=== PATIENT | female | born 1940 | race Caucasian/White ===

== ENCOUNTER → 2017-08-25 08:06 | Outpatient (CLI) | payer OTHER, SELFPAY | PROVIDERS: PCP Internal Medicine; Visit Provider Internal Medicine | DX: E03.9 Hypothyroidism, unspecified (principal); E78.2 Mixed hyperlipidemia; I10 Essential (primary) hypertension | CPT/HCPCS: 36415; 80053; 80061; 84439; 84443 ==

== ENCOUNTER 2017-09-18 07:59 | Day surgery (SDC) | payer OTHER, SELFPAY ==
[2017-08-25 10:04] LABS: Alanine Aminotransferase 29 IU/L (9-52); Albumin Globulin Ratio 1.5 (1.0-2.8); Alkaline Phosphatase 101 U/L (38-126); Aspartate Aminotransferase 30 IU/L (14-36); BUN Creatinine Ratio 27.1 (6-22); Bilirubin Total 0.5 mg/dL (0.2-1.3); Blood Urea Nitrogen 19 mg/dL (7-17); Calcium 9.7 mg/dL (8.4-10.2); Carbon Dioxide 29 mmol/L (22-32); Chloride 98 mmol/L (98-107); Cholesterol 196 mg/dL (140-199); Estimated Glomerular Filt Rate > 60.0 mL/min (>60); Globulin 2.6 g/dL (1.7-4.1); Glucose 96 mg/dL (80-110); HDL Cholesterol 60 mg/dL (40-60); HEMOLYSIS < 15 (0-50); LDL Cholesterol Calculated 117 mg/dL (<100); Potassium 4.2 mmol/L (3.4-5.1); Sodium 137 mmol/L (137-145); Total Protein 6.6 g/dL (6.3-8.2); Triglycerides 97 mg/dL (35-150)
[2017-08-25 10:37] LABS: Thyroid Stimulating Hormone 0.53 uIU/mL (0.47-4.68)
--- NOTE | 2017-09-18 | PATH_ITS ---
[facility] Accession Number: [id number] . 01 Material submitted: . SIGMOID POLYP AT 20 . 02 Diagnosis: Sigmoid Colon Polyp At 20 CM: Hyperplastic polyp. I/09/19/2017 . 02 Electronically signed: . Mayank Portillo MD, PhD, Pathologist NPI- [id number] . 01 Gross description: . Received in one formalin-filled container, labeled with the patient's name, labeled sigmoid polyp at 20, are four 0.1-0.3 cm portions of tissue, entirely submitted in one cassette. ([id number]) /FRR . 02 Pathologist provided ICD-10: K63.5 . 02 CPT . 933262 Performed at: [address] [facility] [address] [place] [address], [place], [place] [id number] MD Jeffery Hernandes MD Phone: [phone] Performed at: 02 [facility] [address] [place], [place] [id number] MD Kike Wise MD Phone: [phone]
[2017-09-18 08:51] VITALS: BP 139/63; PULSE 67; RESP 15; TEMP 36.1; O2SAT 95
[2017-09-18] MEDS: SODIUM CHLORIDE 0.9% 1,000 ML 21 ML IV (08:53)
--- NOTE | 2017-09-18 09:08 | PM.HP.1 ---
History of Present Illness Date Patient Seen: 09/18/17 Time Patient Seen: 09:08 Chief complaint: colonoscopy 20118 Narrative: 77-year-old female who recently presented to her family physician for overall healthcare. She has never had any type of colorectal screening examination. She therefore completed a FIT test which returned positive. She denies any gastrointestinal symptoms. No nausea, vomiting, loss of appetite, unexplained weight loss, abdominal pain, change in bowel habits, diarrhea, constipation, melena, hematochezia, or bright red blood per rectum. Patient History Medical History Acquired hypothyroidism (Chronic) Mixed hyperlipidemia (Chronic) Essential hypertension (Chronic) Hyperlipidemia (Chronic) Hypertension (Chronic) Hypothyroidism (Chronic) Surgical History H/O ventral hernia repair (Acute) Family & Social History Family History: Reviewed 09/18/17 by Tariq Lynne MD Social History: household members spouse Tobacco & Substance use: Smoking Status Former smoker Med Home Medications Medication Instructions Recorded Confirmed Type ASPIRIN (#ASPIRIN) 325 mg PO Q DAY #0 01/27/11 09/18/17 History GLUCOSAMINE/CHONDROITIN SULF A 1 cap PO Q DAY #0 01/27/11 09/18/17 History (Glucosamine-Chondroitin Cap) multivitamin [Multiple Vitamins] 1 tab PO QDAY #0 01/27/11 09/18/17 History [RAJANI-C] 500 mg PO QDAY #0 03/17/17 09/18/17 History amlodipine 5 mg tablet 5 mg PO QDAY #90 tab 08/28/17 09/18/17 Rx hydrochlorothiazide 25 mg tablet 25 mg PO DAILY #90 tab 08/28/17 09/18/17 Rx levothyroxine 137 mcg tablet 137 mcg PO QDAY #90 tab 08/28/17 09/18/17 Rx lisinopril 40 mg tablet 40 mg PO Q DAY #90 tab 08/28/17 09/18/17 Rx omeprazole 20 mg capsule,delayed 20 mg PO DAILY 08/28/17 09/18/17 History release meclizine 25 mg PO DAILY PRN 09/18/17 09/18/17 History Allergies Allergy/AdvReac Type Severity Reaction Status Date / Time Penicillins Allergy Mild FACE Verified 08/28/17 09:53 SWELLING ranitidine [RANITIDINE] AdvReac Intermediate abd Verified 08/28/17 09:53 pain/anorexia Review of Systems Review of Systems Review of systems as documented on June 15, 2017 in her original history physical examination have not changed. All systems reviewed & are unremarkable except as noted in HPI and below Exam Vital Signs (past 8 hours): - 09/18/17 08:51 Temperature 96.9 F L Pulse Rate 67 Respiratory Rate 15 Blood Pressure 139/63 H Pulse Oximetry 95 Oxygen Delivery Method Room Air Narrative Exam Narrative: Well-nourished well-developed female in no acute distress lying comfortably in the gurney. Alert orient x3. Neck is supple Regular rate rhythm. Chest clear to auscultation. Abdomen soft, nondistended, nontender, no masses Extremities show no clubbing or cyanosis Objective Labs Result Diagrams: 08/25/17 09:02 Labs: No recent radiographic studies for review Assessment & Plan (1) Positive FIT (fecal immunochemical test): Current visit: Yes Status: Acute Plan: Assessment/Plan Narrative: 77-year-old female with recent positive stool Hemoccult test. She has never had any type of colorectal screening examination as well. Colonoscopy is again recommended. Technical details of the procedure were discussed. Risks, benefits, alternatives were explained. Risks including but not limited to sedation, aspiration, bleeding, pain, missed lesion, incomplete examination, need for further radiographic studies, colonic perforation, need for major abdominal surgery, and all attendant risks of major surgery were explained in detail. All questions were answered to her satisfaction, and she voiced understanding. Consent was placed on the chart. We will proceed with colonoscopy as above.
--- NOTE | 2017-09-18 09:12 | PM.PREOP ---
Pre-operative Note Interval Note Pre-op Check: History & Physical Reviewed by Physician, Exam Performed and History & Physical exam performed today H&P completed within 30 days and has changed as indicated here:: History physical examination performed again today. No changes since her initial exam of June 15, 2017. Updated H and P on chart today. Proceed with colonoscopy as planned. ASA Class (for procedural sedation): II
[2017-09-18] MEDS: fentaNYL 250 MCG/5 ML INJ IV (09:25)
[2017-09-18] MEDS: MIDAZOLAM 5 MG/5 ML VIAL IV (09:25)
--- NOTE | 2017-09-18 09:43 | PM.OP.ENDO ---
Operative Date/Time/Diagnoses - Date of procedure: 09/18/17 Time of procedure: 09:43 Pre-op diagnosis: Hemoccult-positive stool Post-op diagnosis: other (Diverticulosis and single sigmoid polyp) Procedure & Clinicians Study performed: 1. Sedation per surgeon 2. Colonoscopy with cold forceps polypectomy Same procedure as scheduled: Yes Indications: 77-year-old female who recently presented with Hemoccult-positive test. She has never had any type of colorectal examination including endoscopy. Therefore colonoscopy is currently recommended. Surgeon: Tariq Lynne Procedure Notes SCOAP/Timeout: Yes Procedure in detail: After obtaining informed consent, the patient was brought to the GI suite and placed in the left lateral decubitus position on the examination table. After placement of appropriate monitors, the patient was given incremental doses of Versed and Fentanyl until an appropriate level of sedation was achieved. A time out was held per SCOAP protocol. A digital rectal examination was performed and did not reveal any masses or obstructing lesions. The colonoscope was gently passed into the patient's anus and the entire colon navigated to the level of the cecum with minimal difficulty. Once in the cecum, the scope was withdrawn being sure to go before and beyond all mucosal folds and prominences and get an excellent examination. The findings are noted above. At the level of the rectal vault, the scope was retroflexed and the internal anal canal was examined. The scope was straightened and air aspirated from the colon. The instrument was removed from the patient's body and the procedure was concluded. The patient was allowed to awaken from sedation without difficulty and taken to the post-anesthesia care unit in good condition. Scope withdrawal time: 9:26 min Sedation minutes: 20 Findings: diverticulosis and polyp (Sigmoid colon at 20 cm) Specimen(s): other (Sigmoid colon polyp at 20 cm) Complications: none Recommendations: High fiber diet, Will call with biopsy results and Other recommendation (Follow-up endoscopy, if any, pending biopsy results) Plan for aftercare: 1. Discharge to home Follow up: as needed Disposition: PACU
[2017-09-18 09:52] VITALS: BP 95/59; PULSE 70; RESP 15; TEMP 36.2; O2SAT 96
[2017-09-18 10:16] VITALS: BP 137/73; PULSE 64; RESP 16; TEMP 36.2; O2SAT 96
== END 2017-09-18 10:15 | disposition home or self-care (01) ==
PROVIDERS: Family Provider Internal Medicine; PCP Internal Medicine; Visit Provider Surgery
PROC: 0DJD8ZZ Inspection of Lower Intestinal Tract, Via Natural or Artificial Opening Endoscopic (ICD-10-PCS; CPT 45378; principal; 2017-09-18 09:45)
DX: R19.5 Other fecal abnormalities (principal); K57.30 Diverticulosis of large intestine without perforation or abscess without bleeding; D12.5 Benign neoplasm of sigmoid colon; E03.9 Hypothyroidism, unspecified; E78.5 Hyperlipidemia, unspecified; I10 Essential (primary) hypertension; Z87.891 Personal history of nicotine dependence
CPT/HCPCS: 45380; 36415; 80053; 80061; 84439; 84443; 99152; J2250; J3010

== ENCOUNTER → 2017-12-29 07:50 | Outpatient (CLI) | payer OTHER, SELFPAY ==
[2017-12-29 08:29] LABS: Alanine Aminotransferase 31 IU/L (9-52); Albumin 4.3 g/dL (3.5-5.0); Albumin Globulin Ratio 1.8 (1.0-2.8); Alkaline Phosphatase 90 U/L (38-126); Aspartate Aminotransferase 31 IU/L (14-36); BUN Creatinine Ratio 28.8 (6-22); Bilirubin Total 0.6 mg/dL (0.2-1.3); Blood Urea Nitrogen 23 mg/dL (7-17); Calcium 9.7 mg/dL (8.4-10.2); Carbon Dioxide 28 mmol/L (22-32); Chloride 101 mmol/L (98-107); Cholesterol 210 mg/dL (140-199); Estimated Glomerular Filt Rate > 60.0 mL/min (>60); Globulin 2.4 g/dL (1.7-4.1); Glucose 100 mg/dL (80-110); HDL Cholesterol 72 mg/dL (40-60); HEMOLYSIS < 15 (0-50); LDL Cholesterol Calculated 122 mg/dL (<100); Sodium 138 mmol/L (137-145); Total Protein 6.7 g/dL (6.3-8.2); Triglycerides 80 mg/dL (35-150)
[2017-12-29 08:44] LABS: Free T4, Direct Thyroxine 1.31 ng/dL (0.78-2.19)
[2017-12-29 08:58] LABS: Thyroid Stimulating Hormone 1.92 uIU/mL (0.47-4.68)
== END ==
PROVIDERS: PCP Internal Medicine; Visit Provider Internal Medicine
DX: E03.9 Hypothyroidism, unspecified (principal); E78.2 Mixed hyperlipidemia; I10 Essential (primary) hypertension
CPT/HCPCS: 36415; 80053; 80061; 84439; 84443

== ENCOUNTER → 2018-03-11 09:58 | Outpatient (CLI) | payer OTHER, SELFPAY ==
--- NOTE | 2018-03-11 | DI.RAD.S_ITS ---
PROCEDURE: XR CERVICAL SPINE 2V OR 3V INDICATIONS: MILD NECK PAIN, PARATHESIA left arm TECHNIQUE: 3 view(s) of the cervical spine were acquired. COMPARISON: None. FINDINGS: Bones: There is straightening of normal cervical lordosis. No acute compression fracture or traumatic spondylolisthesis. Degenerative disc disease in bilateral uncinate hypertrophic changes wall lumbar spine is seen more prominent at C4-5 and C5-6 levels. The lateral masses of C1 appear intact on the odontoid view. No suspicious bony lesions. Soft tissues: No prevertebral soft tissue swelling. IMPRESSION: No acute compression fracture or traumatic spondylolisthesis. Degenerative disc disease throughout cervical spine more prominent at C4-5 and C5-6 levels. Dictated by: Samuel Cox M.D. on 03/11/2018 at 11:09 Approved by: Samuel Cox M.D. on 03/11/2018 at 11:10
== END ==
PROVIDERS: Family Provider Internal Medicine; PCP Internal Medicine; Visit Provider Chiropractor
DX: M50.321 Other cervical disc degeneration at C4-C5 level (principal); R20.2 Paresthesia of skin
CPT/HCPCS: 72040

== ENCOUNTER → 2018-08-06 07:39 | Outpatient (CLI) | payer OTHER, SELFPAY ==
[2018-08-06 10:04] LABS: Alanine Aminotransferase 17 IU/L (9-52); Albumin 3.8 g/dL (3.5-5.0); Albumin Globulin Ratio 1.5 (1.0-2.8); Alkaline Phosphatase 85 U/L (38-126); Aspartate Aminotransferase 28 IU/L (14-36); BUN Creatinine Ratio 38.9 (6-22); Bilirubin Total 0.4 mg/dL (0.2-1.3); Blood Urea Nitrogen 35 mg/dL (7-17); Calcium 9.2 mg/dL (8.4-10.2); Carbon Dioxide 26 mmol/L (22-32); Chloride 99 mmol/L (98-107); Cholesterol 216 mg/dL (140-199); Estimated Glomerular Filt Rate > 60.0 mL/min (>60); Globulin 2.6 g/dL (1.7-4.1); Glucose 86 mg/dL (80-110); HDL Cholesterol 63 mg/dL (40-60); HEMOLYSIS < 15 (0-50); LDL Cholesterol Calculated 136 mg/dL (<100); Potassium 4.3 mmol/L (3.4-5.1); Sodium 135 mmol/L (137-145); Total Protein 6.4 g/dL (6.3-8.2); Triglycerides 85 mg/dL (35-150)
[2018-08-06 10:17] LABS: Free T4, Direct Thyroxine 1.11 ng/dL (0.78-2.19)
[2018-08-06 10:31] LABS: Thyroid Stimulating Hormone 8.11 uIU/mL (0.47-4.68)
== END ==
PROVIDERS: PCP Internal Medicine; Visit Provider Internal Medicine
DX: E03.9 Hypothyroidism, unspecified (principal); E78.2 Mixed hyperlipidemia; I10 Essential (primary) hypertension
CPT/HCPCS: 36415; 80053; 80061; 84439; 84443

== ENCOUNTER → 2019-04-04 08:16 | Outpatient (CLI) | payer OTHER, SELFPAY ==
[2019-04-04 10:23] LABS: Alanine Aminotransferase 21 IU/L (<35); Albumin 4.2 g/dL (3.5-5.0); Albumin Globulin Ratio 1.9 (1.0-2.8); Alkaline Phosphatase 91 U/L (38-126); Aspartate Aminotransferase 34 IU/L (14-36); BUN Creatinine Ratio 36.3 (6-22); Bilirubin Total 0.5 mg/dL (0.2-1.3); Blood Urea Nitrogen 29 mg/dL (7-17); Calcium 10.1 mg/dL (8.4-10.2); Carbon Dioxide 27 mmol/L (22-32); Chloride 95 mmol/L (98-107); Cholesterol 219 mg/dL (140-199); Estimated Glomerular Filt Rate > 60.0 mL/min (>60); Globulin 2.2 g/dL (1.7-4.1); Glucose 98 mg/dL (80-110); HDL Cholesterol 57 mg/dL (40-60); HEMOLYSIS < 15 (0-50); LDL Cholesterol Calculated 140 mg/dL (<100); Potassium 4.6 mmol/L (3.4-5.1); Sodium 132 mmol/L (137-145); Total Protein 6.4 g/dL (6.3-8.2); Triglycerides 108 mg/dL (35-150)
[2019-04-04 10:36] LABS: Free T4, Direct Thyroxine 1.37 ng/dL (0.78-2.19)
[2019-04-04 10:49] LABS: Thyroid Stimulating Hormone 3.69 uIU/mL (0.47-4.68)
== END ==
PROVIDERS: PCP Internal Medicine; Visit Provider Internal Medicine
DX: E03.9 Hypothyroidism, unspecified (principal); E78.2 Mixed hyperlipidemia; I10 Essential (primary) hypertension
CPT/HCPCS: 36415; 80053; 80061; 84439; 84443

== ENCOUNTER → 2019-05-15 09:23 | Outpatient (CLI) | payer OTHER, SELFPAY ==
--- NOTE | 2019-05-15 09:24 | DI.RAD.S_ITS ---
PROCEDURE: XR WRIST RT MIN 3V INDICATIONS: right wrist pain and swelling TECHNIQUE: 4 views of the wrist were acquired. COMPARISON: None. FINDINGS: Bones: No fractures or dislocations. No suspicious bony lesions. Scaphoid view: No trauma to scaphoid is found but degenerative osteoarthritic change is relatively prominent as the scaphoid articulates against the base of the trapezium. Soft tissues: No suspicious soft tissue calcifications. IMPRESSION: No trauma found, mild osteoarthritic change but no acute disease. Dictated by: Toni An M.D. on 05/15/2019 at 10:39 Approved by: Toni An M.D. on 05/15/2019 at 10:40
== END ==
PROVIDERS: PCP Internal Medicine; Referring Provider Nurse Practitioner Family; Visit Provider Nurse Practitioner Family
DX: M25.531 Pain in right wrist (principal); M25.431 Effusion, right wrist
CPT/HCPCS: 73110

== ENCOUNTER → 2020-01-03 11:47 | Outpatient (CLI) | payer MEDICARE, SELFPAY ==
[2020-01-03 12:13] LABS: Add Manual Diff / Slide Review NO; Basophils Absolute Auto 100 /uL (0-100); Eosinophils Absolute Auto 600 /uL (0-450); Eosinophils Percent Auto 8.1 % (2-4); Hematocrit 40.3 % (36-46); Hemoglobin 13.5 g/dL (12.0-16.0); Lymphocytes Absolute Auto 1500 /uL (1100-4500); Lymphocytes Percent Auto 20.1 % (25-40); Mean Corpuscular HGB Conc 33.4 % (30-36); Mean Corpuscular Volume 92.7 fL (80-100); Monocytes Absolute Auto 700 /uL (0-900); Monocytes Percent Auto 9.4 % (3-14); Neutrophils Absolute Auto 4700 /uL (1500-7000); Neutrophils Percent Auto 61.4 % (50-75); Platelet Count 347 X10^3/uL (150-400); Red Blood Cell Count 4.35 X10^6/uL (4.0-5.2); Red Cell Distribution Width 13.8 % (11.6-14.8); White Blood Cell Count 7.6 X10^3/uL (4.5-11.0)
[2020-01-03 12:27] LABS: Erythrocyte Sedimentation Rate 11 MM/HR (0-20)
[2020-01-03 14:02] LABS: Alanine Aminotransferase 20 IU/L (<35); Albumin 4.4 g/dL (3.5-5.0); Albumin Globulin Ratio 1.8 (1.0-2.8); Alkaline Phosphatase 117 U/L (38-126); Aspartate Aminotransferase 34 IU/L (14-36); BUN Creatinine Ratio 23.7 (6-22); Bilirubin Total 0.5 mg/dL (0.2-1.3); Blood Urea Nitrogen 14 mg/dL (7-17); C-Reactive Protein Quant 1.4 mg/dL (<1.0); Calcium 9.9 mg/dL (8.4-10.2); Carbon Dioxide 25 mmol/L (22-32); Chloride 92 mmol/L (98-107); Estimated Glomerular Filt Rate > 60.0 mL/min (>60); Globulin 2.5 g/dL (1.7-4.1); Glucose 93 mg/dL (80-110); HEMOLYSIS < 15 (0-50); Potassium 4.5 mmol/L (3.4-5.1); Sodium 128 mmol/L (137-145); Total Protein 6.9 g/dL (6.3-8.2)
[2020-01-03 14:14] LABS: Free T4, Direct Thyroxine 1.25 ng/dL (0.78-2.19)
[2020-01-03 14:28] LABS: Thyroid Stimulating Hormone 6.71 uIU/mL (0.47-4.68)
== END ==
PROVIDERS: PCP Internal Medicine; Referring Provider Internal Medicine; Visit Provider Internal Medicine
DX: E03.9 Hypothyroidism, unspecified (principal); E78.2 Mixed hyperlipidemia; I10 Essential (primary) hypertension; R21 Rash and other nonspecific skin eruption
CPT/HCPCS: 36415; 80053; 84439; 84443; 85025; 85651; 86140

== ENCOUNTER → 2020-07-28 15:01 | Outpatient (CLI) | payer OTHER, SELFPAY ==
[2020-07-28 16:44] LABS: Add Manual Diff / Slide Review NO; Basophils Absolute Auto 100 /uL (0-100); Basophils Percent Auto 1.2 % (0-2); Eosinophils Absolute Auto 400 /uL (0-450); Eosinophils Percent Auto 6.9 % (2-4); Hematocrit 38.4 % (36-46); Hemoglobin 13.1 g/dL (12.0-16.0); Lymphocytes Absolute Auto 1000 /uL (1100-4500); Lymphocytes Percent Auto 18.6 % (25-40); Mean Corpuscular HGB Conc 34.2 % (30-36); Mean Corpuscular Hemoglobin 31.8 PG (26-34); Mean Corpuscular Volume 92.9 fL (80-100); Monocytes Absolute Auto 700 /uL (0-900); Monocytes Percent Auto 11.8 % (3-14); Neutrophils Absolute Auto 3400 /uL (1500-7000); Neutrophils Percent Auto 61.5 % (50-75); Platelet Count 341 X10^3/uL (150-400); Red Blood Cell Count 4.13 X10^6/uL (4.0-5.2); Red Cell Distribution Width 13.5 % (11.6-14.8); White Blood Cell Count 5.6 X10^3/uL (4.5-11.0)
[2020-07-28 17:18] LABS: Alanine Aminotransferase 16 IU/L (<35); Albumin Globulin Ratio 1.7 (1.0-2.8); Alkaline Phosphatase 110 U/L (38-126); Aspartate Aminotransferase 32 IU/L (14-36); Bilirubin Total 0.3 mg/dL (0.2-1.3); Blood Urea Nitrogen 22 mg/dL (7-17); Calcium 9.9 mg/dL (8.4-10.2); Carbon Dioxide 27 mmol/L (22-32); Chloride 95 mmol/L (98-107); Estimated Glomerular Filt Rate > 60.0 mL/min (>60); Globulin 2.4 g/dL (1.7-4.1); Glucose 109 mg/dL (80-110); HEMOLYSIS < 15 (0-50); Potassium 4.2 mmol/L (3.4-5.1); Sodium 131 mmol/L (137-145); Total Protein 6.4 g/dL (6.3-8.2)
[2020-07-29 16:36] LABS: ANA Screen, IFA Negative (.)
== END ==
PROVIDERS: PCP Internal Medicine; Referring Provider Physician Assistant; Visit Provider Physician Assistant
DX: L30.9 Dermatitis, unspecified (principal)
CPT/HCPCS: 36415; 80053; 85025; 86038

== ENCOUNTER 2020-09-30 19:49 | Emergency (ER) | payer OTHER, SELFPAY ==
[2020-09-30 19:57] VITALS: BP 148/102; PULSE 87; RESP 20; TEMP 36.7; O2SAT 96
--- NOTE | 2020-09-30 20:00 | DI.RAD.S_ITS ---
PROCEDURE: XR WRIST LT MIN 3V INDICATIONS: fall TECHNIQUE: 4 views of the wrist were acquired. COMPARISON: [facility], CR, XR WRIST RT MIN 3V, 05/15/2019, 9:21. FINDINGS: Bones: Distal radial metaphyseal fracture, with intra-articular extension. 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 Ulnar styloid fracture also noted. Soft tissues: Associated soft tissue swelling. IMPRESSION: Distal radial metaphyseal fracture, with intra-articular extension. Ulnar styloid fracture. Dictated by: Deacon Easley M.D. on 09/30/2020 at 21:11 Approved by: Deacon aEsley M.D. on 09/30/2020 at 21:13
--- NOTE | 2020-09-30 21:36 | ED_ITS ---
HPI - Fall General Chief Complaint: Fall Stated Complaint: fall, left sided injuries Time Seen by Provider: 09/30/20 20:39 Source: patient Mode of arrival: Ambulatory History of Present Illness HPI Narrative: Patient is a 80-year-old female here for evaluation of injuries that she sustained that she slipped off of her porch earlier today and landed in her garden. Since that time she has had pain in her left wrist. She has been icing her left wrist however she continues to have some bruising. She also has some left-sided flank discomfort. She also sustained a cut to her head. There was no loss of consciousness. She is not on anticoagulation. She denies any neck pain. Denies any lower extremity discomfort. Related Data Home Medications Medication Instructions Recorded Confirmed ASPIRIN (#ASPIRIN) 325 mg PO Q DAY #0 01/27/11 01/03/20 GLUCOSAMINE/CHONDROITIN SULF A 1 cap PO Q DAY #0 01/27/11 01/03/20 (Glucosamine-Chondroitin Cap) multivitamin (Multiple Vitamins) 1 tab PO QDAY #0 01/27/11 01/03/20 [RAJANI-C] 500 mg PO QDAY #0 03/17/17 01/03/20 omeprazole 20 mg capsule,delayed 20 mg PO DAILY 08/28/17 01/03/20 release Previous Rx's Medication Instructions Recorded naproxen 500 mg tablet 500 mg PO BID #30 tab 05/15/19 amlodipine 5 mg tablet (Norvasc) 5 mg PO DAILY #90 tab 05/01/20 hydrochlorothiazide 25 mg tablet 25 mg PO DAILY #90 tab 05/01/20 levothyroxine 137 mcg tablet 137 mcg PO DAILY #90 tab 05/01/20 lisinopril 40 mg tablet 40 mg PO Q DAY #90 tab 05/01/20 prednisone 20 mg tablet See Rx Instructions PO .COMPLEX #8 07/06/20 tab Allergies Allergy/AdvReac Type Severity Reaction Status Date / Time Penicillins Allergy Mild FACE Verified 01/03/20 11:31 SWELLING ranitidine [RANITIDINE] AdvReac Intermediate abd Verified 01/03/20 11:31 pain/anorexia Review of Systems Constitutional Constitutional: Denies headache(s) Eyes Eyes: Reports system reviewed and no additional complaints, except as documented ENT Ears, Nose, Mouth, and Throat: Denies headache(s) Cardiovascular Cardiovascular: Reports system reviewed and no additional complaints, except as documented Respiratory Respiratory: Reports system reviewed and no additional complaints, except as documented Gastrointestinal Gastrointestinal: Reports system reviewed and no additional complaints, except as documented Genitourinary Genitourinary: Reports system reviewed and no additional complaints, except as documented Musculoskeletal Musculoskeletal: Reports as per HPI Integumentary/Breasts Comments: Cut to head Neurologic Neurologic: Denies headache(s) Psychiatric Psychiatric: Reports system reviewed and no additional complaints, except as documented Hematologic/Lymphatic On Anticoagulants: No Allergic/Immunologic Allergic/Immunologic: Reports system reviewed and no additional complaints, except as documented Patient History Medical History Acquired hypothyroidism Essential hypertension GERD (gastroesophageal reflux disease) Hyperlipidemia Hypertension Hypothyroidism Mixed hyperlipidemia Surgical History H/O ventral hernia repair Social History marital status: number of children: 3 household members: spouse lives independently: Yes caregiver/support person: No housing: house pets and animals: No education level: high school occupational status: other (Retired) 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, [employer] jair/alevism: [employer] leisure activities: art (Theater) and other (Gardening, Beach) Smoking Status: Former smoker Tobacco: How many years used: 10 Smokeless tobacco user: other (Cigarettes) quit status: quit date established (~1969) second hand exposure: No alcohol intake: current (Very Seldom, glass of wine once in awhile.) substance use type: does not use Smoking Status: Former smoker Exam Initial Vital Signs Initial Vital Signs: Vital Signs Temperature 98.1 F 09/30/20 19:57 Pulse Rate 87 09/30/20 19:57 Respiratory Rate 20 09/30/20 19:57 Blood Pressure 148/102 H 09/30/20 19:57 Pulse Oximetry 96 09/30/20 19:57 Const General: cooperative, healthy appearing, comfortable, well developed and well groomed [facility] Head: laceration (3 cm laceration left parietal/occipital region) Eyes General: appearance normal, both eyes and all related structures Chest Chest: normal inspection of the chest and No tenderness Resp Auscultation: clear to auscultation bilaterally Cardio Rate: regular rate Rhythm: regular rhythm Pulses: radial pulses present on the left GI Palpation: soft, No firm and No tender Back/Spine/Pelvis Cervical Spine: No cervical spinal tenderness Skin Other: Contusion left flank Neuro General: patient alert, patient awake and patient oriented x3 Extrem General: capillary refill normal Other: Bilateral lower extremities unremarkable. Patient has tenderness throughout the left wrist. Left hand is unremarkable. Psych Appearance: grossly normal and well kempt Procedures FAST Exam FAST Exam 1: Fluid in Morison's pouch: No Fluid in Splenorenal Junction: No Fluid around bladder, Transverse view: No Fluid around bladder, Sagittal view: No Fluid in Pericardial Sac: No Gross Wall Motion Abnormality: No Study normal for this patient: Yes Images saved for further review: No Laceration Repair Laceration 1: Site: scalp Side (If applicable): left Size (cm): 3 Description: linear Depth: simple, single layer Local Anesthetic: lidocaine 1% and with bicarb Amount of anesthesia used (mL): 6 Pre-repair: wound explored, irrigated extensively and deep structures intact Skin layer closed with: leno Orthopedic Splinting/Casting Injury #1: Side: left Upper Extremity Injury Location: wrist Upper Extremity Immobilizer: sugar tong splint Other Orthopedic Equipment: other (Sling) Scores GCS [place] coma scale eye opening: Spontaneous [place] coma scale verbal response: Orientated [place] coma scale motor response: Obey commands [place] coma scale total score: 15 Nexus Score for C-Spine Focal Neurologic deficit present: No Midline spinal tenderness present: No Altered level of conciousness present: No Intoxication present: No Distracting Injury Present: No Nexus Criteria for C-spine: 0 Course Orders Ordered: ED Orders 09/30/20 20:00 XR wrist LT min 3V Stat Discontinued Medications Bacitracin (Bacitracin Oint 0.9 Gm Pckt) 1 applic TOP NOW ONE Stop: 09/30/20 21:39 Last Admin: 09/30/20 23:07 Dose: Not Given Documented by: [email or web address] Lidocaine/Sodium Bicarbonate (Lido 1%/Sod Bicarb 8.4% (10ml) 10 Ml Syringe) 10 ml INJ NOW ONE Stop: 09/30/20 21:39 Last Admin: 09/30/20 23:07 Dose: 10 ml Documented by: [email or web address] Vital Signs Vital signs: Vital Signs - 8 hr 09/30/20 22:41 Pulse Rate 74 Respiratory Rate 14 Blood Pressure 167/73 H Pulse Oximetry 95 MDM - Fall Imaging Data Extremity x-ray #1: Radiologist's Impression: [facility] [place] [id number] ReportSigned Patient: Zainab López LMR#: [id number]: 2Acct:[id number]/Sex: 80 / FDate of Service: 09/30/20Loc: EDAccession Number: [id number] Procedure: XR wrist LT min 3V Ordering Provider: Richard Herrera D.O. PROCEDURE: XR WRIST LT MIN 3V INDICATIONS: fall TECHNIQUE: 4 views of the wrist were acquired. COMPARISON: [facility], CR, XR WRIST RT MIN 3V, 05/15/2019, 9:21. FINDINGS: Bones: Distal radial metaphyseal fracture, with intra-articular extension. 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 Ulnar styloid fracture also noted. Soft tissues: Associated soft tissue swelling. IMPRESSION: Distal radial metaphyseal fracture, with intra-articular extension. Ulnar styloid fracture. Dictated by: Deacon Easley M.D. on 09/30/2020 at 21:11 Approved by: Deacon Easley M.D. on 09/30/2020 at 21:13 [facility] Narrative Medical decision making narrative: Cervical spine cleared by nexus criteria. Scalp laceration closed as described above. Patient does have a fracture to the left wrist. She was informed the x-ray findings and was placed in a splint. She was given care instructions return precautions and follow-up instructions with regard to this. She does have bruising to her left flank. Her fast exam was negative and she has no abdominal tenderness and no shortness of breath. I feel that we can hold on any chest x-ray abdominal CT scan for now. This does appear to be a mechanical fall. Not on anticoagulation. She was given return precautions follow-up instructions. She expressed understanding agreement. Discharge Plan Departure Patient Disposition: Home Clinical Impression: Laceration of scalp, Fracture of wrist, Contusion of flank Instructions: Wrist Fracture, DI for Laceration Repair of the Scalp, How to Take Care of Your Splint Activity Restrictions/Additional Instructions: Tomorrow please contact the [facility] a [phone]. You will need to make a follow-up appointment with them in the next week for your wrist fracture. Until then the splint needs to stay on and stay clean and stay dry. With regard to the leno you can shower like normal. They will need to be removed in the next 10 days. You can contact your primary doctor to have this done. Return to the emergency department for any new or worsening symptoms Prescriptions: No Action ASPIRIN (#ASPIRIN) 325 mg PO Q DAY Qty: 0 RF: 0 multivitamin [Multiple Vitamins] 1 EACH tablet 1 tab PO QDAY Qty: 0 RF: 0 GLUCOSAMINE/CHONDROITIN SULF A (Glucosamine-Chondroitin Cap) 1 cap PO Q DAY Qty: 0 RF: 0 [RAJANI-C] 500 mg PO QDAY Qty: 0 RF: 0 amlodipine [Norvasc] 5 mg tablet 5 mg PO DAILY Qty: 90 RF: 2 Hold Instructions: patient request hydrochlorothiazide 25 mg tablet 25 mg PO DAILY Qty: 90 RF: 2 levothyroxine 137 mcg tablet 137 mcg PO DAILY Qty: 90 RF: 2 lisinopril 40 mg tablet 40 mg PO Q DAY Qty: 90 RF: 2 prednisone 20 mg tablet See Rx Instructions PO .COMPLEX Qty: 8 RF: 0 omeprazole 20 mg capsule,delayed release(DR/EC) 20 mg PO DAILY RF: 0 naproxen 500 mg tablet 500 mg PO BID Qty: 30 RF: 0 Referrals: Vini Teresa MD [Primary Care Provider] - Lissette Curry MD [Physician] -
[2020-09-30 22:41] VITALS: BP 167/73; PULSE 74; RESP 14; O2SAT 95
[2020-09-30] MEDS: LIDO 1%/SOD BICARB 8.4% (10ML) 10 ML SYRINGE INJ (23:07)
== END 2020-09-30 23:09 | disposition home or self-care (01) ==
PROVIDERS: Emergency Provider Emergency Medicine; PCP Internal Medicine
DX: S59.202A Unspecified physeal fracture of lower end of radius, left arm, initial encounter for closed fracture (principal); S01.01XA Laceration without foreign body of scalp, initial encounter; S30.1XXA Contusion of abdominal wall, initial encounter; W17.89XA Other fall from one level to another, initial encounter
CPT/HCPCS: 12032; 73110; 99283

== ENCOUNTER → 2020-10-22 09:54 | Outpatient (CLI) | payer OTHER, SELFPAY ==
[2020-10-22 11:33] LABS: BUN Creatinine Ratio 26.8 (6-22); Blood Urea Nitrogen 22 mg/dL (7-17); Carbon Dioxide 27 mmol/L (22-32); Chloride 96 mmol/L (98-107); Estimated Glomerular Filt Rate > 60.0 mL/min (>60); Glucose 103 mg/dL (80-110); HEMOLYSIS < 15 (0-50); Potassium 4.1 mmol/L (3.4-5.1); Sodium 132 mmol/L (137-145)
== END ==
PROVIDERS: PCP Internal Medicine; Referring Provider Internal Medicine; Visit Provider Internal Medicine
DX: I10 Essential (primary) hypertension (principal); R60.9 Edema, unspecified
CPT/HCPCS: 36415; 80048; 83735

== ENCOUNTER → 2021-01-18 09:47 | Outpatient (CLI) | payer OTHER, SELFPAY ==
[2021-01-18 12:03] LABS: Alanine Aminotransferase 15 IU/L (<35); Albumin 4.1 g/dL (3.5-5.0); Albumin Globulin Ratio 1.6 (1.0-2.8); Alkaline Phosphatase 104 U/L (38-126); Aspartate Aminotransferase 28 IU/L (14-36); BUN Creatinine Ratio 21.7 (6-22); Bilirubin Total 0.2 mg/dL (0.2-1.3); Blood Urea Nitrogen 18 mg/dL (7-17); Carbon Dioxide 29 mmol/L (22-32); Chloride 99 mmol/L (98-107); Estimated Glomerular Filt Rate > 60.0 mL/min (>60); Globulin 2.5 g/dL (1.7-4.1); Glucose 105 mg/dL (80-110); HEMOLYSIS < 15 (0-50); Potassium 4.4 mmol/L (3.4-5.1); Sodium 136 mmol/L (137-145); Total Protein 6.6 g/dL (6.3-8.2)
[2021-01-18 12:17] LABS: Free T4, Direct Thyroxine 1.86 ng/dL (0.78-2.19)
[2021-01-18 12:31] LABS: Thyroid Stimulating Hormone 0.595 uIU/mL (0.47-4.68)
== END ==
PROVIDERS: PCP Internal Medicine; Referring Provider Internal Medicine; Visit Provider Internal Medicine
DX: E03.9 Hypothyroidism, unspecified (principal); E78.2 Mixed hyperlipidemia; I10 Essential (primary) hypertension
CPT/HCPCS: 36415; 80053; 84439; 84443

== ENCOUNTER → 2021-05-15 10:49 | Outpatient (CLI) | payer OTHER, SELFPAY ==
[2021-05-15 13:08] LABS: Alanine Aminotransferase 15 IU/L (<35); Albumin 4.1 g/dL (3.5-5.0); Albumin Globulin Ratio 1.7 (1.0-2.8); Alkaline Phosphatase 82 U/L (38-126); Aspartate Aminotransferase 28 IU/L (14-36); BUN Creatinine Ratio 24.7 (6-22); Bilirubin Total 0.5 mg/dL (0.2-1.3); Blood Urea Nitrogen 20 mg/dL (7-17); Calcium 9.8 mg/dL (8.4-10.2); Carbon Dioxide 30 mmol/L (22-32); Chloride 103 mmol/L (98-107); Estimated Glomerular Filt Rate > 60.0 mL/min (>60); Globulin 2.4 g/dL (1.7-4.1); Glucose 99 mg/dL (80-110); HEMOLYSIS < 15 (0-50); Potassium 4.6 mmol/L (3.4-5.1); Sodium 138 mmol/L (137-145); Total Protein 6.5 g/dL (6.3-8.2)
== END ==
PROVIDERS: PCP Internal Medicine; Referring Provider Internal Medicine; Visit Provider Internal Medicine
DX: I10 Essential (primary) hypertension (principal); E03.9 Hypothyroidism, unspecified; R60.9 Edema, unspecified
CPT/HCPCS: 36415; 80053

== ENCOUNTER → 2022-02-07 07:02 | Outpatient (CLI) | payer OTHER, SELFPAY ==
[2022-02-07 10:01] LABS: Alanine Aminotransferase 19 IU/L (<35); Albumin 3.8 g/dL (3.5-5.0); Albumin Globulin Ratio 1.6 (1.0-2.8); Alkaline Phosphatase 95 U/L (38-126); Aspartate Aminotransferase 26 IU/L (14-36); BUN Creatinine Ratio 22.8 (6-22); Bilirubin Total 0.4 mg/dL (0.2-1.3); Blood Urea Nitrogen 21 mg/dL (7-17); Calcium 9.5 mg/dL (8.4-10.2); Carbon Dioxide 27 mmol/L (22-32); Chloride 98 mmol/L (98-107); Estimated Glomerular Filt Rate > 60 mL/min (>60); Globulin 2.4 g/dL (1.7-4.1); Glucose 85 mg/dL (80-110); HEMOLYSIS < 15 (0-50); Potassium 4.3 mmol/L (3.4-5.1); Sodium 136 mmol/L (137-145); Total Protein 6.2 g/dL (6.3-8.2)
[2022-02-07 10:04] LABS: Free T4, Direct Thyroxine 1.58 ng/dL (0.78-2.19)
[2022-02-07 10:19] LABS: Thyroid Stimulating Hormone 0.236 uIU/mL (0.47-4.68)
== END ==
PROVIDERS: PCP Internal Medicine; Referring Provider Internal Medicine; Visit Provider Internal Medicine
DX: I10 Essential (primary) hypertension (principal); E03.9 Hypothyroidism, unspecified; E78.2 Mixed hyperlipidemia
CPT/HCPCS: 36415; 80053; 84439; 84443

== ENCOUNTER → 2023-02-06 07:03 | Outpatient (CLI) | payer OTHER, SELFPAY ==
[2023-02-06 08:20] LABS: Alanine Aminotransferase 15 IU/L (<35); Albumin 3.6 g/dL (3.5-5.0); Albumin Globulin Ratio 1.4 (1.0-2.8); Alkaline Phosphatase 89 U/L (38-126); Aspartate Aminotransferase 26 IU/L (14-36); BUN Creatinine Ratio 27.8 (6-22); Bilirubin Total 0.4 mg/dL (0.2-1.3); Blood Urea Nitrogen 27 mg/dL (7-17); Calcium 9.5 mg/dL (8.4-10.2); Carbon Dioxide 26 mmol/L (22-32); Chloride 101 mmol/L (98-107); Cholesterol 179 mg/dL (140-199); Estimated Glomerular Filt Rate 59 mL/min (>60); Globulin 2.5 g/dL (1.7-4.1); Glucose 103 mg/dL (80-110); HDL Cholesterol 61 mg/dL (40-60); HEMOLYSIS < 15 (0-50); LDL Cholesterol Calculated 96 mg/dL (<100); Sodium 136 mmol/L (137-145); Total Protein 6.1 g/dL (6.3-8.2); Triglycerides 112 mg/dL (35-150)
[2023-02-06 08:36] LABS: Free T4, Direct Thyroxine 1.33 ng/dL (0.78-2.19)
[2023-02-06 08:50] LABS: Thyroid Stimulating Hormone 0.459 uIU/mL (0.47-4.68)
== END ==
PROVIDERS: PCP Internal Medicine; Referring Provider Internal Medicine; Visit Provider Internal Medicine
DX: I10 Essential (primary) hypertension (principal); E78.2 Mixed hyperlipidemia; E03.9 Hypothyroidism, unspecified
CPT/HCPCS: 36415; 80053; 80061; 84439; 84443

== ENCOUNTER → 2023-04-26 16:26 | Outpatient (CLI) | payer OTHER, SELFPAY ==
[2023-04-26 17:53] LABS: Add Manual Diff / Slide Review NO; Basophils Absolute Auto 100 /uL (0-100); Basophils Percent Auto 0.9 % (0-2); Eosinophils Absolute Auto 500 /uL (0-450); Eosinophils Percent Auto 5.8 % (2-4); Hematocrit 29.5 % (36-46); Hemoglobin 10.1 g/dL (12.0-16.0); Lymphocytes Absolute Auto 1400 /uL (1100-4500); Lymphocytes Percent Auto 15.4 % (25-40); Mean Corpuscular HGB Conc 34.2 % (30-36); Mean Corpuscular Hemoglobin 31.2 PG (26-34); Mean Corpuscular Volume 91.1 fL (80-100); Monocytes Absolute Auto 800 /uL (0-900); Monocytes Percent Auto 8.4 % (3-14); Neutrophils Absolute Auto 6300 /uL (1500-7000); Neutrophils Percent Auto 69.5 % (50-75); Platelet Count 448 X10^3/uL (150-400); Red Blood Cell Count 3.24 X10^6/uL (4.0-5.2); Red Cell Distribution Width 13.5 % (11.6-14.8)
[2023-04-26 18:28] LABS: Alanine Aminotransferase 13 IU/L (<35); Albumin 3.8 g/dL (3.5-5.0); Albumin Globulin Ratio 1.4 (1.0-2.8); Alkaline Phosphatase 86 U/L (38-126); Aspartate Aminotransferase 31 IU/L (14-36); BUN Creatinine Ratio 17.7 (6-22); Bilirubin Total 0.4 mg/dL (0.2-1.3); Blood Urea Nitrogen 17 mg/dL (7-17); Calcium 10.1 mg/dL (8.4-10.2); Carbon Dioxide 30 mmol/L (22-32); Chloride 95 mmol/L (98-107); Estimated Glomerular Filt Rate 59 mL/min (>60); Globulin 2.7 g/dL (1.7-4.1); Glucose 113 mg/dL (80-110); HEMOLYSIS < 15 (0-50); Lipase 133 U/L (23-300); Sodium 132 mmol/L (137-145); Total Protein 6.5 g/dL (6.3-8.2)
[2023-04-26 18:36] LABS: Free T4, Direct Thyroxine 1.58 ng/dL (0.78-2.19)
[2023-04-26 18:50] LABS: Thyroid Stimulating Hormone 0.143 uIU/mL (0.47-4.68)
== END ==
PROVIDERS: PCP Internal Medicine; Referring Provider Physician Assistant; Visit Provider Physician Assistant
DX: R10.9 Unspecified abdominal pain (principal)
CPT/HCPCS: 36415; 80053; 83690; 84439; 84443; 85025

== ENCOUNTER 2023-04-28 12:30 | Inpatient (IN) | payer OTHER, SELFPAY ==
[2023-04-28] VITALS (56 sets, daily range): BP systolic 119–183; BP diastolic 65–82; PULSE 66–109; RESP 13–30; TEMP 35.9–36.7; O2SAT 82–99; BMI 26.6; BMI 27.2
--- NOTE | 2023-04-28 12:57 | ED_ITS ---
HPI - Abdominal Pain <Lenny Crouch PA-C - Last Filed: 04/28/23 19:40> General Chief Complaint: Abdominal Pain Stated Complaint: abdominal discomfort Time Seen by Provider: 04/28/23 12:46 Source: patient and family Mode of arrival: Ambulatory History of Present Illness HPI narrative: This is a 83-year-old female presents emergency department due to nausea for the last 2-3 weeks. She states that anything she was a attempts to eat or drink? just comes back up?. She denies any abdominal pain although she admits that she has a high pain tolerance. She also states that she was not had a bowel movement in 2 weeks although she was not feel the urge to have a bowel movement. Patient was seen at the [facility] ER yesterday and was told she had an ovarian cyst as well as gastritis and instructed to follow up with GI for endoscopy. She has a history of hypothyroidism and hypertension. She states that she was told by her primary care doctor that she was taking too much of her thyroid medication and told to stop. Reports increased fatigue with routine movements and ADLs. Patient does report some red/orange stools when she did have bowel movement about 2 weeks ago. Related Data Home Medications Medication Instructions Recorded Confirmed ASPIRIN (#ASPIRIN) 325 mg PO Q DAY ##0 01/27/11 04/26/23 GLUCOSAMINE/CHONDROITIN SULF A 1 cap PO Q DAY ##0 01/27/11 04/26/23 (Glucosamine-Chondroitin Cap) multivitamin (Multiple Vitamins 1 tab PO QDAY ##0 01/27/11 04/26/23 tablet) [RAJANI-C] 500 mg PO QDAY ##0 03/17/17 04/26/23 Previous Rx's Medication Instructions Recorded furosemide 20 mg tablet 60 mg (3 x 20 mg) PO DAILY #270 10/03/22 tabs amlodipine 5 mg tablet (Norvasc) 5 mg PO DAILY #90 tabs 02/27/23 levothyroxine 137 mcg tablet 137 mcg PO DAILY #90 tabs 02/27/23 lisinopril 40 mg tablet 40 mg PO DAILY #90 tabs 02/27/23 ferrous sulfate 325 mg (65 mg 325 mg PO DAILY #90 tabs 04/27/23 iron) tablet levothyroxine 125 mcg capsule 125 mcg PO DAILY #30 caps 04/27/23 Allergies Allergy/AdvReac Type Severity Reaction Status Date / Time Penicillins Allergy Mild FACE Verified 04/28/23 12:40 SWELLING ranitidine [RANITIDINE] AdvReac Intermediate abd Verified 04/28/23 12:40 pain/anorexia Review of Systems <Lenny Crouch PA-C - Last Filed: 04/28/23 19:40> Review of Systems Narrative: GENERAL: Reports fatigue, Denies chills, , malaise, fever, sweats. HEENT: Denies sinus pain, ear pain, sore throat, difficulty swallowing, dizziness. RESPIRATORY: Denies dyspnea, cough, wheezing, hemoptysis, sputum. CARDIOVASCULAR: Denies chest pain, palpitations, orthopnea, edema, GASTROINTESTINAL: Reports nausea, vomiting, and constipation denies abdominal pain, diarrhea, , melena. : Denies dysuria, frequency, incontinence, hematuria, urinary retention. MUSCULOSKELETAL: denies weakness, joint pain, or bony pain SKIN: Denies rash, skin lesions, or other NEUROLOGIC: Denies weakness, headache, numbness, change in speech, confusion, seizures, incoordination. PSYCHIATRIC: No concerning psychosocial issues. 12 point review of systems is negative except for those stated above Patient History <Lenny Crouch PA-C - Last Filed: 04/28/23 19:40> Medical History (Updated 04/28/23 @ 19:40 by Lenny Crouch PA-C) Peripheral edema GERD (gastroesophageal reflux disease) Hypothyroidism Hypertension Hyperlipidemia Essential hypertension Mixed hyperlipidemia Acquired hypothyroidism Surgical History H/O ventral hernia repair Social History marital status: number of children: 3 household members: spouse lives independently: Yes caregiver/support person: No housing: house pets and animals: No education level: high school occupational status: other Previous occupational history: [employer], [employer]: [employer] leisure activities: art and other Smoking Status: Former smoker Tobacco: How many years used: 10 Smokeless tobacco user: other quit status: quit date established second hand exposure: No alcohol intake: current substance use type: does not use Smoking Status: Former smoker Substance Use Type: does not use Exam <Lenny Crouch PA-C - Last Filed: 04/28/23 19:40> Narrative Exam Narrative: GENERAL: Well-developed patient, in mild distress. HEAD: Atraumatic. Normocephalic. EYES: Pupils equal round and reactive. Extraocular motions intact. No scleral icterus. No injection or drainage. ENT: Nose without bleeding, purulent drainage. Throat without erythema, tonsillar hypertrophy or exudate. Airway patent. NECK: Trachea midline. Non tender EXTREMITIES: No edema or joint tenderness. NEURO: AOx3. SKIN: No rash or erythema of visible areas CARDIOVASCULAR: Regular rate and rhythm without murmurs, gallops, or rubs. RESPIRATORY: Currently on 4 L via nasal cannula. Clear to auscultation. Breath sounds equal bilaterally. No wheezes, rales, or rhonchi. GASTROINTESTINAL: Abdomen soft, non-tender, nondistended. BACK: Nontender without deformity or crepitance. No flank tenderness. Initial Vital Signs Initial Vital Signs: Vital Signs Temperature 98.1 F 04/28/23 12:35 Pulse Rate 94 H 04/28/23 12:35 Respiratory Rate 16 04/28/23 12:35 Blood Pressure 119/78 04/28/23 12:35 Pulse Oximetry 98 04/28/23 12:35 Oxygen Delivery Method Room Air 04/28/23 12:35 <Richard Herrera DO - Last Filed: 04/29/23 07:04> Initial Vital Signs Initial Vital Signs: Vital Signs Temperature 98.1 F 04/28/23 12:35 Pulse Rate 94 H 04/28/23 12:35 Respiratory Rate 16 04/28/23 12:35 Blood Pressure 119/78 04/28/23 12:35 Pulse Oximetry 98 04/28/23 12:35 Oxygen Delivery Method Room Air 04/28/23 12:35 Course <Lenny Crouch PA-C - Last Filed: 04/28/23 19:40> Orders Ordered: Acetaminophen (Acetaminophen 325 Mg Tablet) 650 mg PO Q6H PRN PRN Reason: Fever/Mild Pain (1-3) Last Admin: 04/28/23 22:08 Dose: 650 mg Documented By: Amlodipine Besylate (Amlodipine 5 Mg Tablet) 5 mg PO DAILY JARRED Aspirin (Aspirin Ec 325 Mg Tablet) 325 mg PO DAILY JARRED Diphenhydramine HCl (Diphenhydramine 25 Mg Tablet) 50 mg PO BEDTIME PRN PRN Reason: Sleep Last Admin: 04/28/23 22:08 Dose: 50 mg Documented By: Enoxaparin Sodium (Enoxaparin 40 Mg/0.4 Ml Syringe) 40 mg SUBCUT DAILY [facility] Ferrous Sulfate (Ferrous Sulfate 325 Mg Tablet) 325 mg PO DAILY [facility] Furosemide (Furosemide 20 Mg Tablet) 60 mg PO DAILY [facility] Sodium Chloride (Normal Saline 0.9%) 1,000 mls @ 125 mls/hr IV CONT JARRED Last Admin: 04/29/23 06:10 Dose: 125 mls/hr Documented By: Infusion: 04/29/23 06:08 Dose: Infused Documented By: Admin: 04/28/23 22:08 Dose: 125 mls/hr Documented By: Lisinopril (Lisinopril 20 Mg Tablet) 40 mg PO DAILY [facility] Naloxone HCl (Naloxone 0.4 Mg/Ml Vial) 0.2 mg IV Q2MIN PRN PRN Reason: Opiate Reversal Ondansetron HCl (Ondansetron 4 Mg/2 Ml Inj) 4 mg IV Q4HR PRN PRN Reason: Nausea And Vomiting Promethazine HCl (Promethazine 25 Mg Tablet) 25 mg PO Q8HR PRN PRN Reason: Nausea Discontinued Medications Al Hydrox/Mg Hydrox/Simethicone 20 ml/ Lidocaine HCl 15 ml 0 ml PO NOW ONE Stop: 04/28/23 16:07 Last Admin: 04/28/23 16:40 Dose: 35 ml Documented By: SPF Levothyroxine Sodium (Levothyroxine 125 Mcg Tablet) 125 mcg PO 0600 [facility] Ondansetron HCl (Ondansetron 4 Mg/2 Ml Inj) 4 mg IV NOW ONE Stop: 04/28/23 12:48 Last Admin: 04/28/23 13:32 Dose: 4 mg Documented By: RB Ondansetron HCl (Ondansetron 4 Mg/2 Ml Inj) 4 mg IV NOW ONE Stop: 04/28/23 16:32 Last Admin: 04/28/23 16:39 Dose: 4 mg Documented By: SPF Ondansetron HCl (Ondansetron 4 Mg/2 Ml Inj) 4 mg IV Q8HR PRN PRN Reason: Nausea And Vomiting Consultations Consultation #1: Discussed case with Dr. New of Cardiology who recommended admission for echo in the morning as well as serial cardiac enzymes. Vital Signs Vital signs: Vital Signs - 8 hr 04/28/23 12:35 04/28/23 13:03 04/28/23 13:06 Temperature 98.1 F Pulse Rate 94 H 94 H 96 H Respiratory Rate 16 30 H Blood Pressure 119/78 182/78 H Pulse Oximetry 98 82 L 97 Oxygen Delivery Method Room Air Room Air Nasal Cannula Oxygen Flow Rate 4 04/28/23 13:06 04/28/23 13:15 04/28/23 13:30 Temperature Pulse Rate 91 H 94 H Respiratory Rate 17 19 Blood Pressure 167/69 H Pulse Oximetry 98 98 Oxygen Delivery Method Nasal Cannula Oxygen Flow Rate 4 04/28/23 13:45 04/28/23 14:00 04/28/23 14:15 Temperature Pulse Rate 90 98 H Respiratory Rate 24 Blood Pressure Pulse Oximetry 97 96 96 Oxygen Delivery Method Nasal Cannula Oxygen Flow Rate 2 04/28/23 14:25 04/28/23 14:25 04/28/23 14:30 Temperature Pulse Rate 94 H 76 Respiratory Rate 18 16 Blood Pressure 156/69 H Pulse Oximetry 99 99 Oxygen Delivery Method Nasal Cannula Nasal Cannula Oxygen Flow Rate 2 2 04/28/23 14:30 04/28/23 14:45 04/28/23 15:00 Temperature Pulse Rate 71 Respiratory Rate 13 Blood Pressure 143/65 H 173/72 H Pulse Oximetry 98 Oxygen Delivery Method Oxygen Flow Rate 04/28/23 15:00 04/28/23 15:15 04/28/23 15:30 Temperature Pulse Rate 82 70 73 Respiratory Rate 21 15 17 Blood Pressure Pulse Oximetry 99 98 98 Oxygen Delivery Method Nasal Cannula Room Air Oxygen Flow Rate 2 04/28/23 15:31 04/28/23 15:31 04/28/23 15:45 Temperature Pulse Rate 74 71 Respiratory Rate 17 14 Blood Pressure 183/73 H Pulse Oximetry 98 97 Oxygen Delivery Method Oxygen Flow Rate 04/28/23 16:00 04/28/23 16:01 04/28/23 16:01 Temperature Pulse Rate 90 89 Respiratory Rate 16 14 Blood Pressure 174/77 H Pulse Oximetry 99 97 Oxygen Delivery Method Oxygen Flow Rate 04/28/23 16:15 04/28/23 16:30 04/28/23 16:30 Temperature Pulse Rate 76 75 Respiratory Rate 16 18 Blood Pressure 160/70 H Pulse Oximetry 98 97 Oxygen Delivery Method Nasal Cannula Oxygen Flow Rate 2 02/02/24 16:45 04/28/23 16:53 04/28/23 17:00 Temperature Pulse Rate 81 Respiratory Rate 21 Blood Pressure 159/70 H Pulse Oximetry 96 94 Oxygen Delivery Method Nasal Cannula Oxygen Flow Rate 1 04/28/23 17:00 04/28/23 17:15 04/28/23 17:30 Temperature Pulse Rate 72 70 72 Respiratory Rate 18 17 19 Blood Pressure Pulse Oximetry 96 96 97 Oxygen Delivery Method Nasal Cannula Nasal Cannula Oxygen Flow Rate 1 1 04/28/23 17:30 04/28/23 17:45 04/28/23 18:00 Temperature Pulse Rate 66 76 Respiratory Rate 16 25 H Blood Pressure 150/68 H Pulse Oximetry 95 96 Oxygen Delivery Method Nasal Cannula Oxygen Flow Rate 1 04/28/23 18:01 04/28/23 18:01 04/28/23 18:05 Temperature Pulse Rate 87 68 Respiratory Rate 18 16 Blood Pressure 155/70 H Pulse Oximetry 96 92 Oxygen Delivery Method Room Air Room Air Oxygen Flow Rate 04/28/23 18:10 04/28/23 18:15 04/28/23 18:20 Temperature Pulse Rate 86 86 82 Respiratory Rate 28 H Blood Pressure Pulse Oximetry 94 93 92 Oxygen Delivery Method Room Air Room Air Room Air Oxygen Flow Rate 04/28/23 18:24 04/28/23 18:25 04/28/23 18:30 Temperature Pulse Rate 109 H 76 74 Respiratory Rate 22 Blood Pressure Pulse Oximetry 87 L 95 95 Oxygen Delivery Method Oxygen Flow Rate 04/28/23 18:35 04/28/23 18:40 04/28/23 18:45 Temperature Pulse Rate 74 74 75 Respiratory Rate Blood Pressure Pulse Oximetry 95 96 95 Oxygen Delivery Method Nasal Cannula Oxygen Flow Rate 2 04/28/23 18:50 04/28/23 18:55 04/28/23 19:00 Temperature Pulse Rate 75 72 74 Respiratory Rate Blood Pressure Pulse Oximetry 93 94 95 Oxygen Delivery Method Oxygen Flow Rate 04/28/23 19:05 Temperature Pulse Rate 73 Respiratory Rate Blood Pressure Pulse Oximetry 95 Oxygen Delivery Method Oxygen Flow Rate <Richard Herrera DO - Last Filed: 04/29/23 07:04> Orders Ordered: Acetaminophen (Acetaminophen 325 Mg Tablet) 650 mg PO Q6H PRN PRN Reason: Fever/Mild Pain (1-3) Last Admin: 04/28/23 22:08 Dose: 650 mg Documented By: Amlodipine Besylate (Amlodipine 5 Mg Tablet) 5 mg PO DAILY [facility] Aspirin (Aspirin Ec 325 Mg Tablet) 325 mg PO DAILY [facility] Diphenhydramine HCl (Diphenhydramine 25 Mg Tablet) 50 mg PO BEDTIME PRN PRN Reason: Sleep Last Admin: 04/28/23 22:08 Dose: 50 mg Documented By: Enoxaparin Sodium (Enoxaparin 40 Mg/0.4 Ml Syringe) 40 mg SUBCUT DAILY [facility] Ferrous Sulfate (Ferrous Sulfate 325 Mg Tablet) 325 mg PO DAILY [facility] Furosemide (Furosemide 20 Mg Tablet) 60 mg PO DAILY [facility] Sodium Chloride (Normal Saline 0.9%) 1,000 mls @ 125 mls/hr IV CONT JARRED Last Admin: 04/29/23 06:10 Dose: 125 mls/hr Documented By: Infusion: 04/29/23 06:08 Dose: Infused Documented By: Admin: 04/28/23 22:08 Dose: 125 mls/hr Documented By: Lisinopril (Lisinopril 20 Mg Tablet) 40 mg PO DAILY [facility] Naloxone HCl (Naloxone 0.4 Mg/Ml Vial) 0.2 mg IV Q2MIN PRN PRN Reason: Opiate Reversal Ondansetron HCl (Ondansetron 4 Mg/2 Ml Inj) 4 mg IV Q4HR PRN PRN Reason: Nausea And Vomiting Promethazine HCl (Promethazine 25 Mg Tablet) 25 mg PO Q8HR PRN PRN Reason: Nausea Discontinued Medications Al Hydrox/Mg Hydrox/Simethicone 20 ml/ Lidocaine HCl 15 ml 0 ml PO NOW ONE Stop: 04/28/23 16:07 Last Admin: 04/28/23 16:40 Dose: 35 ml Documented By: SPF Levothyroxine Sodium (Levothyroxine 125 Mcg Tablet) 125 mcg PO 0600 [facility] Ondansetron HCl (Ondansetron 4 Mg/2 Ml Inj) 4 mg IV NOW ONE Stop: 04/28/23 12:48 Last Admin: 04/28/23 13:32 Dose: 4 mg Documented By: RB Ondansetron HCl (Ondansetron 4 Mg/2 Ml Inj) 4 mg IV NOW ONE Stop: 04/28/23 16:32 Last Admin: 04/28/23 16:39 Dose: 4 mg Documented By: SPF Ondansetron HCl (Ondansetron 4 Mg/2 Ml Inj) 4 mg IV Q8HR PRN PRN Reason: Nausea And Vomiting Vital Signs Vital signs: Vital Signs - 8 hr 04/28/23 12:35 04/28/23 13:03 04/28/23 13:06 Temperature 98.1 F Pulse Rate 94 H 94 H 96 H Respiratory Rate 16 30 H Blood Pressure 119/78 182/78 H Pulse Oximetry 98 82 L 97 Oxygen Delivery Method Room Air Room Air Nasal Cannula Oxygen Flow Rate 4 04/28/23 13:06 04/28/23 13:15 04/28/23 13:30 Temperature Pulse Rate 91 H 94 H Respiratory Rate 17 19 Blood Pressure 167/69 H Pulse Oximetry 98 98 Oxygen Delivery Method Nasal Cannula Oxygen Flow Rate 4 04/28/23 13:45 04/28/23 14:00 04/28/23 14:15 Temperature Pulse Rate 90 98 H Respiratory Rate 24 Blood Pressure Pulse Oximetry 97 96 96 Oxygen Delivery Method Nasal Cannula Oxygen Flow Rate 2 04/28/23 14:25 04/28/23 14:25 04/28/23 14:30 Temperature Pulse Rate 94 H 76 Respiratory Rate 18 16 Blood Pressure 156/69 H Pulse Oximetry 99 99 Oxygen Delivery Method Nasal Cannula Nasal Cannula Oxygen Flow Rate 2 2 04/28/23 14:30 04/28/23 14:45 04/28/23 15:00 Temperature Pulse Rate 71 Respiratory Rate 13 Blood Pressure 143/65 H 173/72 H Pulse Oximetry 98 Oxygen Delivery Method Oxygen Flow Rate 04/28/23 15:00 04/28/23 15:15 04/28/23 15:30 Temperature Pulse Rate 82 70 73 Respiratory Rate 21 15 17 Blood Pressure Pulse Oximetry 99 98 98 Oxygen Delivery Method Nasal Cannula Room Air Oxygen Flow Rate 2 04/28/23 15:31 04/28/23 15:31 04/28/23 15:45 Temperature Pulse Rate 74 71 Respiratory Rate 17 14 Blood Pressure 183/73 H Pulse Oximetry 98 97 Oxygen Delivery Method Oxygen Flow Rate 04/28/23 16:00 04/28/23 16:01 04/28/23 16:01 Temperature Pulse Rate 90 89 Respiratory Rate 16 14 Blood Pressure 174/77 H Pulse Oximetry 99 97 Oxygen Delivery Method Oxygen Flow Rate 04/28/23 16:15 04/28/23 16:30 04/28/23 16:30 Temperature Pulse Rate 76 75 Respiratory Rate 16 18 Blood Pressure 160/70 H Pulse Oximetry 98 97 Oxygen Delivery Method Nasal Cannula Oxygen Flow Rate 2 04/28/23 16:45 04/28/23 16:53 04/28/23 17:00 Temperature Pulse Rate 81 Respiratory Rate 21 Blood Pressure 159/70 H Pulse Oximetry 96 94 Oxygen Delivery Method Nasal Cannula Oxygen Flow Rate 1 04/28/23 17:00 04/28/23 17:15 04/28/23 17:30 Temperature Pulse Rate 72 70 72 Respiratory Rate 18 17 19 Blood Pressure Pulse Oximetry 96 96 97 Oxygen Delivery Method Nasal Cannula Nasal Cannula Oxygen Flow Rate 1 1 04/28/23 17:30 04/28/23 17:45 04/28/23 18:00 Temperature Pulse Rate 66 76 Respiratory Rate 16 25 H Blood Pressure 150/68 H Pulse Oximetry 95 96 Oxygen Delivery Method Nasal Cannula Oxygen Flow Rate 1 04/28/23 18:01 04/28/23 18:01 04/28/23 18:05 Temperature Pulse Rate 87 68 Respiratory Rate 18 16 Blood Pressure 155/70 H Pulse Oximetry 96 92 Oxygen Delivery Method Room Air Room Air Oxygen Flow Rate 04/28/23 18:10 04/28/23 18:15 04/28/23 18:20 Temperature Pulse Rate 86 86 82 Respiratory Rate 28 H Blood Pressure Pulse Oximetry 94 93 92 Oxygen Delivery Method Room Air Room Air Room Air Oxygen Flow Rate 04/28/23 18:24 04/28/23 18:25 04/28/23 18:30 Temperature Pulse Rate 109 H 76 74 Respiratory Rate 22 Blood Pressure Pulse Oximetry 87 L 95 95 Oxygen Delivery Method Oxygen Flow Rate 04/28/23 18:35 04/28/23 18:40 04/28/23 18:45 Temperature Pulse Rate 74 74 75 Respiratory Rate Blood Pressure Pulse Oximetry 95 96 95 Oxygen Delivery Method Nasal Cannula Oxygen Flow Rate 2 04/28/23 18:50 04/28/23 18:55 04/28/23 19:00 Temperature Pulse Rate 75 72 74 Respiratory Rate Blood Pressure Pulse Oximetry 93 94 95 Oxygen Delivery Method Oxygen Flow Rate 04/28/23 19:05 Temperature Pulse Rate 73 Respiratory Rate Blood Pressure Pulse Oximetry 95 Oxygen Delivery Method Oxygen Flow Rate MDM - Abdominal Pain <Lenny Crouch PA-C - Last Filed: 04/28/23 19:40> Lab Data 04/29/23 03:10 04/29/23 03:10 Labs: Lab Results 04/28/23 04/28/23 Range/Units 13:10 15:29 WBC 12.8 H (4.5-11.0) X10^3/uL RBC 3.16 L (4.0-5.2) X10^6/uL Hgb 9.7 L (12.0-16.0) g/dL Hct 28.7 L (36-46) % MCV 90.6 (80-100) fL MCH 30.7 (26-34) PG MCHC 33.9 (30-36) % RDW 13.4 (11.6-14.8) % Plt Count 477 H (150-400) X10^3/uL Neut % (Auto) 85.5 H (50-75) % Lymph % (Auto) 7.9 L (25-40) % Sebastian % (Auto) 5.9 (3-14) % Eos % (Auto) 0.3 L (2-4) % Baso % (Auto) 0.4 (0-2) % Neut # (Auto) 13617 H (1239-5850) /uL Lymph # (Auto) 1000 L (6376-4948) /uL Sebastian # (Auto) 800 (0-900) /uL Eos # (Auto) 0 (0-450) /uL Baso # (Auto) 0 (0-100) /uL PT 12.5 (9.4-12.5) SECONDS INR 1.1 (0.9-1.3) APTT 35 (25.1-36.5) SECONDS Sodium 134 L (137-145) mmol/L Potassium 3.8 (3.4-5.1) mmol/L Chloride 100 (98-107) mmol/L Carbon Dioxide 27 (22-32) mmol/L BUN 17 (7-17) mg/dL Creatinine 0.79 (0.52-1.04) mg/dL Estimated GFR > 60 (>60) mL/min BUN/Creatinine Ratio 21.5 (6-22) Glucose 126 H (80-110) mg/dL Lactate 0.9 (0.7-2.1) mmol/L Calcium 9.1 (8.4-10.2) mg/dL Total Bilirubin 0.5 (0.2-1.3) mg/dL AST 28 (14-36) IU/L ALT 12 (<35) IU/L Alkaline Phosphatase 83 (38-126) U/L Total Creatine Kinase < 20 L (30-135) U/L Troponin I 0.044 H 0.043 H (0.01-0.034) ng/mL NT-Pro-B Natriuret Pep 1770 H (<450) pg/mL Total Protein 6.2 L (6.3-8.2) g/dL Albumin 3.6 (3.5-5.0) g/dL Globulin 2.6 (1.7-4.1) g/dL Albumin/Globulin Ratio 1.4 (1.0-2.8) Lipase 93 (23-300) U/L Procalcitonin 0.08 (<0.5) ng/mL TSH 0.29 L (0.47-4.68) uIU/mL Free T4 1.40 (0.78-2.19) ng/dL Chlamy pneumoniae PCR Not detected (Not Detect) Adenovirus (PCR) Not detected (Not Detect) B.parapertussis DNA PCR Not detected (Not Detecte) Coronavirus OC43 (PCR) Not detected (Not Detect) Coronavirus HKU1 (PCR) Not detected (Not Detect) Coronavirus 229E (PCR) Not detected (Not Detect) SARS-CoV-2 (PCR) Not detected (Not Detecte) Coronavirus NL63 (PCR) Not detected (Not Detect) Human Metapneumovir PCR Not detected (Not Detect) Influenza Type A (PCR) Not detected (Not Detect) Influenza Type B (PCR) Not detected (Not Detect) M. pneumoniae (PCR) Not detected (Not Detect) Parainfluenza 1 (PCR) Not detected (Not Detect) Parainfluenza 2 (PCR) Not detected (Not Detect) Parainfluenza 3 (PCR) Not detected (Not Detect) Parainfluenza 4 (PCR) Not detected (Not Detect) RSV (PCR) Not detected (Not Detect) Entero/Rhino (PCR) Not detected (Not Detect) Point of care testing: Point of Care Testing Stool Occult Blood Negative Imaging Data Chest x-ray: Radiologist's Impression: [address] [address] XRay Report Signed Patient: Zainab López MR#: [id number] : 1940 Acct:[id number] Age/Sex: 83 / F Date of Service: 04/28/23 Loc: ED Accession Number: [id number] Procedure: XR chest 1V Ordering Provider: Lenny Coruch P.A-C PROCEDURE: XR CHEST 1V INDICATIONS: suspected sepsis TECHNIQUE: One view of the chest was acquired. COMPARISON: [facility], , CHEST 2 VIEW, 03/17/2017, 17:02. [facility], , CHEST 1 VIEW, 08/12/2009, 15:46. FINDINGS: Surgical changes and devices: None. Lungs and pleura: Possible bibasilar opacities. No pleural effusions. Mediastinum: Aortic calcifications. Heart size is at the upper limit of normal. Bones and chest wall: Degenerative changes. IMPRESSION: Possible bibasilar opacities may represent atelectasis versus airspace disease. Consider future imaging surveillance to assess for resolution. Limited single-view chest radiograph Dictated by: Dago Cha M.D. on 04/28/2023 at 13:46 Approved by: Dago Cha M.D. on 04/28/2023 at 13:48 CT scan - abdomen/pelvis: Radiologist's Impression: CT abdomen and pelvis was obtained yesterday with conscious by [facility] emergency department. Impression is as follows Marked thickening of the gastric pylorus and antrum suggestive of gastritis. Consider outpatient GI referral to exclude malignancy. Circumferential thickening of the lower esophagus, likely mild esophagitis. Colonic interposition between the liver and hemidiaphragm which can be symptomatic. Right ovarian cystic lesion with thin internal septations measuring 4.3 x 3.2 cm. Recommend outpatient pelvic ultrasound for complete characterization. CT scan - chest: Radiologist's Impression: [place] [address] CT Scan Report Signed Patient: Zainab López MR#: [id number] : 1940 Acct:[id number] Age/Sex: 83 / F Date of Service: 04/28/23 Loc: ED Accession Number: [id number] Procedure: CT angio chest PE protocol Ordering Provider: Lenny Crouch P.A-C PROCEDURE: CT ANGIO CHEST PE PROTOCOL INDICATIONS: SOB and hypoxia TECHNIQUE: After the administration of intravenous contrast, 2 mm thick sections acquired from the pulmonary apices to the posterior costophrenic angles. 3-dimensional maximum intensity projection (MIP) coronal and sagittal reformats were then acquired through the thorax. For radiation dose reduction, the following was used: automated exposure control, adjustment of mA and/or kV according to patient size. COMPARISON: None. FINDINGS: Image quality: Diagnostic. Pulmonary arteries: Pulmonary arteries are normal in size, and demonstrate no intraluminal filling defects to suggest central pulmonary embolism. Lower Neck: No enlarged lymph nodes. Thyroid: No thyroid nodules which require sonographic follow up, per consensus guidelines. Axillae: 62 Chest Wall: Unremarkable. Bones: Unremarkable. Lungs and Pleura: Severe pulmonary emphysema present. Platelike atelectasis or consolidation noted in the left lung base. Remainder the lungs and both pleural spaces are clear Heart: Mild cardiomegaly. Dense coronary artery and aortic arch atherosclerotic vascular calcification. Thoracic Vessels: No aortic aneurysm. Mediastinum and Sana: No enlarged lymph nodes. Esophagus: No wall thickening. No hiatal hernia. Upper Abdomen: Visualized upper abdomen solid organs and bowel loops appear normal. IMPRESSION: No evidence of pulmonary embolism, aortic dissection or aneurysm Severe pulmonary emphysema. Platelike atelectasis or consolidation of the left lung base Approved by: Blayne Falcon M.D. on 04/28/2023 at 14:02 ECG Data Interpretation: 1324: EKG is normal sinus rhythm rate 82 and free of any signs of ischemia or ectopy. No ST segmental elevation or depression. 1536: EKG is normal sinus rhythm rate 75 and free of any signs of ischemia or ectopy. No ST segmental elevation or depression. No T wave inversions MDM Narrative Medical decision making narrative: ED course: This is a 83-year-old female presents emergency department due to 2 weeks nausea and vomiting with reports of decreased appetite and ?being unable to keep anything down?. She was also initially hypoxic on arrival requiring 4 L of nasal cannula. Cardiac workup ordered which initially showed an elevated troponin of 0.044, 2 hour repeat was 0.043. EKGs were unremarkable. These were discussed with Dr. Lu of Cardiology who recommended admission for echo as well as serial cardiac enzyme monitoring. Patient was noted to have an elevated BNP of [address] PE was ordered due to hypoxia which showed significant emphysema as well as plaque like atelectasis to the left lower lobe or possible consolidation. Patient had a very early mildly elevated white count possibly reactive. Pro count and lactate were within normal limits. Patient was attempted to be weaned off of oxygen throughout the course in the counter and then ambulated leading to repeat episodes of hypoxia. She was currently resting in bed comfortably. Patient was not report any chest pain throughout the course of the encounter. CT abdomen and pelvis were ordered by the [facility] yesterday which showed evidence of mild esophagitis as well as gastritis. No acute findings. Case was discussed with Dr. Forrester kindly accepted the patient for admission. CC: Nausea and vomiting Complicating co-morbidities: Hypertension hypothyroidism Data collected from: Previous notes Medical records reviewed: Patient was last seen here 3 years ago due to a fall and contusion. Stepped off a porch. Takes aspirin 325 daily. Allergic to penicillin. History of hypertension, hypothyroidism, GERD. History of ventral hernia repair. Also sustained a wrist fracture. Differential considered, but not limited to: PE, pneumonia, gastritis, STEMI, NSTEMI Exam documented above, pertinent findings include: No chest pain, hypoxia on ambulation Lab Test results independently reviewed as above. Pertinent findings: CBC showed mild anemia, does not have any active bleeding and negative school guaiac. Very mild leukocytosis of 12.8. Lipase within normal limits. CMP showed mild hyponatremia although do not believe that this is causing any patient's symptoms. Renal function unremarkable. Lactate within normal limits. Procalcitonin t within normal limits. Troponin elevated at 0.044 with a repeat elevated at 0.043. BNP elevated at 17 70. TSH slightly below normal although free T4 within normal limits. Imaging studies independently reviewed: As above Scores Used: None MIPS Elements: None Consultations: Dr. Lu of Cardiology Treatments: Oxygen via nasal cannula Re-evaluations: Re-evaluate patient who is resting comfortably in bed and informed her of plan Discussion: Discussed plan with the patient was comfortable with the plan Diagnosis: Lung emphysema, elevated troponin Disposition: see below, along with detailed discharge instructions that have been reviewed with patient as well as indications for ED re-evaluation and additional outpatient follow up <Richard Herrera DO - Last Filed: 04/29/23 07:04> Lab Data Labs: Lab Results 04/28/23 04/28/23 Range/Units 13:10 15:29 WBC 12.8 H (4.5-11.0) X10^3/uL RBC 3.16 L (4.0-5.2) X10^6/uL Hgb 9.7 L (12.0-16.0) g/dL Hct 28.7 L (36-46) % MCV 90.6 (80-100) fL MCH 30.7 (26-34) PG MCHC 33.9 (30-36) % RDW 13.4 (11.6-14.8) % Plt Count 477 H (150-400) X10^3/uL Neut % (Auto) 85.5 H (50-75) % Lymph % (Auto) 7.9 L (25-40) % Sebastian % (Auto) 5.9 (3-14) % Eos % (Auto) 0.3 L (2-4) % Baso % (Auto) 0.4 (0-2) % Neut # (Auto) 94795 H (7666-8394) /uL Lymph # (Auto) 1000 L (6954-8916) /uL Sebastian # (Auto) 800 (0-900) /uL Eos # (Auto) 0 (0-450) /uL Baso # (Auto) 0 (0-100) /uL PT 12.5 (9.4-12.5) SECONDS INR 1.1 (0.9-1.3) APTT 35 (25.1-36.5) SECONDS Sodium 134 L (137-145) mmol/L Potassium 3.8 (3.4-5.1) mmol/L Chloride 100 (98-107) mmol/L Carbon Dioxide 27 (22-32) mmol/L BUN 17 (7-17) mg/dL Creatinine 0.79 (0.52-1.04) mg/dL Estimated GFR > 60 (>60) mL/min BUN/Creatinine Ratio 21.5 (6-22) Glucose 126 H (80-110) mg/dL Lactate 0.9 (0.7-2.1) mmol/L Calcium 9.1 (8.4-10.2) mg/dL Total Bilirubin 0.5 (0.2-1.3) mg/dL AST 28 (14-36) IU/L ALT 12 (<35) IU/L Alkaline Phosphatase 83 (38-126) U/L Total Creatine Kinase < 20 L (30-135) U/L Troponin I 0.044 H 0.043 H (0.01-0.034) ng/mL NT-Pro-B Natriuret Pep 1770 H (<450) pg/mL Total Protein 6.2 L (6.3-8.2) g/dL Albumin 3.6 (3.5-5.0) g/dL Globulin 2.6 (1.7-4.1) g/dL Albumin/Globulin Ratio 1.4 (1.0-2.8) Lipase 93 (23-300) U/L Procalcitonin 0.08 (<0.5) ng/mL TSH 0.29 L (0.47-4.68) uIU/mL Free T4 1.40 (0.78-2.19) ng/dL Chlamy pneumoniae PCR Not detected (Not Detect) Adenovirus (PCR) Not detected (Not Detect) B.parapertussis DNA PCR Not detected (Not Detecte) Coronavirus OC43 (PCR) Not detected (Not Detect) Coronavirus HKU1 (PCR) Not detected (Not Detect) Coronavirus 229E (PCR) Not detected (Not Detect) SARS-CoV-2 (PCR) Not detected (Not Detecte) Coronavirus NL63 (PCR) Not detected (Not Detect) Human Metapneumovir PCR Not detected (Not Detect) Influenza Type A (PCR) Not detected (Not Detect) Influenza Type B (PCR) Not detected (Not Detect) M. pneumoniae (PCR) Not detected (Not Detect) Parainfluenza 1 (PCR) Not detected (Not Detect) Parainfluenza 2 (PCR) Not detected (Not Detect) Parainfluenza 3 (PCR) Not detected (Not Detect) Parainfluenza 4 (PCR) Not detected (Not Detect) RSV (PCR) Not detected (Not Detect) Entero/Rhino (PCR) Not detected (Not Detect) Point of care testing: Point of Care Testing Stool Occult Blood Negative Discharge Plan Departure Patient Disposition: Admitted As Inpatient Clinical Impression: Emphysema lung, Anemia, Elevated troponin Admit Date/Time: 04/28/23 19:07 Admit Provider: Jazmine Keane ED Sign-out <Richard Herrera, DO - Last Filed: 04/29/23 07:04> Cosign ED Attending Cosignature Attestation: Dr Lanker Co-Sign Statement: I was available for consultation during this patient's emergency department visit. This chart is signed by myself for administrative purposes only. I did not have direct contact with this patient during this visit. They were seen independently by the APC.
--- NOTE | 2023-04-28 13:02 | DI.RAD.S_ITS ---
PROCEDURE: XR CHEST 1V INDICATIONS: suspected sepsis TECHNIQUE: One view of the chest was acquired. COMPARISON: [facility], , CHEST 2 VIEW, 03/17/2017, 17:02. [facility], , CHEST 1 VIEW, 08/12/2009, 15:46. FINDINGS: Surgical changes and devices: None. Lungs and pleura: Possible bibasilar opacities. No pleural effusions. Mediastinum: Aortic calcifications. Heart size is at the upper limit of normal. Bones and chest wall: Degenerative changes. IMPRESSION: Possible bibasilar opacities may represent atelectasis versus airspace disease. Consider future imaging surveillance to assess for resolution. Limited single-view chest radiograph Dictated by: Dago Cha M.D. on 04/28/2023 at 13:46 Approved by: Dago Cha M.D. on 04/28/2023 at 13:48
--- NOTE | 2023-04-28 13:14 | DI.CT.S_ITS ---
PROCEDURE: CT ANGIO CHEST PE PROTOCOL INDICATIONS: SOB and hypoxia TECHNIQUE: After the administration of intravenous contrast, 2 mm thick sections acquired from the pulmonary apices to the posterior costophrenic angles. 3-dimensional maximum intensity projection (MIP) coronal and sagittal reformats were then acquired through the thorax. For radiation dose reduction, the following was used: automated exposure control, adjustment of mA and/or kV according to patient size. COMPARISON: None. FINDINGS: Image quality: Diagnostic. Pulmonary arteries: Pulmonary arteries are normal in size, and demonstrate no intraluminal filling defects to suggest central pulmonary embolism. Lower Neck: No enlarged lymph nodes. Thyroid: No thyroid nodules which require sonographic follow up, per consensus guidelines. Axillae: 62 Chest Wall: Unremarkable. Bones: Unremarkable. Lungs and Pleura: Severe pulmonary emphysema present. Platelike atelectasis or consolidation noted in the left lung base. Remainder the lungs and both pleural spaces are clear Heart: Mild cardiomegaly. Dense coronary artery and aortic arch atherosclerotic vascular calcification. Thoracic Vessels: No aortic aneurysm. Mediastinum and Sana: No enlarged lymph nodes. Esophagus: No wall thickening. No hiatal hernia. Upper Abdomen: Visualized upper abdomen solid organs and bowel loops appear normal. IMPRESSION: No evidence of pulmonary embolism, aortic dissection or aneurysm Severe pulmonary emphysema. Platelike atelectasis or consolidation of the left lung base Approved by: Blayne Falcon M.D. on 04/28/2023 at 14:02
[2023-04-28 13:32] LABS: Add Manual Diff / Slide Review NO; Basophils Absolute Auto 0 /uL (0-100); Basophils Percent Auto 0.4 % (0-2); Eosinophils Absolute Auto 0 /uL (0-450); Eosinophils Percent Auto 0.3 % (2-4); Hematocrit 28.7 % (36-46); Hemoglobin 9.7 g/dL (12.0-16.0); Lymphocytes Absolute Auto 1000 /uL (1100-4500); Lymphocytes Percent Auto 7.9 % (25-40); Mean Corpuscular HGB Conc 33.9 % (30-36); Mean Corpuscular Hemoglobin 30.7 PG (26-34); Mean Corpuscular Volume 90.6 fL (80-100); Monocytes Absolute Auto 800 /uL (0-900); Monocytes Percent Auto 5.9 % (3-14); Neutrophils Absolute Auto 10900 /uL (1500-7000); Neutrophils Percent Auto 85.5 % (50-75); Platelet Count 477 X10^3/uL (150-400); Red Blood Cell Count 3.16 X10^6/uL (4.0-5.2); Red Cell Distribution Width 13.4 % (11.6-14.8); White Blood Cell Count 12.8 X10^3/uL (4.5-11.0)
[2023-04-28] MEDS: ONDANSETRON 4 MG/2 ML INJ IV ×2 (13:32→16:39)
[2023-04-28 13:44] LABS: INR 1.1 (0.9-1.3); Prothrombin Time 12.5 SECONDS (9.4-12.5)
[2023-04-28 13:47] LABS: PTT Partial Thromboplastin Tim 35 SECONDS (25.1-36.5)
[2023-04-28 13:51] LABS: Alanine Aminotransferase 12 IU/L (<35); Albumin 3.6 g/dL (3.5-5.0); Albumin Globulin Ratio 1.4 (1.0-2.8); Alkaline Phosphatase 83 U/L (38-126); Aspartate Aminotransferase 28 IU/L (14-36); BUN Creatinine Ratio 21.5 (6-22); Bilirubin Total 0.5 mg/dL (0.2-1.3); Blood Urea Nitrogen 17 mg/dL (7-17); Calcium 9.1 mg/dL (8.4-10.2); Carbon Dioxide 27 mmol/L (22-32); Chloride 100 mmol/L (98-107); Estimated Glomerular Filt Rate > 60 mL/min (>60); Globulin 2.6 g/dL (1.7-4.1); Glucose 126 mg/dL (80-110); HEMOLYSIS < 15 (0-50); Lipase 93 U/L (23-300); Potassium 3.8 mmol/L (3.4-5.1); Sodium 134 mmol/L (137-145); Total Protein 6.2 g/dL (6.3-8.2)
[2023-04-28 13:52] LABS: Lactate (Lactic Acid) 0.9 mmol/L (0.7-2.1)
[2023-04-28 14:07] LABS: Procalcitonin 0.08 ng/mL (<0.5)
[2023-04-28 14:08] LABS: NT-proBNP (BNP-Adult 18+) 1770 pg/mL (<450); Troponin I 0.044 ng/mL (0.01-0.034)
--- NOTE | 2023-04-28 14:09 | PC.NURSE ---
Pt was seen at [facility] yesterday, discharged home, and had an episode of dark black emesis. She has had persistent nausea the past 3 days and has not been eating/drinking much at home. Pt's daughter at bedside and states she has had increased confusion and weakness the past few days. Pt denies having frequent emesis but has frequent dry heaving with minimal emesis.
[2023-04-28 14:17] LABS: Creatine Kinase < 20 U/L (30-135)
[2023-04-28 14:22] LABS: TSH w/ Reflex to FT4 0.29 uIU/mL (0.47-4.68)
[2023-04-28 14:29] LABS: Adenovirus Not Detected (Not Detect); B. parapertussis Not Detected (Not Detecte); Bordetella pertussis Not Detected (Not Detect); Chlamydophila pneumoniae Not Detected (Not Detect); Coronavirus 229E Not Detected (Not Detect); Coronavirus HKU1 Not Detected (Not Detect); Coronavirus NL 63 Not Detected (Not Detect); Coronavirus OC43 Not Detected (Not Detect); Human Metapneumovirus Not Detected (Not Detect); Human Rhinovirus/Enterovirus Not Detected (Not Detect); Influenza A Not Detected (Not Detect); Influenza B Not Detected (Not Detect); Mycoplasma pneumoniae Not Detected (Not Detect); Parainfluenza Virus 1 Not Detected (Not Detect); Parainfluenza Virus 2 Not Detected (Not Detect); Parainfluenza Virus 3 Not Detected (Not Detect); Parainfluenza Virus 4 Not Detected (Not Detect); Respiratory Syncytial Virus Not Detected (Not Detect); SARS- CoV-2 Not Detected (Not Detecte)
[2023-04-28 16:00] LABS: Troponin I 0.043 ng/mL (0.01-0.034)
[2023-04-28] MEDS: MAG HYDROX/ALUMINUM/SIMETH SUS 20 ML, LIDOCAINE VISCOUS 2% 15 ML PO (16:40)
--- NOTE | 2023-04-28 18:24 | PC.NURSE ---
Patient was sat up at bedside on room air. O2 maintained 93-94%. With ambulation on room air pt's o2 dropped to 87% after 10 steps. Pt taken back to bed and o2 sats climbed to 93% after 2 minutes rest. Pt denied SOB/dizziness while walking.
--- NOTE | 2023-04-28 20:19 | DI.ECHO.S_ITS ---
[facility]---------+ [facility] +---------+ : : [address] : [place] [address] : : : : [id number] : : : : Phone: [phone]+ Echocardiogram Report + + :Name: DAGO SPENCER Study Date: 04/29/2023 Height: 62 in : :[facility] ReadingLocation: Weight: 149 lb : : Gender: Female BSA: 1.7 m2 : :: 1940 Age: 83 yrs BP: 166/80 mmHg: :Reason For Study: ELEVATED TROPONIN : :Ordering Physician: MICHELLE, : :CARLTON Performed By: Huyen Floyd : :Referring: CARLTON MARTINEZ : + + Interpretation Summary The left ventricle is normal in size and wall thickness. The left ventricular ejection fraction is normal. The ejection fraction is estimated to be 60-65%. The right ventricle is borderline dilated. The right ventricular systolic function is normal. The left atrium is severely dilated. There is moderate mitral regurgitation. The mitral regurgitant jet is eccentrically directed. There is mild aortic stenosis. The peak aortic velocity is 2.8 m/sec. The aortic valve mean gradient is 15 mmHg. There is mild to moderate tricuspid regurgitation. The right ventricular systolic pressure is estimated to be at least 42 mmHg based on an estimated right atrial pressure of 3 mm Hg. Procedure: A two-dimensional transthoracic echocardiogram with color flow and Doppler was performed. The study quality was technically adequate. There is no prior echocardiogram noted for this patient. The patient was in sinus rhythm with heart rates between 62-85 bpm during the exam. Left Ventricle: The left ventricle is normal in size and wall thickness. There is no thrombus. The ejection fraction is estimated to be 60-65%. The left ventricular ejection fraction is normal. There are no focal wall motion abnormalities. MV E/A: 1.1 Med Peak E' Michael: 8.0 cm/sec E/E' med: 11.8. Right Ventricle: The right ventricle is borderline dilated. The right ventricular systolic function is normal. Atria: The left atrium is severely dilated. Right atrial size is normal. There is no Doppler evidence for an interatrial shunt. The interatrial septum bows toward right atrium consistent with elevated left atrial pressure. Mitral Valve: There is mild mitral annular calcification. The mitral valve leaflets are slightly calcified. There is moderate mitral regurgitation. The mitral regurgitant jet is eccentrically directed. Aortic Valve: The aortic valve is mildly calcified. The aortic valve is trileaflet. The peak aortic velocity is 2.8 m/sec. The aortic valve mean gradient is 15 mmHg. The calculated aortic valve area is 1.5 cm2. There is mild aortic stenosis. No aortic regurgitation is present. Tricuspid Valve: The tricuspid valve is normal. There is mild to moderate tricuspid regurgitation. The right ventricular systolic pressure is estimated to be at least 42 mmHg based on an estimated right atrial pressure of 3 mm Hg. Pulmonic Valve: The pulmonic valve is not well seen, but is grossly normal. There is no pulmonic valvular regurgitation. Great Vessels: The aortic root is normal size. The dimensions of the ascending aorta are normal. The IVC is of normal diameter and collapses greater than 50% with a sniff. This suggests a low right atrial pressure of 3 mm Hg. Pericardium/ Pleura There is no pericardial effusion. There is no pleural effusion. MMode/2D Measurements & Calculations LVIDd: 5.1 cm LVOT diam: 2.0 cm LVIDs: 3.5 cm Ao root diam: 2.5 cm FS: 31.7 % asc Aorta Diam: 2.9 cm EPSS: 0.69 cm IVSd: 0.86 cm LVPWd: 0.85 cm LV newsome. diameter/BSA (cm/m^2): 3.0 LV sys. diameter/BSA (cm/m^2): 2.1 LA A2 area: 18.6 cm2 RA long axis: 5.2 cm LA A4 area: 25.0 cm2 RA area: 16.8 cm2 LA length (vol): 5.6 cm RA vol: 46.4 ml LA vol: 70.6 ml RA : 27.5 ml/m2 LA vol index: 41.9 ml/m2 IVC diam: 1.3 cm RVD1 (basal): 4.1 cm TAPSE: 2.5 cm Doppler Measurements & Calculations Ao V2 max: 277.7 cm/sec LVOT Max Michael: 120.6 cm/sec Ao V2 mean: 179.5 cm/sec LV V1 max P.8 mmHg Ao max P.9 mmHg LV V1 VTI: 25.5 cm Ao mean P.5 mmHg NICKO(I,D): 1.5 cm2 Ao V2 VTI: 54.9 cm NICKO(V,D): 1.4 cm2 sev ratio: 0.47 NICKO indexed to BSA (cm^2/m^2): 0.87 MV E max michael: 94.1 cm/sec TR max michael: 311.3 cm/sec MV A max michael: 85.0 cm/sec TR max P.8 mmHg MV E/A: 1.1 PA V2 max: 122.3 cm/sec Med Peak E' Michael: 8.0 cm/sec PA V2 mean: 84.2 cm/sec E/E' med: 11.8 PA mean P.1 mmHg Lat Peak E' Michael: 10.6 cm/sec PA pr(Accel): 37.9 mmHg E/E' lat: 8.8 E/e' average: 10.3 MV dec time: 0.23 sec SV(LVOT): 80.6 ml Reading Physician:01:42 PM
[2023-04-28] MEDS: ACETAMINOPHEN 325 MG TABLET 650 MG PO (22:08)
[2023-04-28] MEDS: diphenhydrAMINE 25 MG TABLET 50 MG PO (22:08)
[2023-04-28] MEDS: SODIUM CHLORIDE 0.9% 1,000 ML 125 ML IV (22:08)
[2023-04-29 03:20] LABS: Add Manual Diff / Slide Review NO; Basophils Absolute Auto 100 /uL (0-100); Basophils Percent Auto 0.7 % (0-2); Eosinophils Absolute Auto 200 /uL (0-450); Hematocrit 25.6 % (36-46); Hemoglobin 8.6 g/dL (12.0-16.0); Lymphocytes Absolute Auto 1400 /uL (1100-4500); Lymphocytes Percent Auto 12.4 % (25-40); Mean Corpuscular HGB Conc 33.5 % (30-36); Mean Corpuscular Hemoglobin 30.2 PG (26-34); Mean Corpuscular Volume 90.3 fL (80-100); Monocytes Absolute Auto 900 /uL (0-900); Monocytes Percent Auto 8.2 % (3-14); Neutrophils Absolute Auto 8700 /uL (1500-7000); Neutrophils Percent Auto 76.7 % (50-75); Platelet Count 427 X10^3/uL (150-400); Red Blood Cell Count 2.84 X10^6/uL (4.0-5.2); Red Cell Distribution Width 13.7 % (11.6-14.8); White Blood Cell Count 11.3 X10^3/uL (4.5-11.0)
[2023-04-29 03:37] LABS: Alanine Aminotransferase 11 IU/L (<35); Albumin Globulin Ratio 1.3 (1.0-2.8); Alkaline Phosphatase 62 U/L (38-126); Aspartate Aminotransferase 24 IU/L (14-36); BUN Creatinine Ratio 19.4 (6-22); Bilirubin Total 0.4 mg/dL (0.2-1.3); Blood Urea Nitrogen 14 mg/dL (7-17); Calcium 8.4 mg/dL (8.4-10.2); Carbon Dioxide 29 mmol/L (22-32); Chloride 102 mmol/L (98-107); Estimated Glomerular Filt Rate > 60 mL/min (>60); Globulin 2.4 g/dL (1.7-4.1); Glucose 93 mg/dL (80-110); HEMOLYSIS < 15 (0-50); Potassium 3.9 mmol/L (3.4-5.1); Sodium 135 mmol/L (137-145); Total Protein 5.4 g/dL (6.3-8.2)
[2023-04-29 03:49] LABS: Troponin I 0.037 ng/mL (0.01-0.034)
[2023-04-29 04:19] VITALS: BP 166/80; PULSE 86; RESP 16; TEMP 36.7; O2SAT 96
[2023-04-29] MEDS: SODIUM CHLORIDE 0.9% 1,000 ML 125 ML IV ×2 (06:10→14:21)
--- NOTE | 2023-04-29 08:04 | DI.MRI.S_ITS ---
PROCEDURE: MR HEAD/BRAIN WO CON INDICATIONS: left facial droop TECHNIQUE: Non-contrast axial T1 spin echo, axial T2 fast spin echo, sagittal and axial FLAIR, coronal T2 fast spin echo, axial gradient echo, axial diffusion and ADC through the brain. COMPARISON: [facility], CT, CT ANGIO HEAD AND NECK, 04/29/2023, 20:15. [facility], CT, CT STROKE, 04/29/2023, 20:15. FINDINGS: Image quality: Excellent. CSF spaces: Ventricles appear symmetric in size and shape. Basal cisterns are patent. No extra-axial fluid collections. Brain: No intracranial bleeds or mass effects. There is cerebral volume loss for age. There are periventricular and deep white matter chronic small vessel ischemic changes. Brainstem appears normal. Diffusion-weighted images show no acute infarct. No chronic ischemic insults. Normal intravascular flow voids are present. Skull and face: Calvarial bone marrow is normal in signal. Orbits are normal. Sinuses: There is a small mucous retention cyst or polyp in the left maxillary sinus. The mastoids are clear. IMPRESSION: 1. No acute intracranial abnormalities. 2. Cerebral volume loss and chronic microvascular ischemic changes. 3. A small polyp or mucous retention cyst in the left maxillary sinus. Dictated by: Carol Taylor M.D. on 04/30/2023 at 8:19 Approved by: Carol Taylor M.D. on 04/30/2023 at 8:22
[2023-04-29] MEDS: AMLODIPINE 5 MG TABLET PO ×2 (09:11→12:42)
[2023-04-29] MEDS: lisinopriL 20 MG TABLET 40 MG PO (09:11)
[2023-04-29] MEDS: ASPIRIN EC 325 MG TABLET PO (09:11)
[2023-04-29] MEDS: ENOXAPARIN 40 MG/0.4 ML SYRINGE SUBCUT (09:12)
[2023-04-29] MEDS: FERROUS SULFATE 325 MG TABLET PO (09:12)
[2023-04-29] MEDS: FUROSEMIDE 20 MG TABLET 60 MG PO (09:12)
--- NOTE | 2023-04-29 10:29 | CM.DANOTE ---
DCP: Case received, EMR reviewed and met with patient. Daughter, Lakshmi, was at bedside. Introduced self and role. Was able to obtain information regarding patient's baseline activity status prior to hospitalization. DCP assessment completed with information currently available. Patient is an 83 year old female who admitted yesterday evening to the care of the hospitalist team. PCP: Dr. Teresa. Payer: confirmed: [employer]. Patient came to the hospital via private vehicle secondary to having nausea for the last couple weeks, difficulty keeping food down. Notes indicate that patient had gone to the [facility] ER yesterday, was informed that she had an ovarian cyst as well as gastritis and instructed to follow up with GI. Patient then went home, and returned to this ER secondary to nausea and vomiting, and was noted to be hypoxic, was placed on 4 liters of oxygen. Patient was admitted for hypoxia. Met with patient in her room, daughter was at bedside. Patient pleasant, alert and oriented, and independent at her baseline. Confirmed that she resides in [place] with her spouse. P: DCP to continue to follow, should be able to go home when deemed medically stable. Emmie Patrick RN/Cdl Bulk Driver Discharge Planning/Care Management Advanced directive, confirm from FAMILY Start: 04/28/23 21:14 Freq: Q24H Status: Active Protocol: Document 04/28/23 21:14 MS (Rec: 04/28/23 21:29 MS [id number]) Advance Directive, confirm on record Time 21:28 Person contacted daughter Lakshmi Copy received No CM Discharge Assessment Start: 04/29/23 10:24 Freq: Status: Active Protocol: Document 04/29/23 10:27 (Rec: 04/29/23 10:29 [id number]) Discharge Planning Assessment Assigned [employer] Emmie Patrick RN/Cdl Bulk Driver Advance Directives? Yes Advance Directives on File No History Provided By Patient,Family Member,Medical Record Prior Living Arrangements House Household Members spouse Type of transporation used prior to Drives own vehicle admit Independent with ADL's Yes Caregiver for Another No Barriers to Discharge No Discharge Plan Home Transportation Arrangement Daughter Referrals Initiated None needed Whiteboard Updated in Patient Room with Yes name and ext. # of [employer] Review Status In Process Next Review Type Continued Stay Review
--- NOTE | 2023-04-29 11:24 | DI.RAD.S_ITS ---
PROCEDURE: XR CHEST 1V INDICATIONS: hypoxia TECHNIQUE: One view of the chest was acquired. COMPARISON: [facility], , XR CHEST 1V, 04/28/2023, 13:24. [facility], , CHEST 2 VIEW, 03/17/2017, 17:02. FINDINGS: Surgical changes and devices: None. Lungs and pleura: Similar bibasilar opacities and possible trace effusions versus pleural thickening. Mediastinum: Unchanged cardiomediastinal contours. Aortic calcifications. Bones and chest wall: Degenerative changes. IMPRESSION: Again seen are mild bibasilar opacities, possibly airspace disease or atelectasis, and possible trace effusions versus thickening. Consider future imaging surveillance to assess for resolution. Lateral view could be helpful. Dictated by: Dago Cha M.D. on 04/29/2023 at 12:23 Approved by: Dago Cha M.D. on 04/29/2023 at 12:25
--- NOTE | 2023-04-29 11:25 | P.HP_ITS ---
History of Present Illness History of Present Illness Date Patient Seen: 04/29/23 Chief complaint: abdominal discomfort Narrative: The pt is a 83yo woman with hypothyroidism, GERD, hx of hiatal hernia repair, HTN, and LE edema who presented with abdominal pain and nausea. The pt reports that approximately 3 weeks ago she was sick with flu-like symptoms. She had body aches, and frequent diarrhea. She denies any fevers. These symptoms resolved, and then several days later she developed a periumbilical/epigastric pressure-like abdominal pain, and significant nausea. She completely lost her appetite, and didn't want to eat anything. She had a difficult time drinking fluids. This has persisted since then, for over 2 weeks. She denies any emesis, but states she basically never vomits. She has been spitting up mucus frequently, and had one episode where her spit-up appeared dark brown/black in color. She states that her last BM was 2 weeks ago, and it did appear slightly red but not black. There was a gush of liquid after the BM, but it was not bloody. She has no urge to defecate. She was evaluated in the [facility] ED on 04/[address] was completed that showed evidence of gastritis/esophagitis with thickening of her gastric pylorus and antrum, evidence of esophagitis and gastritis, as well as a right ovarian cyst. The pt has unintentionally lost over 20lbs since February. The pt denies any recent chest pain, palpitations. She has had some cold sweats at home when she tries to get up and be more active. She felt mild SOB prior to her presentation to the [facility] ED, however denies any SOB since then or prior to that time. She denies any hx of pulmonary disease. She did smoke for a brief period of time in her 20s. In the ED yesterday, the pt was noted to have mild hypoxia initially. She was placed on 2L NC with good improvement. Her troponin was elevated, and stable on repeat. Cardiology was consulted, who recommended trending and echocardiogram. Chest CXR and Chest CT PE showed possible consolidation vs atelectasis. She had a negative lactate and procalcitonin. [facility] Medical History (Updated 04/28/23 @ 19:40 by Lenny Crouch PA-C) Peripheral edema GERD (gastroesophageal reflux disease) Hypothyroidism Hypertension Hyperlipidemia Essential hypertension Mixed hyperlipidemia Acquired hypothyroidism Surgical History H/O ventral hernia repair Social History marital status: number of children: 3 household members: spouse lives independently: Yes caregiver/support person: No housing: house pets and animals: No education level: high school occupational status: other Previous occupational history: [place] at [employer], [employer] 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 leisure activities: art and other Smoking Status: Former smoker Tobacco: How many years used: 10 Smokeless tobacco user: other quit status: quit date established second hand exposure: No alcohol intake: current substance use type: does not use Meds Home Medications and Allergies Home Medications Medication Instructions Recorded Confirmed Type ASPIRIN (#ASPIRIN) 325 mg PO Q DAY ##0 01/27/11 04/26/23 History GLUCOSAMINE/CHONDROITIN SULF A 1 cap PO Q DAY ##0 01/27/11 04/26/23 History (Glucosamine-Chondroitin Cap) multivitamin (Multiple Vitamins 1 tab PO QDAY ##0 01/27/11 04/26/23 History tablet) [RAJANI-C] 500 mg PO QDAY ##0 03/17/17 04/26/23 History furosemide 20 mg tablet 60 mg (3 x 20 mg) PO DAILY #270 10/03/22 04/26/23 Rx tabs amlodipine 5 mg tablet (Norvasc) 5 mg PO DAILY #90 tabs 02/27/23 04/26/23 Rx levothyroxine 137 mcg tablet 137 mcg PO DAILY #90 tabs 02/27/23 04/26/23 Rx lisinopril 40 mg tablet 40 mg PO DAILY #90 tabs 02/27/23 04/26/23 Rx ferrous sulfate 325 mg (65 mg 325 mg PO DAILY #90 tabs 04/27/23 04/27/23 Rx iron) tablet levothyroxine 125 mcg capsule 125 mcg PO DAILY #30 caps 04/27/23 04/27/23 Rx Allergies Allergy/AdvReac Type Severity Reaction Status Date / Time Penicillins Allergy Mild FACE Verified 04/28/23 12:40 SWELLING ranitidine [RANITIDINE] AdvReac Intermediate abd Verified 04/28/23 12:40 pain/anorexia Exam Vital Signs (past 8 hours): - 04/29/23 04:19 Temperature 98.0 F Pulse Rate 86 Respiratory Rate 16 Blood Pressure 166/80 H Pulse Oximetry 96 Oxygen Flow Rate 0 Oxygen Delivery Method Nasal Cannula Oxygen Flow Rate 0 Narrative Exam Narrative: Gen: NAD, sitting comfortably in bed, appears fatigued, speaking easily in complete sentences HEENT: normocephalic, atraumatic, sclera clear Neck: no JVD, no LAD CV: RRR, grade 2/6 systolic murmur Resp: clear to auscultation bilaterally Abd: soft, nontender, nondistended, normoactive bowel sounds, epigastric area with more firm area Ext: no edema Neuro: no gross deficits Objective Labs 04/29/23 03:10 04/29/23 03:10 Labs: Laboratory Results - last 24 hr 04/28/23 04/28/23 04/29/23 13:10 15:29 03:10 WBC 12.8 H 11.3 H RBC 3.16 L 2.84 L Hgb 9.7 L 8.6 L Hct 28.7 L 25.6 L MCV 90.6 90.3 MCH 30.7 30.2 MCHC 33.9 33.5 RDW 13.4 13.7 Plt Count 477 H 427 H Neut % (Auto) 85.5 H 76.7 H Lymph % (Auto) 7.9 L 12.4 L [place] % (Auto) 5.9 8.2 Eos % (Auto) 0.3 L 2.0 Baso % (Auto) 0.4 0.7 Neut # (Auto) 12849 H 8700 H Lymph # (Auto) 1000 L 1400 [place] # (Auto) 800 900 Eos # (Auto) 0 200 Baso # (Auto) 0 100 PT 12.5 INR 1.1 APTT 35 Sodium 134 L 135 L Potassium 3.8 3.9 Chloride 100 102 Carbon Dioxide 27 29 BUN 17 14 Creatinine 0.79 0.72 Estimated GFR > 60 > 60 BUN/Creatinine Ratio 21.5 19.4 Glucose 126 H 93 Lactate 0.9 Calcium 9.1 8.4 Total Bilirubin 0.5 0.4 AST 28 24 ALT 12 11 Alkaline Phosphatase 83 62 Total Creatine Kinase < 20 L Troponin I 0.044 H 0.043 H 0.037 H NT-Pro-B Natriuret Pep 1770 H Total Protein 6.2 L 5.4 L Albumin 3.6 3.0 L Globulin 2.6 2.4 Albumin/Globulin Ratio 1.4 1.3 Lipase 93 Procalcitonin 0.08 TSH 0.29 L Free T4 1.40 Chlamy pneumoniae PCR Not detected Adenovirus (PCR) Not detected B.parapertussis DNA PCR Not detected Coronavirus OC43 (PCR) Not detected Coronavirus HKU1 (PCR) Not detected Coronavirus 229E (PCR) Not detected SARS-CoV-2 (PCR) Not detected Coronavirus NL63 (PCR) Not detected Human Metapneumovir PCR Not detected Influenza Type A (PCR) Not detected Influenza Type B (PCR) Not detected M. pneumoniae (PCR) Not detected Parainfluenza 1 (PCR) Not detected Parainfluenza 2 (PCR) Not detected Parainfluenza 3 (PCR) Not detected Parainfluenza 4 (PCR) Not detected RSV (PCR) Not detected Entero/Rhino (PCR) Not detected Assessment & Plan Assessment & Plan narrative: The pt is a 83yo woman with hypothyroidism, GERD, hx of hiatal hernia repair, HTN, and LE edema who presented with abdominal pain and nausea. 1) Abdominal pain/nausea: Etiology unknown. Potentially from gastritis seen on outside imaging. - IV Pantoprazole - Plan on scope tomorrow as below - Zofran PRN - Tylenol for pain control 2) Elevated troponin, Type II AL: Trending down appropriately now. Most consistent with demand ischemia. ED consulted Cardiology - recommended trending and Echocardiogram. Likely due to significant dehydration due to #1. Pt asymptomatic. - Echo completed today - Troponin trending down, no need to continue checking 3) Anemia: Acute. Concerning for GI bleed especially in light of findings of likely esophagitis/gastritis and thickening of antrum/pylorus on outside imaging, however negative stool guaiac in the ED. - Surgery consulted. Plan on scope tomorrow morning. - Continue to trend - Iron panel added on today - IV Pantoprazole 4) Acute respiratory failure: Pt with normal lung exam today. No wheezing to suggest severe emphysema seen on CT scan. Atelectasis vs pneumonia on CXR and CT. WBC count is very minimally elevated, negative procalcitonin. - Repeat CXR, if persistent consolidation and ongoing oxygen requirement, will start Ceftriaxone and Azithromycin for community-acquired pneumonia - Consider outpatient PFTs - Continue to encourage use of IS 5) Ovarian cyst: With septation. Seen on imaging at [facility] from 04/27. - Pelvic u/s to evaluate further 6) Weight loss: In part due to decreased appetite for the last 2 weeks, however also concerning for possible malignancy based on severity of loss in brief time frame. - Continue work-up as above - Pt declines dietary consult today as concerned about the cost 7) HTN: BP elevated above goal - Increase home Amlodipine to 10mg daily - Continue home Lisinopril 40mg daily 8) Hypothyroidism: Oversupplemented currently - Holding home Levothyroxine, which had been recommended prior to hospitalization FEN: General diet for now, NPO overnight Code: Full DVT ppx: SCDs only due to dropping H/H Dispo: Pending above evaluations. Anticipate at least 2 additional midnights.
[2023-04-29] MEDS: BISACODYL 5 MG TABLET PO (11:33)
[2023-04-29] MEDS: polyethylene glycoL 3350 17 GM POWD.PACK PO ×2 (11:33→21:16)
--- NOTE | 2023-04-29 11:56 | PM.CALLCOV.1 ---
Call Coverage Note Note Date of Patient Contact: 05/31/23 Time of Patient Contact: 11:56 Narrative of Care Provided: 83F PMH CAD, Emphysema admitted with abdominal pain and anemia. Mild demand ischemia trop down trending, Echo read pending, VSS. CT notable for significant pyloric outlet thickening. Plan Diagnostic EGD 2/4 rule out gastric carcinoma vs gastritis NPO 2/4
[2023-04-29 12:00] VITALS: BP 157/73; PULSE 77; RESP 16; TEMP 36.6; O2SAT 96
[2023-04-29 12:29] LABS: HEMOLYSIS < 15 (0-50); Iron 26 ug/dL (37-170)
[2023-04-29 12:39] LABS: Percent Iron Saturation 10 % (15-50); Total Iron Binding Capacity 249 ug/dL (265-497); Transferrin 203 mg/dL (206-381)
[2023-04-29] MEDS: PANTOPRAZOLE 40 MG VIAL 20 MG IV ×2 (12:42→21:16)
[2023-04-29] MEDS: cefTRIAXone 1,000 MG in SODIUM CHLORIDE 0.9% 100 ML 200 MG IV (13:32)
[2023-04-29] MEDS: AZITHROMYCIN 500 MG in DEXTROSE 5% IN WATER 250 ML 250 MG IV (14:14)
[2023-04-29 14:29] LABS: Appearance Urine UA SL CLOUDY; Bilirubin Urine UA NEGATIVE (NEGATIVE); Color Urine UA YELLOW; Glucose Urine UA NEGATIVE (Negative); Ketones Urine UA TRACE (NEGATIVE); Leukocyte Esterase Urine UA NEGATIVE (NEGATIVE); Nitrite Urine UA NEGATIVE (Negative); Occult Blood Urine UA NEGATIVE (Negative); Protein Urine UA NEGATIVE (Negative); Urobilinogen Urine UA 0.2 E.U./dL (0.2)
[2023-04-29 14:30] LABS: pH Urine UA 5.5 (4.5-8.0)
[2023-04-29 14:38] LABS: Bacteria Urine Many (>30); Culture Indicated Urine Specimen Cultured; RBC Urine None Seen (0-5/HPF); Squamous Epithelial Cell Urine 0-1 /HPF (0-5/HPF); Urine Volume 10mL (spun); WBC Urine 5-10/HPF (0-5/HPF)
--- NOTE | 2023-04-29 19:57 | PC.NURSE ---
Addendum entered by Joycelyn Johansen R.N. 04/30/23 00:15: HR converted back to sinus rhythm, HR in the 70's. Will continue to monitor. Addendum entered by Joycelyn Johansen R.N. 04/29/23 23:53: HR remaining in afib after x1 dose of 5mg IV Metoprolol. Notified MD Keane, new orders were to give another 5mg IV Metoprolol if HR sustains >110. 12-lead EKG ordered and completed, revealed junctional rhythm in 130's. Second dose of 5mg IV Metoprolol given since HR sustaining in 130's. Will continue to monitor. Addendum entered by Joycelyn Johansen R.N. 04/29/23 23:05: Patient's HR in afib 130's-140's bpm, sustaining. patient is at rest, denies chest pain, palpitations, pain, SOB. O2 saturation 89%, placed pt back on 1L NC, O2 saturation back up 94%. Otherwise VS WNL. Notified MD Keane, 5mg IV Metoprolol ordered & given. Will continue to monitor. Addendum entered by Joycelyn Johansen R.N. 04/29/23 21:57: Notified MD Keane of CT results. Patient is now alert & oriented to self, place, situation, month/year. Patient stated that sometimes when she is is a deep sleep, she will wake up disoriented. Left-sided facial droop still present, although patient states that it may be d/t her dentures. Will continue to monitor. 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 Daughter (Lakshmi) stated that the confusion started around 1800, patient is normally AxOx4. Noticed left-sided facial droop as well. Speech is clear, patient is able to follow commands. Denies chest pain, nausea, SOB. VS WNL. NIH score: 2 d/t confusion & left-sided facial droop. Notified MD Keane, new orders placed: Stat head CT, CTA of head/neck, CBC, lactate, & BMP. Took patient down to CT @ approximately 2014. Will continue to monitor.
[2023-04-29 20:00] VITALS: BP 149/70; PULSE 90; RESP 16; TEMP 36.1; O2SAT 96
--- NOTE | 2023-04-29 20:03 | DI.CT.S_ITS ---
PROCEDURE: CT ANGIO HEAD AND NECK INDICATIONS: confusion, facial droop TECHNIQUE: After the administration of intravenous contrast, 1 mm thick sections acquired from the aortic arch through the [place] of [place]. MIP reformats of the arterial vasculature were utilized. For radiation dose reduction, the following was used: automated exposure control, adjustment of mA and/or kV according to patient size. COMPARISON: None. FINDINGS: Cerebral CT Angiogram: Internal carotid arteries: No acute findings. Intracranial ICA are patent with no significant stenosis. No occlusion. No aneurysm. Anterior cerebral arteries: Unremarkable. No significant stenosis. No occlusion. No aneurysm. Middle cerebral arteries: Unremarkable. No significant stenosis. No occlusion. No aneurysm. Posterior cerebral arteries: Unremarkable. No significant stenosis. No occlusion. No aneurysm. Basilar artery: Unremarkable. No significant stenosis. No occlusion. No aneurysm. Vertebral arteries: Unremarkable as visualized. Dural venous sinuses: Unremarkable given phase of enhancement. Other: Arterial phase brain parenchyma is unremarkable. Neck CT Angiogram: Internal carotid arteries: Unremarkable. No significant stenosis. No dissection or occlusion. Common carotid arteries: Unremarkable. No significant stenosis. No dissection or occlusion. External carotid arteries: Unremarkable. No occlusion. Vertebral arteries: Unremarkable. No significant stenosis. No dissection or occlusion. Other: Severe biapical pulmonary emphysema Aortic Arch and Mediastinum: Partially visualized aortic arch unremarkable without evidence of aneurysm. Origins of the great vessels unremarkable. IMPRESSION: 1. Atherosclerotic calcification noted involving the proximal bilateral internal carotid arteries results in less than 50% stenosis bilaterally. Similar atherosclerotic calcification cavernous segments are also noted without hemodynamically significant stenosis. 2. No evidence of intracranial large vessel occlusion, aneurysm or vascular malformation Any quantitative measurements of stenosis were performed using NASCET criteria. Approved by: Blayne Falcon M.D. on 04/29/2023 at 20:05
--- NOTE | 2023-04-29 20:17 | DI.CT.S_ITS ---
PROCEDURE: CT STROKE INDICATIONS: confusion, L facial droop TECHNIQUE: Noncontrast 4.5 mm thick angled axial sections acquired from the foramen magnum to the vertex, with coronal reformats. For radiation dose reduction, the following was used: automated exposure control, adjustment of mA and/or kV according to patient size. COMPARISON: None. FINDINGS: Image quality: Diagnostic. CSF spaces: Basal cisterns are patent. No extra-axial fluid collections. Ventricles are normal in size and shape. Brain: No midline shift. No intracranial masses or hemorrhage. Sharpe-white matter interface is normal. Moderate calcified atherosclerotic plaque noted involving the cavernous portions of both internal carotid arteries. Skull and face: Calvarium and visualized facial bones are intact, without suspicious lesions. Sinuses: Visualized sinuses and mastoids are clear. IMPRESSION: Atrophy and chronic ischemic change without intracranial hemorrhage or mass effect. This study fulfills neurological imaging criteria for inclusion or exclusion of acute stroke therapies based on available published neurological imaging guidelines. Note: Critical results were discussed with the patient's nurse on the floor, Joycelyn at 07:31 PM [place] time on 04/29/23 Approved by: Blayne Falcon M.D. on 04/29/2023 at 19:32
[2023-04-29 21:28] LABS: Add Manual Diff / Slide Review NO; Basophils Absolute Auto 100 /uL (0-100); Basophils Percent Auto 1.1 % (0-2); Eosinophils Absolute Auto 400 /uL (0-450); Eosinophils Percent Auto 5.3 % (2-4); Hematocrit 24.8 % (36-46); Hemoglobin 8.4 g/dL (12.0-16.0); Lymphocytes Absolute Auto 1400 /uL (1100-4500); Lymphocytes Percent Auto 17.2 % (25-40); Mean Corpuscular HGB Conc 33.8 % (30-36); Mean Corpuscular Hemoglobin 30.5 PG (26-34); Mean Corpuscular Volume 90.3 fL (80-100); Monocytes Absolute Auto 600 /uL (0-900); Monocytes Percent Auto 7.7 % (3-14); Neutrophils Absolute Auto 5600 /uL (1500-7000); Neutrophils Percent Auto 68.7 % (50-75); Platelet Count 424 X10^3/uL (150-400); Red Blood Cell Count 2.75 X10^6/uL (4.0-5.2); Red Cell Distribution Width 13.7 % (11.6-14.8); White Blood Cell Count 8.2 X10^3/uL (4.5-11.0)
[2023-04-29 21:37] LABS: BUN Creatinine Ratio 14.5 (6-22); Blood Urea Nitrogen 10 mg/dL (7-17); Calcium 8.1 mg/dL (8.4-10.2); Carbon Dioxide 27 mmol/L (22-32); Chloride 102 mmol/L (98-107); Estimated Glomerular Filt Rate > 60 mL/min (>60); Glucose 99 mg/dL (80-110); HEMOLYSIS < 15 (0-50); Lactate (Lactic Acid) 0.7 mmol/L (0.7-2.1); Potassium 3.4 mmol/L (3.4-5.1); Sodium 132 mmol/L (137-145)
[2023-04-29] MEDS: METOPROLOL TARTRATE 5 MG/5 ML INJ IV ×2 (22:57→23:43)
[2023-04-29 23:51] VITALS: BP 119/65; PULSE 120; RESP 16; TEMP 36; O2SAT 98
[2023-04-30] VITALS (8 sets, daily range): BP systolic 130–160; BP diastolic 53–74; PULSE 60–90; RESP 14–19; TEMP 36.1–37.1; O2SAT 92–99
--- NOTE | 2023-04-30 | PATH_ITS ---
[facility] Accession Number: [id number] No. of containers..01 Tissue . 01 Material submitted: . pyloric antrum - PYLORIC MASS . 01 Diagnosis: Pyloric Mass, Biopsy: Deep ulcer with reactive endothelial changes. No neoplasm or malignancy identified in the sampled material; please see comment. MRV 05/05/2023 1517 Local . 01 Comment: No neoplasm is seen in the sampled material. A mural or extrinsic lesion cannot be entirely excluded, and correlation with clinical and imaging findings to evaluate for this possibility is recommended. . As part of routine quality control clerk, Dr. Hernandes has reviewed this case and agrees with the diagnosis of ulcer with reactive changes. The findings in this case were discussed between Dr. Portillo and Dr. Miramontes on 05/04/2023 at 10:45 a.m. and 1:15 p.m. . 01 Electronically signed: . Mayank Portillo MD, PhD, Pathologist NPI- [id number] . 01 Gross description: . PYLORIC MASS: Received in formalin is multiple fragment(s) of stokes, soft tissue measuring 0.7 x 0.3 x 0.1 cm in aggregate submitted entirely in 1 cassette(s) /AAY 05/02/2023 0341 Local . 01 Microscopic: . Sections are predominantly of ulcer bed and necroinflammatory debris. A couple fragments of muscularis propria are present with interspersed epithelioid cells. Numerous neutrophils and eosinophils are also present. To further categorize the process, a panel of immunohistochemical stains is performed (each with an appropriately positive control). Smooth muscle actin and desmin immunohistochemical stains highlight the smooth muscle of the muscularis propria, but are negative in the epithelioid cells. The epithelioid cells are negative for LYNNE immunoreactivity, excluding carcinoma. DOG1 and CD117 immunohistochemical stains are negative in the region of interest, excluding a gastrointestinal stromal tumor. An ALK1 immunohistochemical stain is negative for immunoreactivity, strongly arguing against an inflammatory myofibroblastic tumor. An S100 immunohistochemical stain is negative for immunoreactivity, excluding a neural lesion. The epithelioid cells are positive for ERG and CD34 immunoreactivity, consistent with reactive endothelial cells; the stromal component is negative for CD34, excluding an inflammatory fibroid polyp. The overall features are consistent with a deep ulcer and reactive endothelial changes with no evidence of neoplasm. . * This test was developed and its performance characteristics determined by [facility]. It has not been cleared or approved by the U.S. Food and Drug Administration. The FDA has determined that such clearance or approval is not necessary. This test is used for clinical purposes. It should not be regarded as investigational or for research. . 01 Pathologist provided ICD-10: K25.9 . 01 CPT . 761580, T30059, S66433 Specimen Comment: A courtesy copy of this report has been sent to [phone] Performed at: 01 [facility] [address] [place] [address] [address] [facility], [place], [place] [id number] MD Jeffery Hernandes MD Phone: [phone]
[2023-04-30] MEDS: SODIUM CHLORIDE 0.9% 1,000 ML 60 ML IV (05:36)
[2023-04-30 06:38] LABS: Add Manual Diff / Slide Review NO; Basophils Absolute Auto 100 /uL (0-100); Basophils Percent Auto 1.2 % (0-2); Eosinophils Absolute Auto 600 /uL (0-450); Eosinophils Percent Auto 7.6 % (2-4); Hematocrit 24.4 % (36-46); Hemoglobin 8.3 g/dL (12.0-16.0); Lymphocytes Absolute Auto 1800 /uL (1100-4500); Lymphocytes Percent Auto 24.1 % (25-40); Mean Corpuscular HGB Conc 33.9 % (30-36); Mean Corpuscular Hemoglobin 30.7 PG (26-34); Mean Corpuscular Volume 90.4 fL (80-100); Monocytes Absolute Auto 700 /uL (0-900); Monocytes Percent Auto 8.6 % (3-14); Neutrophils Absolute Auto 4400 /uL (1500-7000); Neutrophils Percent Auto 58.5 % (50-75); Platelet Count 427 X10^3/uL (150-400); Red Cell Distribution Width 13.4 % (11.6-14.8); White Blood Cell Count 7.6 X10^3/uL (4.5-11.0)
[2023-04-30 06:45] LABS: Magnesium 2.1 mg/dL (1.6-2.3)
[2023-04-30 06:48] LABS: BUN Creatinine Ratio 11.4 (6-22); Blood Urea Nitrogen 8 mg/dL (7-17); Calcium 8.2 mg/dL (8.4-10.2); Carbon Dioxide 26 mmol/L (22-32); Chloride 103 mmol/L (98-107); Estimated Glomerular Filt Rate > 60 mL/min (>60); Glucose 76 mg/dL (80-110); HEMOLYSIS < 15 (0-50); Potassium 3.4 mmol/L (3.4-5.1); Sodium 134 mmol/L (137-145)
--- NOTE | 2023-04-30 08:59 | PM.CN ---
History of Present Illness Consult details Date Patient Seen: 04/30/23 Time Patient Seen: 08:59 Chief complaint: abdominal discomfort Narrative: 83-year-old woman PMH hypertension with a generalized decline over the past several months admitted to the hospital pain for abdominal pain. She describes several months of progressive gastric partial obstruction feelings of fullness bloating frequent spitting up. CT abdomen pelvis demonstrates significant thickening of the pyloric channel. She has had an unintentional weight loss of proximally 24 lb over the past 2 months. Current hematocrit 24 baseline 40. Consulted for diagnostic esophagogastric duodenoscopy Meds Home Medications and Allergies Home Medications Medication Instructions Recorded Confirmed Type ASPIRIN (#ASPIRIN) 325 mg PO Q DAY ##0 01/27/11 04/26/23 History GLUCOSAMINE/CHONDROITIN SULF A 1 cap PO Q DAY ##0 01/27/11 04/26/23 History (Glucosamine-Chondroitin Cap) multivitamin (Multiple Vitamins 1 tab PO QDAY ##0 01/27/11 04/26/23 History tablet) [RAJANI-C] 500 mg PO QDAY ##0 03/17/17 04/26/23 History furosemide 20 mg tablet 60 mg (3 x 20 mg) PO DAILY #270 10/03/22 04/26/23 Rx tabs amlodipine 5 mg tablet (Norvasc) 5 mg PO DAILY #90 tabs 02/27/23 04/26/23 Rx levothyroxine 137 mcg tablet 137 mcg PO DAILY #90 tabs 02/27/23 04/26/23 Rx lisinopril 40 mg tablet 40 mg PO DAILY #90 tabs 02/27/23 04/26/23 Rx ferrous sulfate 325 mg (65 mg 325 mg PO DAILY #90 tabs 04/27/23 04/27/23 Rx iron) tablet levothyroxine 125 mcg capsule 125 mcg PO DAILY #30 caps 04/27/23 04/27/23 Rx Allergies Allergy/AdvReac Type Severity Reaction Status Date / Time Penicillins Allergy Mild FACE Verified 04/28/23 12:40 SWELLING ranitidine [RANITIDINE] AdvReac Intermediate abd Verified 04/28/23 12:40 pain/anorexia Exam Vital Signs (past 8 hours): - 04/30/23 03:00 04/30/23 08:00 Temperature 98.8 F 97.0 F L Pulse Rate 74 74 Respiratory Rate 16 16 Blood Pressure 130/68 130/67 Pulse Oximetry 96 93 Oxygen Flow Rate 1 Oxygen Delivery Method Nasal Cannula Oxygen Flow Rate 1 Narrative Exam Narrative: General elderly woman alert oriented no acute distress Chest nonlabored respiration Abdomen moderate distention Extremities warm well perfused Objective Labs 04/30/23 05:40 04/30/23 05:40 Labs: Laboratory Results - last 24 hr 04/29/23 04/29/23 04/29/23 03:10 14:22 21:15 WBC 8.2 RBC 2.75 L Hgb 8.4 L Hct 24.8 L MCV 90.3 MCH 30.5 MCHC 33.8 RDW 13.7 Plt Count 424 H Neut % (Auto) 68.7 Lymph % (Auto) 17.2 L [place] % (Auto) 7.7 Eos % (Auto) 5.3 H Baso % (Auto) 1.1 Neut # (Auto) 5600 Lymph # (Auto) 1400 [place] # (Auto) 600 Eos # (Auto) 400 Baso # (Auto) 100 Sodium 132 L Potassium 3.4 Chloride 102 Carbon Dioxide 27 BUN 10 Creatinine 0.69 Estimated GFR > 60 BUN/Creatinine Ratio 14.5 Glucose 99 Lactate 0.7 Calcium 8.1 L Magnesium Iron 26 L TIBC 249 L % Saturation 10 L Transferrin 203 L Urine Color Yellow Urine Appearance Sl cloudy Urine pH 5.5 Ur Specific [place] 1.020 Urine Protein Negative Urine Glucose (UA) Negative Urine Ketones Trace H Urine Occult Blood Negative Urine Nitrate Negative Urine Bilirubin Negative Urine Urobilinogen 0.2 Ur Leukocyte Esterase Negative Urine RBC None seen Urine WBC 5-10/hpf H Ur Squamous Epith Cells 0-1 /hpf Urine Bacteria Many (>30) H Ur Culture Indicated? Specimen cultured Vol Urine Centrifuged 10ml (spun) 04/30/23 05:40 WBC 7.6 RBC 2.70 L Hgb 8.3 L Hct 24.4 L MCV 90.4 MCH 30.7 MCHC 33.9 RDW 13.4 Plt Count 427 H Neut % (Auto) 58.5 Lymph % (Auto) 24.1 L [place] % (Auto) 8.6 Eos % (Auto) 7.6 H Baso % (Auto) 1.2 Neut # (Auto) 4400 Lymph # (Auto) 1800 [place] # (Auto) 700 Eos # (Auto) 600 H Baso # (Auto) 100 Sodium 134 L Potassium 3.4 Chloride 103 Carbon Dioxide 26 BUN 8 Creatinine 0.70 Estimated GFR > 60 BUN/Creatinine Ratio 11.4 Glucose 76 L Lactate Calcium 8.2 L Magnesium 2.1 Iron TIBC % Saturation Transferrin Urine Color Urine Appearance Urine pH Ur Specific [place] Urine Protein Urine Glucose (UA) Urine Ketones Urine Occult Blood Urine Nitrate Urine Bilirubin Urine Urobilinogen Ur Leukocyte Esterase Urine RBC Urine WBC Ur Squamous Epith Cells Urine Bacteria Ur Culture Indicated? 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, [employer]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 Recommend we proceed with a diagnostic esophagogastric duodenoscopy for further evaluation. Overview of the procedure was discussed. Procedural risks including hemorrhage, intestinal injury were discussed. Questions have been answered she is in agreement with this plan she provides her written and verbal consent to proceed.
--- NOTE | 2023-04-30 09:23 | PM.OP.EGD ---
Operative Date/Time/Diagnoses Date of procedure: 04/30/23 Time of procedure: 09:23 Pre-op diagnosis: gastric outlet obstruction Post-op diagnosis: other (pyloric mass) Procedure & Clinicians Study performed: EGD Same procedure as scheduled: Yes Indications: 82 F with generalized decline over the past several months with imaging demonstrating pyloric thickening Surgeon: Geoff Miramontes Procedure Notes Procedure in detail: Patient was brought to procedure room placed supine on the table. General anesthesia was induced he was intubated with an endotracheal tube. Time-out was performed. The endoscope was inserted into the mouth and passed easily down the esophagus. The stomach was notable for flecks of clot. Within the pyloric channel there has a ulcerated obstructing mass. We are unable to passed the EGD scope into the duodenum secondary to the degree of obstruction. Numerous biopsies of the pyloric mass were taken. Its appearance is consistent with malignancy. Specimen(s): other (Pyloric mass) Complications: none Impression: Pyloric mass Post-procedure Plan for aftercare: Discussion with family regarding goals of care Disposition: Acute Care
[2023-04-30] MEDS: PANTOPRAZOLE 40 MG VIAL 20 MG IV ×2 (10:17→21:10)
--- NOTE | 2023-04-30 11:09 | PM.PN.1 ---
Subjective Subjective Date Patient Seen: 04/30/23 Interval history: The pt reports that she is actually feeling improved this morning. She was able to eat small quantities of food yesterday without significant nausea. She denies any further abdominal pain. She denies any SOB. She continues to deny any chest pain. Yesterday evening she was alert but oriented only to person for several hours. Nursing also noted a left sided facial droop. STAT CT head was completed that showed no CVA. The pts symptoms then resolved. The pt then went into atrial fibrillation with RVR. She spontaneously transitioned to atrial fibrillation with normal rate. The pt was asymptomatic with normal additional vitals throughout. Exam Vital Signs (past 8 hours): - 04/30/23 08:00 04/30/23 09:02 04/30/23 09:25 Temperature 97.0 F L 97.6 F 97.6 F Pulse Rate 74 75 72 Respiratory Rate 16 14 19 Blood Pressure 130/67 154/58 H 139/74 Pulse Oximetry 93 97 99 Oxygen Delivery Method Room Air Room Air 04/30/23 09:30 Temperature Pulse Rate 69 Respiratory Rate 18 Blood Pressure 139/64 Pulse Oximetry 97 Oxygen Delivery Method Room Air Oxygen Delivery Method Room Air Oxygen Flow Rate 1 Narrative Exam Narrative: Gen: NAD, sitting comfortably in bed, calm CV: irregularly irregular rhythm, normal rate Resp: clear to auscultation bilaterally, no wheezes or crackles Abd: soft, nontender, nondistended, normoactive bowel sounds Objective Labs 04/30/23 05:40 04/30/23 05:40 Labs: Laboratory Results - last 24 hr 04/29/23 04/29/23 04/29/23 03:10 14:22 21:15 WBC 8.2 RBC 2.75 L Hgb 8.4 L Hct 24.8 L MCV 90.3 MCH 30.5 MCHC 33.8 RDW 13.7 Plt Count 424 H Neut % (Auto) 68.7 Lymph % (Auto) 17.2 L [place] % (Auto) 7.7 Eos % (Auto) 5.3 H Baso % (Auto) 1.1 Neut # (Auto) 5600 Lymph # (Auto) 1400 [place] # (Auto) 600 Eos # (Auto) 400 Baso # (Auto) 100 Sodium 132 L Potassium 3.4 Chloride 102 Carbon Dioxide 27 BUN 10 Creatinine 0.69 Estimated GFR > 60 BUN/Creatinine Ratio 14.5 Glucose 99 Lactate 0.7 Calcium 8.1 L Magnesium Iron 26 L TIBC 249 L % Saturation 10 L Transferrin 203 L Urine Color Yellow Urine Appearance Sl cloudy Urine pH 5.5 Ur Specific [place] 1.020 Urine Protein Negative Urine Glucose (UA) Negative Urine Ketones Trace H Urine Occult Blood Negative Urine Nitrate Negative Urine Bilirubin Negative Urine Urobilinogen 0.2 Ur Leukocyte Esterase Negative Urine RBC None seen Urine WBC 5-10/hpf H Ur Squamous Epith Cells 0-1 /hpf Urine Bacteria Many (>30) H Ur Culture Indicated? Specimen cultured Vol Urine Centrifuged 10ml (spun) 04/30/23 05:40 WBC 7.6 RBC 2.70 L Hgb 8.3 L Hct 24.4 L MCV 90.4 MCH 30.7 MCHC 33.9 RDW 13.4 Plt Count 427 H Neut % (Auto) 58.5 Lymph % (Auto) 24.1 L [place] % (Auto) 8.6 Eos % (Auto) 7.6 H Baso % (Auto) 1.2 Neut # (Auto) 4400 Lymph # (Auto) 1800 [place] # (Auto) 700 Eos # (Auto) 600 H Baso # (Auto) 100 Sodium 134 L Potassium 3.4 Chloride 103 Carbon Dioxide 26 BUN 8 Creatinine 0.70 Estimated GFR > 60 BUN/Creatinine Ratio 11.4 Glucose 76 L Lactate Calcium 8.2 L Magnesium 2.1 Iron TIBC % Saturation Transferrin Urine Color Urine Appearance Urine pH Ur Specific [place] Urine Protein Urine Glucose (UA) Urine Ketones Urine Occult Blood Urine Nitrate Urine Bilirubin Urine Urobilinogen Ur Leukocyte Esterase Urine RBC Urine WBC Ur Squamous Epith Cells Urine Bacteria Ur Culture Indicated? Vol Urine Centrifuged [facility] Medical History (Updated 04/28/23 @ 19:40 by Lenny Crouch PA-C) Peripheral edema GERD (gastroesophageal reflux disease) Hypothyroidism Hypertension Hyperlipidemia Essential hypertension Mixed hyperlipidemia Acquired hypothyroidism Surgical History H/O ventral hernia repair Social History marital status: number of children: 3 household members: spouse lives independently: Yes caregiver/support person: No housing: house pets and animals: No education level: high school occupational status: other Previous occupational history: [employer] at [employer], [employer]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 1) Gastric cancer: Found on endoscopy today. Cause of abdominal pain/nausea. Nearly completely obstructing pylorus - Continue IV Pantoprazole - Zofran PRN - Tylenol for pain control - Surgery consulted, appreciate ongoing recommendations and care. Presented pt with options moving forward including placement of PEG to allow for palliative draining of gastric contents, bypass-type surgery with small intestine to allow for more nutritive feeds, or referral to [facility] for consideration of more aggressive treatment options. Pt is not interested in more aggressive options, and is currently considering PEG vs bypass-type surgery. - Will transition PO medications as possible to IV form 2) Elevated troponin, Type II MS: Trending down appropriately now. Most consistent with demand ischemia. ED consulted Cardiology - recommended trending and Echocardiogram. Likely due to significant dehydration due to #1. Pt asymptomatic. Echo overall reassuring. 3) Anemia: Acute, iron deficiency. Overall stable. - Continue to trend - Could consider iron transfusion. Pt will be unable to digest oral iron supplementation. 4) Acute respiratory failure with community-acquired pneumonia vs aspiration: Respiratory status improving with no oxygen requirement recently. - Continue Ceftriaxone, Azithromycin - Continue to encourage use of IS 5) Paroxysmal atrial fibrillation: New onset, currently rate controlled - Hold anticoagulation due to bleeding risk - IV Metoprolol PRN for HR > 100 6) Possible TIA: Symptoms completely resolved. Reassuring head CT/CTA, and MRI. - Monitor for recurrent symptoms. 7) Ovarian cyst: With septation. Seen on imaging at [facility] from 04/27. - Will hold on additional imaging based on gastric cancer 8) Acute malnutrition: Due to cancer and decreased PO intake - PICC line placement - Will initiate TPN as per surgery in preparation for potential future surgery 9) HTN: - Transition to IV Enalapril - Continue to monitor 10) Hypothyroidism: Oversupplemented currently - Holding home Levothyroxine, which had been recommended prior to hospitalization FEN: NPO due to high risk aspiration with few sips for comfort, initiating TPN Code: After discussion today, pt desires transition to DNR status. Updated chart accordingly. DVT ppx: SCDs only due to bleeding risk Dispo: Pt will consider treatment options presented by surgery. Length of stay dependent on decision.
[2023-04-30] MEDS: cefTRIAXone 1,000 MG in SODIUM CHLORIDE 0.9% 100 ML 200 MG IV (12:33)
[2023-04-30] MEDS: ENALAPRILAT 2.5 MG/ 2 ML VIAL 1.25 MG IV ×2 (12:33→17:05)
[2023-04-30] MEDS: AZITHROMYCIN 500 MG in DEXTROSE 5% IN WATER 250 ML 250 MG IV (13:28)
--- NOTE | 2023-04-30 13:41 | PM.CALLCOV.1 ---
Call Coverage Note Note Date of Patient Contact: 04/30/23 Time of Patient Contact: 13:41 Narrative of Care Provided: 83-year-old woman admitted with abdominal pain EGD demonstrates a malignant gastric outlet obstruction. Extensive discussion with patient's family today presented them with the following 3 options. 1. Palliative PEG home with hospice 2. Discussion with tertiary [facility] in regards to salvage therapy/chemo 3. Palliative intestinal bypass They will take some time to consider their options and inform us of her decision. She has been nutritionally deplete for the past 2 months secondary to the partial outlet obstruction and I recommended that we start her on TPN. Her oral medications were observed within the stomach and I do not think they are able to passed secondary to the degree of obstruction we will convert her remaining meds to IV or liquid. She is at considerable aspiration risk. NPO okay a few ice chips/sips nothing further.
--- NOTE | 2023-04-30 15:50 | CM.DPNOTE ---
DCP Note CLINICAL RESEARCH COORDINATOR reviewed EMR. Per Fe/Diya, EGD today found pt has malignant tumor obstruction in stomach. Per providers, pt considering Hospice vs continuing treatment options. Providers concerned about pt's spouse with dementia and the plan to care for him. Per surgeon request, CLINICAL RESEARCH COORDINATOR placed dietary order for TPN consult. CLINICAL RESEARCH COORDINATOR met with pt in room. Pt A/Ox4, but reported being overwhelmed and still processing/confused with the information she learned today. CLINICAL RESEARCH COORDINATOR and pt had lengthy conversation about her different dc options. Pt reported her family was very emotional earlier in room. Pt reports her family/dtr/PIA is coordinating care for spouse with mild dementia. CLINICAL RESEARCH COORDINATOR provided [facility] booklet with different options of Respite Memory Care/PP in home caregivers. Pt appreciative, but reports that her family seems to be arranging care for spouse. CLINICAL RESEARCH COORDINATOR overviewed what Hospice services entail/that she would be completely stopping treatment and working on keeping her comfortable. Pt reports still deciding what she wants to do. Pt agreeable to this author sending referral to [facility] for review in case she decides to pursue that route. Pt confirmed POA is dtr Lakshmi (p [phone]). CLINICAL RESEARCH COORDINATOR spoke with Judy at [facility]. Reported pt still deciding. Judy agreed to review/hold onto referral. Judy agreed to coordinating informational visit in the hospital. CLINICAL RESEARCH COORDINATOR faxed facesheet, H&P, labs, PNs, consult notes, EGD note, CT, and med list to [facility]. Judy reports they likely do not have any openings until midweek. Per RN, PICC consult ordered for pt to get PICC like for TPN. Plan: pending medical POC. TPN with home infusion vs Hospice vs surgical intervention? CM team will continue to follow closely. MADI Martinez
--- NOTE | 2023-04-30 16:17 | DI.RAD.S_ITS ---
PROCEDURE: XR CHEST FOR PICC 1V INDICATIONS: PICC placement TECHNIQUE: One view of the chest was acquired. COMPARISON: [facility], CR, XR CHEST 1V, 04/29/2023, 11:25. FINDINGS: Surgical changes and devices: A right-sided PICC line is seen, with the tip overlying the superior aspect of the superior vena cava, 6-7 cm above the cavoatrial junction. Lungs and pleura: On this semiupright portable chest examination, no large pneumothorax is seen. There is blunting of the costophrenic angles. Mild generalized interstitial prominence can be seen. Mediastinum: Mediastinal contours appear normal. Heart size is at the upper limits of normal. Atherosclerotic calcification of the aortic arch is noted. Bones and chest wall: No suspicious bony lesions. Age-appropriate bony degenerative changes are seen. Mild dextroconvex scoliotic curvature is seen. Overlying soft tissues appear unremarkable. IMPRESSION: The tip of the right-sided PICC line can be seen overlying the superior aspect of the superior vena cava. Mild generalized interstitial prominence can be seen, with likely small bilateral pleural effusions. Dictated by: Laz Kincaid M.D. on 04/30/2023 at 16:15 Approved by: Laz Kincaid M.D. on 04/30/2023 at 16:16
[2023-04-30] MEDS: AA 5 %/CALCIUM/LYTES/DEXT 20 % 1,000 ML with POTASSIUM CHLORIDE 20 MEQ, MULTIVITAMIN 10... 21 ML IV (18:05)
[2023-04-30] MEDS: diphenhydrAMINE 50 MG/ML VIAL 25 MG IV (21:10)
[2023-05-01] VITALS: BP 131/83; PULSE 68; RESP 16; TEMP 36.4; O2SAT 93
[2023-05-01] MEDS: ENALAPRILAT 2.5 MG/ 2 ML VIAL 1.25 MG IV ×5 (00:18→23:36)
[2023-05-01 04:00] VITALS: BP 136/80; PULSE 66; RESP 17; TEMP 37; O2SAT 93
[2023-05-01 06:26] LABS: Add Manual Diff / Slide Review NO; Basophils Absolute Auto 100 /uL (0-100); Basophils Percent Auto 1.3 % (0-2); Eosinophils Absolute Auto 500 /uL (0-450); Eosinophils Percent Auto 8.9 % (2-4); Hemoglobin 7.8 g/dL (12.0-16.0); Lymphocytes Absolute Auto 1700 /uL (1100-4500); Lymphocytes Percent Auto 28.7 % (25-40); Mean Corpuscular HGB Conc 33.8 % (30-36); Mean Corpuscular Hemoglobin 30.9 PG (26-34); Mean Corpuscular Volume 91.5 fL (80-100); Monocytes Absolute Auto 600 /uL (0-900); Monocytes Percent Auto 10.2 % (3-14); Neutrophils Absolute Auto 3000 /uL (1500-7000); Neutrophils Percent Auto 50.9 % (50-75); Platelet Count 383 X10^3/uL (150-400); Red Blood Cell Count 2.51 X10^6/uL (4.0-5.2); Red Cell Distribution Width 13.5 % (11.6-14.8); White Blood Cell Count 5.8 X10^3/uL (4.5-11.0)
[2023-05-01 06:50] LABS: BUN Creatinine Ratio 13.4 (6-22); Blood Urea Nitrogen 9 mg/dL (7-17); Calcium 8.5 mg/dL (8.4-10.2); Carbon Dioxide 26 mmol/L (22-32); Chloride 106 mmol/L (98-107); Estimated Glomerular Filt Rate > 60 mL/min (>60); Glucose 90 mg/dL (80-110); HEMOLYSIS < 15 (0-50); Potassium 3.7 mmol/L (3.4-5.1); Sodium 134 mmol/L (137-145)
[2023-05-01 06:55] LABS: Magnesium 2.2 mg/dL (1.6-2.3); Phosphorous 2.8 mg/dL (2.8-4.1); Triglycerides 94 mg/dL (35-150)
--- NOTE | 2023-05-01 07:42 | PM.PN.1 ---
Subjective Subjective Date Patient Seen: 05/01/23 Time Patient Seen: 07:42 Interval history: Discussed patient's care with Dr. Keane in this morning. Presented with significant nausea and upon evaluation found to have significant large gastric mass obstructing her pylorus consistent with an obvious gastric cancer. Dr. Miramontes discussed options with patient including transfer to outside hospital for radical surgical intervention to resect tumor and continued aggressive treatment of cancer with chemo etcetera, palliative/hospice care with likely placement of PEG tube for decompression of stomach to relieve symptoms, and in other alternative again mostly palliative to do an intestinal bypass of sorts to again decompress the stomach but also to allow patient to eat more normally. Patient was pretty clear she did not want aggressive treatment of this presumed cancer but would be open to other options and is considering these other options TPN was started last evening by Dr. Miramontes as well in preparation for potential surgical intervention. Patient's obstruction is complete enough that her meds have not really being absorbed and or passed into the small intestine. Therefore oral medications have been converted Patient also with episodic atrial fibrillation including episodic rapid ventricular response. Patient also bit anemic although stable during her hospitalization here thus far. In addition she had a mild hypoxia thought potentially to have aspirated with possible pneumonia. She is continues on IV antibiotics for this as well. Her most recent oxygen saturation was 93% on room air Exam Vital Signs (past 8 hours): - 05/01/23 00:00 05/01/23 04:00 Temperature 97.6 F 98.6 F Pulse Rate 68 66 Respiratory Rate 16 17 Blood Pressure 131/83 136/80 Pulse Oximetry 93 93 Oxygen Flow Rate 0 0 Oxygen Delivery Method Room Air Oxygen Flow Rate 0 Objective Labs 05/01/23 05:20 05/01/23 05:20 Labs: Laboratory Results - last 24 hr 05/01/23 05:20 WBC 5.8 RBC 2.51 L Hgb 7.8 L Hct 23.0 L MCV 91.5 MCH 30.9 MCHC 33.8 RDW 13.5 Plt Count 383 Neut % (Auto) 50.9 Lymph % (Auto) 28.7 [place] % (Auto) 10.2 Eos % (Auto) 8.9 H Baso % (Auto) 1.3 Neut # (Auto) 3000 Lymph # (Auto) 1700 [place] # (Auto) 600 Eos # (Auto) 500 H Baso # (Auto) 100 Sodium 134 L Potassium 3.7 Chloride 106 Carbon Dioxide 26 BUN 9 Creatinine 0.67 Estimated GFR > 60 BUN/Creatinine Ratio 13.4 Glucose 90 Calcium 8.5 Phosphorus 2.8 Magnesium 2.2 Triglycerides 94 PFSH Medical History Peripheral edema GERD (gastroesophageal reflux disease) Hypothyroidism Hypertension Hyperlipidemia Essential hypertension Mixed hyperlipidemia Acquired hypothyroidism Surgical History H/O ventral hernia repair Social History marital status: number of children: 3 household members: spouse lives independently: Yes caregiver/support person: No housing: house pets and animals: No education level: high school occupational status: other Previous occupational history: [employer] at [employer], [employer] 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 Gastric mass-next steps will be as per patient and General surgery. I agree patient does not seem like she would want aggressive treatment based on my history with her but something to help with palliation of symptoms, some sort of gastric decompression and or potentially depending on complexity of surgery to bypass the pyloric mass to allow her to eat might be an appropriate option. After discussion with the patient and her daughter this morning seems like they are leaning toward some sort of bypass procedure to allow her to eat more normally. They have several appropriate questions for surgery regarding this that I can not really answer for them including whether or not the stomach cancer could be resected least in part at that time, what would she be able to eat, what would be her recovery time and how invasive with the procedure itself be. Would they anticipate her going home on TPN for week or 2 prior to coming back for this surgery or just going ahead and doing it at this time. 2. Anemia with spyv-ywuqynmorm-pdvonmo would likely benefit from some parental iron. Will go ahead and give her that today. 3. Nutrition-continue TPN as per surgery 4. Hypothyroidism-difficult to replace parenterally. Will continue to give her oral levothyroxine. There should be no harm in that by itself, and we can monitor her T4 and TSH longer-term to determine whether she is really absorbing it or not. Recent labs done had a suppressed TSH but normal T4 and so 1 of the nurse practitioners in my office recently reduced her dose (in my absence). I think she should be back on her usual dose of 137 mcg daily. I would not have changed her dose based on those labs which are consistent with all of her prior numbers as well. 5. Hypertension-thus far patient's blood pressures been adequately controlled. No changes. Continue with current medications. She might benefit from a switch to an IV beta-selina given the atrial fibrillation that she is experienced, but for now will not make any changes 6. Question pneumonia-continue with current antibiotic therapy. Continue to monitor oxygen requirements and clinical status in this regard. 7. Atrial fibrillation-no evidence of recurrence at this time. As above may benefit from switch to a beta selina. However I think if we can begin to metabolically improve her this is less likely to happen 8. Question TIA-patient with an episode on the third difficult to know whether that was a vascular neurologic event or what. She has not a candidate for anticoagulation of any sort as above given the gastric cancer with its I think likely bleeding causing the iron-deficiency anemia etcetera. She has had no recurrence. She was at risk given her atrial fibrillation but risk of anticoagulation far outweighs benefit in this situation. Continue to monitor for now.
[2023-05-01 08:00] VITALS: BP 139/75; PULSE 75; RESP 16; TEMP 36.6; O2SAT 95
[2023-05-01] MEDS: LEVOTHYROXINE 137 MCG TABLET PO (08:24)
[2023-05-01] MEDS: FUROSEMIDE 20 MG/2 ML VIAL IV (08:26)
[2023-05-01] MEDS: PANTOPRAZOLE 40 MG VIAL 20 MG IV ×2 (08:27→20:45)
[2023-05-01] MEDS: SODIUM CHLORIDE 0.9% 1,000 ML 84 ML IV ×2 (09:03→23:43)
[2023-05-01] MEDS: IRON SUCROSE 200 MG in SODIUM CHLORIDE 0.9% 100 ML 220 MG IV (09:59)
--- NOTE | 2023-05-01 11:39 | DIET.CONS ---
Addendum entered by Oxana Daniel 05/01/23 14:06: correction: Recc increasing TPN by 10-20mL/h q24h as tolerated. Original Note: Dietary Consultation Note Admission Date: 04/29/2023 15:04 Assessment: 83y F (DNR) admitted for abd discomfort found to have gastric outlet obstruction referred to nutrition for TPN reccs. Pt has not successfully eaten in 2w with anything consumed coming back up. Pt found to have gastric outlet obstruction, malignancy, working with surgery regarding management options. Pt leaning towards placement of PEG for gastric decompression as well as TPN for nourishment until definitive tx path decided. Pt started on 500mL Clinimix E last evening per collaborative protocol with pharmacy. Pt high risk for refeeding syndrome, recc slow advancement to goal. Pharmacy monitoring refeeding labs per protocol. Recc increasing TPN by 10-20mL q24h as tolerated. Ht: 157.48 cm Wt: 67.631 kg (-8% in 2w, severe) BMI: 27.2 UBW: 80-90kg Last BM: 04/14/23 (04/28/23 20:40) MNA: 9 Bruce Score: 20 Diet: 04/30/23 00:01 NPO Diet Diet Modifications: NPO Type: NPO except for Ice Chips Nutrition Percent Meal Consumed 25% 04/29/23 13:27 Labs: RBC 2.51 X10^6/uL (4.0-5.2) L 05/01/23 05:20 Hgb 7.8 g/dL (12.0-16.0) L 05/01/23 05:20 Hct 23.0 % (36-46) L 05/01/23 05:20 Creatinine 0.67 mg/dL (0.52-1.04) 05/01/23 05:20 Lactate 0.7 mmol/L (0.7-2.1) 04/29/23 21:15 Iron 26 ug/dL (37-170) L 04/29/23 03:10 % Saturation 10 % (15-50) L 04/29/23 03:10 NT-Pro-B Natriuret Pep 1770 pg/mL (<450) H 04/28/23 13:10 Nutrition Diagnosis: Severe Acute Protein Calorie Malnutrition r/t altered GI tract aeb near total gastric outlet obstruction due to malignant mass, 8% unintentional weight loss in 2w (severe), MNA 9 (malnourished). Interventions: 1. Recc continuation TPN with slow advancement to goal rate of 72mL/h which is 1750mL Clinimix E plus 250mL IVFE three times per week (M, W, F) providing 87g PRO (108%) and 1,754kcals (88%) and 1,725mL fluids (88%). 2. Monitor closely for refeeding syndrome, replete as needed. 3. Recc 100mg Thiamine daily x5d to reduce risk refeeding syndrome. EER: 81g PRO (1.2g/kg per GI malignancy), 2,000kcals (30kcal/kg), 2L fluids (30mL/kg) Monitoring/Evaluations: following daily for refeeding, feed tolerance. Electronically Signed by: Oxana Daniel 05/01/23 11:39 Clinical Dietitian [address] [address]
[2023-05-01 12:00] VITALS: BP 148/60; PULSE 71; RESP 16; TEMP 36.4; O2SAT 95
[2023-05-01] MEDS: cefTRIAXone 1,000 MG in SODIUM CHLORIDE 0.9% 100 ML 200 MG IV (12:50)
--- NOTE | 2023-05-01 13:25 | CM.DPNOTE ---
DCP Note COUPON CLERK reviewed EMR. Per [facility] note, pt preference at this time is to dc home on TPN for a few weeks until she's a bit stronger from increased nutrition and then do bypass surgery here in 1-2 weeks. TPN was started yesterday. Pt was given iron today for anemia. From note, unclear dc timeline at this time. COUPON CLERK met with pt in room. Pt reports in agreement with TPN at home. COUPON CLERK answered questions to best of ability what to expect with [facility]. Pt reports better to contact dtr, Lakshmi (p [phone]), for scheduling. Pt confirms family is taking care of spouse with mild dementia. Pt reports no preference for HH, reports no need for PT/OT, just nursing. COUPON CLERK spoke with Matilde at [facility]. Agreed to review. Matilde asked which doc is following TPN at [facility]- this COUPON CLERK reported likely PCP/[facility] but will confirm with him. COUPON CLERK faxed face sheet, H&P, dietary note, PN, PICC report, and surg consult note to [facility] (f [phone]). COUPON CLERK left message with [facility] nursing staff re: dc timeline, which doc is following TPN, and wanted to pass along specific language [facility] needs from provider in documentation. COUPON CLERK spoke with Dtr Lakshmi to review dcp. Lakshmi reports family will be with pt/spouse 17/10 at [facility]. COUPON CLERK gave dtr information on caregivers/memory care for pt's spouse if they need it in the future. COUPON CLERK answered questions to best of ability. Dtr confirms no preference for HH agency. Dtr agreeable to be POC for scheduling [facility]/HH. COUPON CLERK spoke with Joanna at [facility]- canceled referral. COUPON CLERK spoke with Charo at [facility], she agreed to review. COUPON CLERK placed HH order/completed face to face and placed in scanning folder. Plan: home with [facility] , pending acceptance, and family support. Dtr Lakshmi likely to transport home in POV. CM team will continue to follow closely. MADI Martinez
[2023-05-01] MEDS: AZITHROMYCIN 500 MG in DEXTROSE 5% IN WATER 250 ML 250 MG IV (14:24)
[2023-05-01 16:00] VITALS: BP 160/77; PULSE 80; RESP 16; TEMP 36.3; O2SAT 94
[2023-05-01] MEDS: [UNRECOGNIZED DRUG - OTHER] IV (17:55)
[2023-05-01] MEDS: CALCIUM IV (17:55)
[2023-05-01] MEDS: LYTES IV (17:55)
[2023-05-01] MEDS: THIAMINE IV (17:55)
[2023-05-01] MEDS: FAT EMULSIONS 50 GM/250 ML EMULSION IV (17:55)
[2023-05-01] MEDS: DEXT IV (17:55)
[2023-05-01 20:45] VITALS: BP 160/81; PULSE 83; RESP 18; TEMP 36.9; O2SAT 93
[2023-05-01] MEDS: diphenhydrAMINE 50 MG/ML VIAL 25 MG IV (23:50)
--- NOTE | 2023-05-02 | DI.MRI.S_ITS ---
PROCEDURE: MR AB PANCREATIC/MRCP PROTOCOL INDICATIONS: staging pyloric mass TECHNIQUE: Coronal HASTE through the abdomen, axial 2-D FLASH in- and [id number], and breath-hold T2 FSE with fat saturation through the biliary system and pancreas. Oblique coronal and axial thin-slice HASTE, radial thick-slab HASTE centered on the extrahepatic bile ducts. Intravenous secretin: Not requested. COMPARISON: [facility], CT, CT ABDOMEN PELVIS WITH CONTRAST, 04/27/2023, 23:05. [facility], CT, CT ANGIO CHEST PE PROTOCOL, 04/28/2023, 14:24. FINDINGS: Image quality: Severely suboptimal evaluation due to motion artifact. Gallbladder: Cholelithiasis without wall thickening or adjacent fat stranding to suggest acute cholecystitis. Biliary ducts: No biliary dilation. Pancreas: No ductal dilation. OTHER: Lung bases: Small pleural effusions. Liver: No solid mass. Spleen: Size is within normal limits. Adrenal Glands: No adrenal nodules. Kidneys and Ureters: No hydronephrosis. No solid mass. No complex renal cystic lesion which requires follow up. Stomach and Bowel: Persistent gastric antrum wall thickening. Mild edema surrounding this region. Peritoneum: No abnormal intraperitoneal fluid. No free air. Ventral Wall: No hernia. Abdominal Nodes: Prominent mesenteric lymph nodes inferior to the gastric antrum Vessels: Aorta and inferior vena cava are normal in size. Bones: No aggressive osseous abnormality. IMPRESSION: Severely suboptimal evaluation due to motion artifact. Persistent gastric antrum thickening, with mild edema surrounding this area. Prominent mesenteric lymph nodes inferior to the gastric antrum. Findings suggest inflammatory process, although malignancy is not entirely excluded. Recommend GI referral, if not already obtained, for direct visualization. Dictated by: Kostas Larios M.D. on 05/03/2023 at 8:53 Approved by: Kostas Larios M.D. on 05/03/2023 at 9:04
[2023-05-02 00:20] VITALS: BP 104/75; PULSE 84; RESP 18; TEMP 36.5; O2SAT 93
[2023-05-02 04:25] VITALS: BP 142/70; PULSE 73; RESP 18; TEMP 36.7; O2SAT 95
[2023-05-02] MEDS: ENALAPRILAT 2.5 MG/ 2 ML VIAL 1.25 MG IV ×4 (05:16→23:11)
[2023-05-02] MEDS: LEVOTHYROXINE 137 MCG TABLET PO (05:16)
[2023-05-02 08:00] VITALS: BP 142/68; PULSE 68; RESP 16; TEMP 36; O2SAT 94
--- NOTE | 2023-05-02 08:15 | P.PN_ITS ---
Subjective Subjective Date Patient Seen: 05/02/23 Time Patient Seen: 08:15 Interval history: Patient without any real complaints. Sleeping okay through the night. Still pondering next steps needs to discuss options and has some questions to be answered from General Surgery Exam Vital Signs (past 8 hours): - 05/02/23 00:20 05/02/23 04:25 Temperature 97.7 F 98.0 F Pulse Rate 84 73 Respiratory Rate 18 18 Blood Pressure 104/75 142/70 H Pulse Oximetry 93 95 Oxygen Flow Rate 0 0 Oxygen Delivery Method Room Air Oxygen Flow Rate 0 Objective Labs 05/01/23 05:20 05/01/23 05:20 [facility] Medical History Peripheral edema GERD (gastroesophageal reflux disease) Hypothyroidism Hypertension Hyperlipidemia Essential hypertension Mixed hyperlipidemia Acquired hypothyroidism Surgical History H/O ventral hernia repair Social History marital status: number of children: 3 household members: spouse lives independently: Yes caregiver/support person: No housing: house pets and animals: No education level: high school occupational status: other Previous occupational history: [employer] at [employer], [employer] jair/advent: [employer] leisure activities: art and other Smoking Status: Former smoker Tobacco: How many years used: 10 Smokeless tobacco user: other quit status: quit date established second hand exposure: No alcohol intake: current substance use type: does not use Assessment & Plan Assessment & Plan narrative: 1. Gastric mass-next steps as per patient after discussion with Dr. Miramontes. Patient clearly leaning towards having bypass sort of surgery to allow her to eat and potentially resect whatever portion of the mass/tumor can be resected. Not thinking aggressive treatment of her cancer in any way shape or form. Biggest question is whether or not she would benefit from a couple of weeks on home TPN before surgery. Personally, I do not think that would be of great benefit but will defer to Dr. Miramontes and patient's wishes. She was a bit nutritionally challenge with her BMI down from 29 (her baseline) to 26 at admission. Albumin was technically normal upon admission drifted down once she was hydrated a bit. 2. Hypertension-adequate control for now no changes 3. Question AFib-reviewing EKG from over the weekend look like more of an SVT than a true atrial fibrillation to me. She has had no recurrence that patient or staff are aware of. 4. Anemia-received iron yesterday. Will likely take several weeks for that to really kick in. Probably should have some repeat labs if she is going to have surgery prior to discharge to follow-up on her blood counts as well as chemistries 5. Hypothyroidism-continue with the oral levothyroxine for now at 137 mcg daily which should be her consistent dose
[2023-05-02] MEDS: PANTOPRAZOLE 40 MG VIAL 20 MG IV ×2 (09:06→20:51)
[2023-05-02] MEDS: FUROSEMIDE 20 MG/2 ML VIAL IV (09:06)
[2023-05-02] MEDS: SODIUM CHLORIDE 0.9% 1,000 ML 84 ML IV (11:17)
[2023-05-02 11:23] VITALS: BP 148/54; PULSE 71; RESP 16; TEMP 37; O2SAT 96
[2023-05-02] MEDS: cefTRIAXone 1,000 MG in SODIUM CHLORIDE 0.9% 100 ML 200 MG IV (13:45)
--- NOTE | 2023-05-02 13:48 | CM.DPNOTE ---
DCP Note SERVICE AGENT reviewed EMR. SERVICE AGENT entered room, pt resting in bed with surgeon and dtr Lakshmi at bedside. Surgeon reports new plan is to do surg Monday, stay for a few days after that, and dc home with tube feeds likely. No TPN needed. Dtr and pt agreeable to let [facility] hold on to the referrals for her potential post op needs. SERVICE AGENT updated Matilde at [facility] of plan for no more TPN need but potential for needs for tube feeds. Matilde agreed to hold onto referral and will wait for further updates. SERVICE AGENT spoke with Charo at [facility]. Can accept pt and agree to hold onto referral pending dc needs. F2F already in chart- likely will need to do new F2F pending new HH needs. Plan: surg Monday, likely will need tube feeds after. Home with family support. [facility] waiting on updates. CM team will continue to follow closely. MADI Martinez
[2023-05-02 15:03] LABS: Phosphorous 2.4 mg/dL (2.8-4.1)
[2023-05-02 15:04] LABS: BUN Creatinine Ratio 14.3 (6-22); Blood Urea Nitrogen 7 mg/dL (7-17); Calcium 7.9 mg/dL (8.4-10.2); Carbon Dioxide 25 mmol/L (22-32); Chloride 109 mmol/L (98-107); Estimated Glomerular Filt Rate > 60 mL/min (>60); Glucose 108 mg/dL (80-110); HEMOLYSIS < 15 (0-50); Magnesium 1.8 mg/dL (1.6-2.3); Potassium 3.2 mmol/L (3.4-5.1); Sodium 138 mmol/L (137-145)
[2023-05-02] MEDS: AZITHROMYCIN 500 MG in DEXTROSE 5% IN WATER 250 ML 250 MG IV (15:04)
[2023-05-02 16:00] VITALS: BP 140/62; PULSE 71; RESP 16; TEMP 35.8; O2SAT 95
[2023-05-02] MEDS: POTASSIUM CHLORIDE IN WATER 10 MEQ/100 ML PIGGYBACK 100 MEQ IV ×4 (16:08→20:47)
[2023-05-02] MEDS: LORazepam 2 MG/ML INJ IV (16:50)
--- NOTE | 2023-05-02 17:15 | DIET.PN1 ---
Dietary Progress Note 83y malnourished F received 1L Clinimix E TPN over the past 24h. Recc no advancement in TPN rate as pt appears to have sx refeeding syndrome. Potassium dropped from 3.7 to 3.1 L, phos 2.8 to 2.4 L, mg 2.2 to 1.8 WNL, BG 108 WNL Electrolytes repleting per protocol, thiamine 100mg daily Day 1: 0.5L Clinimix E Day 2: 1L Clinimix E Day 3: 1L Clinimix E (05/03/23) Ht: 157.48 cm Wt: 67.631 kg BMI: 27.2 Last BM: 05/01/23 (05/01/23 22:56) MNA: 9 Bruce Score: 20 Diet: 04/30/23 00:01 NPO Diet Diet Modifications: NPO Type: NPO except for Ice Chips Labs: RBC 2.51 X10^6/uL (4.0-5.2) L 05/01/23 05:20 Hgb 7.8 g/dL (12.0-16.0) L 05/01/23 05:20 Hct 23.0 % (36-46) L 05/01/23 05:20 Creatinine 0.49 mg/dL (0.52-1.04) L 05/02/23 14:35 Lactate 0.7 mmol/L (0.7-2.1) 04/29/23 21:15 Iron 26 ug/dL (37-170) L 04/29/23 03:10 % Saturation 10 % (15-50) L 04/29/23 03:10 NT-Pro-B Natriuret Pep 1770 pg/mL (<450) H 04/28/23 13:10 Nutrition Diagnosis: Severe Acute Protein Calorie Malnutrition r/t altered GI tract aeb near total gastric outlet obstruction due to malignant mass, 8% unintentional weight loss in 2w (severe), MNA 9 (malnourished). Interventions: 1. Recc continuation TPN with slow advancement to goal rate of 72mL/h which is 1750mL Clinimix E plus 250mL IVFE three times per week (M, W, F) providing 87g PRO (108%) and 1,754kcals (88%) and 1,725mL fluids (88%). 2. Monitor closely for refeeding syndrome, replete as needed. 3. Recc 100mg Thiamine daily x5d to reduce risk refeeding syndrome. EER: 81g PRO (1.2g/kg per GI malignancy), 2,000kcals (30kcal/kg), 2L fluids (30mL/kg) Monitoring/Evaluations: Recc no advancement of TPN for Day 3, continue 1L Clinimix E running at 42mL/h. Electronically Signed by: Oxana Daniel 05/02/23 17:15 Clinical Dietitian [address] [address]
[2023-05-02] MEDS: LYTES IV (17:59)
[2023-05-02] MEDS: CALCIUM IV (17:59)
[2023-05-02] MEDS: DEXT IV (17:59)
[2023-05-02] MEDS: [UNRECOGNIZED DRUG - OTHER] IV (17:59)
[2023-05-02] MEDS: MULTIVITAMIN IV (17:59)
[2023-05-02] MEDS: THIAMINE IV (17:59)
[2023-05-02 20:00] VITALS: BP 154/70; PULSE 83; RESP 17; TEMP 36.2; O2SAT 96
[2023-05-02] MEDS: diphenhydrAMINE 50 MG/ML VIAL 25 MG IV (23:11)
[2023-05-03] VITALS (7 sets, daily range): BP systolic 130–184; BP diastolic 60–97; PULSE 65–91; RESP 16–20; TEMP 36.3–37; O2SAT 94–98
--- NOTE | 2023-05-03 00:48 | PC.NURSE ---
Patient is alert and oriented. Breath sounds CTA with RA sat of 96%. HRR w/BP of 154/70. Denied nausea. Has TPN infusing currently (is NPO) w/blood glucose of 111. BT present and reports having had BM earlier today (05/02) abdomen appears mildly distended in upper portion and firm area appreciated in upper mid abdomen. Is voiding without difficulty and denied dysuria. Is moving independently in bed and gets up to bathroom with SBA. Denied pain. Has order for bilateral calf SCD's but declines to wear them at night reporting they exacerbate her restless legs. Fall risk score is high and bed alarm in use when family not in room. Daughter, Lakshmi, rooming in.
[2023-05-03] MEDS: SODIUM CHLORIDE 0.9% 1,000 ML 84 ML IV ×2 (05:06→18:49)
[2023-05-03] MEDS: ENALAPRILAT 2.5 MG/ 2 ML VIAL 1.25 MG IV ×4 (05:06→23:15)
[2023-05-03] MEDS: LEVOTHYROXINE 137 MCG TABLET PO (05:11)
--- NOTE | 2023-05-03 08:20 | P.PN_ITS ---
Subjective Subjective Date Patient Seen: 05/03/23 Time Patient Seen: 08:20 Interval history: Patient has decided to move forward with surgery, which is currently planned for Monday Dr. Miramontes ordered an MRI yesterday I think for planning purposes for surgery more than anything else No complaints from patient. She would like to be up out of bed more knows that is certainly is possible, even walking would be possible although she will need assistance with the IV pole etcetera Exam Vital Signs (past 8 hours): - 05/03/23 04:00 Temperature 97.6 F Pulse Rate 78 Respiratory Rate 16 Blood Pressure 130/68 Pulse Oximetry 97 Oxygen Flow Rate 0 Oxygen Delivery Method Room Air Oxygen Flow Rate 0 Objective Labs 05/01/23 05:20 05/02/23 14:35 Labs: Laboratory Results - last 24 hr 05/02/23 14:35 Sodium 138 Potassium 3.2 L Chloride 109 H Carbon Dioxide 25 BUN 7 Creatinine 0.49 L Estimated GFR > 60 BUN/Creatinine Ratio 14.3 Glucose 108 Calcium 7.9 L Phosphorus 2.4 L Magnesium 1.8 PFSH Medical History Peripheral edema GERD (gastroesophageal reflux disease) Hypothyroidism Hypertension Hyperlipidemia Essential hypertension Mixed hyperlipidemia Acquired hypothyroidism Surgical History H/O ventral hernia repair Social History marital status: number of children: 3 household members: spouse lives independently: Yes caregiver/support person: No housing: house pets and animals: No education level: high school occupational status: other 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 I am going to go ahead and order CMP, protime, and CBC for morning kind of as a preoperative evaluation Continue TPN etcetera
[2023-05-03 08:39] LABS: Add Manual Diff / Slide Review NO; Basophils Absolute Auto 100 /uL (0-100); Eosinophils Absolute Auto 600 /uL (0-450); Eosinophils Percent Auto 11.2 % (2-4); Hematocrit 25.9 % (36-46); Hemoglobin 8.7 g/dL (12.0-16.0); Lymphocytes Absolute Auto 1400 /uL (1100-4500); Lymphocytes Percent Auto 28.6 % (25-40); Mean Corpuscular HGB Conc 33.8 % (30-36); Mean Corpuscular Hemoglobin 30.9 PG (26-34); Mean Corpuscular Volume 91.4 fL (80-100); Monocytes Absolute Auto 500 /uL (0-900); Monocytes Percent Auto 10.7 % (3-14); Neutrophils Absolute Auto 2400 /uL (1500-7000); Neutrophils Percent Auto 47.5 % (50-75); Platelet Count 420 X10^3/uL (150-400); Red Blood Cell Count 2.83 X10^6/uL (4.0-5.2); Red Cell Distribution Width 13.6 % (11.6-14.8)
[2023-05-03 08:57] LABS: Blood Urea Nitrogen 8 mg/dL (7-17); Calcium 8.7 mg/dL (8.4-10.2); Carbon Dioxide 28 mmol/L (22-32); Chloride 106 mmol/L (98-107); Estimated Glomerular Filt Rate > 60 mL/min (>60); Glucose 103 mg/dL (80-110); HEMOLYSIS < 15 (0-50); Potassium 4.3 mmol/L (3.4-5.1); Sodium 135 mmol/L (137-145)
[2023-05-03] MEDS: PANTOPRAZOLE 40 MG VIAL 20 MG IV ×2 (09:37→21:07)
[2023-05-03] MEDS: FUROSEMIDE 20 MG/2 ML VIAL IV (09:38)
--- NOTE | 2023-05-03 12:28 | DIET.PN1 ---
Dietary Progress Note Pt tolerating TPN overnight. Pharmacy checking refeeding labs, however BG and K+ WNL. Plan to increase to 1.5L Clinimix E this evening running at 62mL/h. Ht: 157.48 cm Wt: 67.631 kg BMI: 27.2 Last BM: 05/03/23 (05/03/23 07:00) MNA: 9 Bruce Score: 22 Diet: 04/30/23 00:01 NPO Diet Diet Modifications: NPO Type: NPO except for Ice Chips Labs: RBC 2.83 X10^6/uL (4.0-5.2) L 05/03/23 08:23 Hgb 8.7 g/dL (12.0-16.0) L 05/03/23 08:23 Hct 25.9 % (36-46) L 05/03/23 08:23 Creatinine 0.57 mg/dL (0.52-1.04) 05/03/23 08:23 Lactate 0.7 mmol/L (0.7-2.1) 04/29/23 21:15 Iron 26 ug/dL (37-170) L 04/29/23 03:10 % Saturation 10 % (15-50) L 04/29/23 03:10 NT-Pro-B Natriuret Pep 1770 pg/mL (<450) H 04/28/23 13:10 Monitoring/Evaluations: TPN tolerance. Pt may reach goal TPN rate by or Monday. Electronically Signed by: Oxana Daniel 05/03/23 12:28 Clinical Dietitian [address] [address]
[2023-05-03] MEDS: cefTRIAXone 1,000 MG in SODIUM CHLORIDE 0.9% 100 ML 200 MG IV (12:43)
[2023-05-03 12:56] LABS: Magnesium 2.1 mg/dL (1.6-2.3); Phosphorous 3.3 mg/dL (2.8-4.1)
--- NOTE | 2023-05-03 14:06 | PM.PN.1 ---
Subjective Subjective Date Patient Seen: 05/03/23 Time Patient Seen: 14:06 Interval history: no major 24 hr events MRI-possible mesenteric adenopathy bile duct normal Exam Vital Signs (past 8 hours): - 05/03/23 08:00 05/03/23 12:53 Temperature 97.9 F 97.3 F L Pulse Rate 78 77 Respiratory Rate 18 20 Blood Pressure 169/75 H 151/69 H Pulse Oximetry 97 94 Oxygen Delivery Method Room Air Oxygen Flow Rate 0 Narrative Exam Narrative: Gen-Adult woman alert and oriented Abdomen-Mild distention Objective Labs 05/03/23 08:23 05/03/23 08:23 Labs: Laboratory Results - last 24 hr 05/02/23 05/03/23 14:35 08:23 WBC 5.0 RBC 2.83 L Hgb 8.7 L Hct 25.9 L MCV 91.4 MCH 30.9 MCHC 33.8 RDW 13.6 Plt Count 420 H Neut % (Auto) 47.5 L Lymph % (Auto) 28.6 [place] % (Auto) 10.7 Eos % (Auto) 11.2 H Baso % (Auto) 2.0 Neut # (Auto) 2400 Lymph # (Auto) 1400 [place] # (Auto) 500 Eos # (Auto) 600 H Baso # (Auto) 100 Sodium 138 135 L Potassium 3.2 L 4.3 Chloride 109 H 106 Carbon Dioxide 25 28 BUN 7 8 Creatinine 0.49 L 0.57 Estimated GFR > 60 > 60 BUN/Creatinine Ratio 14.3 14.0 Glucose 108 103 Calcium 7.9 L 8.7 Phosphorus 2.4 L 3.3 Magnesium 1.8 2.1 PFSH Medical History Peripheral edema GERD (gastroesophageal reflux disease) Hypothyroidism Hypertension Hyperlipidemia Essential hypertension Mixed hyperlipidemia Acquired hypothyroidism Surgical History H/O ventral hernia repair Social History marital status: number of children: 3 household members: spouse lives independently: Yes caregiver/support person: No housing: house pets and animals: No education level: high school occupational status: other 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
[2023-05-03] MEDS: AZITHROMYCIN 500 MG in DEXTROSE 5% IN WATER 250 ML 250 MG IV (14:55)
--- NOTE | 2023-05-03 15:39 | CM.DPC ---
DCP Cont. Reviewed EMR and team rounds for pt's status updates. Pt was scheduled for a gastric bypass surgery on Friday 05/05, however the OR is closed for the rest of this week due to a water leak. Will plan to keep her inpt for a potential reschedule for Monday, 05/08. Will follow closely for updates.
[2023-05-03] MEDS: [UNRECOGNIZED DRUG - OTHER] IV (18:48)
[2023-05-03] MEDS: THIAMINE IV (18:48)
[2023-05-03] MEDS: DEXT IV (18:48)
[2023-05-03] MEDS: CALCIUM IV (18:48)
[2023-05-03] MEDS: MULTIVITAMIN IV (18:48)
[2023-05-03] MEDS: LYTES IV (18:48)
[2023-05-03] MEDS: FAT EMULSIONS 50 GM/250 ML EMULSION IV (18:49)
[2023-05-03] MEDS: diphenhydrAMINE 50 MG/ML VIAL 25 MG IV (22:00)
--- NOTE | 2023-05-03 22:57 | PC.NURSE ---
Patient is alert and oriented. Breath sounds CTA with RA sat of 97%. HR irregular and BP elevated at 167/97; receiving IV Enalapril q6h. Denies nausea. Remains NPO related to gastric mass and is receiving TPN + lipids; anticipate surgery on Monday. Does have BT present in RUQ of abdomen and states she is passing flatus. Firm mass remains palpable on upper/mid abdomen but denies any pain. Is voiding on toilet and denies any dysuria. Is able to move herself in bed. Is provided SBA when up to bathroom related to weakness and history of falling. Refusing SCD's as they reportedly increase exacerbation of RLS. Do note 1+ bilateral LE edema tonight and she states likely related to not wearing SCD's today; agreeable to putting them on in the morning. Fall risk score is high and bed alarm is activated when family not in room. Daughter, Lakshmi, rooming in again tonight.
[2023-05-04] MEDS: ENALAPRILAT 2.5 MG/ 2 ML VIAL 1.25 MG IV ×4 (04:55→23:05)
[2023-05-04 05:03] VITALS: BP 154/70; PULSE 81; RESP 18; TEMP 36.6; O2SAT 96
[2023-05-04] MEDS: LEVOTHYROXINE 137 MCG TABLET PO (05:03)
[2023-05-04 05:37] LABS: INR 1.1 (0.9-1.3); Prothrombin Time 12.2 SECONDS (9.4-12.5)
[2023-05-04 05:39] LABS: Add Manual Diff / Slide Review NO; Basophils Absolute Auto 0 /uL (0-100); Basophils Percent Auto 0.5 % (0-2); Eosinophils Absolute Auto 800 /uL (0-450); Eosinophils Percent Auto 11.7 % (2-4); Hematocrit 27.3 % (36-46); Hemoglobin 9.3 g/dL (12.0-16.0); Lymphocytes Absolute Auto 1900 /uL (1100-4500); Lymphocytes Percent Auto 27.6 % (25-40); Mean Corpuscular Hemoglobin 31.1 PG (26-34); Mean Corpuscular Volume 91.3 fL (80-100); Monocytes Absolute Auto 700 /uL (0-900); Monocytes Percent Auto 9.9 % (3-14); Neutrophils Absolute Auto 3400 /uL (1500-7000); Neutrophils Percent Auto 50.3 % (50-75); Platelet Count 493 X10^3/uL (150-400); Red Blood Cell Count 2.99 X10^6/uL (4.0-5.2); Red Cell Distribution Width 13.6 % (11.6-14.8); White Blood Cell Count 6.8 X10^3/uL (4.5-11.0)
[2023-05-04 05:50] LABS: Alanine Aminotransferase 21 IU/L (<35); Albumin 3.2 g/dL (3.5-5.0); Albumin Globulin Ratio 1.3 (1.0-2.8); Alkaline Phosphatase 54 U/L (38-126); Aspartate Aminotransferase 33 IU/L (14-36); BUN Creatinine Ratio 20.8 (6-22); Bilirubin Total 0.3 mg/dL (0.2-1.3); Blood Urea Nitrogen 11 mg/dL (7-17); Calcium 8.6 mg/dL (8.4-10.2); Carbon Dioxide 25 mmol/L (22-32); Chloride 107 mmol/L (98-107); Estimated Glomerular Filt Rate > 60 mL/min (>60); Globulin 2.5 g/dL (1.7-4.1); Glucose 101 mg/dL (80-110); HEMOLYSIS < 15 (0-50); Potassium 4.1 mmol/L (3.4-5.1); Sodium 138 mmol/L (137-145); Total Protein 5.7 g/dL (6.3-8.2)
[2023-05-04] MEDS: SODIUM CHLORIDE 0.9% 1,000 ML 84 ML IV ×2 (06:24→18:43)
[2023-05-04 08:00] VITALS: BP 142/66; PULSE 82; RESP 18; TEMP 36.4; O2SAT 96
--- NOTE | 2023-05-04 08:24 | P.PN_ITS ---
Subjective Subjective Date Patient Seen: 05/04/23 Time Patient Seen: 08:24 Interval history: No clinical change Exam Vital Signs (past 8 hours): - 05/04/23 05:03 05/04/23 08:00 Temperature 97.8 F 97.6 F Pulse Rate 81 82 Respiratory Rate 18 18 Blood Pressure 154/70 H 142/66 H Pulse Oximetry 96 96 Oxygen Flow Rate 0 0 Oxygen Delivery Method Room Air Oxygen Flow Rate 0 Objective Labs 05/04/23 05:03 05/04/23 05:03 Labs: Laboratory Results - last 24 hr 05/03/23 05/04/23 08:23 05:03 WBC 5.0 6.8 RBC 2.83 L 2.99 L Hgb 8.7 L 9.3 L Hct 25.9 L 27.3 L MCV 91.4 91.3 MCH 30.9 31.1 MCHC 33.8 34.0 RDW 13.6 13.6 Plt Count 420 H 493 H Neut % (Auto) 47.5 L 50.3 Lymph % (Auto) 28.6 27.6 [place] % (Auto) 10.7 9.9 Eos % (Auto) 11.2 H 11.7 H Baso % (Auto) 2.0 0.5 Neut # (Auto) 2400 3400 Lymph # (Auto) 1400 1900 Clarke # (Auto) 500 700 Eos # (Auto) 600 H 800 H Baso # (Auto) 100 0 PT 12.2 INR 1.1 Sodium 135 L 138 Potassium 4.3 4.1 Chloride 106 107 Carbon Dioxide 28 25 BUN 8 11 Creatinine 0.57 0.53 Estimated GFR > 60 > 60 BUN/Creatinine Ratio 14.0 20.8 Glucose 103 101 Calcium 8.7 8.6 Phosphorus 3.3 Magnesium 2.1 Total Bilirubin 0.3 AST 33 ALT 21 Alkaline Phosphatase 54 Total Protein 5.7 L Albumin 3.2 L Globulin 2.5 Albumin/Globulin Ratio 1.3 PFSH Medical History Peripheral edema GERD (gastroesophageal reflux disease) Hypothyroidism Hypertension Hyperlipidemia Essential hypertension Mixed hyperlipidemia Acquired hypothyroidism Surgical History H/O ventral hernia repair Social History marital status: number of children: 3 household members: spouse lives independently: Yes caregiver/support person: No housing: house pets and animals: No education level: high school occupational status: other 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 Continues on TPN MRI demonstrated some lymphadenopathy but biliary tract seem to be uninvolved. Per Dr. Miramontes plan is still is to go to surgery for an element of gastric bypass to relieve the pyloric obstruction, depending on availability OR time, since this is not an emergent situation with the IV fluids and TPN ongoing.
[2023-05-04] MEDS: FUROSEMIDE 20 MG/2 ML VIAL IV (09:55)
[2023-05-04] MEDS: ENOXAPARIN 40 MG/0.4 ML SYRINGE SUBCUT (09:55)
[2023-05-04] MEDS: PANTOPRAZOLE 40 MG VIAL 20 MG IV ×2 (09:56→20:32)
--- NOTE | 2023-05-04 11:43 | CM.DPC ---
DCP Cont. Reviewed EMR and team rounds for status updates. Plan continues to be for pt to have her surgery with Dr. Miramontes on Monday, 05/08. Will continue to monitor for further d/c needs.
[2023-05-04] MEDS: METOPROLOL TARTRATE 5 MG/5 ML INJ IV ×2 (13:11→18:43)
[2023-05-04 16:00] VITALS: BP 156/83; PULSE 66; RESP 16; TEMP 36.1; O2SAT 96
--- NOTE | 2023-05-04 17:44 | P.PN_ITS ---
Subjective Subjective Date Patient Seen: 05/04/23 Time Patient Seen: 17:44 Interval history: No major events over the past 24 hours. Minimal abdominal discomfort. Improving strength since starting TPN Exam Vital Signs (past 8 hours): Oxygen Delivery Method Room Air Oxygen Flow Rate 0 Narrative Exam Narrative: General adult woman alert oriented no acute distress Abdomen mild distention nontender Objective Labs 05/04/23 05:03 05/04/23 05:03 Labs: Laboratory Results - last 24 hr 05/04/23 05:03 WBC 6.8 RBC 2.99 L Hgb 9.3 L Hct 27.3 L MCV 91.3 MCH 31.1 MCHC 34.0 RDW 13.6 Plt Count 493 H Neut % (Auto) 50.3 Lymph % (Auto) 27.6 [place] % (Auto) 9.9 Eos % (Auto) 11.7 H Baso % (Auto) 0.5 Neut # (Auto) 3400 Lymph # (Auto) 1900 [place] # (Auto) 700 Eos # (Auto) 800 H Baso # (Auto) 0 PT 12.2 INR 1.1 Sodium 138 Potassium 4.1 Chloride 107 Carbon Dioxide 25 BUN 11 Creatinine 0.53 Estimated GFR > 60 BUN/Creatinine Ratio 20.8 Glucose 101 Calcium 8.6 Total Bilirubin 0.3 AST 33 ALT 21 Alkaline Phosphatase 54 Total Protein 5.7 L Albumin 3.2 L Globulin 2.5 Albumin/Globulin Ratio 1.3 [facility] Medical History (Updated 05/04/23 @ 17:45 by Geoff Miramontes MD) Peripheral edema GERD (gastroesophageal reflux disease) Hypothyroidism Hypertension Hyperlipidemia Essential hypertension Mixed hyperlipidemia Acquired hypothyroidism Surgical History H/O ventral hernia repair Social History marital status: number of children: 3 household members: spouse lives independently: Yes caregiver/support person: No housing: house pets and animals: No education level: high school occupational status: other 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 Spoke with pathologist today the preliminary review of endoscopic biopsy demonstrates benign cellular features however a minimal amount of tissue was received and findings may represent a sampling air. The MRI and CT were personally reviewed with the radiologist today notable for gastric outlet obstruction no evidence of biliary obstruction mesenteric adenopathy identified no evidence of distal disease. Discussed these findings with the patient and her family today I explained that she may have a malignancy within the pyloric channel or this may be a severe peptic ulcer. Regardless given her near complete obstruction and inability to take any significant oral intake over the past 2 months recommending we proceed with gastrojejunostomy for bypass. Overview of the operation was again discussed. Her questions have been answered and she is been scheduled for Friday 05/05
[2023-05-04] MEDS: DEXT IV (18:36)
[2023-05-04] MEDS: THIAMINE IV (18:36)
[2023-05-04] MEDS: CALCIUM IV (18:36)
[2023-05-04] MEDS: LYTES IV (18:36)
[2023-05-04] MEDS: MULTIVITAMIN IV (18:36)
[2023-05-04] MEDS: [UNRECOGNIZED DRUG - OTHER] IV (18:36)
[2023-05-04 20:00] VITALS: BP 161/64; PULSE 75; RESP 18; TEMP 36.6; O2SAT 97
[2023-05-04] MEDS: diphenhydrAMINE 50 MG/ML VIAL 25 MG IV (23:05)
[2023-05-05] VITALS (12 sets, daily range): BP systolic 106–167; BP diastolic 50–93; PULSE 64–86; RESP 12–18; TEMP 36.3–37.2; O2SAT 91–97; BMI 27.2
--- NOTE | 2023-05-05 | PATH_ITS ---
[facility] Accession Number: [id number] No. of containers..01 Tissue . 01 Material submitted: . pyloric antrum - PYLORIC BIOPSY . 01 Diagnosis: Gastric Pylorus, Biopsy: Gastric antral mucosa with chronic active inflammation and reactive foveolar hyperplasia. Negative for Helicobacter organisms by immunohistochemistry. Negative for intestinal metaplasia. Negative for dysplasia or malignancy. MRV 05/09/2023 1406 Local . 01 Electronically signed: . Mayank Portillo MD, PhD, Pathologist NPI- [id number] . 01 Gross description: . The specimen is received in formalin labeled with the patient's name, , and pyloric biopsy, and consists of multiple stokes soft tissue fragments ranging from 0.3 x 0.2 x 0.1 cm to 0.7 x 0.5 x 0.4 cm. The largest fragment is inked and bisected. The specimen is submitted entirely in cassette A1. ([id number]) /[id number] 05/06/2023 2203 Local . 01 Microscopic: . A. An immunohistochemical stain was performed to evaluate for Helicobacter organisms and is negative. The control stain showed appropriate reactivity. . * This test was developed and its performance characteristics determined by [facility]. It has not been cleared or approved by the U.S. Food and Drug Administration. The FDA has determined that such clearance or approval is not necessary. This test is used for clinical purposes. It should not be regarded as investigational or for research. . 01 Pathologist provided ICD-10: K29.70, K31.1 . 01 CPT . 770961, V80664 Specimen Comment: A courtesy copy of this report has been sent to [phone] Performed at: 01 [facility] [address] [facility] [place] [facility] [place], [place], [place] [id number] MD Jeffery Hernandes MD Phone: [phone]
[2023-05-05] MEDS: METOPROLOL TARTRATE 5 MG/5 ML INJ IV ×4 (00:22→18:46)
[2023-05-05] MEDS: ENALAPRILAT 2.5 MG/ 2 ML VIAL 1.25 MG IV ×4 (05:45→23:37)
[2023-05-05] MEDS: SODIUM CHLORIDE 0.9% 1,000 ML 84 ML IV (06:07)
[2023-05-05] MEDS: FUROSEMIDE 20 MG/2 ML VIAL IV (08:31)
[2023-05-05] MEDS: PANTOPRAZOLE 40 MG VIAL 20 MG IV ×2 (08:31→20:34)
--- NOTE | 2023-05-05 08:33 | P.PN_ITS ---
Subjective Subjective Date Patient Seen: 05/05/23 Time Patient Seen: 08:33 Interval history: Patient in excellent spirits this morning. Planning to go to surgery this morning Apparently pathology has returned from her biopsies done at time of EGD that fails to demonstrate evidence of a neoplastic process. Dr. Miramontes is not convinced that is accurate maybe more of a sampling error but certainly open the door to possibility this is more of a reactive process perhaps related to peptic ulcer disease than anything else. Treatment of course would still be to bypass to allow gastric emptying, which is the plan for today Exam Vital Signs (past 8 hours): - 05/05/23 04:00 05/05/23 08:23 Temperature 97.4 F L 98.3 F Pulse Rate 80 66 Respiratory Rate 18 16 Blood Pressure 167/63 H 154/76 H Pulse Oximetry 97 97 Oxygen Flow Rate 0 0 Oxygen Delivery Method Room Air Oxygen Flow Rate 0 Objective Labs 05/04/23 05:03 05/04/23 05:03 [facility] Medical History (Updated 05/04/23 @ 17:45 by Geoff Miramontes MD) Peripheral edema GERD (gastroesophageal reflux disease) Hypothyroidism Hypertension Hyperlipidemia Essential hypertension Mixed hyperlipidemia Acquired hypothyroidism Surgical History H/O ventral hernia repair Social History marital status: number of children: 3 household members: spouse lives independently: Yes caregiver/support person: No housing: house pets and animals: No education level: high school occupational status: other 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 Plan for patient to go to the OR for some version of an intestinal/gastric bypass to bypass the pyloric channel obstruction. Other that area will be resected or more vigorous biopsies would be performed to help determine whether not this is a neoplastic process 2. Hypertension-patient's numbers creeping up slowly. May need something like some IV metoprolol to help control blood pressure until she is able to take orals again after her surgery. For the moment however I do not believe that is necessary 3. Nutrition-continues on TPN with some limited IV fluids. Appears to be doing well. Labs done yesterday unremarkable and show improvement as expected.
--- NOTE | 2023-05-05 08:53 | CM.DPC ---
DCP Cont. Reviewed EMR and spoke with Dr. Miramontes re: updated plan. Pt will be brought to surgery today for J-tube placement, she will likely need 1-2 days inpt in order to adjust feeds and confirm the rate/calories needed for home feedings. Updated [facility] of plan. BASIC COMBATANT SWIMMER will assist with coordination once the Exterior Work Helper has confirmed the OP plan.
[2023-05-05 13:27] LABS: BUN Creatinine Ratio 27.8 (6-22); Blood Urea Nitrogen 15 mg/dL (7-17); Calcium 8.5 mg/dL (8.4-10.2); Carbon Dioxide 27 mmol/L (22-32); Chloride 105 mmol/L (98-107); Estimated Glomerular Filt Rate > 60 mL/min (>60); Glucose 121 mg/dL (80-110); HEMOLYSIS < 15 (0-50); Potassium 3.8 mmol/L (3.4-5.1); Sodium 136 mmol/L (137-145)
--- NOTE | 2023-05-05 13:52 | PM.PREOP ---
Pre-operative Note Interval Note History & Physical reviewed/Exam performed by Physician: Yes Changes to H&P: No H&P completed within 30 days and has changed as indicated here:: 83-year-old woman with a gastric outlet obstruction benign versus malignant. Proceeding with exploratory laparotomy, intestinal bypass, gastrostomy tube and feeding jejunostomy tube. Operation extensively discussed with the patient and her family members. We have reviewed operative risks including hemorrhage, infection, anastomotic leak, damage to surrounding structures. Their questions have been answered and she is in agreement with this plan. She provides her written and verbal consent to proceed.
[2023-05-05] MEDS: ACETAMINOPHEN IV 1,000 MG/100 ML VIAL 400 MG IV (14:10)
[2023-05-05] MEDS: LACTATED RINGERS 1,000 ML 42 ML IV (14:10)
[2023-05-05] MEDS: levoFLOXacin 500 MG/100 ML PIGGYBACK 100 MG IV (14:32)
[2023-05-05] MEDS: BUPIVACAINE 0.25% (PF) VIAL 30 ML INJ (14:38)
--- NOTE | 2023-05-05 14:42 | SUR.OPER ---
Supine on padded OR bed, head on pillow, arms secured on padded arm boards at <90 degrees abduction, legs uncrossed, safety belt at thigh, tape over blanket over lower legs.
--- NOTE | 2023-05-05 16:48 | PM.OP.1 ---
Operative Date/Time/Diagnoses Date of procedure: 05/05/23 Time of procedure: 19:15 Pre-op diagnosis: Gastric outlet obstruction Post-op diagnosis: same Procedure & Clinicians Procedure: Exploratory laparotomy Gastrojejunostomy Gastrostomy placement Jejunostomy placement Same procedure as scheduled: Yes Indications: 83-year-old woman who is admitted to the hospital with a gastric outlet obstruction. She become progressively obstructed over the course of 2 months at this point minimal liquid content drains from the stomach. Endoscopy was performed which demonstrated a pyloric mass versus ulcer. Biopsy demonstrates benign cellular features however malignancy can not be excluded. She is here today for a intestinal bypass with placement of feeding J-tube and decompressive gastrostomy. 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 Specimen(s): other (Pyloric biopsy) Estimated Blood Loss (mL): 50 Procedure in detail: Patient was brought to the operating room placed supine on the table. Bilateral lower extremity compression devices were applied. General anesthesia was induced and she was intubated with an endotracheal tube. She received levofloxacin prior to skin incision. Miranda catheter was sterilely placed. She was then prepped and draped in sterile fashion and a time-out was performed. An upper midline incision was made. The previous [place]-Mikael mesh was divided and the abdomen was entered. There were adhesions between the small bowel and the anterior abdominal wall as well as the mesh. The small bowel was mobilized and a 1 cm serosal tear was identified in the distal small bowel which occurred in the course of dissecting it from the mesh. The serosal tear was oversewn with imbricating interrupted silk suture. The stomach was examined there was firm pylorus no evidence of metastatic disease or hepatic metastasis. The stomach was opened with electrocautery and the pylorus was examined. On close inspection and with gentle dilation the disease is is most likely a chronic ulcer resulting in stricture and less likely malignancy. Biopsy of the pylorus was performed. We then fashioned a intestinal bypass/gastro jejunostomy. The small bowel was run from the ligament of Treitz to the terminal ileum. We selected a location approximally 50 cm from the ligament of Treitz and a enterotomy was made. A two-layer hand-sewn anastomosis between the stomach and the small bowel was performed. The back layer was created with interrupted silk suture then a Vicryl was run and for the inner layer. Then the outer layer of the front was imbricated with silk suture. The anastomosis was well perfused without evidence of leak and without tension. Next a gastrostomy tube incision was made in the left upper quadrant and then a pursestring was fashioned on the proximal stomach. A gastrotomy was made and then the tube was placed into the stomach balloon inflated.. The stomach was then secured to the anterior abdominal wall using interrupted silk suture. A enterotomy in the mid small bowel distal to the anastomosis was made. A 16 Hungarian red rubber catheter was fed into the small bowel pursestring was formed at its entry point and closed around the tube. A Witzel tunnel was then fashioned using interrupted silk suture. The small bowel was then pexy to the anterior abdominal wall using interrupted silk suture. At this point the abdomen was copiously lavaged and this returned clear. The abdominal fascia with the attached cortex mesh from prior was closed using a running 1. PDS suture. The subcutaneous tissue was reapproximated using Vicryl suture and skin closed with Monocryl. She tolerated the operation well was extubated and transferred to recovery in stable condition. Complications: none Post-operative Condition: stable Disposition: Acute Care
--- NOTE | 2023-05-05 18:33 | DIET.PN1 ---
Dietary Progress Note Pt LOS day 6 on TPN, RD reconsulted for enteral nutrition recommendations. Pt to OR this afternoon for exploratory laparotomy, intestinal bypass, gastrostomy tube and feeding jejunostomy tube. Ht: 157.48 cm Wt: 67.631 kg BMI: 27.2 Last BM: 05/03/23 (05/05/23 13:56) MNA: 9 Bruce Score: 20 Diet: 05/05/23 Dinner Clear Liquid Diet Diet Modifications: Labs: RBC 2.99 X10^6/uL (4.0-5.2) L 05/04/23 05:03 Hgb 9.3 g/dL (12.0-16.0) L 05/04/23 05:03 Hct 27.3 % (36-46) L 05/04/23 05:03 Creatinine 0.54 mg/dL (0.52-1.04) 05/05/23 13:11 Lactate 0.7 mmol/L (0.7-2.1) 04/29/23 21:15 Iron 26 ug/dL (37-170) L 04/29/23 03:10 % Saturation 10 % (15-50) L 04/29/23 03:10 NT-Pro-B Natriuret Pep 1770 pg/mL (<450) H 04/28/23 13:10 Nutrition Diagnosis: Severe Acute Protein Calorie Malnutrition r/t altered GI tract aeb near total gastric outlet obstruction due to mass, 8% unintentional weight loss in 2w (severe), MNA 9 (malnourished). Interventions: 1. Recc running current TPN bag to completion. Tomorrow (05/06/23) recc initiating continuous, pump-assisted enteral feeding via J-tube at 0800. Formula: Jevity 1.2 Starting Rate: 20mL/h Rate Advancement: 10mL q8h as tolerated Goal Rate: 50mL/h Free Water Flushes: 80mL q2h 2. Pt has j-tube, please do not check for residuals or bolus feed. Pt may experience cramping and liquid stool as feeding is titrated to goal. EER: 81g PRO (1.2g/kg per GI malignancy), 2,000kcals (30kcal/kg), 2L fluids (30mL/kg) Monitoring/Evaluations: RD to follow to d/c Electronically Signed by: Oxana Daniel 05/05/23 18:33 Clinical Dietitian [address] [address]
[2023-05-05] MEDS: FAT EMULSIONS 50 GM/250 ML EMULSION IV (18:44)
[2023-05-05] MEDS: CALCIUM IV (18:44)
[2023-05-05] MEDS: [UNRECOGNIZED DRUG - OTHER] IV (18:44)
[2023-05-05] MEDS: LYTES IV (18:44)
[2023-05-05] MEDS: THIAMINE IV (18:44)
[2023-05-05] MEDS: DEXT IV (18:44)
[2023-05-05] MEDS: MULTIVITAMIN IV (18:44)
[2023-05-05] MEDS: diphenhydrAMINE 50 MG/ML VIAL 25 MG IV (23:37)
[2023-05-06] VITALS (16 sets, daily range): BP systolic 89–135; BP diastolic 38–80; PULSE 63–140; RESP 15–18; TEMP 36.2–37.1; O2SAT 92–95
[2023-05-06] MEDS: METOPROLOL TARTRATE 5 MG/5 ML INJ IV ×3 (00:54→20:00)
[2023-05-06] MEDS: LEVOTHYROXINE 137 MCG TABLET PO (05:44)
[2023-05-06] MEDS: ENALAPRILAT 2.5 MG/ 2 ML VIAL 1.25 MG IV ×2 (05:45→11:20)
[2023-05-06] MEDS: INSULIN REGULAR 100 UNIT/ML 3 ML VIAL SUBCUT ×3 (05:49→13:58)
--- NOTE | 2023-05-06 07:12 | PC.NURSE ---
Patient came up from surgery with Dr. Fe ron aware. Received order to remove catheter today. He also requested that we get her up and walk her. Will pass on to AM RN.
[2023-05-06] MEDS: HYDROMORPHONE 0.5 MG INJ 0.25 MG IV ×3 (08:42→10:47)
[2023-05-06] MEDS: PANTOPRAZOLE 40 MG VIAL 20 MG IV ×2 (08:42→22:08)
[2023-05-06] MEDS: SODIUM CHLORIDE 0.9% FLUSH 10 ML IV (08:44)
[2023-05-06] MEDS: FUROSEMIDE 20 MG/2 ML VIAL IV (08:45)
[2023-05-06] MEDS: diphenhydrAMINE 50 MG/ML VIAL 25 MG IV ×2 (09:31→22:08)
[2023-05-06 10:36] LABS: BUN Creatinine Ratio 32.8 (6-22); Blood Urea Nitrogen 22 mg/dL (7-17); Calcium 8.6 mg/dL (8.4-10.2); Carbon Dioxide 25 mmol/L (22-32); Chloride 101 mmol/L (98-107); Estimated Glomerular Filt Rate > 60 mL/min (>60); Glucose 166 mg/dL (80-110); HEMOLYSIS < 15 (0-50); Potassium 3.8 mmol/L (3.4-5.1); Sodium 132 mmol/L (137-145)
--- NOTE | 2023-05-06 11:04 | P.PN_ITS ---
Subjective Subjective Date Patient Seen: 05/06/23 Time Patient Seen: 11:04 Interval history: Patient complaining of some pain around the incision. She did not ask for any pain medications yesterday or last night. TPN is infusing Exam Vital Signs (past 8 hours): - 05/06/23 05:30 05/06/23 08:00 Temperature 97.8 F 97.2 F L Pulse Rate 70 63 Respiratory Rate 18 16 Blood Pressure 128/54 L 129/53 L Pulse Oximetry 93 95 Oxygen Flow Rate 0 Oxygen Delivery Method Room Air Oxygen Flow Rate 0 Narrative Exam Narrative: HELEN drain output serosanguineous Midline incision is clean dry and intact Appropriately tender around the surgical incision Objective Labs 05/04/23 05:03 05/06/23 10:07 Labs: Laboratory Results - last 24 hr 05/05/23 05/06/23 13:11 10:07 Sodium 136 L 132 L Potassium 3.8 3.8 Chloride 105 101 Carbon Dioxide 27 25 BUN 15 22 H Creatinine 0.54 0.67 Estimated GFR > 60 > 60 BUN/Creatinine Ratio 27.8 H 32.8 H Glucose 121 H 166 H Calcium 8.5 8.6 PFSH Medical History (Updated 05/04/23 @ 17:45 by Geoff Miramontes MD) Peripheral edema GERD (gastroesophageal reflux disease) Hypothyroidism Hypertension Hyperlipidemia Essential hypertension Mixed hyperlipidemia Acquired hypothyroidism Surgical History H/O ventral hernia repair Social History marital status: number of children: 3 household members: spouse lives independently: Yes caregiver/support person: No housing: house pets and animals: No education level: high school occupational status: other 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 Given her advanced age we will start with small frequent doses until her pain is under control. Continue IV nutrition for now until we can gradually transition to enteral nutrition enteral pain control
[2023-05-06] MEDS: HYDROMORPHONE 0.5 MG INJ IV ×2 (11:21→13:59)
--- NOTE | 2023-05-06 11:25 | PM.PN.1 ---
Subjective Subjective Date Patient Seen: 05/06/23 Time Patient Seen: 11:00 Interval history: chief complaint: abdominal pain doing ok after PEG procedure pain is significant but manageable following along with surgery Exam Vital Signs (past 8 hours): - 05/06/23 05:30 05/06/23 08:00 Temperature 97.8 F 97.2 F L Pulse Rate 70 63 Respiratory Rate 18 16 Blood Pressure 128/54 L 129/53 L Pulse Oximetry 93 95 Oxygen Flow Rate 0 Oxygen Delivery Method Room Air Oxygen Flow Rate 0 Narrative Exam Narrative: resting comfortably in bed Resp Other: clear to auscultation bilaterally Cardio Other: regular rate, S1/S2, no pedal edema GI Other: PEG tube in place under dressing, nontender Neuro Other: alert oriented and talkative Objective Labs 05/06/23 10:07 05/06/23 10:07 Labs: Laboratory Results - last 24 hr 05/05/23 05/06/23 13:11 10:07 Sodium 136 L 132 L Potassium 3.8 3.8 Chloride 105 101 Carbon Dioxide 27 25 BUN 15 22 H Creatinine 0.54 0.67 Estimated GFR > 60 > 60 BUN/Creatinine Ratio 27.8 H 32.8 H Glucose 121 H 166 H Calcium 8.5 8.6 PFSH Medical History (Updated 05/04/23 @ 17:45 by Geoff Miramontes MD) Peripheral edema GERD (gastroesophageal reflux disease) Hypothyroidism Hypertension Hyperlipidemia Essential hypertension Mixed hyperlipidemia Acquired hypothyroidism Surgical History H/O ventral hernia repair Social History marital status: number of children: 3 household members: spouse lives independently: Yes caregiver/support person: No housing: house pets and animals: No education level: high school occupational status: other 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 initial biopsies do not indicate neoplastic process. Holding initiation of PEG feeds, continue TPN and IVF for now Pain control with prn dilaudid she is needing it regularly #Hypertension doing ok today, monitor #hypotension New issue today alert with MAP flirting low 60s. Dr. Miramontes aware - giving 1L bolus with patient in trendelenburg she is alert feeling ok dispo: pending resumption of feeds PCP: Malick code: DNR diet: TPN, NPO
[2023-05-06] MEDS: SODIUM CHLORIDE 0.9% 1,000 ML 250 ML IV (14:45)
--- NOTE | 2023-05-06 14:57 | PC.NURSE ---
Addendum entered by Amira Subramanian R.N. 05/06/23 19:33: Attempted to call Dr. Engle at 1855 to inform his that the pt's BP had improved after getting the full liter of NS. Attempted again to call Dr. Engle again at 1910 and 1930 but busy tone continues on the phone number. Pt's BP is normotensive at 135/57 MAP of 88 and HR 77, RR 18, SpO2 95% on RA with pt in the supine position. Unable to leave message for Dr. Engle due to continued busy tone on cell phone. This RN contacted Dr. Underwood after 1700 after getting off the phone with Dr. Engle. Addendum entered by Amira Subramanian R.N. 05/06/23 16:15: Dr. Miramontes returned phone call back to this RN at 1613. Per Dr. Miramontes continue with TPN all weekend. Dr. Miramontes recommends holding off on CT scan scan at this time and to have Dr. Underwood call Dr. Miramontes directly. Original Note: Pt is post op day one. Pt had no pain medication orders over night. Pt was reporting significant pain this morning. This RN contacted general surgeon telephone sales representative to request pain medication. Spoke to telephone sales representative surgeon, got order for 0.25 mg of IVP Dilaudid q2h for pain, provider concerned about the pt's age and pt having a negative reaction to too much Dilaudid at once. This RN gave pt 0.25 mg 0842 with no relief, pt reported pain 8/10 prior to medication and pain remained the same after first administration. This RN informed surgeon that the pt had no relief and this RN requested 0.5 mg IVP Dilaudid q2h which was denied, provider gave order for an additional one time dose of 0.25 IVP dilaudid. This RN gave the second one time dose of 0.25 mg Dilaudid at 0930 with 25 mg IV push of Benadryl due to the pt c/o itching. Pt's itching resolved but pt still reporting significant pain. This RN spoke to Dr. Engle again and no new orders were received at that time. Third dose of 0.25 mg IVP Dilaudid at 1040. This RN spoke to second shift supervisor, SVETLANA Barber about lack of pain control concerns for this pt at 10:45. Coordinator spoke to Dr. Engle who then increased IV Dilaudid to 0.5 mg q2h prn pain. The pt BP dropped 1409 to 89/38 at which point this RN called Dr. Engle to make him awake of this RN's concerned 14:12. This RN requested an IV bolus and to get clarification if the pt was going to remain on TPN or if tube feedings via PEG were going to be initiated today. No new orders were recieved from Dr. Engle at 1412. This RN placed the pt into trendelenburg and then this RN notified the SVETLANA Barber coordinator. At [address] Underwood and explained the situation how the pt had lack of pain control this morning and was normotensive, then went hypotensive at approx. 1409 and requested that the pt get a bolus and for a phyisican to physically see the pt. Dr. Underwood gave the following order of 1L of NS bolus at 250 ml/hr and continue to monitor the pt and to keep the pt in trendelenburg. Pt still had a low BP so this RN took a manual BP at 1515 which was 98/42 with a MAP of 61. This RN then spoke face to with Dr. Underwood who requested that this RN update Dr. Miramontes, get clarification on when the pt is suppose to start on tube feedings through the PEG tube, CBC, and type and screen labs and if the pt remains hypotensive at [address] Underwood so an CT abd can be ordered. Called and left a message for Dr. Miramontes about the pt at 1602 and requested a call back.
[2023-05-06 15:38] LABS: Add Manual Diff / Slide Review NO; Basophils Absolute Auto 100 /uL (0-100); Basophils Percent Auto 0.6 % (0-2); Eosinophils Absolute Auto 0 /uL (0-450); Hematocrit 24.1 % (36-46); Hemoglobin 8.1 g/dL (12.0-16.0); Lymphocytes Absolute Auto 1000 /uL (1100-4500); Lymphocytes Percent Auto 8.1 % (25-40); Mean Corpuscular HGB Conc 33.4 % (30-36); Mean Corpuscular Hemoglobin 30.9 PG (26-34); Mean Corpuscular Volume 92.3 fL (80-100); Monocytes Absolute Auto 1200 /uL (0-900); Monocytes Percent Auto 10.3 % (3-14); Neutrophils Absolute Auto 9600 /uL (1500-7000); Platelet Count 408 X10^3/uL (150-400); Red Blood Cell Count 2.61 X10^6/uL (4.0-5.2); White Blood Cell Count 11.8 X10^3/uL (4.5-11.0)
--- NOTE | 2023-05-06 15:50 | CM.DPC ---
DCP Cont. Reviewed EMR and team rounds for status updates. Pt is post-op day 1 from a lap colectomy. She was supposed to start tube feeds today but as of this afternoon has not yet. Plan is to start tube feeds for 24-hours, followed by advancing her diet. Keep [facility] updated once feeds are confirmed for rate/calories for home infusions. Update [facility] closer to time of d/c.
[2023-05-06] MEDS: DEXT IV (17:50)
[2023-05-06] MEDS: [UNRECOGNIZED DRUG - OTHER] IV (17:50)
[2023-05-06] MEDS: TRACE ELEMENTS IV (17:50)
[2023-05-06] MEDS: CALCIUM IV (17:50)
[2023-05-06] MEDS: MULTIVITAMIN IV (17:50)
[2023-05-06] MEDS: LYTES IV (17:50)
[2023-05-06 17:59] LABS: Add Manual Diff / Slide Review NO; Basophils Absolute Auto 0 /uL (0-100); Basophils Percent Auto 0.3 % (0-2); Eosinophils Absolute Auto 100 /uL (0-450); Eosinophils Percent Auto 0.7 % (2-4); Hematocrit 22.7 % (36-46); Hemoglobin 7.5 g/dL (12.0-16.0); Lymphocytes Absolute Auto 1500 /uL (1100-4500); Mean Corpuscular HGB Conc 33.1 % (30-36); Mean Corpuscular Volume 90.7 fL (80-100); Monocytes Absolute Auto 1300 /uL (0-900); Monocytes Percent Auto 11.8 % (3-14); Neutrophils Absolute Auto 7900 /uL (1500-7000); Neutrophils Percent Auto 73.2 % (50-75); Platelet Count 362 X10^3/uL (150-400); Red Cell Distribution Width 14.1 % (11.6-14.8); White Blood Cell Count 10.7 X10^3/uL (4.5-11.0)
--- NOTE | 2023-05-06 19:30 | PC.NURSE ---
HR in 130-140s. Pt is asymptomatic, tele placed and reading Afib RVR. Notified Dr Underwood, EKG ordered and to give the metoprolol IV that is scheduled. BP stable at the time at 127/72. EKG showed AFIB RVR in 140s. Monitored on tele and Pt heart rate went down to low 100-110, Afib. Updated Dr Underwood, no new orders. Pt converted to NSR at 2155.
[2023-05-07] VITALS (7 sets, daily range): BP systolic 116–127; BP diastolic 49–62; PULSE 76–96; RESP 16–22; TEMP 36–37.4; O2SAT 94–96
[2023-05-07] MEDS: METOPROLOL TARTRATE 5 MG/5 ML INJ IV ×4 (01:02→20:05)
[2023-05-07] MEDS: HYDROMORPHONE 0.5 MG INJ IV ×2 (01:11→08:32)
[2023-05-07 05:29] LABS: Add Manual Diff / Slide Review NO; Basophils Absolute Auto 0 /uL (0-100); Basophils Percent Auto 0.5 % (0-2); Eosinophils Absolute Auto 500 /uL (0-450); Eosinophils Percent Auto 4.9 % (2-4); Hemoglobin 7.4 g/dL (12.0-16.0); Lymphocytes Absolute Auto 1700 /uL (1100-4500); Lymphocytes Percent Auto 17.7 % (25-40); Mean Corpuscular HGB Conc 33.5 % (30-36); Mean Corpuscular Volume 92.4 fL (80-100); Monocytes Absolute Auto 1100 /uL (0-900); Monocytes Percent Auto 11.1 % (3-14); Neutrophils Absolute Auto 6400 /uL (1500-7000); Neutrophils Percent Auto 65.8 % (50-75); Platelet Count 343 X10^3/uL (150-400); Red Blood Cell Count 2.38 X10^6/uL (4.0-5.2); Red Cell Distribution Width 14.2 % (11.6-14.8); White Blood Cell Count 9.7 X10^3/uL (4.5-11.0)
[2023-05-07 05:31] LABS: Phosphorous 3.2 mg/dL (2.8-4.1)
[2023-05-07 05:32] LABS: Alanine Aminotransferase 22 IU/L (<35); Albumin 2.4 g/dL (3.5-5.0); Alkaline Phosphatase 56 U/L (38-126); Aspartate Aminotransferase 39 IU/L (14-36); BUN Creatinine Ratio 31.9 (6-22); Bilirubin Total 0.3 mg/dL (0.2-1.3); Blood Urea Nitrogen 22 mg/dL (7-17); Calcium 8.1 mg/dL (8.4-10.2); Carbon Dioxide 25 mmol/L (22-32); Chloride 102 mmol/L (98-107); Estimated Glomerular Filt Rate > 60 mL/min (>60); Globulin 2.3 g/dL (1.7-4.1); Glucose 121 mg/dL (80-110); HEMOLYSIS < 15 (0-50); Potassium 3.9 mmol/L (3.4-5.1); Sodium 134 mmol/L (137-145); Total Protein 4.7 g/dL (6.3-8.2)
[2023-05-07] MEDS: LEVOTHYROXINE 137 MCG TABLET PO (06:38)
[2023-05-07] MEDS: PANTOPRAZOLE 40 MG VIAL 20 MG IV ×2 (09:23→20:05)
[2023-05-07] MEDS: FUROSEMIDE 20 MG/2 ML VIAL IV (09:23)
--- NOTE | 2023-05-07 10:06 | P.PN_ITS ---
Subjective Subjective Interval history: CC: intestinal blockage POD #2 s/p complex abdominal surgery. After excitement yesterday, BP has come up and HR has come down today she is feeling generally ok this morning. Had some hypotension and afib with RVR yesterday but those have resolved. Plan to intiate trickle tube feeds via jejunostomy today. Exam Vital Signs (past 8 hours): - 05/07/23 05:01 05/07/23 08:40 Temperature 98.1 F 97.4 F L Pulse Rate 78 76 Respiratory Rate 16 19 Blood Pressure 123/49 L 116/49 L Pulse Oximetry 94 96 Oxygen Flow Rate 0 0 Oxygen Delivery Method Room Air Oxygen Flow Rate 0 Narrative Exam Narrative: alert sitting up in bed with well wisher at bedside Const Other: well developed well nourished HENMT Other: normocephalic atraumatic Resp Other: Clear to auscultation bilaterally Cardio Other: Regular rate and rhythm S1-S2 GI Other: Midline incision minimal drainage with gastrostomy jejunostomy and HELEN drain Neuro Other: Alert awake and oriented Extrem Other: No pedal edema moving all extremities Objective Labs 05/07/23 04:56 05/07/23 04:56 Labs: Laboratory Results - last 24 hr 05/06/23 05/06/23 05/06/23 10:07 15:40 17:50 WBC 11.8 H 10.7 RBC 2.61 L 2.50 L Hgb 8.1 L 7.5 L Hct 24.1 L 22.7 L MCV 92.3 90.7 MCH 30.9 30.0 MCHC 33.4 33.1 RDW 14.0 14.1 Plt Count 408 H 362 Neut % (Auto) 81.0 H 73.2 Lymph % (Auto) 8.1 L 14.0 L [place] % (Auto) 10.3 11.8 Eos % (Auto) 0.0 L 0.7 L Baso % (Auto) 0.6 0.3 Neut # (Auto) 9600 H 7900 H Lymph # (Auto) 1000 L 1500 [place] # (Auto) 1200 H 1300 H Eos # (Auto) 0 100 Baso # (Auto) 100 0 Sodium 132 L Potassium 3.8 Chloride 101 Carbon Dioxide 25 BUN 22 H Creatinine 0.67 Estimated GFR > 60 BUN/Creatinine Ratio 32.8 H Glucose 166 H Calcium 8.6 Phosphorus Magnesium Total Bilirubin AST ALT Alkaline Phosphatase Total Protein Albumin Globulin Albumin/Globulin Ratio Blood Type O Positive Antibody Screen Negative 05/07/23 04:56 WBC 9.7 RBC 2.38 L Hgb 7.4 L Hct 22.0 L MCV 92.4 MCH 31.0 MCHC 33.5 RDW 14.2 Plt Count 343 Neut % (Auto) 65.8 Lymph % (Auto) 17.7 L [place] % (Auto) 11.1 Eos % (Auto) 4.9 H Baso % (Auto) 0.5 Neut # (Auto) 6400 Lymph # (Auto) 1700 [place] # (Auto) 1100 H Eos # (Auto) 500 H Baso # (Auto) 0 Sodium 134 L Potassium 3.9 Chloride 102 Carbon Dioxide 25 BUN 22 H Creatinine 0.69 Estimated GFR > 60 BUN/Creatinine Ratio 31.9 H Glucose 121 H Calcium 8.1 L Phosphorus 3.2 Magnesium 2.0 Total Bilirubin 0.3 AST 39 H ALT 22 Alkaline Phosphatase 56 Total Protein 4.7 L Albumin 2.4 L Globulin 2.3 Albumin/Globulin Ratio 1.0 Blood Type Antibody Screen [facility] Medical History (Updated 05/04/23 @ 17:45 by Geoff Miramontes MD) Peripheral edema GERD (gastroesophageal reflux disease) Hypothyroidism Hypertension Hyperlipidemia Essential hypertension Mixed hyperlipidemia Acquired hypothyroidism Surgical History H/O ventral hernia repair Social History marital status: number of children: 3 household members: spouse lives independently: Yes caregiver/support person: No housing: house pets and animals: No education level: high school occupational status: other 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 Engle plans to initiate trickle tube feeds today we are following along. Pain control with low dose 0.2 dilaudid max - agree this was contributory to: #hypotension #afib w/RVR issues that occurred last night but which resolved with conservative management, continue equipment monitor phototypesetting #Hypertension continue regular meds dispo: up to surgery, starting enteral feeding today. PCP: Malick code: DNR diet: TPN, NPO, trickle jejunostomy tube feeds
--- NOTE | 2023-05-07 10:25 | P.PN_ITS ---
Subjective Subjective Date Patient Seen: 05/07/23 Time Patient Seen: 10:25 Interval history: Feeling better today. Pain is tolerable. Urine output has been adequate. Exam Vital Signs (past 8 hours): - 05/07/23 05:01 05/07/23 08:40 Temperature 98.1 F 97.4 F L Pulse Rate 78 76 Respiratory Rate 16 19 Blood Pressure 123/49 L 116/49 L Pulse Oximetry 94 96 Oxygen Flow Rate 0 0 Oxygen Delivery Method Room Air Oxygen Flow Rate 0 Narrative Exam Narrative: In good spirits Abdomen soft, appropriately tender HELEN drain with scant bloody output Incision is clean dry and intact Objective Labs 05/07/23 04:56 05/07/23 04:56 Labs: Laboratory Results - last 24 hr 05/06/23 05/06/23 05/06/23 10:07 15:40 17:50 WBC 11.8 H 10.7 RBC 2.61 L 2.50 L Hgb 8.1 L 7.5 L Hct 24.1 L 22.7 L MCV 92.3 90.7 MCH 30.9 30.0 MCHC 33.4 33.1 RDW 14.0 14.1 Plt Count 408 H 362 Neut % (Auto) 81.0 H 73.2 Lymph % (Auto) 8.1 L 14.0 L [place] % (Auto) 10.3 11.8 Eos % (Auto) 0.0 L 0.7 L Baso % (Auto) 0.6 0.3 Neut # (Auto) 9600 H 7900 H Lymph # (Auto) 1000 L 1500 [place] # (Auto) 1200 H 1300 H Eos # (Auto) 0 100 Baso # (Auto) 100 0 Sodium 132 L Potassium 3.8 Chloride 101 Carbon Dioxide 25 BUN 22 H Creatinine 0.67 Estimated GFR > 60 BUN/Creatinine Ratio 32.8 H Glucose 166 H Calcium 8.6 Phosphorus Magnesium Total Bilirubin AST ALT Alkaline Phosphatase Total Protein Albumin Globulin Albumin/Globulin Ratio Blood Type O Positive Antibody Screen Negative 05/07/23 04:56 WBC 9.7 RBC 2.38 L Hgb 7.4 L Hct 22.0 L MCV 92.4 MCH 31.0 MCHC 33.5 RDW 14.2 Plt Count 343 Neut % (Auto) 65.8 Lymph % (Auto) 17.7 L [place] % (Auto) 11.1 Eos % (Auto) 4.9 H Baso % (Auto) 0.5 Neut # (Auto) 6400 Lymph # (Auto) 1700 [place] # (Auto) 1100 H Eos # (Auto) 500 H Baso # (Auto) 0 Sodium 134 L Potassium 3.9 Chloride 102 Carbon Dioxide 25 BUN 22 H Creatinine 0.69 Estimated GFR > 60 BUN/Creatinine Ratio 31.9 H Glucose 121 H Calcium 8.1 L Phosphorus 3.2 Magnesium 2.0 Total Bilirubin 0.3 AST 39 H ALT 22 Alkaline Phosphatase 56 Total Protein 4.7 L Albumin 2.4 L Globulin 2.3 Albumin/Globulin Ratio 1.0 Blood Type Antibody Screen [facility] Medical History (Updated 05/04/23 @ 17:45 by Geoff Miramontes MD) Peripheral edema GERD (gastroesophageal reflux disease) Hypothyroidism Hypertension Hyperlipidemia Essential hypertension Mixed hyperlipidemia Acquired hypothyroidism Surgical History H/O ventral hernia repair Social History marital status: number of children: 3 household members: spouse lives independently: Yes caregiver/support person: No housing: house pets and animals: No education level: high school occupational status: other 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
[2023-05-07] MEDS: ENALAPRILAT 2.5 MG/ 2 ML VIAL 1.25 MG IV ×2 (11:26→17:58)
[2023-05-07] MEDS: INSULIN REGULAR 100 UNIT/ML 3 ML VIAL SUBCUT (13:42)
--- NOTE | 2023-05-07 14:42 | CM.DPC ---
DCP Cont: Discussed patient with Dr. Underwood today. Stated, she is not medically stable as of yet, has two HELEN drains, and a jejunostomy, started trickle tube feedings today, still has TPN via PICC line. Also, did have a run of a-fib with RVR. Had a message from Matilde, from [facility] on the [place] personal financial planner phone, attempted to call her back with update, but her cell phone did not ring. P: DCP to continue to follow closely. Once patient is more medically stable and can tolerate feeds through her jejunostomy, can discharge with [facility]. Patient will also continue to work with inventory clerk. Emmie Patrick RN/Packaging Machine Supplies Distributor
--- NOTE | 2023-05-07 14:46 | PC.NURSE ---
Addendum entered by Debbi Nava R.N. 05/07/23 16:53: Patient has not been out of bed much today, she has a ron in place for urinary retention. Will follow up with tomorrow about possible PT/OT and see about taking catheter out. Her ML incision is wnl and open to air. Putting out minimal bloody drainage in drain. Addendum entered by Debbi Nava R.N. 05/07/23 16:47: Patient is tolerating her Jevity 1.2 at 20cc/hr with water flushes. TPN is finishing up and will not be restarted. Patients blood sugar in the 140s and 1u given earlier to her. She is resting comfortably. Original Note: Patients tpn is going to finish and then she will be done with this. J-tube and G-tube present. wrote orders for Jevity 1.2 to run at 20cc/hr today and then we will increase as order sais starting tomorrow. She is also on 80ml of free water every 2 hours. Patient is tolerating her tube feeds well. Resting comfortably.
[2023-05-07] MEDS: HYDROMORPHONE 0.5 MG INJ 0.25 MG IV ×2 (17:17→20:57)
[2023-05-07] MEDS: diphenhydrAMINE 50 MG/ML VIAL 25 MG IV (22:30)
[2023-05-08] MEDS: METOPROLOL TARTRATE 5 MG/5 ML INJ IV ×4 (01:20→20:27)
[2023-05-08 03:00] VITALS: BP 153/53; PULSE 80; RESP 18; TEMP 35.7; O2SAT 93
[2023-05-08 05:07] LABS: Add Manual Diff / Slide Review NO; Basophils Absolute Auto 100 /uL (0-100); Basophils Percent Auto 0.8 % (0-2); Eosinophils Absolute Auto 600 /uL (0-450); Eosinophils Percent Auto 7.4 % (2-4); Hemoglobin 7.4 g/dL (12.0-16.0); Lymphocytes Absolute Auto 1500 /uL (1100-4500); Lymphocytes Percent Auto 18.2 % (25-40); Mean Corpuscular HGB Conc 33.6 % (30-36); Mean Corpuscular Hemoglobin 30.7 PG (26-34); Mean Corpuscular Volume 91.4 fL (80-100); Monocytes Absolute Auto 1100 /uL (0-900); Monocytes Percent Auto 12.9 % (3-14); Neutrophils Absolute Auto 5000 /uL (1500-7000); Neutrophils Percent Auto 60.7 % (50-75); Platelet Count 344 X10^3/uL (150-400); Red Blood Cell Count 2.41 X10^6/uL (4.0-5.2); Red Cell Distribution Width 14.2 % (11.6-14.8); White Blood Cell Count 8.2 X10^3/uL (4.5-11.0)
[2023-05-08 05:19] LABS: Alanine Aminotransferase 33 IU/L (<35); Albumin 2.5 g/dL (3.5-5.0); Albumin Globulin Ratio 1.1 (1.0-2.8); Alkaline Phosphatase 73 U/L (38-126); Aspartate Aminotransferase 57 IU/L (14-36); BUN Creatinine Ratio 23.4 (6-22); Bilirubin Total 0.3 mg/dL (0.2-1.3); Blood Urea Nitrogen 15 mg/dL (7-17); Calcium 8.3 mg/dL (8.4-10.2); Carbon Dioxide 25 mmol/L (22-32); Chloride 102 mmol/L (98-107); Estimated Glomerular Filt Rate > 60 mL/min (>60); Globulin 2.3 g/dL (1.7-4.1); Glucose 92 mg/dL (80-110); HEMOLYSIS < 15 (0-50); Potassium 4.1 mmol/L (3.4-5.1); Sodium 133 mmol/L (137-145); Total Protein 4.8 g/dL (6.3-8.2)
[2023-05-08] MEDS: LEVOTHYROXINE 137 MCG TABLET PO (06:22)
--- NOTE | 2023-05-08 07:40 | P.PN_ITS ---
Subjective Subjective Date Patient Seen: 05/08/23 Time Patient Seen: 07:40 Interval history: Patient had had an active weekend. 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 Went into atrial fibrillation was hypotensive postoperatively. Has been improved since she returned to sinus rhythm (which happened rather quickly). Off of TPN, currently receiving very gentle feedings through new jejunostomy feeding tube, as well as some IV fluids. Continues on IV metoprolol, as well as some IV enalapril. Lab work this morning shows normal white count but persistent anemia although unchanged from yesterday. 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 Her electrolytes and other chemistries are essentially unremarkable. No recurrent atrial fibrillation since her issues on Monday the april Exam Vital Signs (past 8 hours): - 05/08/23 03:00 Temperature 96.3 F L Pulse Rate 80 Respiratory Rate 18 Blood Pressure 153/53 H Pulse Oximetry 93 Oxygen Flow Rate 0 Oxygen Delivery Method Room Air Oxygen Flow Rate 0 Objective Labs 05/08/23 04:34 05/08/23 04:34 Labs: Laboratory Results - last 24 hr 05/08/23 04:34 WBC 8.2 RBC 2.41 L Hgb 7.4 L Hct 22.0 L MCV 91.4 MCH 30.7 MCHC 33.6 RDW 14.2 Plt Count 344 Neut % (Auto) 60.7 Lymph % (Auto) 18.2 L [place] % (Auto) 12.9 Eos % (Auto) 7.4 H Baso % (Auto) 0.8 Neut # (Auto) 5000 Lymph # (Auto) 1500 [place] # (Auto) 1100 H Eos # (Auto) 600 H Baso # (Auto) 100 Sodium 133 L Potassium 4.1 Chloride 102 Carbon Dioxide 25 BUN 15 Creatinine 0.64 Estimated GFR > 60 BUN/Creatinine Ratio 23.4 H Glucose 92 Calcium 8.3 L Total Bilirubin 0.3 AST 57 H ALT 33 Alkaline Phosphatase 73 Total Protein 4.8 L Albumin 2.5 L Globulin 2.3 Albumin/Globulin Ratio 1.1 [facility] Medical History (Updated 05/04/23 @ 17:45 by Geoff Miramontes MD) Peripheral edema GERD (gastroesophageal reflux disease) Hypothyroidism Hypertension Hyperlipidemia Essential hypertension Mixed hyperlipidemia Acquired hypothyroidism Surgical History H/O ventral hernia repair Social History marital status: number of children: 3 household members: spouse lives independently: Yes caregiver/support person: No housing: house pets and animals: No education level: high school occupational status: other 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 Postop day 3. Status post complicated intra-abdominal surgery-continue management of feedings drains TPN etcetera as per General surgery 2. Atrial fibrillation, paroxysmal-patient likely went into atrial fibrillation because of fluid shifts and or electrolyte issues related to her postoperative state. However when she has in a more stable state as an outpatient I think she will need some cardiac testing including probably playground monitor for least 14 days as well as an evaluation for possible coronary artery disease. Echo was fortunately unremarkable. Continue with beta-selina therapy as tolerated by patient which seems to have been helpful in keeping her in a normal controlled rhythm. 3. Hypertension-continue patient's current medications with switch back to oral meds when able as per surgery 4. Hypothyroidism-continue to give patient her oral med. Since it appears she will be able to take enteral nutrition of some sort this is not critical, as she clearly will be more normal related to her enteral absorption in the near term future even if that has not currently the case. 5. Disposition-patient would probably benefit from some physical therapy and careful evaluation prior to assuming she can return home, which is the most likely discharge destination, depending on her clinical course through the remainder of her hospitalization.
[2023-05-08 08:00] VITALS: BP 156/71; PULSE 67; RESP 16; TEMP 36.1; O2SAT 94
[2023-05-08] MEDS: HYDROMORPHONE 0.5 MG INJ 0.25 MG IV ×3 (10:15→22:07)
[2023-05-08] MEDS: PANTOPRAZOLE 40 MG VIAL 20 MG IV ×2 (10:16→20:27)
[2023-05-08] MEDS: FUROSEMIDE 20 MG/2 ML VIAL IV (10:19)
[2023-05-08] MEDS: ENALAPRILAT 2.5 MG/ 2 ML VIAL 1.25 MG IV ×2 (11:53→17:08)
[2023-05-08 11:54] VITALS: BP 130/67
--- NOTE | 2023-05-08 12:47 | P.PN_ITS ---
Subjective Subjective Date Patient Seen: 05/08/23 Time Patient Seen: 12:47 Interval history: Zainab had some reflux and heartburn overnight and this morning No significant flatus yet Tube feeds are now at 40 Exam Vital Signs (past 8 hours): - 05/08/23 08:00 05/08/23 11:54 Temperature 97 F L Pulse Rate 67 Respiratory Rate 16 Blood Pressure 156/71 H 130/67 Pulse Oximetry 94 Oxygen Flow Rate 0 Oxygen Delivery Method Room Air Oxygen Flow Rate 0 Const General: No acute distress Other: Drain with scant serosanguineous output Resp Effort & Inspection: normal respiratory effort Objective Labs 05/08/23 04:34 05/08/23 04:34 Labs: Laboratory Results - last 24 hr 05/08/23 04:34 WBC 8.2 RBC 2.41 L Hgb 7.4 L Hct 22.0 L MCV 91.4 MCH 30.7 MCHC 33.6 RDW 14.2 Plt Count 344 Neut % (Auto) 60.7 Lymph % (Auto) 18.2 L [place] % (Auto) 12.9 Eos % (Auto) 7.4 H Baso % (Auto) 0.8 Neut # (Auto) 5000 Lymph # (Auto) 1500 [place] # (Auto) 1100 H Eos # (Auto) 600 H Baso # (Auto) 100 Sodium 133 L Potassium 4.1 Chloride 102 Carbon Dioxide 25 BUN 15 Creatinine 0.64 Estimated GFR > 60 BUN/Creatinine Ratio 23.4 H Glucose 92 Calcium 8.3 L Total Bilirubin 0.3 AST 57 H ALT 33 Alkaline Phosphatase 73 Total Protein 4.8 L Albumin 2.5 L Globulin 2.3 Albumin/Globulin Ratio 1.1 [facility] Medical History (Updated 05/04/23 @ 17:45 by Geoff Miramontes MD) Peripheral edema GERD (gastroesophageal reflux disease) Hypothyroidism Hypertension Hyperlipidemia Essential hypertension Mixed hyperlipidemia Acquired hypothyroidism Surgical History H/O ventral hernia repair Social History marital status: number of children: 3 household members: spouse lives independently: Yes caregiver/support person: No housing: house pets and animals: No education level: high school occupational status: other 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
--- NOTE | 2023-05-08 15:12 | PC.NURSE ---
increased her tube feeding rate to 40mls/hr. later on pt did c/o acid reflux but she said she has been having acid reflux for days. notified Dr. Teresa and I asked for tums. Dr. Engle came to check on her and he advised for me to open the G-tube to help relieve acid reflux. I decreased her tube feed to 35mls/hr and open her G-tube and hooked to a tube and canister via gravity; however, pt reports no relief from acid reflux. I will be giving her tums to see if this helps.
--- NOTE | 2023-05-08 15:18 | CM.DPNOTE ---
DCP note DRUM DRIER reviewed EMR. No PT/OT orders yet, but consider it closer to dc? Per Malick note, starting gentle feeds through jejunostomy tube today. No officially tube feed orders for home infusion. Per Oniel note, tube feeds are at 40. Waiting more consistent flatus. P: DCP to continue to follow closely. Once patient is more medically stable and can tolerate feeds through her jejunostomy, can discharge with [facility]. Patient will also continue to work with golf professional. CM team will follow closely to see if Inf Cathi needed. Pending to see if PT/OT need. Cm team will continue to follow closely. MADI Martinez
[2023-05-08] MEDS: CALCIUM CARBONATE 500 MG TAB PO ×2 (15:28→22:07)
--- NOTE | 2023-05-08 15:47 | DIET.PN1 ---
Dietary Progress Note Pt tolerating continuous enteral feed via jejunostomy at 40mL/h. Pts goal rate is 50mL/h. Pt to d/c on continuous, pump-assisted j-tube feeding which will be managed and likely transitioned to intermittent feeding plan by [facility] RD as outpatient. Pt outside refeeding syndrome window and stable nutritionally once has flatus, BM and at goal rate. Ht: 157.48 cm Wt: 67.631 kg BMI: 27.2 Last BM: 05/03/23 (05/05/23 13:56) MNA: 9 Bruce Score: 19 Diet: 05/05/23 Dinner Clear Liquid Diet Diet Modifications: 05/06/23 Breakfast Tube Feeding Diet Diet Modifications: TF Supplement type: Jevity 1.2 mary TF mode of delivery: Continuous Starting flow rate mL/hr: 20 Flow rate goal mL/hr: 50 Titration Schedule to reach Goal Rate: 10 ml/Q8 hr PRN Max total daily volume in mL: 1,200 Free fluid: 80 Free Water Frequency: Q2H Nutrition Percent Meal Consumed 25% 05/07/23 18:00 Percent Meal Consumed 100% 05/07/23 10:04 Labs: RBC 2.41 X10^6/uL (4.0-5.2) L 05/08/23 04:34 Hgb 7.4 g/dL (12.0-16.0) L 05/08/23 04:34 Hct 22.0 % (36-46) L 05/08/23 04:34 Creatinine 0.64 mg/dL (0.52-1.04) 05/08/23 04:34 Lactate 0.7 mmol/L (0.7-2.1) 04/29/23 21:15 Iron 26 ug/dL (37-170) L 04/29/23 03:10 % Saturation 10 % (15-50) L 04/29/23 03:10 NT-Pro-B Natriuret Pep 1770 pg/mL (<450) H 04/28/23 13:10 Formula: Jevity 1.2 Starting Rate: 20mL/h Rate Advancement: 10mL q8h as tolerated Goal Rate: 50mL/h Free Water Flushes: 80mL q2h 2. Pt has j-tube, please do not check for residuals or bolus feed. Pt may experience cramping and liquid stool as feeding is titrated to goal. EER: 81g PRO (1.2g/kg per malnutrition), 2,000kcals (30kcal/kg), 2L fluids (30mL/kg) Monitoring/Evaluations: following until pt d/c. Electronically Signed by: Oxana Daniel 05/08/23 15:47 Clinical Dietitian [address] [id number]
[2023-05-08 16:00] VITALS: BP 145/63; PULSE 79; RESP 18; TEMP 36.7; O2SAT 93
[2023-05-08 20:00] VITALS: BP 155/70; PULSE 94; RESP 16; TEMP 36.5; O2SAT 96
[2023-05-08] MEDS: diphenhydrAMINE 50 MG/ML VIAL 25 MG IV (22:07)
[2023-05-09] VITALS (10 sets, daily range): BP systolic 107–136; BP diastolic 52–89; PULSE 77–95; RESP 16–18; TEMP 36.1–36.7; O2SAT 92–95
[2023-05-09] MEDS: ENALAPRILAT 2.5 MG/ 2 ML VIAL 1.25 MG IV (00:42)
[2023-05-09] MEDS: METOPROLOL TARTRATE 5 MG/5 ML INJ IV (06:10)
[2023-05-09] MEDS: LEVOTHYROXINE 137 MCG TABLET PO (06:10)
--- NOTE | 2023-05-09 07:46 | PM.PN.1 ---
Subjective Subjective Date Patient Seen: 05/09/23 Time Patient Seen: 07:46 Interval history: Essentially unremarkable day yesterday. Making good urine. Slow tube feeding. No recurrent atrial fibrillation etcetera Blood pressure creeping up Exam Vital Signs (past 8 hours): - 05/09/23 00:00 05/09/23 02:12 05/09/23 06:00 Temperature 97.3 F L 97 F L Pulse Rate 77 95 H Respiratory Rate 18 16 Blood Pressure 132/53 L 107/56 L 134/52 L Pulse Oximetry 92 92 Oxygen Flow Rate 0 0 Oxygen Delivery Method Room Air Oxygen Flow Rate 0 Objective Labs 05/08/23 04:34 05/08/23 04:34 [facility] Medical History (Updated 05/04/23 @ 17:45 by Geoff Miramontes MD) Peripheral edema GERD (gastroesophageal reflux disease) Hypothyroidism Hypertension Hyperlipidemia Essential hypertension Mixed hyperlipidemia Acquired hypothyroidism Surgical History H/O ventral hernia repair Social History marital status: number of children: 3 household members: spouse lives independently: Yes caregiver/support person: No housing: house pets and animals: No education level: high school occupational status: other 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 Postop day 4. Status post complicated intra-abdominal surgery-continue management of feedings drains TPN etcetera as per General surgery 2. Atrial fibrillation, paroxysmal-continue to monitor for now. Continue on beta-selina therapy. Plan for outpatient evaluation as noted previously 3. Hypertension-continue patient's current parental medications. Suggest switch back to oral medications when okayed by surgery. She was on a clear liquid diet but unsure as to whether or not it makes sense to initiate additional meds at this time 4. Hypothyroidism-continue to give patient her oral med. Since it appears she will be able to take enteral nutrition of some sort this is not critical, as she clearly will be more normal related to her enteral absorption in the near term future even if that has not currently the case. 5. Disposition-patient would probably benefit from some physical therapy and careful evaluation prior to assuming she can return home, which is the most likely discharge destination, depending on her clinical course through the remainder of her hospitalization. Patient reports being up and around in the room. Probably does not need skilled physical therapy but that would be another option.
[2023-05-09] MEDS: FUROSEMIDE 20 MG TABLET PO (09:58)
[2023-05-09] MEDS: lisinopriL 20 MG TABLET 40 MG PO (09:58)
[2023-05-09] MEDS: OXYCODONE IR 5 MG TABLET PO (09:59)
[2023-05-09] MEDS: PANTOPRAZOLE DR 20 MG TABLET PO ×2 (09:59→21:59)
--- NOTE | 2023-05-09 10:28 | P.PN_ITS ---
Subjective Subjective Date Patient Seen: 05/09/23 Time Patient Seen: 10:28 Interval history: Reflux Tolerant of tube feeds at 40 ml/hr Exam Vital Signs (past 8 hours): - 05/09/23 06:00 05/09/23 08:00 05/09/23 09:58 Temperature 97 F L 98.1 F Pulse Rate 95 H 93 H 88 Respiratory Rate 16 18 Blood Pressure 134/52 L 122/80 120/65 Pulse Oximetry 92 93 Oxygen Flow Rate 0 0 05/09/23 10:13 Temperature Pulse Rate 88 Respiratory Rate Blood Pressure 120/65 Pulse Oximetry 94 Oxygen Flow Rate Oxygen Delivery Method Room Air Oxygen Flow Rate 0 Narrative Exam Narrative: Gen-Adult woman alert and oriented Abdomen-Soft, HELEN SS Objective Labs 05/08/23 04:34 05/08/23 04:34 [facility] Medical History (Updated 05/04/23 @ 17:45 by Geoff Miramontes MD) Peripheral edema GERD (gastroesophageal reflux disease) Hypothyroidism Hypertension Hyperlipidemia Essential hypertension Mixed hyperlipidemia Acquired hypothyroidism Surgical History H/O ventral hernia repair Social History marital status: number of children: 3 household members: spouse lives independently: Yes caregiver/support person: No housing: house pets and animals: No education level: high school occupational status: other Previous occupational history: [employer] [employer], [employer] jair/druze: [employer] leisure activities: art and other Smoking Status: Former smoker Tobacco: How many years used: 10 Smokeless tobacco user: other quit status: quit date established second hand exposure: No alcohol intake: current substance use type: does not use Assessment & Plan Post-op Postoperative Procedures: Procedures Operation Date: 04/30/23 09:00 Actual Procedure Side Surgeon p Esophagogastroduodenoscopy with Biopsy Not Applicable Geoff Miramontes MD Operation Date: 05/05/23 14:15 Actual Procedure Side Surgeon p Exploratory Laparotomy GEN with placement of Gastrostomy Tube Not Applicable Geoff Miramontes MD Postoperative status narrative: Anticipate dc home in the next 1-2 days IV -->PO meds Increase Tube feeds to goal 50 ml/hr Remove HELEN drain SCDs and Lovenox
[2023-05-09] MEDS: METOPROLOL IR 25 MG TABLET PO ×2 (11:34→21:59)
--- NOTE | 2023-05-09 14:26 | CM.DPNOTE ---
DCP Note CORRECTIONAL MAINTENANCE TECHNICIAN reviewed EMR. Per surgeon note, anticipate dc within the next day or two. CORRECTIONAL MAINTENANCE TECHNICIAN faxed dietary note to [facility]. Per Bean at [facility], able to open either tomorrow or next day pending dc. Quoted pt cost to be $72/month and will coordinate with CHANDU Martins. CORRECTIONAL MAINTENANCE TECHNICIAN told Bean it would be pt's PCP Malick managing feeds, but will confirm that with surgeon/Malick. CORRECTIONAL MAINTENANCE TECHNICIAN met with pt in room various times throughout the day. Dtr/PIA/spouse in room at bedside throughout day. Pt agreeable to [facility] [place] hospital plan at [place]. Dtr Lakshmi will stay with pt in short term to manage needs. CORRECTIONAL MAINTENANCE TECHNICIAN coordinated with Charo at Critical access hospital. Agree to accept for RN to manage j tube site, need new F2F due to old F2F stating TPN management. CORRECTIONAL MAINTENANCE TECHNICIAN completed F2F and placed in scanning folder. CORRECTIONAL MAINTENANCE TECHNICIAN updated RN. Plan: anticipate home within next day or two with family support. [facility] to follow for j tube feeds and Critical access hospital to follow to manage site. CM team will continue to follow closely. MADI Martinez
--- NOTE | 2023-05-09 14:45 | PT.IIE ---
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) Generalized abdominal pain (04/29/23) Surgery Performed Operation Date: 04/30/23 09:00 Actual Procedures p Esophagogastroduodenoscopy with Biopsy(Not Applicable) - Geoff Miramontes MD Operation Date: 05/05/23 14:15 Actual Procedures p Exploratory Laparotomy GEN with placement of Gastrostomy Tube(Not Applicable) - Geoff Miramontes MD Surgical History (Last Reviewed 05/01/23 @ 08:23 by Vini Teresa MD) H/O ventral hernia repair Medical History (Last Updated 05/04/23 @ 17:45 by Geoff Miramontes MD) Acquired hypothyroidism Essential hypertension GERD (gastroesophageal reflux disease) Hyperlipidemia Hypertension Hypothyroidism Mixed hyperlipidemia Peripheral edema Physical Therapy Inpatient Evaluation/Re-Eval M1 PT/OT-IP Prior Functional Status Start: 05/09/23 14:07 Freq: NEEDED Status: Active Protocol: Document 05/09/23 15:57 [facility] (Rec: 05/09/23 17:06 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 3 VIRI w/rail Home Environment Standard Height Toilet,Walk in Shower Home Equipment Front Wheel Walker,Straight Cane,Long Handled Shoe Horn, Rapid Transit Operator,Grab Bars In Shower Additional Social History Comment has family close that can help w/ and chores until pt fully recovers M2 PT-IP Current Condition Start: 05/09/23 14:07 Freq: NEEDED Status: Active Protocol: Document 05/09/23 15:57 [facility] (Rec: 05/09/23 17:06 [facility] [id number]) Physical Therapy Current Condition Current Condition Evaluation Date 05/09/23 Treatment Diagnosis s/p gastrostomy,jejunostomy, jejunostomy, duodenogastric bypass M3 PT-IP Subjective Start: 05/09/23 14:07 Freq: NEEDED Status: Active Protocol: Document 05/09/23 15:57 [facility] (Rec: 05/09/23 17:06 [facility] [id number]) Subjective Physical Therapy Visit Type Type Initial Evaluation Visit Start Time 14:03 Visit Stop Time 14:35 Number of CIGAR HEAD PEGGER Visits 0 M4 PT-IP Mobility and Gait Start: 05/09/23 14:07 Freq: NEEDED Status: Active Protocol: Document 05/09/23 15:57 [facility] (Rec: 05/09/23 17:06 [facility] [id number]) PT-Bed Mobility Assessment Rolling Type of Rolling Log Rolling Level of Assist Standby Assistance Supine to Sit Supine to Sit Standby Assistance Sit to Supine Sit to Supine Standby Assistance Scooting Scooting to Edge of Bed Independent Scooting Up and Down in Bed Independent PT-Transfer Assessment Sit to and From Stand Sit to and from Stand Standby Assistance,Use of Upper Extremities Equipment Transfer Assistive Device Gait Belt Comments Mobility Comments cues needed for log roll in/ out of bed and pt notes dec pain w/this way. pt left w/ call light in reach after session Gait Assessment Gait Gait Assistance Required: Contact Guard Assist Distance (Feet) 220 Assistive Devices Assistive Device Gait Belt Factors Limiting Gait Function Factors Limiting Gait Function Decreased Activity Tolerance, Decreased Strength,Pain,Poor Balance Comments Gait Comments Dec knee flex w/ inc lat leaning w/start but improved after about 50% of walk and improved steadienss Stair Climbing Assessment Evaluation Level of Assist On Stairs Contact Guard Assistance Devices Stair Climbing Assistive Devices Left Railing,Right Railing Technique/Endurance Stair Climbing Direction Ascend and Descend Number of Steps Climbed 3 Query Text: PT-Balance Assessment Sitting Balance and Reactions Static Sitting Balance Ability Normal Dynamic Sitting Balance Ability Normal Standing Balance and Reactions Static Standing Balance Ability Normal Dynamic Standing Balance Ability Good M5 PT-IP Objective Assessments Start: 05/09/23 14:07 Freq: NEEDED Status: Active Protocol: Document 05/09/23 15:57 [facility] (Rec: 05/09/23 17:06 [facility] [id number]) Orientation Orientation/Cognition Level of Alertness Alert Language Function Ability No Deficits Noted Safety Awareness Understands Safety Issues Memory Description No Deficits Noted Gross Range of Motion Lower Extremity ROM Assessment Within Functional Limits Strength Lower Extremity Strength Hip flex 3+, abd/add 4/5 Knee 4+/5 B Ankle 4+/5 B M7 PT-IP Assessment and Plan Start: 05/09/23 14:07 Freq: NEEDED Status: Active Protocol: Document 05/09/23 15:57 [facility] (Rec: 05/09/23 17:06 [facility] [id number]) PT Summary Assessment and Plan Potential Rehabilitation Potential Good Status of Condition at Evaluation Evolving Summary Impairments Pain,Strength,Balance,Bed Mobility,Transfers,Gait, Activity Tolerance Assessment Summary Pt presents s/p gastrostomy, jejunostomy, and duodenogastric bypass on 05/05 with overall good pain control and is motivated to return home. She is typically indep and does help her by cueing, but does have help from local family. She did well with mobility and improved steadiness w/inc ambulation time. She did show some difficulty w/stairs and used B rails and only has 1 rail for home. Pt would benefit from skilled PT to improve her mobility to make her safe to return home and would benefit from PT. Goals Bed Mobility Goal Independent Transfer Goal Independent Gait Goal Independent Gait Distance 300ft no AD Other Goals up/down 3 stairs w/rail SBA Days to Meet Goals 6 Frequency of Treatment Frequency Of Treatment Once a Day Treatment Plan Physical Therapy Treatment Plan Bed Mobility Training,Transfer Training,Gait Training, Therapeutic Exercise,Balance Retraining,Neuromuscular Re-ed Recommendations To Nursing Amount of Assist Needed Standby Assistance Discharge Recommendations PT Discharge Recommendations Home with Assistance,Home Health Transportation Needs at Discharge Private Vehicle
[2023-05-09] MEDS: diphenhydrAMINE 50 MG/ML VIAL 25 MG IV (23:07)
[2023-05-10] VITALS: BP 130/53; PULSE 81; RESP 18; TEMP 36.1; O2SAT 95
[2023-05-10] MEDS: OXYCODONE IR 5 MG TABLET PO (00:59)
[2023-05-10 04:00] VITALS: BP 119/50; PULSE 88; RESP 17; TEMP 36.2; O2SAT 92
[2023-05-10] MEDS: LEVOTHYROXINE 137 MCG TABLET PO (05:18)
--- NOTE | 2023-05-10 07:55 | PM.PN.1 ---
Subjective Subjective Date Patient Seen: 05/10/23 Time Patient Seen: 07:55 Interval history: Patient's blood pressure improved. Had oral meds restarted yesterday. I put her on metoprolol instead of her outpatient lisinopril in effort to help with her cardiac dysrhythmia. If anything blood pressure is on the lowish side over the last 12-24 hours No other complaints or issues Tolerating tube feeds without difficulty. As per General surgery likely to be ready for discharge in the next 24-48 hours Exam Vital Signs (past 8 hours): - 05/10/23 00:00 05/10/23 04:00 Temperature 97 F L 97.1 F L Pulse Rate 81 88 Respiratory Rate 18 17 Blood Pressure 130/53 L 119/50 L Pulse Oximetry 95 92 Oxygen Flow Rate 0 Oxygen Delivery Method Room Air Oxygen Flow Rate 0 Objective Labs 05/08/23 04:34 05/08/23 04:34 [facility] Medical History (Updated 05/04/23 @ 17:45 by Geoff Miramontes MD) Peripheral edema GERD (gastroesophageal reflux disease) Hypothyroidism Hypertension Hyperlipidemia Essential hypertension Mixed hyperlipidemia Acquired hypothyroidism Surgical History H/O ventral hernia repair Social History marital status: number of children: 3 household members: spouse lives independently: Yes caregiver/support person: No housing: house pets and animals: No education level: high school occupational status: other Previous occupational history: [employer], [email or web address]: [employer] leisure activities: art and other Smoking Status: Former smoker Tobacco: How many years used: 10 Smokeless tobacco user: other quit status: quit date established second hand exposure: No alcohol intake: current substance use type: does not use Assessment & Plan Assessment & Plan narrative: 1. Hypertension-blood pressure seems much better. Will continue with the metoprolol for now and I will switch it to the succinate (extended Release) version. She should go home with this as well. She should remain off of her amlodipine and off of her lisinopril for now upon discharge although, more likely than not she will end up back on most of her prehospitalization medications. I have also would keep her off of her furosemide, although I suspect she will have recurrent edema and need to be on some level of diuretic in the future 2. Nutrition/electrolytes-continue on tube feeds as per surgery. Hopefully she gets farther away from her surgery she can liberalize her diet and go back to that as a primary source of nutrition 3. Hypothyroidism-continue patient on her levothyroxine at 137 mcg daily 4. GERD-certainly would continue her on a proton pump inhibitor especially given the finding at time of surgery. Would recommend probably at least the 40 mg a day pantoprazole with consideration for b.i.d. dosing. Patient should have an outpatient appointment set up to see me within about 2 weeks of discharge to ensure stability etcetera
[2023-05-10 08:12] VITALS: BP 130/72; PULSE 85; RESP 20; TEMP 36.2; O2SAT 93
--- NOTE | 2023-05-10 09:35 | PT.IPTN ---
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) Generalized abdominal pain (04/29/23) Surgery Performed Operation Date: 04/30/23 09:00 Actual Procedures p Esophagogastroduodenoscopy with Biopsy(Not Applicable) - Geoff Miramontes MD Operation Date: 05/05/23 14:15 Actual Procedures p Exploratory Laparotomy GEN with placement of Gastrostomy Tube(Not Applicable) - Geoff Miramontes MD Physical Therapy Treatment Note M2 PT-IP Current Condition Start: 05/09/23 14:07 Freq: NEEDED Status: Active Protocol: Document 05/10/23 09:35 [facility] (Rec: 05/10/23 10:34 [facility] [id number]) Physical Therapy Current Condition Current Condition Evaluation Date 05/09/23 Treatment Diagnosis s/p gastrostomy,jejunostomy, jejunostomy, duodenogastric bypass M3 PT-IP Subjective Start: 05/09/23 14:07 Freq: NEEDED Status: Active Protocol: Document 05/10/23 09:35 [facility] (Rec: 05/10/23 10:34 [facility] [id number]) Subjective Physical Therapy Visit Type Type Treatment Note Visit Start Time 09:35 Visit Stop Time 10:03 Notes BP 128/57 HR 92 left UE supine head of bed elevated Number of THREAD REELER Visits 1 Physical Therapy Visit Comments Patient Comments Patient reports having no pain start of session, denies dizziness when questioned. Patient verbalizes agreement to work with PT. Therapy Pain Assessment Pain When Pain Assessed After Treatment Pain Present Pain Present Denied Pain M4 PT-IP Mobility and Gait Start: 05/09/23 14:07 Freq: NEEDED Status: Active Protocol: Document 05/10/23 09:35 [facility] (Rec: 05/10/23 10:34 AB [id number]) PT-Bed Mobility Assessment Rolling Type of Rolling Log Rolling Level of Assist Standby Assistance Supine to Sit Supine to Sit Standby Assistance Sit to Supine Sit to Supine Standby Assistance Scooting Scooting to Edge of Bed Independent Scooting Up and Down in Bed Independent PT-Transfer Assessment Sit to and From Stand Sit to and from Stand Independent,Use of Upper Extremities Equipment Transfer Assistive Device Gait Belt Transfers Transfer Destination Bed,Chair Transfer Technique Stand Step Pivot Transfer Ability Level of Assist Independent Comments Mobility Comments requires verbal cues for log roll and scooting in seated position prior to sit to supine. Call light in reach post session. Nurse made aware of patient status. Gait Assessment Gait Gait Assistance Required: Independent Distance (Feet) 300 Assistive Devices Assistive Device Gait Belt Comments Gait Comments THREAD REELER provided assist with IV pole while assessing gait. Gait pattern WNL Stair Climbing Assessment Evaluation Level of Assist On Stairs Standby Assistance Devices Stair Climbing Assistive Devices Left Railing Technique/Endurance Stair Climbing Direction Ascend and Descend Stair Climbing Technique Step to Step Number of Steps Climbed 3 Stair Climbing Set # Repetitions (reps) 2 Comments Stair Climbing Comments Close supervision on first set of 3 ascending with patient attempting reciprocal pattern/ unsteady right LE stance phase . Rail on left ascending right descending PT-Balance Assessment Sitting Balance and Reactions Static Sitting Balance Ability Normal Dynamic Sitting Balance Ability Normal Standing Balance and Reactions Static Standing Balance Ability Normal Dynamic Standing Balance Ability Good M5 PT-IP Objective Assessments Start: 05/09/23 14:07 Freq: NEEDED Status: Active Protocol: Document 05/09/23 15:57 [facility] (Rec: 05/09/23 17:06 [facility] [id number]) Orientation Orientation/Cognition Level of Alertness Alert Language Function Ability No Deficits Noted Safety Awareness Understands Safety Issues Memory Description No Deficits Noted Gross Range of Motion Lower Extremity ROM Assessment Within Functional Limits Strength Lower Extremity Strength Hip flex 3+, abd/add 4/5 Knee 4+/5 B Ankle 4+/5 B M7 PT-IP Assessment and Plan Start: 05/09/23 14:07 Freq: NEEDED Status: Active Protocol: Document 05/10/23 09:35 [facility] (Rec: 05/10/23 10:34 AB [id number]) PT Summary Assessment and Plan Potential Rehabilitation Potential Good Summary Impairments Balance,Bed Mobility,Gait Progress Towards Goals Progressing Toward Goals Assessment Summary Patient presents with reports of no pain, continues to require verbal cues for log roll, able to ascend and descend stairs with one rail SBA on second trial of 3 steps , slightly unsteady on first attempt with patient performing a reciprocal pattern ascending, Steady with step to pattern on second trial. Pt would benefit from skilled PT to improve her mobility to make her safe to return home and would benefit from PT. Goals Bed Mobility Goal Independent Transfer Goal Independent Gait Goal Independent Gait Distance 300ft no AD Other Goals up/down 3 stairs w/rail SBA Days to Meet Goals 6 Frequency of Treatment Frequency Of Treatment Once a Day Treatment Plan Physical Therapy Treatment Plan Bed Mobility Training,Transfer Training,Gait Training, Therapeutic Exercise,Balance Retraining,Neuromuscular Re-ed Other Recommendations and Next Treatment Bed mobility/log roll Focus Recommendations To Nursing Amount of Assist Needed Standby Assistance Discharge Recommendations PT Discharge Recommendations Home with Assistance,Home Health Transportation Needs at Discharge Private Vehicle
[2023-05-10 10:22] VITALS: BP 130/72
[2023-05-10] MEDS: FUROSEMIDE 20 MG TABLET PO (10:22)
[2023-05-10] MEDS: METOPROLOL ER 50 MG TABLET PO (10:22)
[2023-05-10] MEDS: PANTOPRAZOLE DR 20 MG TABLET PO (10:23)
--- NOTE | 2023-05-10 12:25 | PC.NURSE ---
Pt is ready to be discharged home with daughter Lakshmi. Picc line and HELEN drain have been removed. Pt is dressed. Went over d/c instructions with Pt - discussed d/c meds, time of last dose, reviewed stroke education, s/s of infection, tube care, showering, nutritional plan and follow up. Pt will have home health RN and [facility] to manage her tubes and nutrition. Pt denies further questions and was taken out via w/c by MANAGER [employer] to POV with Daughter and all belongings.
--- NOTE | 2023-05-10 13:57 | P.DS_ITS ---
History of Present Illness History of Present Illness Date Patient Seen: 05/10/23 Time Patient Seen: 13:57 Chief complaint: abdominal discomfort Narrative: 83-year-old woman PMH hypertension with a generalized decline over the past several months admitted to the hospital pain for abdominal pain. She describes several months of progressive gastric partial obstruction feelings of fullness bloating frequent spitting up. CT abdomen pelvis demonstrates significant thickening of the pyloric channel. She has had an unintentional weight loss of proximally 24 lb over the past 2 months. Discharge Providers Provider Date of admission: 04/29/23 15:04 Discharge Date: 05/10/23 Primary care physician: Vini Teresa MD Consults: 04/30/23 14:25 Consult to Dietitian, Adult Routine Comment: Reason For Exam: TPN/tube feeds/pallative nutrition consult 05/01/23 13:13 Consult to Home Health Routine Comment: Reason For Exam: RN to monitor TPN at home 05/09/23 11:40 Consult to Physical Therapy Evaluate & Treat Comment: Physician Instructions: Evaluate and Treat 05/10/23 09:39 Consult to Home Health Routine Comment: [facility] to manage tube feed at home Reason For Exam: [facility] to manage tube feed at home Discharge provider: Geoff Miramontes MD Summary Hospital Course Discharge Diagnosis: gastric outlet obstruction severe protein malnutrition Hospital Course: April 30 the patient underwent esophagogastroduodenoscopy which demonstrated near complete obstruction of the pylorus. Pylorus was friable, ulcerated unclear whether this represented malignancy or severe peptic ulcer. Given her inability to tolerate oral nutrition she elected to proceed with an intestinal bypass. May 05 she was taken to the operating room underwent an exploratory laparotomy, gastro jejunostomy, gastrostomy placement and feeding jejunostomy. She tolerated the operation well and gradually began to recover. At the time of discharge she is ambulatory, tolerating liquid diet, tube feeds are at goal through J-tube, a gastrotomy tube is clamped. Pain is well controlled with oral medication, she is afebrile vital signs are within normal limits, and appropriate for discharge home at this time. Once at home, [facility] will manage the tube feeds. At this time her final pathology is still pending. Exam Vital Signs (past 8 hours): - 05/10/23 08:12 05/10/23 10:22 Temperature 97.2 F L Pulse Rate 85 Respiratory Rate 20 Blood Pressure 130/72 130/72 Pulse Oximetry 93 Oxygen Delivery Method Room Air Oxygen Flow Rate 0 Narrative Exam Narrative: GENERAL: Adult woman alert oriented no acute distress, resting comfortably, in no acute distress. HEENT: Normocephalic, atraumatic. No scleral icterus CHEST: Rising symmetrically. No audible wheezes CARDIOVASCULAR: Warm and well perfused. Regular rate ABDOMEN: Midline incision clean dry intact. Feeding J-tube and gastrostomy tube in place EXTREMITIES: Normal tone and without edema. NEUROLOGIC: Moving all extremities spontaneously. No gross motor deficits. 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 Gastrostomy tube to remain closed. Contact surgical clinic if worsening abdominal distention nausea. Okay to shower Will notify with pathology No driving while taking narcotic Follow up with General surgery in 1-2 weeks Tube feeds to continue at 50 mL/hr Discharge orders & Medications Prescriptions: New metoprolol succinate 50 mg Tablet Extended Release 24 Hr 50 mg PO DAILY Qty: 90 0RF acetaminophen [Tylenol] 325 mg capsule 650 mg PO QID PRN (Reason: pain) Qty: 60 0RF oxycodone 5 mg tablet 5 mg PO BID Qty: 20 0RF Continued multivitamin [Multiple Vitamins] 1 EACH tablet 1 tab PO QDAY Qty: 0 GLUCOSAMINE/CHONDROITIN SULF A (Glucosamine-Chondroitin Cap) 1 cap PO Q DAY Qty: 0 [RAJANI-C] 500 mg PO QDAY Qty: 0 levothyroxine 137 mcg tablet 137 mcg PO DAILY Qty: 90 1RF ferrous sulfate 325 mg (65 mg iron) tablet 325 mg PO DAILY Qty: 90 0RF Rx Instructions: Take with vitamin C pantoprazole 20 mg tablet,delayed release (DR/EC) 40 mg PO DAILY tacrolimus 0.1 % ointment 1 applic topical DAILY ondansetron 4 mg tablet,disintegrating 4 mg PO Q6H PRN (Reason: nausea/vomiting) Discontinued ASPIRIN (#ASPIRIN) 325 mg PO Q DAY Qty: 0 furosemide 20 mg tablet 60 mg PO DAILY Qty: 270 1RF lisinopril 40 mg tablet 40 mg PO DAILY Qty: 90 1RF amlodipine [Norvasc] 5 mg tablet 5 mg PO DAILY Qty: 90 1RF Hold Instructions: patient request Follow up/Referrals: Vini Teresa MD [Primary Care Provider] - Geoff Miramontes MD [Physician] - 1 Week Diet/Activity/Treatments Diet: Full Liquid Skin/Wound/Dressing Care Report to your healthcare provider any signs of infection, such as:: chills, fever, increased pain, unusual drainage and unusual redness Visit Report/Discharge Packet Instructions: How to Care for Your PEG Tube, Enteral Feeding, Upper GI Endoscopy, DI for Gastroesophageal Reflux Disease (GERD), DI for Gastric Ulcer, DI for Hiatal Hernia, DI for Prescription Opioid Use, Oxycodone, DI for Gastric Outlet Obstruction, [facility]: Wound Care, EGD Discharge Instructions Stand Alone Forms: Patient Portal/API, Stroke Signs & Symptoms, EGD Result: Isld Surg Discharge Data Primary Care Provider: Vini Teresa
--- NOTE | 2023-05-10 16:00 | CM.DPNOTE ---
DCP Note COTTON DISPATCHER reviewed EMR. Per surgeon, cleared to dc today. Fe will be following home tube feeds with [facility]. COTTON DISPATCHER coordinated with Bean at [facility]. Faxed necessary orders, no dc summary yet. [facility] to open at 245pm today in the home for tube feeds. CC Al[facility] kindly agreed to notify [facility] of pt's dc. F2F scanned into chart. Orders completed. COTTON DISPATCHER coordinated with dtr Lakshmi. Agreeable to plan to dc today to support mom/with [facility] to follow. COTTON DISPATCHER met with pt in room. Eager and excited to dc home today. No additional questions. COTTON DISPATCHER updated RN. Plan: home today with family/dtr/[facility] RN to follow. CM team will continue to follow as needed. MADI Martinez
== END 2023-05-10 12:52 | disposition home or self-care (01) | DRG 326 ==
LOC: ED 12:57 → AC 19:33
PROVIDERS: Emergency Medicine; Family Medicine; Surgery; Admitting Provider Family Medicine; Emergency Provider Physician Assistant Medical; PCP Internal Medicine; Referring Provider Physician Assistant Medical; Visit Provider Surgery
PROC: 0DJ08ZZ Inspection of Upper Intestinal Tract, Via Natural or Artificial Opening Endoscopic (ICD-10-PCS; CPT 43235; principal; 2023-04-30 09:00)
PROC: 0D160ZA Bypass Stomach to Jejunum, Open Approach (ICD-10-PCS; CPT 49000; principal; 2023-05-05 14:15)
DX: K31.1 Adult hypertrophic pyloric stenosis (principal); E43 Unspecified severe protein-calorie malnutrition; J96.01 Acute respiratory failure with hypoxia; D84.821 Immunodeficiency due to drugs; I24.89 Other forms of acute ischemic heart disease; E86.0 Dehydration; I10 Essential (primary) hypertension; E03.9 Hypothyroidism, unspecified; I25.10 Atherosclerotic heart disease of native coronary artery without angina pectoris; D50.9 Iron deficiency anemia, unspecified; I48.0 Paroxysmal atrial fibrillation; I95.81 Postprocedural hypotension; J43.0 Unilateral pulmonary emphysema [MacLeod's syndrome]; K21.9 Gastro-esophageal reflux disease without esophagitis; R41.0 Disorientation, unspecified; R29.810 Facial weakness; Z87.891 Personal history of nicotine dependence; Z68.27 Body mass index [BMI] 27.0-27.9, adult; Z79.621 Long term (current) use of calcineurin inhibitor
CPT/HCPCS: 36415; 36569; 36592; 43239; 49440; 70450; 70496; 70498; 70551; 71045; 71275; 74183; 80048; 80053; 81001; 82272; 82550; 82962; 83540; 83550; 83605; 83690; 83735; 83880; 84100; 84145; 84439; 84443; 84478; 84484; 85025; 85610; 85730; 86850; 86900; 86901; 87040; 87077; 87086; 87186; 87633; 93005; 93010; 93306; 96374; 96376; 97116; 97162; 97530; 99223; 99231; 99232; 99233; 99285; C1776; G0378; A9579; B4185; B4189; C9113; J0136; J0330; J0696; J1100; J1170; J1200; J1650; J1756; J1940; J1956; J2060; J2405; J2704; J3010; J3480; Q9967

== ENCOUNTER 2023-05-12 15:37 | Observation (INO) | payer OTHER, SELFPAY ==
[2023-04-28 20:40] VITALS: BMI 27.2
[2023-05-12] VITALS (9 sets, daily range): BP systolic 130–166; BP diastolic 51–73; PULSE 76–90; RESP 16–20; TEMP 36.3–36.5; O2SAT 92–96; BMI 26.6; BMI 27.6
--- NOTE | 2023-05-12 16:30 | DI.CT.S_ITS ---
PROCEDURE: CT ABDOMEN PELVIS W CON INDICATIONS: Blocked feeding tube TECHNIQUE: After the administration of intravenous contrast, axial sections acquired from the lung bases to the pubic symphysis. Coronal and sagittal reformats were performed. For radiation dose reduction, the following was used: automated exposure control, adjustment of mA and/or kV according to patient size. COMPARISON: [facility], CT, CT ABDOMEN PELVIS WITH CONTRAST, 04/27/2023, 23:05. FINDINGS: Image quality: Diagnostic. Lower Chest: Development of small left pleural effusion and left base atelectasis. Mild cardiomegaly. ABDOMEN: Liver: No solid mass. Gallbladder: Normal gallbladder. Biliary ducts: Nondilated. Pancreas: Normal. Spleen: Normal. Adrenal Glands: No adrenal nodules. Kidneys and Ureters: Symmetric enhancement. No nephrolithiasis or hydronephrosis. No hydroureter. Stomach and Bowel: There is fluid in the stomach. There is a short PEG tube to the left of midline in the subcutaneous tissues with the tip residing at the anterior abdominal wall and not traversing into the peritoneal cavity. Slightly more distal, there is a narrow lumen tube in the anterior abdominal wall to the left of midline which appears to traverse the rectus. The tip is surrounded by fluid. The tip is not in small bowel lumen. There is circumferential wall thickening of the distal gastric antrum and pylorus. There are several dilated small bowel loops. There is a transition point in the central anterior abdomen along the anterior abdominal wall. Solid stool in the colon. Normal appendix. Peritoneum: There is a small amount of free fluid in the pelvis. Generalized mild inflammatory changes in the central abdomen surrounding the bowel. No free air. Ventral Wall: No significant ventral hernia. Abdominal Nodes: No retroperitoneal or mesenteric adenopathy by size criteria. Vessels: Aorta and inferior vena cava are normal in size. Heavy abdominal aortic atherosclerotic calcification. PELVIS: Pelvic Organs: Unremarkable. Bladder: No bladder wall thickening, accounting for underdistention. Pelvic Nodes: No enlarged lymph nodes. Miscellaneous: No inguinal hernias are seen. Bones: Lumbar disc degeneration and bilateral mild sacroiliitis. IMPRESSION: Peg tube tip in the subcutaneous tissue. Feeding tube tip likely within the peritoneal cavity without in the small bowel lumen. Small-bowel obstruction with a transition point in the anterior mid abdomen near the area of recent surgical intervention. Findings called to the emergency room at 17:50 hours. Dictated by: Bebe Haile M.D. on 05/12/2023 at 17:39 Approved by: Bebe Haile M.D. on 05/12/2023 at 17:54
--- NOTE | 2023-05-12 16:33 | ED_ITS ---
HPI - Recheck/Abnormal Lab/Rx <BISI Nolasco - Last Filed: 05/12/23 18:04> General Chief Complaint: Recheck/Abnormal Lab/Rx Stated Complaint: post surgical feeding tube leaking Time Seen by Provider: 05/12/23 16:10 Source: patient Mode of arrival: Wheelchair History of Present Illness HPI narrative: 83-year-old female, former smoker, presents to the emergency department with suspected feeding tube blockage. Gastric outlet obstruction repaired with feeding J-tube and decompressive gastrostomy on May 05. Patient has been home for 2 days and receiving tube feeds (no oral food intake). Patient's family noticed that the tube feeds were not infusing properly and therefore contacted the home health staff. Family was instructed to flush the feeding tube with 20 mL of water, which slowly backed up the tube and surrounding the wound, with increased abdominal pain. Instructed to come to the emergency department for evaluation. Related Data Home Medications Medication Instructions Recorded Confirmed GLUCOSAMINE/CHONDROITIN SULF A 1 cap PO Q DAY ##0 01/27/11 05/18/23 (Glucosamine-Chondroitin Cap) multivitamin (Multiple Vitamins 1 tab PO QDAY ##0 01/27/11 05/18/23 tablet) [RAJANI-C] 500 mg PO QDAY ##0 03/17/17 05/18/23 ondansetron 4 mg disintegrating 4 mg PO Q6H PRN nausea/vomiting 05/01/23 05/18/23 tablet pantoprazole 20 mg tablet,delayed 40 mg PO DAILY 05/01/23 05/18/23 release tacrolimus 0.1 % topical ointment 1 applic topical DAILY 05/01/23 05/18/23 Previous Rx's Medication Instructions Recorded levothyroxine 137 mcg tablet 137 mcg PO DAILY #90 tabs 02/27/23 ferrous sulfate 325 mg (65 mg 325 mg PO DAILY #90 tabs 04/27/23 iron) tablet acetaminophen 325 mg capsule 650 mg (2 x 325 mg) PO QID PRN 05/10/23 (Tylenol) pain #60 caps metoprolol succinate 50 mg 50 mg PO DAILY #90 tabs 05/10/23 tablet,extended release 24 hr oxycodone 5 mg tablet 5 mg PO BID #20 tabs 05/10/23 Allergies Allergy/AdvReac Type Severity Reaction Status Date / Time Penicillins Allergy Mild FACE Verified 05/18/23 14:08 SWELLING ranitidine [RANITIDINE] AdvReac Intermediate abd Verified 05/18/23 14:08 pain/anorexia Review of Systems <BISI Nolasco - Last Filed: 05/12/23 18:04> Review of Systems Narrative: Narrative: See HPI. GENERAL: Denies chills, fatigue, fever, sweats. HEENT: Denies sinus pain, ear pain, sore throat, difficulty swallowing, dizziness. RESPIRATORY: Denies dyspnea, cough, wheezing, sputum. CARDIOVASCULAR: Denies chest pain, palpitations, edema. GASTROINTESTINAL: Denies nausea, vomiting, abdominal pain, diarrhea, constipation. Last bowel movement was 2 days ago. Last urination within the hour. : Denies dysuria, frequency, incontinence, hematuria, urinary retention, flank pain. MSK: Denies weakness, joint pain, or bony pain. SKIN: Denies rash, skin lesions, or pruritis. NEUROLOGIC: Denies weakness, dizziness, headache, numbness, confusion. PSYCHIATRIC: No concerning psychosocial issues. Patient History <BISI Nolasco - Last Filed: 05/12/23 18:04> Medical History Peripheral edema GERD (gastroesophageal reflux disease) Hypothyroidism Hypertension Hyperlipidemia Essential hypertension Mixed hyperlipidemia Acquired hypothyroidism Surgical History S/P gastrostomy Status post jejunostomy H/O ventral hernia repair Social History marital status: number of children: 3 household members: spouse lives independently: Yes caregiver/support person: No housing: house pets and animals: No education level: high school occupational status: other Previous occupational history: [employer], [employer] leisure activities: art and other Smoking Status: Former smoker Tobacco: How many years used: 10 Smokeless tobacco user: other quit status: quit date established second hand exposure: No alcohol intake: current substance use type: does not use Smoking Status: Former smoker alcohol intake frequency: holidays/special occasions only Substance Use Type: does not use Exam <BISI Nolasco Last Filed: 05/12/23 18:04> Narrative Exam Narrative: Exam Narrative: GENERAL: This is a well-nourished, well-developed patient, in no acute distress. HEAD: Atraumatic. Normocephalic. EYES: Pupils equal round and reactive. No scleral icterus, injection or drainage. ENT: Nose without bleeding, purulent drainage. Airway patent. NECK: Trachea midline. No JVD. CARDIOVASCULAR: Regular rate and rhythm without murmurs, peripheral pulses intact, cap refill <2 sec. RESPIRATORY: Breath sounds equal and clear bilaterally. No wheezes, rales, or rhonchi. No cough. No increased respiratory effort. No accessory muscle use. GASTROINTESTINAL: Abdomen soft, non-tender, nondistended without guarding or rebound. No suprapubic pain. Feeding J-tube and G-tube in place. MSK: Moves all extremities. Normal range of motion, no clubbing or edema. Neurovascularly intact. NEURO: A&O x 3. SKIN: Warm, dry, no rashes or lesions noted. Initial Vital Signs Initial Vital Signs: Vital Signs Temperature 97.7 F 05/12/23 15:43 Pulse Rate 79 05/12/23 15:43 Respiratory Rate 20 05/12/23 15:43 Blood Pressure 130/58 L 05/12/23 15:43 Pulse Oximetry 95 05/12/23 15:43 Oxygen Delivery Method Room Air 05/12/23 15:43 Reviewed <Su Jones MD - Last Filed: 05/13/23 04:13> Initial Vital Signs Initial Vital Signs: Vital Signs Temperature 97.7 F 05/12/23 15:43 Pulse Rate 79 05/12/23 15:43 Respiratory Rate 20 05/12/23 15:43 Blood Pressure 130/58 L 05/12/23 15:43 Pulse Oximetry 95 05/12/23 15:43 Oxygen Delivery Method Room Air 05/12/23 15:43 <Vince Sanders MD - Last Filed: 05/31/23 07:12> Initial Vital Signs Initial Vital Signs: Vital Signs Temperature 97.7 F 05/12/23 15:43 Pulse Rate 79 05/12/23 15:43 Respiratory Rate 20 05/12/23 15:43 Blood Pressure 130/58 L 05/12/23 15:43 Pulse Oximetry 95 05/12/23 15:43 Oxygen Delivery Method Room Air 05/12/23 15:43 Course <BISI Nolasco - Last Filed: 05/12/23 18:04> Orders Ordered: Discontinued Medications Diphenhydramine HCl (Diphenhydramine 25 Mg Tablet) 50 mg PO BEDTIME [facility] Last Admin: 05/13/23 23:45 Dose: 50 mg Documented By: SR Heparin Sodium (Porcine) (Heparin 5,000 Unit/Ml Vial) 5,000 unit SUBCUT BID [facility] Last Admin: 05/14/23 10:41 Dose: 5,000 unit Documented By: Admin: 05/13/23 21:34 Dose: 5,000 unit Documented By: Admin: 05/13/23 08:22 Dose: 5,000 unit Documented By: Admin: 05/12/23 22:18 Dose: 5,000 unit Documented By: Hydralazine HCl (Hydralazine 20 Mg/Ml Vial) 10 mg IV Q6HR PRN PRN Reason: SBP>160 or DBP>100 Dextrose/Sodium Chloride (Dextrose 5%-0.45% Ns) 1,000 mls @ 50 mls/hr IV CONT [facility] Last Admin: 05/13/23 08:22 Dose: 100 mls/hr Documented By: Infusion: 05/13/23 06:05 Dose: Infused Documented By: Infusion: 05/12/23 21:09 Dose: 100 mls/hr Documented By: Admin: 05/12/23 20:05 Dose: 100 mls/hr Documented By: CASS Ceftriaxone Sodium 2,000 mg/ (Sodium Chloride) 100 mls @ 200 mls/hr IV Q24H [facility] Last Admin: 05/13/23 20:39 Dose: 200 mls/hr Documented By: Infusion: 05/12/23 21:05 Dose: Infused Documented By: Admin: 05/12/23 20:05 Dose: 200 mls/hr Documented By: CASS Metronidazole (Flagyl) 500 mg in 100 mls @ 100 mls/hr IV Q8H [facility] Last Admin: 05/14/23 03:20 Dose: 100 mls/hr Documented By: Infusion: 05/13/23 21:39 Dose: Infused Documented By: Admin: 05/13/23 20:39 Dose: 100 mls/hr Documented By: Infusion: 05/13/23 13:11 Dose: Infused Documented By: Admin: 05/13/23 12:11 Dose: 100 mls/hr Documented By: Infusion: 05/13/23 05:00 Dose: Infused Documented By: Admin: 05/13/23 04:00 Dose: 100 mls/hr Documented By: Infusion: 05/12/23 22:19 Dose: Infused Documented By: Admin: 05/12/23 21:19 Dose: 100 mls/hr Documented By: SR Morphine Sulfate (Morphine 4 Mg/Ml Inj) 3 mg IV Q2HR [facility] Last Admin: 05/12/23 20:09 Dose: 3 mg Documented By: Morphine Sulfate (Morphine 4 Mg/Ml Inj) 3 mg IV Q2HR PRN PRN Reason: pain Last Admin: 05/13/23 15:21 Dose: 3 mg Documented By: JONG Naloxone HCl (Naloxone 0.4 Mg/Ml Vial) 0.2 mg IV Q2MIN PRN PRN Reason: Opiate Reversal Ondansetron HCl (Ondansetron 4 Mg/2 Ml Inj) 4 mg IV Q8HR PRN PRN Reason: Nausea And Vomiting Last Admin: 05/13/23 13:16 Dose: 4 mg Documented By: JONG Pantoprazole Sodium (Pantoprazole 40 Mg Vial) 40 mg IV DAILY [facility] Last Admin: 05/13/23 04:57 Dose: 40 mg Documented By: Pantoprazole Sodium (Pantoprazole 40 Mg Vial) 40 mg IV DAILY [facility] Pantoprazole Sodium (Pantoprazole Dr 20 Mg Tablet) 20 mg PO 0700,2100 [facility] Last Admin: 05/14/23 06:48 Dose: 20 mg Documented By: Admin: 05/13/23 21:35 Dose: 20 mg Documented By: SR Vit/Calcium/Iron/Folic Ac ( Vit,Calc/Iron/Folic 1 Tablet) 1 tab PO DAILY [facility] Last Admin: 05/14/23 10:41 Dose: 1 tab Documented By: EV Consultations Consultation #1: Dr. Morin, general surgery at 4:[address] of abdomen and pelvis with contrast and contact her with the results. CT results show small-bowel obstruction and misalignment G and J tube. Requested the hospitalist to admit overnight and she would present in the morning for evaluation. Consultation #2: Dr. Munoz, hospitalist at 1755. Agreed to admit patient and referral for Dr. Morin to present in the morning to see patient. Vital Signs Vital signs: Vital Signs - 8 hr 05/12/23 15:43 Temperature 97.7 F Pulse Rate 79 Respiratory Rate 20 Blood Pressure 130/58 L Pulse Oximetry 95 Oxygen Delivery Method Room Air <Su Jones MD - Last Filed: 05/13/23 04:13> Orders Ordered: Discontinued Medications Diphenhydramine HCl (Diphenhydramine 25 Mg Tablet) 50 mg PO BEDTIME [facility] Last Admin: 05/13/23 23:45 Dose: 50 mg Documented By: Heparin Sodium (Porcine) (Heparin 5,000 Unit/Ml Vial) 5,000 unit SUBCUT BID [facility] Last Admin: 05/14/23 10:41 Dose: 5,000 unit Documented By: Admin: 05/13/23 21:34 Dose: 5,000 unit Documented By: Admin: 05/13/23 08:22 Dose: 5,000 unit Documented By: Admin: 05/12/23 22:18 Dose: 5,000 unit Documented By: Hydralazine HCl (Hydralazine 20 Mg/Ml Vial) 10 mg IV Q6HR PRN PRN Reason: SBP>160 or DBP>100 Dextrose/Sodium Chloride (Dextrose 5%-0.45% Ns) 1,000 mls @ 50 mls/hr IV CONT [facility] Last Admin: 05/13/23 08:22 Dose: 100 mls/hr Documented By: Infusion: 05/13/23 06:05 Dose: Infused Documented By: Infusion: 05/12/23 21:09 Dose: 100 mls/hr Documented By: Admin: 05/12/23 20:05 Dose: 100 mls/hr Documented By: CASS Ceftriaxone Sodium 2,000 mg/ (Sodium Chloride) 100 mls @ 200 mls/hr IV Q24H [facility] Last Admin: 05/13/23 20:39 Dose: 200 mls/hr Documented By: Infusion: 05/12/23 21:05 Dose: Infused Documented By: Admin: 05/12/23 20:05 Dose: 200 mls/hr Documented By: CASS Metronidazole (Flagyl) 500 mg in 100 mls @ 100 mls/hr IV Q8H [facility] Last Admin: 05/14/23 03:20 Dose: 100 mls/hr Documented By: Infusion: 05/13/23 21:39 Dose: Infused Documented By: Admin: 05/13/23 20:39 Dose: 100 mls/hr Documented By: Infusion: 05/13/23 13:11 Dose: Infused Documented By: Admin: 05/13/23 12:11 Dose: 100 mls/hr Documented By: Infusion: 05/13/23 05:00 Dose: Infused Documented By: Admin: 05/13/23 04:00 Dose: 100 mls/hr Documented By: Infusion: 05/12/23 22:19 Dose: Infused Documented By: Admin: 05/12/23 21:19 Dose: 100 mls/hr Documented By: Morphine Sulfate (Morphine 4 Mg/Ml Inj) 3 mg IV Q2HR [facility] Last Admin: 05/12/23 20:09 Dose: 3 mg Documented By: CASS Morphine Sulfate (Morphine 4 Mg/Ml Inj) 3 mg IV Q2HR PRN PRN Reason: pain Last Admin: 05/13/23 15:21 Dose: 3 mg Documented By: JONG Naloxone HCl (Naloxone 0.4 Mg/Ml Vial) 0.2 mg IV Q2MIN PRN PRN Reason: Opiate Reversal Ondansetron HCl (Ondansetron 4 Mg/2 Ml Inj) 4 mg IV Q8HR PRN PRN Reason: Nausea And Vomiting Last Admin: 05/13/23 13:16 Dose: 4 mg Documented By: JONG Pantoprazole Sodium (Pantoprazole 40 Mg Vial) 40 mg IV DAILY [facility] Last Admin: 05/13/23 04:57 Dose: 40 mg Documented By: Pantoprazole Sodium (Pantoprazole 40 Mg Vial) 40 mg IV DAILY [facility] Pantoprazole Sodium (Pantoprazole Dr 20 Mg Tablet) 20 mg PO 0700,2100 [facility] Last Admin: 05/14/23 06:48 Dose: 20 mg Documented By: Admin: 05/13/23 21:35 Dose: 20 mg Documented By: Vit/Calcium/Iron/Folic Ac ( Vit,Calc/Iron/Folic 1 Tablet) 1 tab PO DAILY [facility] Last Admin: 05/14/23 10:41 Dose: 1 tab Documented By: EV Vital Signs Vital signs: Vital Signs - 8 hr 05/12/23 15:43 Temperature 97.7 F Pulse Rate 79 Respiratory Rate 20 Blood Pressure 130/58 L Pulse Oximetry 95 Oxygen Delivery Method Room Air <Vince Sanders MD - Last Filed: 05/31/23 07:12> Orders Ordered: Discontinued Medications Diphenhydramine HCl (Diphenhydramine 25 Mg Tablet) 50 mg PO BEDTIME [facility] Last Admin: 05/13/23 23:45 Dose: 50 mg Documented By: SR Heparin Sodium (Porcine) (Heparin 5,000 Unit/Ml Vial) 5,000 unit SUBCUT BID [facility] Last Admin: 05/14/23 10:41 Dose: 5,000 unit Documented By: Admin: 05/13/23 21:34 Dose: 5,000 unit Documented By: Admin: 05/13/23 08:22 Dose: 5,000 unit Documented By: Admin: 05/12/23 22:18 Dose: 5,000 unit Documented By: Hydralazine HCl (Hydralazine 20 Mg/Ml Vial) 10 mg IV Q6HR PRN PRN Reason: SBP>160 or DBP>100 Dextrose/Sodium Chloride (Dextrose 5%-0.45% Ns) 1,000 mls @ 50 mls/hr IV CONT [facility] Last Admin: 05/13/23 08:22 Dose: 100 mls/hr Documented By: Infusion: 05/13/23 06:05 Dose: Infused Documented By: Infusion: 05/12/23 21:09 Dose: 100 mls/hr Documented By: Admin: 05/12/23 20:05 Dose: 100 mls/hr Documented By: CASS Ceftriaxone Sodium 2,000 mg/ (Sodium Chloride) 100 mls @ 200 mls/hr IV Q24H [facility] Last Admin: 05/13/23 20:39 Dose: 200 mls/hr Documented By: Infusion: 05/12/23 21:05 Dose: Infused Documented By: Admin: 05/12/23 20:05 Dose: 200 mls/hr Documented By: CASS Metronidazole (Flagyl) 500 mg in 100 mls @ 100 mls/hr IV Q8H [facility] Last Admin: 05/14/23 03:20 Dose: 100 mls/hr Documented By: Infusion: 05/13/23 21:39 Dose: Infused Documented By: Admin: 05/13/23 20:39 Dose: 100 mls/hr Documented By: Infusion: 05/13/23 13:11 Dose: Infused Documented By: Admin: 05/13/23 12:11 Dose: 100 mls/hr Documented By: Infusion: 05/13/23 05:00 Dose: Infused Documented By: Admin: 05/13/23 04:00 Dose: 100 mls/hr Documented By: Infusion: 05/12/23 22:19 Dose: Infused Documented By: Admin: 05/12/23 21:19 Dose: 100 mls/hr Documented By: Morphine Sulfate (Morphine 4 Mg/Ml Inj) 3 mg IV Q2HR [facility] Last Admin: 05/12/23 20:09 Dose: 3 mg Documented By: CASS Morphine Sulfate (Morphine 4 Mg/Ml Inj) 3 mg IV Q2HR PRN PRN Reason: pain Last Admin: 05/13/23 15:21 Dose: 3 mg Documented By: JONG Naloxone HCl (Naloxone 0.4 Mg/Ml Vial) 0.2 mg IV Q2MIN PRN PRN Reason: Opiate Reversal Ondansetron HCl (Ondansetron 4 Mg/2 Ml Inj) 4 mg IV Q8HR PRN PRN Reason: Nausea And Vomiting Last Admin: 05/13/23 13:16 Dose: 4 mg Documented By: JONG Pantoprazole Sodium (Pantoprazole 40 Mg Vial) 40 mg IV DAILY [facility] Last Admin: 05/13/23 04:57 Dose: 40 mg Documented By: Pantoprazole Sodium (Pantoprazole 40 Mg Vial) 40 mg IV DAILY [facility] Pantoprazole Sodium (Pantoprazole Dr 20 Mg Tablet) 20 mg PO 0700,2100 [facility] Last Admin: 05/14/23 06:48 Dose: 20 mg Documented By: Admin: 05/13/23 21:35 Dose: 20 mg Documented By: Vit/Calcium/Iron/Folic Ac ( Vit,Calc/Iron/Folic 1 Tablet) 1 tab PO DAILY [facility] Last Admin: 05/14/23 10:41 Dose: 1 tab Documented By: LEE Vital Signs Vital signs: Vital Signs - 8 hr 05/12/23 15:43 Temperature 97.7 F Pulse Rate 79 Respiratory Rate 20 Blood Pressure 130/58 L Pulse Oximetry 95 Oxygen Delivery Method Room Air MDM - Recheck/Abnormal Lab/Rx <BISI Nolasco - Last Filed: 05/12/23 18:04> Differential Diagnosis Differential diagnosis: Likely other (Feeding tube occlusion, small-bowel obstruction) Lab Data 05/14/23 09:36 05/14/23 09:[address] scan - abdomen/pelvis: Radiologist's Impression: [address] [address] [address] Scan Report Signed Patient: Zainab López MR#: [id number] : 1940 Acct:[id number] Age/Sex: 83 / F Date of Service: 05/12/23 Loc: ED Accession Number: [id number] Procedure: CT abdomen pelvis w con Ordering Provider: Richard Fry PROCEDURE: CT ABDOMEN PELVIS W CON INDICATIONS: Blocked feeding tube TECHNIQUE: After the administration of intravenous contrast, axial sections acquired from the lung bases to the pubic symphysis. Coronal and sagittal reformats were performed. For radiation dose reduction, the following was used: automated exposure control, adjustment of mA and/or kV according to patient size. COMPARISON: [facility], CT, CT ABDOMEN PELVIS WITH CONTRAST, 04/27/2023, 23:05. FINDINGS: Image quality: Diagnostic. Lower Chest: Development of small left pleural effusion and left base atelectasis. Mild cardiomegaly. ABDOMEN: Liver: No solid mass. Gallbladder: Normal gallbladder. Biliary ducts: Nondilated. Pancreas: Normal. Spleen: Normal. Adrenal Glands: No adrenal nodules. Kidneys and Ureters: Symmetric enhancement. No nephrolithiasis or hydronephrosis. No hydroureter. Stomach and Bowel: There is fluid in the stomach. There is a short PEG tube to the left of midline in the subcutaneous tissues with the tip residing at the anterior abdominal wall and not traversing into the peritoneal cavity. Slightly more distal, there is a narrow lumen tube in the anterior abdominal wall to the left of midline which appears to traverse the rectus. The tip is surrounded by fluid. The tip is not in small bowel lumen. There is circumferential wall thickening of the distal gastric antrum and pylorus. There are several dilated small bowel loops. There is a transition point in the central anterior abdomen along the anterior abdominal wall. Solid stool in the colon. Normal appendix. Peritoneum: There is a small amount of free fluid in the pelvis. Generalized mild inflammatory changes in the central abdomen surrounding the bowel. No free air. Ventral Wall: No significant ventral hernia. Abdominal Nodes: No retroperitoneal or mesenteric adenopathy by size criteria. Vessels: Aorta and inferior vena cava are normal in size. Heavy abdominal aortic atherosclerotic calcification. PELVIS: Pelvic Organs: Unremarkable. Bladder: No bladder wall thickening, accounting for underdistention. Pelvic Nodes: No enlarged lymph nodes. Miscellaneous: No inguinal hernias are seen. Bones: Lumbar disc degeneration and bilateral mild sacroiliitis. IMPRESSION: Peg tube tip in the subcutaneous tissue. Feeding tube tip likely within the peritoneal cavity without in the small bowel lumen. Small-bowel obstruction with a transition point in the anterior mid abdomen near the area of recent surgical intervention. Findings called to the emergency room at 17:50 hours. Dictated by: Bebe Haile M.D. on 05/12/2023 at 17:39 Approved by: Bebe Haile M.D. on 05/12/2023 at 17:54 MDM Narrative Medical decision making narrative: 83-year-old female with suspected feeding tube occlusion. Assessment was inconclusive and due to previously reported pain, attempts to flush feeding tube were not attempted. Contacted on-call general surgeon, Dr. Morin, who recommended CT scan. CT scan revealed small bowel obstruction and dislocation of feeding tube and G tube. Dr. Munoz, hospitalist, agreed to admit tonight and for Dr. Morin to present in the morning for evaluation of patient. Discussed plan of care with patient and family members, who verbalized understanding and were agreeable with course of action. Discharge Plan Departure Patient Disposition: Admitted As Inpatient Clinical Impression: Complete small bowel obstruction, Complication of feeding tube Admit Date/Time: 05/12/23 17:58 Admit Provider: Gaston Munoz ED Sign-out <Su Jones MD - Last Filed: 05/13/23 04:13> [facility] ED Attending [place] Attestation: I was immediately available in the department for consultation throughout this patient's visit. Su Jones MD <Vince Sanders MD - Last Filed: 05/31/23 07:12> [facility] ED Attending [place] Attestation: I was immediately available in the department for consultation throughout this patient's visit. Su Jones MD I was immediately available in the department for consultation. ?This documentation has been reviewed and I agree with assessment and plan. Supervised by Vince Sanders MD
--- NOTE | 2023-05-12 19:14 | PM.HP.1 ---
History of Present Illness History of Present Illness Date Patient Seen: 05/12/23 Time Patient Seen: 19:14 Chief complaint: post surgical feeding tube leaking Narrative: This is a pleasant patient with a past history of hypertension who had been losing weight and had anorexia for several months. She then developed abdominal pain which led to the discovery of a gastric mass with partial obstruction. The patient underwent EGD which demonstrated obstruction of the pylorus. Ultimately she was taken to the OR for an exploratory laparotomy, gastrojejunostomy, gastrostomy placement for decompression and a feeding jejunostomy. The patient developed difficulties over the last 2 days with function of her J-tube. Apparently initially feeds through her G-tube by possibly home health agency although this unconfirmed. She then developed regurgitation of tube feed around her J-tube consistent with reflux. She has had minimal Flatus recently more gastric distention. Biopsies of her mass are pending. CT tonight revealed tube and subcutaneous tissue and feeding tube tip possibly in the peritoneal cavity. Case was discussed with surgery on-call, Dr. Morin. The patient will be NPO and evaluated by Dr. Morin tomorrow. There is also evidence of a possible bowel obstruction with transition point in the mid abdomen. [facility] Medical History Peripheral edema GERD (gastroesophageal reflux disease) Hypothyroidism Hypertension Hyperlipidemia Essential hypertension Mixed hyperlipidemia Acquired hypothyroidism Surgical History H/O ventral hernia repair Social History marital status: number of children: 3 household members: spouse lives independently: Yes caregiver/support person: No housing: house pets and animals: No education level: high school occupational status: other Previous occupational history: [employer] at School, [employer] jair/orthodoxy: Yarsanism leisure activities: art and other Smoking Status: Former smoker Tobacco: How many years used: 10 Smokeless tobacco user: other quit status: quit date established second hand exposure: No alcohol intake: current substance use type: does not use Meds Home Medications and Allergies Home Medications Medication Instructions Recorded Confirmed Type GLUCOSAMINE/CHONDROITIN SULF A 1 cap PO Q DAY ##0 01/27/11 05/05/23 History (Glucosamine-Chondroitin Cap) multivitamin (Multiple Vitamins 1 tab PO QDAY ##0 01/27/11 05/05/23 History tablet) [RAJANI-C] 500 mg PO QDAY ##0 03/17/17 05/05/23 History levothyroxine 137 mcg tablet 137 mcg PO DAILY #90 tabs 02/27/23 05/01/23 Rx ferrous sulfate 325 mg (65 mg 325 mg PO DAILY #90 tabs 04/27/23 05/05/23 Rx iron) tablet ondansetron 4 mg disintegrating 4 mg PO Q6H PRN nausea/vomiting 05/01/23 05/01/23 History tablet pantoprazole 20 mg tablet,delayed 40 mg PO DAILY 05/01/23 05/01/23 History release tacrolimus 0.1 % topical ointment 1 applic topical DAILY 05/01/23 05/05/23 History acetaminophen 325 mg capsule 650 mg (2 x 325 mg) PO QID PRN 05/10/23 Rx (Tylenol) pain #60 caps metoprolol succinate 50 mg 50 mg PO DAILY #90 tabs 05/10/23 Rx tablet,extended release 24 hr oxycodone 5 mg tablet 5 mg PO BID #20 tabs 05/10/23 Rx Allergies Allergy/AdvReac Type Severity Reaction Status Date / Time Penicillins Allergy Mild FACE Verified 04/28/23 12:40 SWELLING ranitidine [RANITIDINE] AdvReac Intermediate abd Verified 04/28/23 12:40 pain/anorexia Review of Systems Review of Systems Narrative: All else reviewed and otherwise unremarkable except as noted in the history and physical. Exam Vital Signs (past 8 hours): - 05/12/23 15:43 05/12/23 18:59 Temperature 97.7 F Pulse Rate 79 90 Respiratory Rate 20 Blood Pressure 130/58 L Pulse Oximetry 95 96 Oxygen Delivery Method Room Air Oxygen Delivery Method Room Air Narrative Exam Narrative: She is pleasant but somewhat lethargic. No acute distress. Fluent speech. Normocephalic skull, EOMI, anicteric sclera, symmetric pupils. Neck is supple, midline trachea no adenopathy. Lungs are clear with normal effort and rate. Heart is regular without murmur, gallop or rub. Abdomen is distended but nontender. Hypoactive bowel tones. A G-tube is in place, and a J-tube is in place. There is incisional midline wound which appears to be free of redness or discharge. Extremities are free of edema, skin is free of rash or lesions. Good pedal and radial pulses. She moves arms and legs without difficulty, normal speech. Normal judgment. Objective Imaging CT scan - abdomen: Radiologist's impression: IMPRESSION: Peg tube tip in the subcutaneous tissue. Feeding tube tip likely within the peritoneal cavity without in the small bowel lumen. Small-bowel obstruction with a transition point in the anterior mid abdomen near the area of recent surgical intervention. Assessment & Plan Assessment & Plan narrative: 1. Dislodged J-tube and G-tube, present on admission and active. 2. Possible bowel obstruction with transition point near recent surgical site. 3. Gastric mass with biopsy pending, present on admission and active. 4. Hypertension, present on admission and stable. 5. Hyperlipidemia, present on admission and stable. Plan: NPO, IV fluids tonight. Dr. Morin, General surgery, we will see tomorrow. Anticipate intervention for J-tube and G-tube dislodgement as well as possible bowel obstruction. Analgesia as needed. We will add empiric Zosyn as well given possible peroneal intrusion. Patient is do not resuscitate, confirmed tonight with patient and her family. Proxy decision maker is her . She lives in [place]. Time Spent With Patient Time with patient: 30 to 49 minutes with 50% spent counseling/coordinating care Quality MIPS - Admit I confirm the patient?s Advance Care Plan is present, Code status is documented, Surrogate decision maker is in patient?s record [If Yes, STOP here]: Yes MIPS - Meds 'Current medications' to include all prescriptions, [id number] products, herbals, cannabis/cannabidiol products, and vitamin/mineral/dietary (nutritional) supplements. I have utilized all available resources to obtain, update, or review the patient?s current medications. [If Yes, STOP here]: Yes
[2023-05-12] MEDS: cefTRIAXone 2,000 MG in SODIUM CHLORIDE 0.9% 100 ML 200 MG IV (20:05)
[2023-05-12] MEDS: DEXTROSE 5%-0.45% NS 1,000 ML 100 ML IV (20:05)
[2023-05-12] MEDS: MORPHINE 4 MG/ML INJ 3 MG IV (20:09)
[2023-05-12] MEDS: metroNIDAZOLE 500 MG/100 ML PIGGYBACK 100 MG IV (21:19)
[2023-05-12] MEDS: HEPARIN 5,000 UNIT/ML VIAL 5000 UNIT SUBCUT (22:18)
--- NOTE | 2023-05-13 | DI.RAD.S_ITS ---
PROCEDURE: XR GASTROGRAFIN CHALLENGE COMPARISON: [facility], CT, CT ABDOMEN PELVIS W CON, 05/12/2023, 17:03. INDICATIONS: dislodged J tube, SBO FINDINGS: Dilated loops of small bowel are seen, measuring up to 4 cm. There is also contrast seen within the cecum and the ascending colon. Degenerative changes are seen. There is [id number] levoconvex lumbar scoliosis. IMPRESSION: Contrast can be seen within the colon, confirming no complete small bowel obstruction. Dilated loops of small bowel are seen, which may be related to ileus or partial small-bowel obstruction. Dictated by: Laz Kincaid M.D. on 05/13/2023 at 13:33 Approved by: Laz Kincaid M.D. on 05/13/2023 at 13:34
[2023-05-13] MEDS: metroNIDAZOLE 500 MG/100 ML PIGGYBACK 100 MG IV ×3 (04:00→20:39)
[2023-05-13 04:47] VITALS: BP 158/66; PULSE 72; RESP 16; TEMP 36.1; O2SAT 96
[2023-05-13] MEDS: PANTOPRAZOLE 40 MG VIAL IV (04:57)
[2023-05-13 06:37] LABS: Add Manual Diff / Slide Review NO; Basophils Absolute Auto 100 /uL (0-100); Basophils Percent Auto 0.5 % (0-2); Eosinophils Absolute Auto 200 /uL (0-450); Eosinophils Percent Auto 1.8 % (2-4); Hematocrit 27.5 % (36-46); Hemoglobin 9.1 g/dL (12.0-16.0); Lymphocytes Absolute Auto 1000 /uL (1100-4500); Lymphocytes Percent Auto 8.3 % (25-40); Mean Corpuscular HGB Conc 33.1 % (30-36); Mean Corpuscular Hemoglobin 29.3 PG (26-34); Mean Corpuscular Volume 88.7 fL (80-100); Monocytes Absolute Auto 900 /uL (0-900); Monocytes Percent Auto 7.4 % (3-14); Neutrophils Absolute Auto 9600 /uL (1500-7000); Platelet Count 427 X10^3/uL (150-400); Red Cell Distribution Width 14.4 % (11.6-14.8); White Blood Cell Count 11.8 X10^3/uL (4.5-11.0)
[2023-05-13 06:41] LABS: BUN Creatinine Ratio 14.1 (6-22); Blood Urea Nitrogen 10 mg/dL (7-17); Calcium 8.6 mg/dL (8.4-10.2); Carbon Dioxide 26 mmol/L (22-32); Chloride 99 mmol/L (98-107); Estimated Glomerular Filt Rate > 60 mL/min (>60); Glucose 125 mg/dL (80-110); HEMOLYSIS < 15 (0-50); Potassium 4.4 mmol/L (3.4-5.1); Sodium 131 mmol/L (137-145)
[2023-05-13] MEDS: DEXTROSE 5%-0.45% NS 1,000 ML 100 ML IV (08:22)
[2023-05-13] MEDS: HEPARIN 5,000 UNIT/ML VIAL 5000 UNIT SUBCUT ×2 (08:22→21:34)
--- NOTE | 2023-05-13 09:10 | PM.CN ---
History of Present Illness Consult details Date Patient Seen: 05/13/23 Time Patient Seen: 09:11 Chief complaint: post surgical feeding tube leaking Reason for consult: abd pain, malfunction of feeding tube Requesting provider: Jay Jay Kaur Narrative: S/p gastrojejunostomy for GOO, Jejunal feeding tube and gastrostomy tube. Had severe pain with tube feeding yesterday, plus tube feeding coming out around the skin. Denies nausea, vomiting or diarrhea. No fever. Has not been taking oral foods yet. Meds Home Medications and Allergies Home Medications Medication Instructions Recorded Confirmed Type GLUCOSAMINE/CHONDROITIN SULF A 1 cap PO Q DAY ##0 01/27/11 05/12/23 History (Glucosamine-Chondroitin Cap) multivitamin (Multiple Vitamins 1 tab PO QDAY ##0 01/27/11 05/12/23 History tablet) [RAJANI-C] 500 mg PO QDAY ##0 03/17/17 05/12/23 History levothyroxine 137 mcg tablet 137 mcg PO DAILY #90 tabs 02/27/23 05/12/23 Rx ferrous sulfate 325 mg (65 mg 325 mg PO DAILY #90 tabs 04/27/23 05/12/23 Rx iron) tablet ondansetron 4 mg disintegrating 4 mg PO Q6H PRN nausea/vomiting 05/01/23 05/12/23 History tablet pantoprazole 20 mg tablet,delayed 40 mg PO DAILY 05/01/23 05/12/23 History release tacrolimus 0.1 % topical ointment 1 applic topical DAILY 05/01/23 05/12/23 History acetaminophen 325 mg capsule 650 mg (2 x 325 mg) PO QID PRN 05/10/23 05/12/23 Rx (Tylenol) pain #60 caps metoprolol succinate 50 mg 50 mg PO DAILY #90 tabs 05/10/23 05/12/23 Rx tablet,extended release 24 hr oxycodone 5 mg tablet 5 mg PO BID #20 tabs 05/10/23 05/12/23 Rx Allergies Allergy/AdvReac Type Severity Reaction Status Date / Time Penicillins Allergy Mild FACE Verified 04/28/23 12:40 SWELLING ranitidine [RANITIDINE] AdvReac Intermediate abd Verified 04/28/23 12:40 pain/anorexia Review of Systems Review of Systems Narrative: fatigue improved ROS: Yes All systems reviewed with the patient and are negative except as otherwise documented Exam Vital Signs (past 8 hours): - 05/13/23 04:47 Temperature 96.9 F L Pulse Rate 72 Respiratory Rate 16 Blood Pressure 158/66 H Pulse Oximetry 96 Oxygen Flow Rate 0 Oxygen Delivery Method Room Air Oxygen Flow Rate 0 Const General: cooperative, healthy appearing and comfortable Nutritional Appearance: average body habitus [facility] Head: normocephalic and atraumatic Ears: hearing grossly normal bilaterally Eyes Sclera: sclerae normal Neck Neck: trachea midline Resp Effort & Inspection: normal respiratory effort and able to speak in complete sentences Cardio Rate: regular rate Rhythm: regular rhythm GI Palpation: soft and No tender Other: jejunal tube and gastrostomy tubes both removed upon exam, no drainage. Skin General: atrophy and crusts Neuro General: patient alert, patient awake and patient oriented x3 Cognition: normal cognition Speech: speech normal Psych Mental Status: mental status grossly normal Judgment: judgment good Objective Labs 05/13/23 05:50 05/13/23 05:50 Labs: Laboratory Results - last 24 hr 05/13/23 05:50 WBC 11.8 H RBC 3.10 L Hgb 9.1 L Hct 27.5 L MCV 88.7 MCH 29.3 MCHC 33.1 RDW 14.4 Plt Count 427 H Neut % (Auto) 82.0 H Lymph % (Auto) 8.3 L Cecil % (Auto) 7.4 Eos % (Auto) 1.8 L Baso % (Auto) 0.5 Neut # (Auto) 9600 H Lymph # (Auto) 1000 L Cecil # (Auto) 900 Eos # (Auto) 200 Baso # (Auto) 100 Sodium 131 L Potassium 4.4 Chloride 99 Carbon Dioxide 26 BUN 10 Creatinine 0.71 Estimated GFR > 60 BUN/Creatinine Ratio 14.1 Glucose 125 H Calcium 8.6 PFSH Medical History Peripheral edema GERD (gastroesophageal reflux disease) Hypothyroidism Hypertension Hyperlipidemia Essential hypertension Mixed hyperlipidemia Acquired hypothyroidism Surgical History S/P gastrostomy Status post jejunostomy H/O ventral hernia repair Social History marital status: number of children: 3 household members: spouse lives independently: Yes caregiver/support person: No housing: house pets and animals: No education level: high school occupational status: other Previous occupational history: [employer] at School, [employer] jair/rastafarian: Congregational leisure activities: art and other Tobacco & Substance Use Smoking Status: Former smoker Tobacco: How many years used: 10 Smokeless tobacco user: other quit status: quit date established second hand exposure: No alcohol intake: current substance use type: does not use Assessment & Plan Assessment & Plan narrative: S/p gastrojejunostomy (G-J)for GOO likely from benign disease. Had G and J tubes placed at that time for decompression and feeding while we await function of G-J Admitted for abdominal pain and CT scan findings of dislodgment of both G and J tube. And SBO Anemia in a hemoconcentrated state that may benefit from transfusion Plan: IV antibiotics NPO UGI/ gastrografin challenge. IF no extravasation or SBO seen, start PO. IF +extravasation from the tube sites and or confirmed SBO then TPN +/- surgery Time Spent With Patient Time with patient: 30 to 49 minutes with 50% spent counseling/coordinating care
--- NOTE | 2023-05-13 10:27 | P.PN_ITS ---
Subjective Subjective Date Patient Seen: 05/13/23 Time Patient Seen: 11:10 Interval history: Ms. López is resting comfortably in bed accompanied by her daughter. Reports feeling better this morning compared to when she was admitted last night. Seen by Dr. Morin earlier this morning, G-tube and J-tube both pulled and planning for Gastrografin small bowel follow-through study today. Minimal flatus. Denies abdominal pain, nausea/vomiting, bloating. Exam Vital Signs (past 8 hours): - 05/13/23 04:47 Temperature 96.9 F L Pulse Rate 72 Respiratory Rate 16 Blood Pressure 158/66 H Pulse Oximetry 96 Oxygen Flow Rate 0 Oxygen Delivery Method Room Air Oxygen Flow Rate 0 Narrative Exam Narrative: General: Pleasant, NAD HEENT: NC/AT, EOMI, moist mucous membranes CV: RRR, normal S1-S2, no murmur auscultated Resp: CTAB, comfortable work of breathing Abdomen: Soft, NTND, gastrostomy and J-tube incision sites covered with bandages, no active bleeding or drainage Neuro: A&O x3, moves all extremities Objective Labs 05/13/23 05:50 05/13/23 05:50 Labs: Laboratory Results - last 24 hr 05/13/23 05:50 WBC 11.8 H RBC 3.10 L Hgb 9.1 L Hct 27.5 L MCV 88.7 MCH 29.3 MCHC 33.1 RDW 14.4 Plt Count 427 H Neut % (Auto) 82.0 H Lymph % (Auto) 8.3 L White % (Auto) 7.4 Eos % (Auto) 1.8 L Baso % (Auto) 0.5 Neut # (Auto) 9600 H Lymph # (Auto) 1000 L White # (Auto) 900 Eos # (Auto) 200 Baso # (Auto) 100 Sodium 131 L Potassium 4.4 Chloride 99 Carbon Dioxide 26 BUN 10 Creatinine 0.71 Estimated GFR > 60 BUN/Creatinine Ratio 14.1 Glucose 125 H Calcium 8.6 PFSH Medical History Peripheral edema GERD (gastroesophageal reflux disease) Hypothyroidism Hypertension Hyperlipidemia Essential hypertension Mixed hyperlipidemia Acquired hypothyroidism Surgical History S/P gastrostomy Status post jejunostomy H/O ventral hernia repair Social History marital status: number of children: 3 household members: spouse lives independently: Yes caregiver/support person: No housing: house pets and animals: No education level: high school occupational status: other Previous occupational history: [employer] at [employer], [employer]/restoration: Buddhism leisure activities: art and other Smoking Status: Former smoker Tobacco: How many years used: 10 Smokeless tobacco user: other quit status: quit date established second hand exposure: No alcohol intake: current substance use type: does not use Assessment & Plan Assessment and plan (1) Abdominal pain: Qualifiers: Abdominal location: generalized Qualified Code(s): R10.84 - Generalized abdominal pain Status: Acute (2) S/P bypass gastrojejunostomy: Status: Acute (3) Complication of feeding tube: Status: Acute (4) Complete small bowel obstruction: Status: Acute (5) Gastric outlet obstruction: Status: Acute (6) Anemia: Qualifiers: Anemia type: unspecified type Qualified Code(s): D64.9 - Anemia, unspecified Status: Acute (7) Essential hypertension: Status: Chronic (8) Acquired hypothyroidism: Status: Chronic (9) GERD (gastroesophageal reflux disease): Qualifiers: Esophagitis presence: without esophagitis Qualified Code(s): K21.9 - Gastro-esophageal reflux disease without esophagitis Status: Chronic Assessment & Plan narrative: # abdominal pain # s/p gastrojejunostomy # dislodged J-tube and G-tube # possible bowel obstruction # gastric mass/outlet obstruction Admitted for abdominal pain, CT on admission notable for dislodged G-tube and J- tube as well as SBO. General surgery consulting with Gastrografin challenge and SBFT plan today. If normal we will plan advance to p.o. feeds. If extravasation from tube sites and/or confirmed SBO then TPN +/- surgery. -NPO until Gastrografin/SBFT results available -empiric ceftriaxone + PETERSON given possible peritoneal intrusion of tubes -morphine, zofran as needed # anemia Chronic, takes oral iron supplement daily. Sudden increase of HGB 7.4 > 9.1 likely due to hemoconcentration. Will consider blood vs iron transfusion pending decision on surgical intervention. -hold home iron -trend CBC # hypertension -hold home metoprolol -hydralazine as needed while NPO # hypothyroidism -hold home levothyroxine # GERD -pantoprazole daily Diet: NPO Code status: DNAR Dispo: Pending outcome of SBFT, surgery recs Time Spent With Patient Time with patient: 30 to 49 minutes with 50% spent counseling/coordinating care Quality VTE Deep Vein Thrombosis/Pulmonary Embolism Present on Admission: No
[2023-05-13 11:57] VITALS: BP 168/66; PULSE 67; RESP 19; TEMP 36.3; O2SAT 97
[2023-05-13] MEDS: ONDANSETRON 4 MG/2 ML INJ IV (13:16)
[2023-05-13] MEDS: MORPHINE 4 MG/ML INJ 3 MG IV (15:21)
--- NOTE | 2023-05-13 15:36 | CM.DANOTE ---
Initial DCP Assessment Note Pt is an 83 yo female, resident of [place], was admitted from 04/29-05/10 for unintentional weight loss and abd pain ended up getting: intestinal bypass.exploratory laparotomy, gastro jejunostomy, gastrostomy placement and feeding jejunostomy. Patient had discharged home 05/10 w/assist from her daughter Lakshmi, [facility] for tube feeds and [facility] nursing services. Patient returns from home w/abd pain and imaging showing dislodgment of both G and J tube, SBO. Patient has not been taking oral food yet. Dr Morin's note indicates gastrografin challenge ordered, patient NPO. PCP: Vini Teresa Payer: Clay RIVEAR Met w/patient and her daughter Lakshmi, introduced self and role. Patient lives w/spouse who has mild dementia, daughter Lakshmi lives next door and available to assist patient and spouse. Patient hopeful she will not discharge with any tubes, will consider resumption of [facility] if recommended. Patient is indp in all aspects at baseline, plans on returning home w/family upon discharge. Patient and daughter appreciative for the visit. Contact information left for future communication re DCP CM team following clinical course closely. MADI Flanagan Discharge Planning/Care Management CM Discharge Assessment Start: 05/13/23 15:22 Freq: Status: Active Protocol: Document 05/13/23 15:28 YEHUDA (Rec: 05/13/23 15:35 [email or web address] [id number]) Discharge Planning Assessment Assigned Home Health Care Coordinator MADI Riley DPOA/Assigned Designee Name saskia Rajput Contact Information [phone] Advance Directives? Yes Advance Directives on File No History Provided By Patient,Family Member,Medical Record Has Patient been admitted in last 30 Yes days? Comment Here 04/29-05/10 Prior Living Arrangements House Household Members spouse Type of transporation used prior to Drives own vehicle admit Independent with ADL's Yes Is patient alert and oriented? Yes Patient/Family Preference Home with Home Health Barriers to Discharge No Comment None identified at this time Discharge Plan Home Transportation Arrangement Daughter Referrals Initiated None needed Whiteboard Updated in Patient Room with Yes name and ext. # of Home Health Care Coordinator
[2023-05-13 19:00] VITALS: BP 126/78; PULSE 68; RESP 18; TEMP 36; O2SAT 94
[2023-05-13] MEDS: cefTRIAXone 2,000 MG in SODIUM CHLORIDE 0.9% 100 ML 200 MG IV (20:39)
[2023-05-13] MEDS: PANTOPRAZOLE DR 20 MG TABLET PO (21:35)
[2023-05-13] MEDS: diphenhydrAMINE 25 MG TABLET 50 MG PO (23:45)
[2023-05-14 03:00] VITALS: BP 127/54; PULSE 66; RESP 17; TEMP 36.1; O2SAT 93
[2023-05-14] MEDS: metroNIDAZOLE 500 MG/100 ML PIGGYBACK 100 MG IV (03:20)
[2023-05-14] MEDS: PANTOPRAZOLE DR 20 MG TABLET PO (06:48)
[2023-05-14 10:06] VITALS: BP 146/56; PULSE 74; RESP 16; TEMP 36.1; O2SAT 97
[2023-05-14 10:06] LABS: Add Manual Diff / Slide Review NO; Basophils Absolute Auto 100 /uL (0-100); Basophils Percent Auto 1.2 % (0-2); Eosinophils Absolute Auto 900 /uL (0-450); Eosinophils Percent Auto 13.4 % (2-4); Hematocrit 24.3 % (36-46); Lymphocytes Absolute Auto 800 /uL (1100-4500); Lymphocytes Percent Auto 11.8 % (25-40); Mean Corpuscular Hemoglobin 29.4 PG (26-34); Mean Corpuscular Volume 89.1 fL (80-100); Monocytes Absolute Auto 800 /uL (0-900); Monocytes Percent Auto 10.9 % (3-14); Neutrophils Absolute Auto 4300 /uL (1500-7000); Neutrophils Percent Auto 62.7 % (50-75); Platelet Count 374 X10^3/uL (150-400); Red Blood Cell Count 2.73 X10^6/uL (4.0-5.2); Red Cell Distribution Width 14.2 % (11.6-14.8); White Blood Cell Count 6.9 X10^3/uL (4.5-11.0)
--- NOTE | 2023-05-14 10:10 | PM.PN.1 ---
Subjective Subjective Date Patient Seen: 05/14/23 Exam Vital Signs (past 8 hours): - 05/14/23 03:00 05/14/23 10:06 Temperature 96.9 F L 97.0 F L Pulse Rate 66 74 Respiratory Rate 17 16 Blood Pressure 127/54 L 146/56 H Pulse Oximetry 93 97 Oxygen Flow Rate 0 Oxygen Delivery Method Room Air Oxygen Flow Rate 0 Narrative Exam Narrative: General: Pleasant, NAD HEENT: NC/AT, EOMI, moist mucous membranes CV: RRR, normal S1-S2, no murmur auscultated Resp: CTAB, comfortable work of breathing Abdomen: Soft, NTND, gastrostomy and J-tube incision sites covered with bandages, no active bleeding or drainage Neuro: A&O x3, moves all extremities Objective Imaging Gastrograffin study: Radiologist's impression: PROCEDURE: XR GASTROGRAFIN CHALLENGE COMPARISON: [facility], CT, CT ABDOMEN PELVIS W CON, 05/12/2023, 17:03. INDICATIONS: dislodged J tube, SBO FINDINGS: Dilated loops of small bowel are seen, measuring up to 4 cm. There is also contrast seen within the cecum and the ascending colon. Degenerative changes are seen. There is [id number] levoconvex lumbar scoliosis. IMPRESSION: Contrast can be seen within the colon, confirming no complete small bowel obstruction. Dilated loops of small bowel are seen, which may be related to ileus or partial small-bowel obstruction. Dictated by: Laz Kincaid M.D. on 05/13/2023 at 13:33 Approved by: Laz Kincaid M.D. on 05/13/2023 at 13:34 Labs 05/14/23 09:36 05/13/23 05:50 Labs: Laboratory Results - last 24 hr 05/14/23 09:36 WBC 6.9 RBC 2.73 L Hgb 8.0 L Hct 24.3 L MCV 89.1 MCH 29.4 MCHC 33.0 RDW 14.2 Plt Count 374 Neut % (Auto) 62.7 Lymph % (Auto) 11.8 L Harper % (Auto) 10.9 Eos % (Auto) 13.4 H Baso % (Auto) 1.2 Neut # (Auto) 4300 Lymph # (Auto) 800 L Harper # (Auto) 800 Eos # (Auto) 900 H Baso # (Auto) 100 PFSH Medical History Peripheral edema GERD (gastroesophageal reflux disease) Hypothyroidism Hypertension Hyperlipidemia Essential hypertension Mixed hyperlipidemia Acquired hypothyroidism Surgical History S/P gastrostomy Status post jejunostomy H/O ventral hernia repair Social History marital status: number of children: 3 household members: spouse lives independently: Yes caregiver/support person: No housing: house pets and animals: No education level: high school occupational status: other Previous occupational history: [employer] Se[employer] at School, [employer]/muslim: Mormonism leisure activities: art and other Smoking Status: Former smoker Tobacco: How many years used: 10 Smokeless tobacco user: other quit status: quit date established second hand exposure: No alcohol intake: current substance use type: does not use Assessment & Plan Assessment and plan (1) Abdominal pain: Qualifiers: Abdominal location: generalized Qualified Code(s): R10.84 - Generalized abdominal pain Status: Acute (2) S/P bypass gastrojejunostomy: Status: Acute (3) Complication of feeding tube: Status: Acute (4) Complete small bowel obstruction: Status: Acute (5) Gastric outlet obstruction: Status: Acute (6) Anemia: Qualifiers: Anemia type: unspecified type Qualified Code(s): D64.9 - Anemia, unspecified Status: Acute (7) Essential hypertension: Status: Chronic (8) Acquired hypothyroidism: Status: Chronic (9) GERD (gastroesophageal reflux disease): Qualifiers: Esophagitis presence: without esophagitis Qualified Code(s): K21.9 - Gastro-esophageal reflux disease without esophagitis Status: Chronic Assessment & Plan narrative: # abdominal pain # s/p gastrojejunostomy # dislodged J-tube and G-tube # possible bowel obstruction # gastric mass/outlet obstruction Admitted for abdominal pain, CT on admission notable for dislodged G-tube and J-tube as well as SBO. Gastrograffin study demonstrates contrast in ascending colon confirming now complete bowel obstruction. There are dilated loops of small bowel indicating possible ileus vs partial SBO. General surgery consulting with management per Dr. Morin's recommendations. -empiric ceftriaxone + PETERSON given possible peritoneal intrusion of tubes -morphine, zofran as needed # anemia Chronic, takes oral iron supplement daily. Sudden increase of HGB 7.4 > 9.1 likely due to hemoconcentration. Will consider blood vs iron transfusion pending decision on surgical intervention. -hold home iron -trend CBC # hypertension -hold home metoprolol -hydralazine as needed while NPO # hypothyroidism -hold home levothyroxine # GERD -pantoprazole daily Diet: NPO Code status: DNAR Dispo: Pending surgery recs Time Spent With Patient Time with patient: 30 to 49 minutes with 50% spent counseling/coordinating care Quality VTE Deep Vein Thrombosis/Pulmonary Embolism Present on Admission: No
[2023-05-14 10:32] LABS: BUN Creatinine Ratio 14.9 (6-22); Blood Urea Nitrogen 10 mg/dL (7-17); Calcium 8.2 mg/dL (8.4-10.2); Carbon Dioxide 22 mmol/L (22-32); Chloride 105 mmol/L (98-107); Estimated Glomerular Filt Rate > 60 mL/min (>60); Glucose 104 mg/dL (80-110); HEMOLYSIS < 15 (0-50); Potassium 3.7 mmol/L (3.4-5.1); Sodium 136 mmol/L (137-145)
[2023-05-14] MEDS: PRENATAL VIT,CALC/IRON/FOLIC 1 TABLET 1 TAB PO (10:41)
[2023-05-14] MEDS: HEPARIN 5,000 UNIT/ML VIAL 5000 UNIT SUBCUT (10:41)
--- NOTE | 2023-05-14 10:44 | P.DS_ITS ---
History of Present Illness History of Present Illness Date Patient Seen: 05/14/23 Time Patient Seen: 10:55 Date of Onset of Symptoms: 05/12/23 Chief complaint: post surgical feeding tube leaking Narrative: Ms. López is an 83-year-old female with a history of hypertension who had been losing weight and had anorexia for several months. She then developed abdominal pain which led to the discovery of a gastric mass with partial obstruction. The patient underwent EGD 04/29/2023 which demonstrated obstruction of the pylorus. Ultimately she was taken to the OR on 05/05/2023 for an exploratory laparotomy, gastrojejunostomy, gastrostomy placement for decompression and a feeding jejunostomy. The patient developed difficulties over the 2 days prior to admission with function of her J-tube. Apparently initially feeds through her G-tube by possibly home health agency although this unconfirmed. She then developed regurgitation of tube feed around her J-tube consistent with reflux. She has had minimal Flatus recently more gastric distention. Biopsies of her mass are pending. CT on admission revealed PEG tube in the subcutaneous tissue and feeding tube tip possibly in the peritoneal cavity, along with possible SBO with transition point in the mid abdomen near the area of recent surgery. Patient was admitted for observation and evaluation of need for surgical possible intervention. Discharge Providers Provider Date of admission: 05/12/23 17:58 Discharge Date: 05/14/23 Primary care physician: Vini Teresa MD Discharge provider: Jay Jay Kaur MD Summary Hospital Course Discharge Diagnosis: #Abdominal pain #S/p gastrojejunostomy #Dislodged J-tube and G-tube #Ileus #Gastric mass/outlet obstruction #Anemia #Hypertension #Hypothyroidism #GERD Hospital Course: Patient was admitted for observation and made NPO. Evaluated by Dr. Morin 05/13/2023, G-tube and J-tube removed without complication. Gastrografin study with small bowel follow-through demonstrated contrast in the cecum and ascending colon indicating no complete bowel obstruction. There was no extravasation of dye into the peritoneum, indicating consistent integrity of recent internal bypass surgery site. There were dilated loops of small bowel measuring up to 4 cm indicating ileus vs possible partial small-bowel obstruction. Advanced to clear liquid and then soft diet over the following 24 hours without any complications. At time of discharge patient passing flatus and small bowel movements without difficulty, no abdominal pain or distention on exam. She has follow-up with Dr. Miramontes, who performed her bypass surgery, in 2 days. Status at Discharge Cognitive/behavioral status at discharge: at baseline, oriented Functional status at discharge: independent ambulation Overall status at discharge: patient is back to baseline Time Spent with Patient Time spent: Greater than 30 minutes Exam Vital Signs (past 8 hours): - 05/14/23 03:00 05/14/23 10:06 Temperature 96.9 F L 97.0 F L Pulse Rate 66 74 Respiratory Rate 17 16 Blood Pressure 127/54 L 146/56 H Pulse Oximetry 93 97 Oxygen Flow Rate 0 Oxygen Delivery Method Room Air Oxygen Flow Rate 0 Narrative Exam Narrative: General: Pleasant, NAD HEENT: NC/AT, EOMI, moist mucous membranes CV: RRR, normal S1-S2, no murmur auscultated Resp: CTAB, comfortable work of breathing Abdomen: Soft, NTND, gastrostomy and J-tube incision sites covered with bandages, no active bleeding or drainage Neuro: A&O x3, moves all extremities Objective Imaging Gastrografin study: Radiologist's impression: PROCEDURE: XR GASTROGRAFIN CHALLENGE COMPARISON: [facility], CT, CT ABDOMEN PELVIS W CON, 05/12/2023, 17:03. INDICATIONS: dislodged J tube, SBO FINDINGS: Dilated loops of small bowel are seen, measuring up to 4 cm. There is also contrast seen within the cecum and the ascending colon. Degenerative changes are seen. There is [id number] levoconvex lumbar scoliosis. IMPRESSION: Contrast can be seen within the colon, confirming no complete small bowel obstruction. Dilated loops of small bowel are seen, which may be related to ileus or partial small-bowel obstruction. Dictated by: Laz Kincaid M.D. on 05/13/2023 at 13:33 Approved by: Laz Kincaid M.D. on 05/13/2023 at 13:34 Labs 05/14/23 09:36 05/14/23 09:36 Labs: Laboratory Results - last 24 hr 05/14/23 09:36 WBC 6.9 RBC 2.73 L Hgb 8.0 L Hct 24.3 L MCV 89.1 MCH 29.4 MCHC 33.0 RDW 14.2 Plt Count 374 Neut % (Auto) 62.7 Lymph % (Auto) 11.8 L [place] % (Auto) 10.9 Eos % (Auto) 13.4 H Baso % (Auto) 1.2 Neut # (Auto) 4300 Lymph # (Auto) 800 L [place] # (Auto) 800 Eos # (Auto) 900 H Baso # (Auto) 100 Sodium 136 L Potassium 3.7 Chloride 105 Carbon Dioxide 22 BUN 10 Creatinine 0.67 Estimated GFR > 60 BUN/Creatinine Ratio 14.9 Glucose 104 Calcium 8.2 L PFSH Medical History Peripheral edema GERD (gastroesophageal reflux disease) Hypothyroidism Hypertension Hyperlipidemia Essential hypertension Mixed hyperlipidemia Acquired hypothyroidism Surgical History S/P gastrostomy Status post jejunostomy H/O ventral hernia repair Social History marital status: number of children: 3 household members: spouse lives independently: Yes caregiver/support person: No housing: house pets and animals: No education level: high school occupational status: other Previous occupational history: [place] at School, [employer] jair/moravian: Yazidi leisure activities: art and other Smoking Status: Former smoker Tobacco: How many years used: 10 Smokeless tobacco user: other quit status: quit date established second hand exposure: No alcohol intake: current substance use type: does not use Discharge Assessment & Plan Assessment and Plan Assessment: 83-year-old female admitted for abdominal pain and leaking feed tube after recent ex lap with gastrojejunostomy, G-tube, and J-tube placement. Plan of Treatment: #Abdominal pain #S/p gastrojejunostomy #Dislodged J-tube and G-tube #Possible bowel obstruction #Gastric mass/outlet obstruction Admitted for abdominal pain, CT on admission notable for dislodged G-tube and J- tube as well as SBO. Both tubes removed by surgery without complication, Gastrografin study negative for complete bowel obstruction. Tolerating soft diet, passing flatus and stool at discharge. -S/p empiric ceftriaxone + PETERSON given possible peritoneal intrusion of tubes -soft diet, advance per surgery recs -pyloric mass biopsies pending # anemia Chronic, takes oral iron supplement daily. Sudden increase of HGB 7.4 > 9.1 likely due to hemoconcentration. -continue home iron # hypertension -home metoprolol # hypothyroidism -home levothyroxine # GERD -home pantoprazole Discharge Plan Discharge Plan Patient Disposition: Home Discharge orders & Medications Prescriptions: Continued multivitamin [Multiple Vitamins] 1 EACH tablet 1 tab PO QDAY Qty: 0 GLUCOSAMINE/CHONDROITIN SULF A (Glucosamine-Chondroitin Cap) 1 cap PO Q DAY Qty: 0 [RAJANI-C] 500 mg PO QDAY Qty: 0 levothyroxine 137 mcg tablet 137 mcg PO DAILY Qty: 90 1RF ferrous sulfate 325 mg (65 mg iron) tablet 325 mg PO DAILY Qty: 90 0RF Rx Instructions: Take with vitamin C pantoprazole 20 mg tablet,delayed release (DR/EC) 40 mg PO DAILY tacrolimus 0.1 % ointment 1 applic topical DAILY ondansetron 4 mg tablet,disintegrating 4 mg PO Q6H PRN (Reason: nausea/vomiting) metoprolol succinate 50 mg Tablet Extended Release 24 Hr 50 mg PO DAILY Qty: 90 0RF acetaminophen [Tylenol] 325 mg capsule 650 mg PO QID PRN (Reason: pain) Qty: 60 0RF oxycodone 5 mg tablet 5 mg PO BID Qty: 20 0RF Follow up/Referrals: Vini Teresa MD [Primary Care Provider] - Diet/Activity/Treatments Diet comment: Soft diet, low fiber per surgery recommendations Skin/Wound/Dressing Care Report to your healthcare provider any signs of infection, such as:: chills, fever, increased pain, unusual drainage and unusual redness Visit Report/Discharge Packet Instructions: Soft Diet Stand Alone Forms: Patient Portal/API, Stroke Signs & Symptoms Discharge Data Primary Care Provider: Vini Teresa Quality VTE Deep Vein Thrombosis/Pulmonary Embolism Present on Admission: No
--- NOTE | 2023-05-14 11:10 | P.PN_ITS ---
Subjective Subjective Date Patient Seen: 05/14/23 Time Patient Seen: 11:10 Interval history: Doing well, early satiety. Exam Vital Signs (past 8 hours): - 05/14/23 10:06 Temperature 97.0 F L Pulse Rate 74 Respiratory Rate 16 Blood Pressure 146/56 H Pulse Oximetry 97 Oxygen Delivery Method Room Air Oxygen Flow Rate 0 Const General: cooperative and comfortable HENMT Head: normocephalic and atraumatic Neck Neck: trachea midline and No JVD Resp Effort & Inspection: normal respiratory effort and able to speak in complete sentences Cardio Rate: regular rate Rhythm: regular rhythm GI Palpation: soft, No firm, No guarding and No tender Skin General: atrophy Neuro General: patient alert, patient awake and patient oriented x3 Psych Appearance: grossly normal Mental Status: mental status grossly normal Judgment: judgment good Objective Labs 05/14/23 09:36 05/14/23 09:36 Labs: Laboratory Results - last 24 hr 05/14/23 09:36 WBC 6.9 RBC 2.73 L Hgb 8.0 L Hct 24.3 L MCV 89.1 MCH 29.4 MCHC 33.0 RDW 14.2 Plt Count 374 Neut % (Auto) 62.7 Lymph % (Auto) 11.8 L [place] % (Auto) 10.9 Eos % (Auto) 13.4 H Baso % (Auto) 1.2 Neut # (Auto) 4300 Lymph # (Auto) 800 L [place] # (Auto) 800 Eos # (Auto) 900 H Baso # (Auto) 100 Sodium 136 L Potassium 3.7 Chloride 105 Carbon Dioxide 22 BUN 10 Creatinine 0.67 Estimated GFR > 60 BUN/Creatinine Ratio 14.9 Glucose 104 Calcium 8.2 L PFSH Medical History Peripheral edema GERD (gastroesophageal reflux disease) Hypothyroidism Hypertension Hyperlipidemia Essential hypertension Mixed hyperlipidemia Acquired hypothyroidism Surgical History S/P gastrostomy Status post jejunostomy H/O ventral hernia repair Social History marital status: number of children: 3 household members: spouse lives independently: Yes caregiver/support person: No housing: house pets and animals: No education level: high school occupational status: other 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 with post op complication of dislodgement of both G tube and J Tube. Both are now removed. No evidence of intra abdominal spillage. Appears to have G-J anastomosis open. Plan: Ok to discharge on soft diet, avoid uncooked fruits or veggies, continue Ensure supplements at home F/u with Dr Miramontes as sceduled. Time Spent With Patient Time with patient: 30 to 49 minutes with 50% spent counseling/coordinating care Quality VTE Deep Vein Thrombosis/Pulmonary Embolism Present on Admission: No
--- NOTE | 2023-05-14 12:27 | CM.DPC ---
DCP Cont. Reviewed EMR and team rounds for status updates. Pt has advanced in her diet from clears to soft foods, Dr. Kaur wrote a d/c summary thinking she was ready to d/c today, however, Dr. Morin had written in her note that the d/c will be tomorrow. No further needs, [facility] will continue to follow at d/c. If pt does d/c today, it will likely be late afternoon. Cont. to monitor. Pt's dtr will transport her home once she's confirmed for d/c and time.
--- NOTE | 2023-05-14 17:36 | PC.NURSE ---
Discharge note: Patient discharge home with daughter per MD order. Discussed important of dietary recommendations, importance of F/U with Dr. Miramontes on 02/14 and dressing care/home safety. Daughter and patient verbalized understanding of discharge instructions. Patient independently ambulatory, dressed self with minimal assistance. Home via private vehicle accompanied by daughter.
== END 2023-05-14 16:00 | disposition home or self-care (01) | DRG 920 ==
LOC: ED 16:10 → AC 18:04
PROVIDERS: Admitting Provider Hospitalist; Emergency Provider Registered Nurse; PCP Internal Medicine; Referring Provider Emergency Medicine; Visit Provider Hospitalist
DX: T85.528A Displacement of other gastrointestinal prosthetic devices, implants and grafts, initial encounter (principal); K31.1 Adult hypertrophic pyloric stenosis; K56.609 Unspecified intestinal obstruction, unspecified as to partial versus complete obstruction; K56.7 Ileus, unspecified; I10 Essential (primary) hypertension; E78.5 Hyperlipidemia, unspecified; Z98.0 Intestinal bypass and anastomosis status; D64.9 Anemia, unspecified; E03.9 Hypothyroidism, unspecified; K21.9 Gastro-esophageal reflux disease without esophagitis; Z87.891 Personal history of nicotine dependence
CPT/HCPCS: 36415; 74018; 74177; 80048; 85025; 96365; 96375; 99233; 99238; 99284; G0378; C9113; J0696; J1644; J2270; J2405; Q9967

== ENCOUNTER → 2023-06-05 14:37 | Outpatient (CLI) | payer OTHER, SELFPAY ==
[2023-05-12 21:15] VITALS: BMI 27.6
[2023-06-05 15:12] LABS: Add Manual Diff / Slide Review NO; Basophils Absolute Auto 100 /uL (0-100); Basophils Percent Auto 0.9 % (0-2); Eosinophils Absolute Auto 800 /uL (0-450); Eosinophils Percent Auto 13.7 % (2-4); Hematocrit 31.8 % (36-46); Hemoglobin 10.6 g/dL (12.0-16.0); Lymphocytes Absolute Auto 1400 /uL (1100-4500); Lymphocytes Percent Auto 22.3 % (25-40); Mean Corpuscular HGB Conc 33.2 % (30-36); Mean Corpuscular Hemoglobin 29.6 PG (26-34); Mean Corpuscular Volume 88.9 fL (80-100); Monocytes Absolute Auto 700 /uL (0-900); Neutrophils Absolute Auto 3200 /uL (1500-7000); Neutrophils Percent Auto 51.1 % (50-75); Platelet Count 324 X10^3/uL (150-400); Red Blood Cell Count 3.57 X10^6/uL (4.0-5.2); White Blood Cell Count 6.2 X10^3/uL (4.5-11.0)
[2023-06-05 15:23] LABS: HEMOLYSIS < 15 (0-50); Iron 163 ug/dL (37-170)
[2023-06-05 15:26] LABS: Alanine Aminotransferase 21 IU/L (<35); Albumin 3.8 g/dL (3.5-5.0); Albumin Globulin Ratio 1.5 (1.0-2.8); Alkaline Phosphatase 74 U/L (38-126); Aspartate Aminotransferase 28 IU/L (14-36); BUN Creatinine Ratio 29.5 (6-22); Bilirubin Total 0.3 mg/dL (0.2-1.3); Blood Urea Nitrogen 28 mg/dL (7-17); Calcium 8.9 mg/dL (8.4-10.2); Carbon Dioxide 30 mmol/L (22-32); Chloride 100 mmol/L (98-107); Estimated Glomerular Filt Rate > 60 mL/min (>60); Globulin 2.6 g/dL (1.7-4.1); Glucose 102 mg/dL (80-110); HEMOLYSIS < 15 (0-50); Potassium 4.3 mmol/L (3.4-5.1); Sodium 134 mmol/L (137-145); Total Protein 6.4 g/dL (6.3-8.2)
[2023-06-05 15:35] LABS: Percent Iron Saturation 51 % (15-50); Total Iron Binding Capacity 321 ug/dL (265-497); Transferrin 245 mg/dL (206-381)
[2023-06-05 15:55] LABS: Thyroid Stimulating Hormone 0.064 uIU/mL (0.47-4.68)
== END ==
PROVIDERS: PCP Internal Medicine; Referring Provider Internal Medicine; Visit Provider Internal Medicine
DX: E03.9 Hypothyroidism, unspecified (principal); D64.9 Anemia, unspecified; I10 Essential (primary) hypertension; K21.9 Gastro-esophageal reflux disease without esophagitis
CPT/HCPCS: 36415; 80053; 83540; 83550; 84439; 84443; 85025

== ENCOUNTER → 2023-08-10 16:25 | Outpatient (CLI) | payer OTHER, SELFPAY ==
[2023-05-12 21:15] VITALS: BMI 27.6
[2023-08-10 17:44] LABS: Add Manual Diff / Slide Review NO; Basophils Absolute Auto 100 /uL (0-100); Basophils Percent Auto 0.9 % (0-2); Eosinophils Absolute Auto 300 /uL (0-450); Eosinophils Percent Auto 4.4 % (2-4); Hematocrit 38.2 % (36-46); Hemoglobin 12.9 g/dL (12.0-16.0); Lymphocytes Absolute Auto 1600 /uL (1100-4500); Lymphocytes Percent Auto 24.5 % (25-40); Mean Corpuscular HGB Conc 33.7 % (30-36); Mean Corpuscular Hemoglobin 30.1 PG (26-34); Mean Corpuscular Volume 89.5 fL (80-100); Monocytes Absolute Auto 800 /uL (0-900); Neutrophils Absolute Auto 3700 /uL (1500-7000); Neutrophils Percent Auto 57.2 % (50-75); Platelet Count 453 X10^3/uL (150-400); Red Blood Cell Count 4.27 X10^6/uL (4.0-5.2); Red Cell Distribution Width 16.7 % (11.6-14.8); White Blood Cell Count 6.5 X10^3/uL (4.5-11.0)
[2023-08-10 21:08] LABS: Alanine Aminotransferase 17 IU/L (<35); Albumin 3.9 g/dL (3.5-5.0); Albumin Globulin Ratio 1.8 (1.0-2.8); Alkaline Phosphatase 81 U/L (38-126); Aspartate Aminotransferase 31 IU/L (14-36); Bilirubin Total 0.2 mg/dL (0.2-1.3); Blood Urea Nitrogen 49 mg/dL (7-17); Calcium 9.3 mg/dL (8.4-10.2); Carbon Dioxide 28 mmol/L (22-32); Chloride 101 mmol/L (98-107); Estimated Glomerular Filt Rate 39 mL/min (>60); Globulin 2.2 g/dL (1.7-4.1); Glucose 126 mg/dL (80-110); HEMOLYSIS < 15 (0-50); Lipase 121 U/L (23-300); Potassium 3.7 mmol/L (3.4-5.1); Sodium 136 mmol/L (137-145); Total Protein 6.1 g/dL (6.3-8.2)
[2023-08-11 13:13] LABS: HEMOLYSIS < 15 (0-50); Iron 77 ug/dL (37-170)
[2023-08-11 13:31] LABS: Percent Iron Saturation 30 % (15-50); Total Iron Binding Capacity 257 ug/dL (265-497); Transferrin 193 mg/dL (206-381)
[2023-08-11 13:40] LABS: Free T4, Direct Thyroxine 1.72 ng/dL (0.78-2.19)
[2023-08-11 13:53] LABS: Thyroid Stimulating Hormone 0.753 uIU/mL (0.47-4.68)
== END ==
PROVIDERS: PCP Internal Medicine; Referring Provider Internal Medicine; Visit Provider Internal Medicine
DX: D64.9 Anemia, unspecified (principal); E03.9 Hypothyroidism, unspecified; I10 Essential (primary) hypertension; K21.9 Gastro-esophageal reflux disease without esophagitis
CPT/HCPCS: 36415; 80053; 83540; 83550; 83690; 84439; 84443; 85025

== ENCOUNTER → 2023-08-24 10:10 | Outpatient (CLI) | payer OTHER, SELFPAY ==
[2023-05-12 21:15] VITALS: BMI 27.6
--- NOTE | 2023-08-24 10:11 | DI.US.S_ITS ---
PROCEDURE: US PELVIC COMPLETE INDICATIONS: OVARIAN CYST ON RECENT CT TECHNIQUE: Real-time scanning was performed of the pelvic organs, with image documentation. Additional endovaginal scanning was necessary due to incomplete visualization of the adnexal and endometrial structures by transabdominal scanning. COMPARISON: [facility], CT, CT ABDOMEN PELVIS W CON, 05/12/2023, 17:03. FINDINGS: Uterus: Uterus is anteverted and normal in size at 3.5 x 2.4 x 3.4 cm. The myometrium is homogeneous. The endometrium measures 1 mm combined thickness. There is a polypoidal filling defect within the endometrium measuring 6 x 3 x 6 mm. Ovaries: The right ovary measures 5.5 x 2.6 x 4.0 cm, with a calculated ovarian volume of 30 cc. The left ovary is not visualized. There are 2 simple appearing right ovarian cystic lesions measuring 2.8 x 2.6 x 3.8 cm and 2.3 x 2.2 x 2.6 cm. Other: No pathologic free abdominal or pelvic fluid. IMPRESSION: A polypoidal filling defect within the endometrium. Consider tissue sampling. Right-sided O-RADS 2 ovarian cysts. We strive to produce accurate, complete, and clear reports of imaging services. To assist us in improving patient care, this report was composed using standard report templates and voice recognition software. Therefore, it may contain abnormal punctuation, insertions and/or omissions. Occasional wrong-word or sound-alike substitutions may occur. Though we review the report and make efforts to correct it, we do recommend that the report be read carefully in proper context to recognize any text inaccuracies. Dictated by: Kostas Larios M.D. on 08/24/2023 at 16:50 Approved by: Kostas Larios M.D. on 08/24/2023 at 16:52
== END ==
LOC: US 10:10
PROVIDERS: PCP Internal Medicine; Referring Provider Internal Medicine; Visit Provider Internal Medicine
DX: N83.201 Unspecified ovarian cyst, right side (principal)
CPT/HCPCS: 76830; 76856

== ENCOUNTER → 2023-10-05 07:50 | Outpatient (CLI) | payer OTHER, SELFPAY ==
[2023-05-12 21:15] VITALS: BMI 27.6
[2023-10-05 09:49] LABS: Cancer Antigen 125 11.6 U/mL (0-35)
== END ==
PROVIDERS: PCP Internal Medicine; Referring Provider Obstetrics & Gynecology; Visit Provider Obstetrics & Gynecology
DX: N94.89 Other specified conditions associated with female genital organs and menstrual cycle (principal); N95.8 Other specified menopausal and perimenopausal disorders; R93.89 Abnormal findings on diagnostic imaging of other specified body structures
CPT/HCPCS: 36415; 86304; 86305

== ENCOUNTER 2023-11-06 20:41 | Emergency (ER) | payer OTHER, SELFPAY ==
[2023-05-12 21:15] VITALS: BMI 27.6
[2023-11-06] VITALS (24 sets, daily range): BP systolic 83–132; BP diastolic 46–84; PULSE 61–91; RESP 12–26; TEMP 36.8; O2SAT 77–100; BMI 23.2
--- NOTE | 2023-11-06 20:42 | EKG_ITS ---
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
--- NOTE | 2023-11-06 20:42 | DI.RAD.S_ITS ---
PROCEDURE: XR CHEST 1V INDICATIONS: chest pain TECHNIQUE: One view of the chest was acquired. COMPARISON: [facility], CR, XR CHEST FOR PICC 1V, 04/30/2023, 16:24. [facility], CR, XR CHEST 1V, 04/29/2023, 11:25. FINDINGS: Surgical changes and devices: None. Lungs and pleura: Lungs are clear. No pleural effusions or pneumothorax. Mediastinum: Mediastinal contours appear normal. Heart size is normal. Bones and chest wall: No suspicious bony lesions. Overlying soft tissues appear unremarkable. IMPRESSION: No acute cardiopulmonary abnormality is seen. Dictated by: Kostas Larios M.D. on 11/06/2023 at 21:14 Approved by: Kostas Larios M.D. on 11/06/2023 at 21:15
--- NOTE | 2023-11-06 20:48 | ED_ITS ---
HPI - Syncope General Chief Complaint: Syncope Stated Complaint: Syncopial episode Time Seen by Provider: 11/06/23 20:48 Source: patient, EMS, RN notes reviewed and old records reviewed Mode of arrival: EMS Limitations: no limitations History of Present Illness HPI narrative: 83-year-old female with history of hypertension, GERD, hypothyroidism, stomach cancer with resection in April who presents with complaint of syncopal episode. She states she was feeling fine she told her daughter she felt tired yawned and then lost consciousness. Reportedly out for 2 or 3 minutes. Quickly returned to consciousness, no generalized tonic-clonic shaking described. Patient's glucose was appropriate in the field. Was found to be in AFib but rate controlled. No history of atrial fib noted. Patient states she does not have any symptoms currently. Denies headache neck pain, no chest pain or shortness of breath, no nausea or vomiting. She states she does have diarrhea most days. States no black stools. No bloody stools. Denies any urinary symptoms. No other neurologic symptoms reported. Patient notes that she has had prior surgery which she states systemic resection for cancer in April. Tobacco and 20s, has not alcoholic drink once daily 3:00 p.m.. She did have 1 today she did not have any extra. Denies any recreational drugs. Has not allergy to penicillin. Dr. Teresa is her primary care physician. Related Data Home Medications Medication Instructions Recorded Confirmed GLUCOSAMINE/CHONDROITIN SULF A 1 cap PO Q DAY ##0 01/27/11 11/06/23 (Glucosamine-Chondroitin Cap) multivitamin (Multiple Vitamins 1 tab PO QDAY ##0 01/27/11 11/06/23 tablet) [RAJANI-C] 500 mg PO QDAY ##0 03/17/17 11/06/23 furosemide 20 mg tablet 20 mg PO DAILY 06/05/23 08/10/23 potassium chloride 10 mEq 10 meq PO DAILY 06/05/23 11/06/23 tablet,extended release(part/cryst) Megamulti Mineral - Immune Support 1 tab PO DAILY 08/10/23 11/06/23 Previous Rx's Medication Instructions Recorded ferrous sulfate 325 mg (65 mg 325 mg PO DAILY #90 tabs 04/27/23 iron) tablet acetaminophen 325 mg capsule 650 mg (2 x 325 mg) PO QID PRN 05/10/23 (Tylenol) pain #60 caps metoprolol succinate 50 mg 50 mg PO DAILY #90 tabs 05/10/23 tablet,extended release 24 hr levothyroxine 137 mcg tablet 137 mcg PO DAILY #90 tabs 06/05/23 lisinopril 40 mg tablet 40 mg PO DAILY #90 tabs 07/24/23 famotidine 40 mg tablet 40 mg PO BID #180 tabs 08/14/23 Allergies Allergy/AdvReac Type Severity Reaction Status Date / Time Penicillins Allergy Mild FACE Verified 08/10/23 15:34 SWELLING ranitidine [RANITIDINE] AdvReac Intermediate abd Verified 08/10/23 15:34 pain/anorexia Review of Systems Review of Systems ROS Unobtainable: All systems reviewed & are unremarkable except as noted in HPI and below Patient History Medical History Abnormal pelvic ultrasound Simple adnexal cyst greater than 1 cm in diameter in postmenopausal patient Peripheral edema GERD (gastroesophageal reflux disease) Hypertension Hyperlipidemia Essential hypertension Mixed hyperlipidemia Acquired hypothyroidism Surgical History S/P bypass gastrojejunostomy S/P gastrostomy Status post jejunostomy H/O ventral hernia repair Social History marital status: number of children: 3 household members: spouse lives independently: Yes caregiver/support person: No housing: house pets and animals: No education level: high school occupational status: other 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 HEENT: Head normocephalic, atraumatic, EOMI, pupils reactive, face symmetric, moist mucous membranes NECK: Supple, full range of motion CARDIOVASCULAR: Irregularly irregular rate and rhythm without murmurs, rubs or gallops. No JVD. Mild edema bilateral lower extremities. RESPIRATORY: Breath sounds equal bilaterally, no wheezes rales or rhonchi. ABDOMEN: Soft, nontender. Normoactive bowel sounds all 4 quadrants. No guarding or rebound, rigidity, no mass : No CVA tenderness EXTREMITIES: Normal range of motion, no clubbing Neurovascularly intact NEUROLOGICAL: Cranial nerves II through XII grossly intact. Moving all extremities SKIN: Warm, dry, no petechiae, no rashes or lesions. Initial Vital Signs Initial Vital Signs: Vital Signs Pulse Rate 78 11/06/23 20:46 Respiratory Rate 14 11/06/23 20:46 Pulse Oximetry 77 L 11/06/23 20:46 Course Orders Ordered: Discontinued Medications Sodium Chloride (Normal Saline 0.9%) 1,000 mls @ 1,000 mls/hr IV BOLUS ONE Stop: 11/06/23 22:32 Last Infusion: 11/06/23 23:12 Dose: Infused Documented By: Admin: 11/06/23 21:46 Dose: 1,000 mls/hr Documented By: JURGEN Vital Signs Vital signs: Vital Signs - 8 hr 11/06/23 22:15 11/06/23 22:15 11/06/23 22:30 Pulse Rate 61 Respiratory Rate 17 Blood Pressure 98/51 L 101/52 L Pulse Oximetry 99 Oxygen Delivery Method 11/06/23 22:30 11/06/23 22:45 11/06/23 22:45 Pulse Rate 62 61 Respiratory Rate 21 19 Blood Pressure 98/53 L Pulse Oximetry 99 98 Oxygen Delivery Method Room Air 11/06/23 22:48 11/06/23 22:48 11/06/23 22:49 Pulse Rate 75 70 Respiratory Rate 20 26 H Blood Pressure 104/57 L Pulse Oximetry Oxygen Delivery Method 11/06/23 22:52 11/06/23 22:58 11/06/23 22:58 Pulse Rate 91 H Respiratory Rate 19 Blood Pressure 127/62 125/58 L Pulse Oximetry 99 Oxygen Delivery Method 11/06/23 23:00 11/06/23 23:01 11/06/23 23:01 Pulse Rate 71 66 Respiratory Rate 24 20 Blood Pressure 131/84 Pulse Oximetry 100 100 Oxygen Delivery Method 11/06/23 23:15 11/06/23 23:15 11/06/23 23:30 Pulse Rate 80 65 Respiratory Rate 16 17 Blood Pressure 123/61 Pulse Oximetry 98 98 Oxygen Delivery Method 11/06/23 23:30 11/06/23 23:45 11/06/23 23:45 Pulse Rate 61 Respiratory Rate 16 Blood Pressure 118/58 L 112/56 L Pulse Oximetry 98 Oxygen Delivery Method 11/07/23 00:00 11/07/23 00:00 11/07/23 00:30 Pulse Rate 64 66 Respiratory Rate 20 17 Blood Pressure 116/57 L 116/57 L Pulse Oximetry 98 97 Oxygen Delivery Method 11/07/23 00:55 Pulse Rate 70 Respiratory Rate 16 Blood Pressure 140/88 Pulse Oximetry 96 Oxygen Delivery Method Room Air MDM - Syncope Lab Data 11/06/23 20:40 11/06/23 20:40 Labs: Lab Results 11/06/23 11/06/23 Range/Units 20:40 20:49 WBC 5.3 (4.5-11.0) X10^3/uL RBC 4.01 (4.0-5.2) X10^6/uL Hgb 12.8 (12.0-16.0) g/dL Hct 37.9 (36-46) % MCV 94.6 (80-100) fL MCH 31.8 (26-34) PG MCHC 33.7 (30-36) % RDW 12.8 (11.6-14.8) % Plt Count 409 H (150-400) X10^3/uL Neut % (Auto) 42.6 L (50-75) % Lymph % (Auto) 33.8 (25-40) % [place] % (Auto) 14.8 H (3-14) % Eos % (Auto) 7.5 H (2-4) % Baso % (Auto) 1.3 (0-2) % Neut # (Auto) 2300 (5159-1833) /uL Lymph # (Auto) 1800 (5850-0627) /uL [place] # (Auto) 800 (0-900) /uL Eos # (Auto) 400 (0-450) /uL Baso # (Auto) 100 (0-100) /uL PT 10.5 (9.4-12.5) SECONDS INR 0.9 (0.9-1.3) APTT 36 (25.1-36.5) SECONDS D-Dimer 650 H (<500) ng/ml Sodium 135 L (137-145) mmol/L Potassium 4.1 (3.4-5.1) mmol/L Chloride 100 (98-107) mmol/L Carbon Dioxide 26 (22-32) mmol/L BUN 39 H (7-17) mg/dL Creatinine 1.46 H (0.52-1.04) mg/dL Estimated GFR 36 L (>60) mL/min BUN/Creatinine Ratio 26.7 H (6-22) Glucose 128 H (80-110) mg/dL Calcium 9.9 (8.4-10.2) mg/dL Magnesium 2.3 (1.6-2.3) mg/dL Total Bilirubin 0.4 (0.2-1.3) mg/dL AST 33 (14-36) IU/L ALT 19 (<35) IU/L Alkaline Phosphatase 87 (38-126) U/L Total Creatine Kinase 27 L (30-135) U/L Troponin I < 0.012 (0.01-0.034) ng/mL NT-Pro-B Natriuret Pep 347 (<450) pg/mL Total Protein 7.1 (6.3-8.2) g/dL Albumin 4.3 (3.5-5.0) g/dL Globulin 2.8 (1.7-4.1) g/dL Albumin/Globulin Ratio 1.5 (1.0-2.8) Lipase 246 (23-300) U/L SARS-CoV-2 (PCR) Negative (Negative) Influenza A (RT-PCR) Flu a negative (NEGATIVE) Influenza B (RT-PCR) Flu b negative (NEGATIVE) RSV (PCR) Negative (Negative) ECG Data Attestation: I personally reviewed and interpreted this ECG as follows: Prior ECG tracings: available for review Interpretation: Sinus rhythm premature atrial complexes rate of 71 WI 120 QRS 84 QTC 434, no acute ST elevation depression noted. Patient has priors from 05/06/2023 which showed AFib with RVR that time. MDM Narrative Medical decision making narrative: Labs show white count of 5.3 platelets of 409 patient has been intermittently elevated in the past hemoglobin of 12.8. Sodium is 135 potassium 4 1 chloride 100 CO2 is 26 BUN 39 creatinine 1.46 glucose is 128 calcium 9.9 with a Mag 2.3 LFTs are negative, troponins less than 0.012 BNP is 347. Sinus rhythm premature atrial complexes patient does not appear to have P waves with her QRS. Chest x-ray shows no acute change COVID/influenza/RSV is negative. 83-year-old female who had syncopal episode, her cough has red intermittently low but we will be rechecked manually and be in the 1 teens. Patient feels much better she has been ambulating without issue, she had some PACs but no other cardiac arrhythmias. She has not been able to give a urine sample but had a L of fluid she has been eating and drinking but states she feels much better and would like to be discharged home. Discussed return precautions, need for follow-up. All questions answered. Discharge Plan Departure Patient Disposition: Home Clinical Impression: Syncope Instructions: DI for Syncope in Adults (Fainting) Activity Restrictions/Additional Instructions: Please follow up with your physician for recheck. You occasionally had low blood pressure but when rechecked would be improved. Please continue to monitor your blood pressure at home. Please return for fevers, recurrent episodes of lightheadedness, any passing out, new chest pain or shortness of breath, nausea or vomiting, black or bloody stools, new swelling in your extremities or other new or concerning changes. Prescriptions: No Action multivitamin [Multiple Vitamins] 1 EACH tablet 1 tab PO QDAY Qty: 0 GLUCOSAMINE/CHONDROITIN SULF A (Glucosamine-Chondroitin Cap) 1 cap PO Q DAY Qty: 0 [RAJANI-C] 500 mg PO QDAY Qty: 0 lisinopril 40 mg tablet 40 mg PO DAILY Qty: 90 3RF famotidine 40 mg tablet 40 mg PO BID Qty: 180 3RF Megamulti Mineral - Immune Support 1 tab PO DAILY ferrous sulfate 325 mg (65 mg iron) tablet 325 mg PO DAILY Qty: 90 0RF Rx Instructions: Take with vitamin C furosemide 20 mg tablet 20 mg PO DAILY potassium chloride 10 mEq tablet,ER particles/crystals 10 meq PO DAILY levothyroxine 137 mcg tablet 137 mcg PO DAILY Qty: 90 1RF metoprolol succinate 50 mg Tablet Extended Release 24 Hr 50 mg PO DAILY Qty: 90 0RF acetaminophen [Tylenol] 325 mg capsule 650 mg PO QID PRN (Reason: pain) Qty: 60 0RF Referrals: Vini Teresa MD [Primary Care Provider] - Stand Alone Forms: Patient Portal/API
[2023-11-06 21:01] LABS: Add Manual Diff / Slide Review NO; Basophils Absolute Auto 100 /uL (0-100); Basophils Percent Auto 1.3 % (0-2); Eosinophils Absolute Auto 400 /uL (0-450); Eosinophils Percent Auto 7.5 % (2-4); Hematocrit 37.9 % (36-46); Hemoglobin 12.8 g/dL (12.0-16.0); Lymphocytes Absolute Auto 1800 /uL (1100-4500); Lymphocytes Percent Auto 33.8 % (25-40); Mean Corpuscular HGB Conc 33.7 % (30-36); Mean Corpuscular Hemoglobin 31.8 PG (26-34); Mean Corpuscular Volume 94.6 fL (80-100); Monocytes Absolute Auto 800 /uL (0-900); Monocytes Percent Auto 14.8 % (3-14); Neutrophils Absolute Auto 2300 /uL (1500-7000); Neutrophils Percent Auto 42.6 % (50-75); Platelet Count 409 X10^3/uL (150-400); Red Blood Cell Count 4.01 X10^6/uL (4.0-5.2); Red Cell Distribution Width 12.8 % (11.6-14.8); White Blood Cell Count 5.3 X10^3/uL (4.5-11.0)
--- NOTE | 2023-11-06 21:07 | EKG_ITS ---
[address] [address] Test Date: 2023-11-06 Pat Name: Zainab López Department: [facility] Room: Gender: Female Compensation Consultant: : 1940 Requested By: Order Number: [id number] Reading MD: Vini Teresa MD Measurements Intervals [place] Rate: 71 P: 29 [place]: 120 QRS: 18 QRSD: 84 T: 27 QT: 400 QTc: 434 Interpretive Statements Sinus rhythm with premature atrial complexes Cannot rule out Anterior infarct , age undetermined NO SIGNIFICANT CHANGE FROM PRIOR TRACING Electronically Signed On 11-07-2023 16:29:42 PDT by Vini Teresa MD
[2023-11-06 21:10] LABS: INR 0.9 (0.9-1.3); Prothrombin Time 10.5 SECONDS (9.4-12.5)
[2023-11-06 21:12] LABS: PTT Partial Thromboplastin Tim 36 SECONDS (25.1-36.5)
[2023-11-06 21:17] LABS: Alanine Aminotransferase 19 IU/L (<35); Albumin 4.3 g/dL (3.5-5.0); Albumin Globulin Ratio 1.5 (1.0-2.8); Alkaline Phosphatase 87 U/L (38-126); Aspartate Aminotransferase 33 IU/L (14-36); BUN Creatinine Ratio 26.7 (6-22); Bilirubin Total 0.4 mg/dL (0.2-1.3); Blood Urea Nitrogen 39 mg/dL (7-17); Calcium 9.9 mg/dL (8.4-10.2); Carbon Dioxide 26 mmol/L (22-32); Chloride 100 mmol/L (98-107); Creatine Kinase 27 U/L (30-135); Estimated Glomerular Filt Rate 36 mL/min (>60); Globulin 2.8 g/dL (1.7-4.1); Glucose 128 mg/dL (80-110); HEMOLYSIS < 15 (0-50); Lipase 246 U/L (23-300); Magnesium 2.3 mg/dL (1.6-2.3); Potassium 4.1 mmol/L (3.4-5.1); Sodium 135 mmol/L (137-145); Total Protein 7.1 g/dL (6.3-8.2)
[2023-11-06 21:28] LABS: NT-proBNP (BNP-Adult 18+) 347 pg/mL (<450); Troponin I < 0.012 ng/mL (0.01-0.034)
--- NOTE | 2023-11-06 21:40 | PC.NURSE ---
Patient was hypotensive in the 80s/40s; RN retook bp and it was slightly higher; pt denies dizziness. MD notified; 1L NS bolus ordered.
[2023-11-06 21:45] LABS: Influenza A - CEPHEID Flu A NEGATIVE (NEGATIVE); Influenza B - CEPHEID Flu B NEGATIVE (NEGATIVE); Respiratory Syncytial Virus Negative (Negative)
[2023-11-06] MEDS: SODIUM CHLORIDE 0.9% 1,000 ML 1000 ML IV (21:46)
[2023-11-06 21:52] LABS: COVID-19 CEPHEID 4-PLEX PCR Negative (Negative)
[2023-11-06 22:46] LABS: D Dimer 650 ng/ml (<500)
[2023-11-07] VITALS: BP 116/57; PULSE 64; RESP 20; O2SAT 98
--- NOTE | 2023-11-07 00:15 | PC.NURSE ---
Pt able to stand and sit on bedside commode to attempt urine sample. Pt unable to urinate. Bladder scan showed a max of 15mL in the bladder. STEPH Jacobsen advised and will speak to the pt.
[2023-11-07 00:30] VITALS: PULSE 66; RESP 17; O2SAT 97
[2023-11-07 00:55] VITALS: BP 140/88; PULSE 70; RESP 16; O2SAT 96
== END 2023-11-07 00:56 | disposition home or self-care (01) ==
PROVIDERS: Emergency Provider Emergency Medicine; PCP Internal Medicine
DX: R55 Syncope and collapse (principal); R07.9 Chest pain, unspecified; Z11.52 Encounter for screening for COVID-19
CPT/HCPCS: 0241U; 36415; 71045; 80053; 82550; 83690; 83735; 83880; 84484; 85025; 85379; 85610; 85730; 93005; 96360; 99284

== ENCOUNTER → 2023-11-20 10:57 | Outpatient (CLI) | payer OTHER, SELFPAY ==
[2023-05-12 21:15] VITALS: BMI 27.6
--- NOTE | 2023-11-20 11:21 | DI.RAD.S_ITS ---
PROCEDURE: XR ABDOMEN MIN 2V INDICATIONS: diarrhea TECHNIQUE: 2 views of the abdomen were acquired. COMPARISON: [facility], CT, CT ABDOMEN PELVIS W CON, 05/12/2023, 17:03. FINDINGS: Surgical changes and devices: None. Bowel: No pneumoperitoneum. Scattered small bowel and colonic gas. No dilated loops of small bowel seen. Soft tissues: No masses; visualized solid organ contours appear normal in size. No suspicious abdominal calcifications. Bones: No suspicious bony abnormalities. Levoscoliosis. Degenerative changes at the lumbar spine and SI joints. Moderate degenerative changes at the hips. IMPRESSION: No dilated loops of small bowel seen. Scattered colonic gas. Consider further evaluation with CT abdomen pelvis with IV contrast. Dictated by: Major Gonzalez M.D. on 11/20/2023 at 16:11 Approved by: Major Gonzalez M.D. on 11/20/2023 at 16:14
[2023-11-20 12:59] LABS: Add Manual Diff / Slide Review NO; Basophils Absolute Auto 100 /uL (0-100); Basophils Percent Auto 1.2 % (0-2); Eosinophils Absolute Auto 300 /uL (0-450); Eosinophils Percent Auto 5.2 % (2-4); Hematocrit 31.4 % (36-46); Hemoglobin 10.7 g/dL (12.0-16.0); Lymphocytes Absolute Auto 1300 /uL (1100-4500); Lymphocytes Percent Auto 25.5 % (25-40); Mean Corpuscular HGB Conc 34.1 % (30-36); Mean Corpuscular Hemoglobin 32.4 PG (26-34); Monocytes Absolute Auto 500 /uL (0-900); Monocytes Percent Auto 10.1 % (3-14); Neutrophils Absolute Auto 3000 /uL (1500-7000); Platelet Count 347 X10^3/uL (150-400); Red Blood Cell Count 3.31 X10^6/uL (4.0-5.2); Red Cell Distribution Width 12.8 % (11.6-14.8); White Blood Cell Count 5.1 X10^3/uL (4.5-11.0)
[2023-11-20 13:21] LABS: Alanine Aminotransferase 16 IU/L (<35); Albumin 3.7 g/dL (3.5-5.0); Albumin Globulin Ratio 1.6 (1.0-2.8); Alkaline Phosphatase 85 U/L (38-126); Aspartate Aminotransferase 29 IU/L (14-36); BUN Creatinine Ratio 33.1 (6-22); Bilirubin Total 0.4 mg/dL (0.2-1.3); Blood Urea Nitrogen 41 mg/dL (7-17); Calcium 9.3 mg/dL (8.4-10.2); Carbon Dioxide 26 mmol/L (22-32); Chloride 101 mmol/L (98-107); Estimated Glomerular Filt Rate 44 mL/min (>60); Globulin 2.3 g/dL (1.7-4.1); Glucose 85 mg/dL (80-110); HEMOLYSIS < 15 (0-50); Potassium 4.4 mmol/L (3.4-5.1); Sodium 135 mmol/L (137-145)
[2023-11-20 13:41] LABS: Free T4, Direct Thyroxine 1.04 ng/dL (0.78-2.19)
[2023-11-20 13:55] LABS: Thyroid Stimulating Hormone 1.18 uIU/mL (0.47-4.68)
== END ==
PROVIDERS: PCP Internal Medicine; Referring Provider Internal Medicine; Visit Provider Internal Medicine
DX: R19.7 Diarrhea, unspecified (principal); D64.9 Anemia, unspecified; I10 Essential (primary) hypertension; E03.9 Hypothyroidism, unspecified
CPT/HCPCS: 36415; 74019; 80053; 83516; 84439; 84443; 85025

== ENCOUNTER → 2023-11-21 10:07 | Outpatient (CLI) | payer OTHER, SELFPAY ==
[2023-05-12 21:15] VITALS: BMI 27.6
== END ==
PROVIDERS: PCP Internal Medicine; Referring Provider Internal Medicine; Visit Provider Internal Medicine
DX: R19.7 Diarrhea, unspecified (principal)
CPT/HCPCS: 83993

== ENCOUNTER → 2023-12-06 14:56 | Outpatient (CLI) | payer OTHER, SELFPAY ==
[2023-05-12 21:15] VITALS: BMI 27.6
== END ==
LOC: CAR 14:57
PROVIDERS: PCP Internal Medicine; Referring Provider Internal Medicine; Visit Provider Internal Medicine
DX: I48.91 Unspecified atrial fibrillation (principal); I48.92 Unspecified atrial flutter
CPT/HCPCS: 93246

== ENCOUNTER → 2024-02-07 11:42 | Outpatient (CLI) | payer OTHER, SELFPAY ==
[2024-01-05 14:43] VITALS: BMI 27.6
--- NOTE | 2024-02-07 11:44 | DI.RAD.S_ITS ---
PROCEDURE: XR ABDOMEN MIN 2V INDICATIONS: concern for metal coming out of old surgical site, abd pain TECHNIQUE: 2 views of the abdomen were acquired. COMPARISON: [facility], , XR ABDOMEN MIN 2V, 11/20/2023, 12:06. FINDINGS: Surgical changes and devices: None. Bowel: No pneumoperitoneum. The bowel gas pattern is nonspecific for obstruction. Large amount of fecal matter throughout the colon is seen extending to the sigmoid colon. Soft tissues: No masses; visualized solid organ contours appear normal in size. No suspicious abdominal calcifications. Bones: No suspicious bony abnormalities. IMPRESSION: Non-specific bowel gas pattern for obstruction. No gross free air. Moderate constipation and fecal impaction. Dictated by: Samuel Cox M.D. on 02/07/2024 at 17:16 Approved by: Samuel Cox M.D. on 02/07/2024 at 17:16
== END ==
LOC: LAB 11:43
PROVIDERS: Obstetrics & Gynecology; PCP Internal Medicine; Referring Provider Internal Medicine; Visit Provider Internal Medicine
DX: R10.9 Unspecified abdominal pain (principal); R19.09 Other intra-abdominal and pelvic swelling, mass and lump; K56.41 Fecal impaction
CPT/HCPCS: 36415; 74019; 86305

== ENCOUNTER 2024-03-11 09:27 | Day surgery (SDC) | payer OTHER, SELFPAY ==
[2024-01-05 14:43] VITALS: BMI 27.6
[2024-03-06 12:53] VITALS: BMI 22.8
--- NOTE | 2024-03-11 | PATH_ITS ---
[facility] Accession Number: [id number] No. of containers..02 Tissue . 01 Material submitted: . PART A: endometrium - ENDOMETRIAL POLYP PART B: endometrium - ENDOMETRIAL CURETTINGS . 01 Diagnosis: A. ENDOMETRIAL POLYP: Polypoid fragments of endometrial / lower uterine segment tissue with features of cystic atrophy; negative for endometrioid intraepithelial neoplasia or malignancy. . B. ENDOMETRIAL CURETTINGS: Scattered fragments of atypical metaplastic squamous mucosa with tangential orientation, favor a reactive etiology. Detached strips of glandular epithelium; negative for significant atypia. [facility] 03/18/2024 1536 Local . 01 Comment: Due to scant endoemtrial tissue in this biopsy, it may not be entirely sales and marketing representative of this patient's endometrium; additional sampling could be considered, if clinically appropriate. . 01 Electronically signed: . Zainab Hyde MD, Pathologist NPI- [id number] . 01 Gross description: . A. Received in formalin with two patient identifiers and endometrial polyp, are four stokes soft tissue fragments 0.1 to 0.6 cm in greatest dimension. Submitted in cassette A1. B. Received in formalin with two patient identifiers and endometrial curetting, are multiple brown soft tissue fragments received on Telfa paper aggregating to 0.5 x 0.3 x 0.1 cm. Filtered and submitted in cassette B1. (KB:[id number]) /[facility] 03/12/2024 1032 Local . 01 Microscopic: . An immunohistochemical stain for p16 is performed to evaluate for block reactivity. The control stained with appropriate reactivity. . RESULTS: Block B1 P16: Negative for block immunostaining. . The absence of p16 block immunostaining mitigates against the presence of high risk HPV DNA in this biopsy. . * This test was developed and the performance characteristics were validated by [employer]. It has not been cleared or approved by the U.S. Food and Drug Administration. . 01 Pathologist provided ICD-10: N84.0, R93.89 . 01 CPT . 934899, 646216, H92367 Specimen Comment: A courtesy copy of this report has been sent to [facility] Pathology Performed at: [address] [address], [place], [place] [id number] MD Jeffery Hernandes MD Phone: [phone]
[2024-03-11 10:33] VITALS: BMI 23.4
[2024-03-11 10:40] VITALS: BP 157/78; PULSE 68; RESP 20; TEMP 36.3; O2SAT 95
[2024-03-11] MEDS: LACTATED RINGERS 1,000 ML 42 ML IV (10:53)
--- NOTE | 2024-03-11 11:14 | PM.PREOP ---
Pre-operative Note Interval Note History & Physical reviewed/Exam performed by Physician: Yes Changes to H&P: No H&P completed within 30 days and has changed as indicated here:: 03/06/24 ASA Class (for procedural sedation): II
--- NOTE | 2024-03-11 11:54 | SUR.OPER ---
Lithotomy on padded OR bed, head on pillow, arms secured on padded arm boards at <90 degrees abduction. Legs secured in padded yellow fins stirrups.
[2024-03-11 12:10] VITALS: BP 169/74; TEMP 36.7
[2024-03-11 12:15] VITALS: BP 150/87; PULSE 80; RESP 16; O2SAT 96
--- NOTE | 2024-03-11 12:19 | PM.OP.1 ---
Operative Date/Time/Diagnoses Date of procedure: 03/11/24 Time of procedure: 11:30 Pre-op diagnosis: abnormal pelvic US, suspected endometrial polyp Post-op diagnosis: same Procedure & Clinicians Procedure: hysteroscopy, myosure polypectomy, dilation and curettage Same procedure as scheduled: Yes Indications: abnormal pelvic US, elevated tumor marker Surgeon: Koki Toure Click Yes if Unassisted: Yes Anesthesia Type: General Operative Notes Findings: normal external female genitalia, perineum and anus without rash or lesion urethral meatus wnl atrophic cervix small intrauterine cavity, anterior small polyp x2, bilateral ostia visualized and stenotic in appearance thin atrophic appearing endometrium Closure Type: not applicable Specimen(s): other (endometrial polyp; endometrial currettings ) Estimated Blood Loss (mL): 5 Blood products transfused: none Procedure in detail: Pt was taken to the operating room, transferred to OR table and anesthesia was induced with placement of LMA.? Pt had her legs placed in Gaston stirrups and an exam under anesthesia was performed. The patient was prepped and draped in a sterile fashion.? A time out was performed. ?The bladder was emptied via straight catheter in sterile fashion.? A sterile speculum was inserted into the vagina.? The cervix was visualized and grasped anteriorly using a single tooth tenaculum.? The uterus sounded to 6cm and the cervical os was serially dilated using Orantes dilators up to 17f to allow for passage of the hysteroscope.? The 5mm 0 degree hysteroscope was then inserted into the uterus with findings as noted.? The small Myosure device was introduced and the visualized pathology was fractionally resected under direct visualization.The hysteroscope was removed and the uterus was sharply curetted until a gritty texture was noted throughout.? The tenaculum was removed and hemostasis was noted at insertion sites.? The speculum was removed and hemostasis was again noted to be excellent.? The patient then had her legs taken out of stirrups.? The patient tolerated the procedure well and without difficulty.? The patient was awakened from anesthesia and taken to PACU in stable condition. ? Complications: none Post-operative Condition: stable Disposition: PACU Plan for aftercare: anticipate dc to home, routine f/u in office as scheduled
[2024-03-11 12:20] VITALS: BP 162/85; PULSE 74; RESP 16; O2SAT 96
[2024-03-11 12:32] VITALS: BP 164/86; PULSE 67; RESP 16; TEMP 36.1; O2SAT 96
== END 2024-03-11 12:50 | disposition home or self-care (01) ==
PROVIDERS: PCP Internal Medicine; Referring Provider Obstetrics & Gynecology; Visit Provider Obstetrics & Gynecology
PROC: 0UDB8ZZ Extraction of Endometrium, Via Natural or Artificial Opening Endoscopic (ICD-10-PCS; CPT 58558; principal; 2024-03-11 11:45)
DX: R93.89 Abnormal findings on diagnostic imaging of other specified body structures (principal); N84.0 Polyp of corpus uteri
CPT/HCPCS: 58558; J1100; J2405; J2704; J3010

== ENCOUNTER → 2024-08-12 15:59 | Outpatient (CLI) | payer MEDICARE, SELFPAY ==
[2024-01-05 14:43] VITALS: BMI 27.6
[2024-08-12 16:54] LABS: Add Manual Diff / Slide Review NO; Basophils Absolute Auto 100 /uL (0-100); Basophils Percent Auto 1.1 % (0-2); Eosinophils Absolute Auto 400 /uL (0-450); Eosinophils Percent Auto 6.3 % (2-4); Hematocrit 36.9 % (36-46); Hemoglobin 12.3 g/dL (12.0-16.0); Lymphocytes Absolute Auto 1300 /uL (1100-4500); Lymphocytes Percent Auto 21.4 % (25-40); Mean Corpuscular HGB Conc 33.3 % (30-36); Mean Corpuscular Hemoglobin 32.2 PG (26-34); Mean Corpuscular Volume 96.5 fL (80-100); Monocytes Absolute Auto 600 /uL (0-900); Monocytes Percent Auto 10.7 % (3-14); Neutrophils Absolute Auto 3700 /uL (1500-7000); Neutrophils Percent Auto 60.5 % (50-75); Platelet Count 345 X10^3/uL (150-400); Red Blood Cell Count 3.83 X10^6/uL (4.0-5.2); Red Cell Distribution Width 12.9 % (11.6-14.8); White Blood Cell Count 6.1 X10^3/uL (4.5-11.0)
[2024-08-12 17:31] LABS: HEMOLYSIS < 15 (0-50); Iron 67 ug/dL (37-170)
[2024-08-12 17:33] LABS: Alanine Aminotransferase 27 IU/L (<35); Albumin 4.3 g/dL (3.5-5.0); Albumin Globulin Ratio 1.7 (1.0-2.8); Alkaline Phosphatase 78 U/L (38-126); Aspartate Aminotransferase 42 IU/L (14-36); BUN Creatinine Ratio 25.9 (6-22); Bilirubin Total 0.2 mg/dL (0.2-1.3); Blood Urea Nitrogen 22 mg/dL (7-17); Calcium 9.7 mg/dL (8.4-10.2); Carbon Dioxide 31 mmol/L (22-32); Chloride 100 mmol/L (98-107); Estimated Glomerular Filt Rate > 60 mL/min (>60); Globulin 2.5 g/dL (1.7-4.1); Glucose 97 mg/dL (70-99); HEMOLYSIS < 15 (0-50); Potassium 4.2 mmol/L (3.4-5.1); Sodium 138 mmol/L (137-145); Total Protein 6.8 g/dL (6.3-8.2)
[2024-08-12 17:44] LABS: Percent Iron Saturation 20 % (15-50); Total Iron Binding Capacity 331 ug/dL (265-497); Transferrin 296 mg/dL (206-381)
[2024-08-12 18:03] LABS: Thyroid Stimulating Hormone 3.51 uIU/mL (0.47-4.68)
== END ==
PROVIDERS: PCP Internal Medicine; Referring Provider Internal Medicine; Visit Provider Internal Medicine
DX: I10 Essential (primary) hypertension (principal); E03.9 Hypothyroidism, unspecified; I48.0 Paroxysmal atrial fibrillation; D64.9 Anemia, unspecified
CPT/HCPCS: 36415; 80053; 83540; 83550; 84439; 84443; 85025

== ENCOUNTER → 2025-03-11 11:02 | Outpatient (CLI) | payer MEDICARE, SELFPAY ==
[2024-01-05 14:43] VITALS: BMI 27.6
[2025-03-11 11:55] LABS: Add Manual Diff / Slide Review NO; Hematocrit 34.0 % (36-46); Hemoglobin 11.4 g/dL (12.0-16.0); Lymphocytes Absolute Auto 1400 /uL (1100-4500); Mean Corpuscular HGB Conc 33.5 % (30-36); Mean Corpuscular Hemoglobin 31.8 PG (26-34); Mean Corpuscular Volume 94.9 fL (80-100); Platelet Count 424 X10^3/uL (150-400)
[2025-03-11 12:25] LABS: Alanine Aminotransferase 37 IU/L (<35); Albumin 3.9 g/dL (3.5-5.0); Albumin Globulin Ratio 1.8 (1.0-2.8); Alkaline Phosphatase 74 U/L (38-126); Blood Urea Nitrogen 29 mg/dL (7-17); Calcium 9.2 mg/dL (8.4-10.2); Carbon Dioxide 29 mmol/L (22-32); Chloride 100 mmol/L (98-107); Estimated Glomerular Filt Rate > 60 mL/min (>60); Globulin 2.2 g/dL (1.7-4.1); Glucose 96 mg/dL (70-99); HEMOLYSIS < 15 (0-50); Magnesium 2.4 mg/dL (1.6-2.3); Potassium 4.2 mmol/L (3.4-5.1); Sodium 135 mmol/L (137-145); Total Protein 6.1 g/dL (6.3-8.2)
[2025-03-11 12:42] LABS: Free T4, Direct Thyroxine 0.94 ng/dL (0.78-2.19)
[2025-03-11 12:56] LABS: Thyroid Stimulating Hormone 6.34 uIU/mL (0.47-4.68)
== END ==
PROVIDERS: PCP Internal Medicine; Referring Provider Internal Medicine; Visit Provider Internal Medicine
DX: E03.9 Hypothyroidism, unspecified (principal); I10 Essential (primary) hypertension; D64.9 Anemia, unspecified
CPT/HCPCS: 36415; 80053; 83735; 84439; 84443; 85025

== ENCOUNTER → 2025-03-12 13:38 | Outpatient (CLI) | payer MEDICARE, SELFPAY ==
[2024-01-05 14:43] VITALS: BMI 27.6
--- NOTE | 2025-03-12 13:39 | DI.ECHO.S_ITS ---
[facility] : : [address] : : [place] : : [id number] : : Phone: [phone] Echocardiogram Report + + :Name: DAGO SPENCER Study Date: 03/12/2025 Height: 61 in : :[facility] ReadingLocation: Weight: 131 lb : : Gender: Female BSA: 1.6 m2 : :: 1940 Age: 85 yrs BP: 151/99 mmHg: :Reason For Study: Edema : :Ordering Physician: MADELINE, : :JOSE Gracia Performed By: Darwin Brice : :Referring: JOSE CORREA : + + Interpretation Summary Atrial fibrillation with rapid ventricular response in the: Heart rate is 153- 165 bpm during the exam. Normal LV size and mildly increased wall thickness. Normal wall motion and LV systolic function. Ejection fraction is 50-55%. Severe left atrial enlargement and moderate right atrial enlargement. Mild aortic stenosis. Moderate-SEVERE central mitral regurgitation. No prolapse Estimated PA systolic pressure is 48 mmHg assuming right atrial pressure of 3 mmHg Compared to prior echo obtained April 29, 2023, A-fib is new. Mild valve regurgitation progressed from moderate to Procedure: A two-dimensional transthoracic echocardiogram with color flow and Doppler was performed. The study quality was technically adequate. Comparison is made with the echocardiogram of 04/29/2023. The heart rate ranged between 130-170 bpm during the study. Patient went into a rapid heart rate during the start of the echo. Patient stated not feeling right. Once echo was completed, walked patient to the ED at [facility]. Left Ventricle: The left ventricle is normal in size. Left ventricular wall thickness is mildly increased. The ejection fraction is estimated to be 50- 55%. Beat to beat variability in left ventricular contraction due to arrhythmia. Normal diastolic function. Right Ventricle: The right ventricle is normal in size and function. Atria: The left atrial size is normal. Right atrial size is normal. There is no Doppler evidence for an interatrial shunt. Mitral Valve: The mitral valve leaflets appear to open well. There is no mitral valve stenosis. There is moderate mitral regurgitation. BP 151/90. Aortic Valve: The aortic valve is trileaflet. The aortic valve opens well. The aortic valve is mildly calcified. There is mild aortic stenosis. The calculated aortic valve area is 1.5 cm2. The peak aortic velocity is 2.1 m/sec. The aortic valve mean gradient is 10.2 mmHg. sev ratio: 0.48. There is no aortic regurgitation. Tricuspid Valve: There is moderate tricuspid regurgitation. The right ventricular systolic pressure is estimated to be at least 48 mmHg based on an estimated right atrial pressure of 3 mm Hg. Pulmonic Valve: The pulmonic valve is not well seen, but is grossly normal. There is trace pulmonic regurgitation. Great Vessels: The aortic root is normal size. The ascending aorta is normal in size. The aortic arch could not be visualized. The pulmonary artery is normal size. The IVC is of normal diameter and collapses greater than 50% with a sniff. This suggests a low right atrial pressure of 3 mm Hg. Pericardium/ Pleura There is no pericardial effusion. MMode/2D Measurements & Calculations LVIDd: 4.2 cm LVOT diam: 2.0 cm LVIDs: 3.3 cm Ao root diam: 2.4 cm FS: 22.0 % asc Aorta Diam: 2.4 cm EPSS: 0.62 cm IVSd: 1.2 cm LVPWd: 1.2 cm LV newsome. diameter/BSA (cm/m^2): 2.7 LV sys. diameter/BSA (cm/m^2): 2.1 LA A2 area: 21.8 cm2 RA long axis: 5.2 cm LA A4 area: 30.2 cm2 RA area: 14.7 cm2 LA length (vol): 6.7 cm RA vol: 35.1 ml LA vol: 83.2 ml RA : 22.3 ml/m2 LA vol index: 52.7 ml/m2 IVC diam: 1.6 cm RVD1 (basal): 2.9 cm RVD2 (mid): 2.2 cm TAPSE: 2.2 cm Doppler Measurements & Calculations Ao V2 max: 212.5 cm/sec LVOT Max Michael: 103.4 cm/sec Ao V2 mean: 154.2 cm/sec LV V1 max P.3 mmHg Ao max P.1 mmHg LV V1 VTI: 15.5 cm Ao mean P.2 mmHg NICKO(I,D): 1.4 cm2 Ao V2 VTI: 32.1 cm NICKO(V,D): 1.5 cm2 sev ratio: 0.48 NICKO indexed to BSA (cm^2/m^2): 0.92 MV E max michael: 125.2 cm/sec TR max michael: 336.9 cm/sec Med Peak E' Michael: 11.2 cm/sec TR max P.4 mmHg E/E' med: 11.2 PA V2 max: 110.6 cm/sec Lat Peak E' Michael: 14.0 cm/sec PA V2 mean: 73.3 cm/sec E/E' lat: 9.0 PA mean P.5 mmHg E/e' average: 10.1 PA pr(Accel): 45.6 mmHg MV dec time: 0.10 sec SV(LVOT): 46.4 ml Electronically signed by: Winifred Bowen M.D. on Reading Physician:03/12/2025 04:37 PM
== END ==
LOC: ECHO 13:39
PROVIDERS: PCP Internal Medicine; Referring Provider Internal Medicine; Visit Provider Internal Medicine
DX: I08.3 Combined rheumatic disorders of mitral, aortic and tricuspid valves (principal); I48.0 Paroxysmal atrial fibrillation; R60.9 Edema, unspecified
CPT/HCPCS: 93306

== ENCOUNTER 2025-03-12 14:45 | Inpatient (IN) | payer MEDICARE, SELFPAY ==
[2024-01-05 14:43] VITALS: BMI 27.6
[2025-03-12] VITALS (27 sets, daily range): BP systolic 135–199; BP diastolic 72–138; PULSE 105–150; RESP 12–29; TEMP 36.4–36.6; O2SAT 94–97; BMI 25.3; BMI 24.1
--- OUTSIDE RECORDS SUMMARY | 2025-03-12 14:50 | XMS_ITS | Clinical Summary ---
Author Organization [employer] Address [facility] [place] [address] Care Team Providers Care [employer] Name Role Phone Vini Teresa MD Primary Care Provider [phone] Allergies Active Allergy Reactions Criticality Noted Date Comments Penicillins Swelling High 04/27/2023 Medications leVOTHYroxine (SYNTHROID) 137 MCG Tab Take 1 Tablet by mouth once daily. 12/18/2023 Active lisinopril (PRINIVIL, ZESTRIL) 40 MG Tab Take 1 Tablet by mouth once daily. 09/30/2023 Active amLODIPine (NORVASC) 5 MG Tab Take 1 Tablet by mouth once daily. 09/30/2023 Active famotidine (PEPCID) 40 mg Tab Take 1 Tablet by mouth twice daily. 10/30/2023 Active Cholecalciferol (VITAMIN D-3 OR) Take by mouth. Active ferrous sulfate 325 (65 Fe) MG Tab Take 1 Tablet by mouth once daily. 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 stomach cancer 12/20/2023 Family History Medical History Relation Name Comments Colon Cancer No FHX Stomach cancer No FHX Social History Tobacco Use Types Packs/Day Years Used Date Smoking Tobacco: Never Smokeless Tobacco: Never Tobacco Cessation:Counseling Given: Not Answered Alcohol Use Standard Drinks/Week Comments Yes 7 (1 standard drink = 0.6 oz pur e alcohol) Comments Unknown Sex and Gender Information Value Date Recorded Sex Assigned at Not on file Legal Sex Female 10:36 AM PDT Gender Identity Not on file Sexual Orientation Not on file Last Filed Vital Signs Vital Sign Reading Time Taken Comments Blood Pressure 126/72 12/20/2023 3:45 PM PDT Pulse 91 12/20/2023 3:45 PM PDT Temperature - - Respiratory Rate - - Oxygen Saturation 96% 12/20/2023 3:45 PM PDT Inhaled Oxygen Concentration - - Weight 54.9 kg (121 lb) 12/20/2023 3:45 PM PDT Height 154.9 cm (5' 1) 12/20/2023 3:45 PM PDT Body Mass Index 22.86 12/20/2023 3:45 PM PDT Plan of Treatment Health Maintenance Due Date Last Done Comments Depression Screening 1940 IMM: DTAP/TDAP/TD (1 - Tdap) 1961 IMM: Pneumococcal Vaccine (1 of 1 - PCV) 1992 IMM: SHINGRIX (1 of 2) 1992 SCRN: FOR OSTEOPOROSIS (AGE 65-85 YEARS) 2007 IMM: RSV ( patients and Patients AGE > 60 YEARS OLD) (1 - 1-dose 75+ series) 2017 Advance Care Planning 03/27/2024 Screen for Fall Risk (>65Y) 03/27/2024 IMM: INFLUENZA (AGE > 6 MONTHS) (#1) 11/25/2024 02/08/2022, 01/18/2021 IMM: HEPATITIS A Aged Out No longer e ligible based on patient's age to complete this topic IMM: HEPATITIS B Aged Out No longer e ligible based on patient's age to complete this topic IMM: MENINGOCOCCAL ACWY Aged Out No l onger eligible based on patient's age to complete this topic IMM: RSV (AGE < 20 MONTHS) Aged Out N o longer eligible based on patient's age to complete this topic Insurance [place] [employer] PPO MEDICARE ADVANTAGE Care Teams [employer] Relationship Specialty Start Date End Date Vini Teresa MD [address] [address] PCP - General Internal Medicine 12/01/23
--- NOTE | 2025-03-12 15:06 | DI.RAD.S_ITS ---
PROCEDURE: XR CHEST 1V INDICATIONS: Chest Pain TECHNIQUE: One view of the chest was acquired. COMPARISON: None. FINDINGS: Surgical changes and devices: None. Lungs and pleura: Small left pleural effusion is seen. Left basilar small infiltrate/atelectasis is also noted. Right lung is clear. No pneumothorax. Mediastinum: Mediastinal contours appear normal. Heart size is enlarged. Bones and chest wall: No suspicious bony lesions. Overlying soft tissues appear unremarkable. IMPRESSION: Small left pleural effusion and left basilar small infiltrate/atelectasis. No pneumothorax. Dictated by: Samuel Cox M.D. on 03/12/2025 at 15:33 Approved by: Samuel Cox M.D. on 03/12/2025 at 15:33
--- NOTE | 2025-03-12 15:14 | EKG_ITS ---
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
[2025-03-12 15:28] LABS: Add Manual Diff / Slide Review NO; Hematocrit 39.2 % (36-46); Hemoglobin 13.2 g/dL (12.0-16.0); Lymphocytes Absolute Auto 1200 /uL (1100-4500); Mean Corpuscular HGB Conc 33.7 % (30-36); Mean Corpuscular Hemoglobin 32.0 PG (26-34); Mean Corpuscular Volume 95.2 fL (80-100); Platelet Count 434 X10^3/uL (150-400)
[2025-03-12 15:36] LABS: INR 1.1 (0.9-1.3); Prothrombin Time 12.3 SECONDS (9.4-12.5)
[2025-03-12 15:38] LABS: PTT Partial Thromboplastin Tim 26 SECONDS (25.1-36.5)
[2025-03-12 15:41] LABS: Alanine Aminotransferase 45 IU/L (<35); Albumin 4.7 g/dL (3.5-5.0); Albumin Globulin Ratio 1.8 (1.0-2.8); Alkaline Phosphatase 91 U/L (38-126); Blood Urea Nitrogen 32 mg/dL (7-17); Calcium 9.1 mg/dL (8.4-10.2); Carbon Dioxide 30 mmol/L (22-32); Chloride 99 mmol/L (98-107); Creatine Kinase 29 U/L (30-135); Estimated Glomerular Filt Rate > 60 mL/min (>60); Globulin 2.6 g/dL (1.7-4.1); Glucose 131 mg/dL (70-99); HEMOLYSIS 34 (0-50); Lipase 121 U/L (23-300); Magnesium 2.2 mg/dL (1.6-2.3); Potassium 3.9 mmol/L (3.4-5.1); Sodium 137 mmol/L (137-145); Total Protein 7.3 g/dL (6.3-8.2)
[2025-03-12 15:52] LABS: NT-proBNP (BNP-Adult 18+) 1780 pg/mL (<450)
--- NOTE | 2025-03-12 16:01 | PC.NURSE ---
Patient has a history of afib and is on eloquis and lasix. She thinks that she might have withheld some of her meds yesterday due to not wanting to take meds prior to her echocardiogram today. When she was at her echo she began to not feel well. They saw that her heart rate was up at 160 on the heart monitor. She was given an EKG and found to have afib RVR. She also had a fall recently and hit her right knee/ long. Her right leg is swollen and tender on palpation also yellow and purple. She denies chest pain, pressure, SOB, and chest pressure.
--- NOTE | 2025-03-12 16:10 | ED.ARRPALP ---
HPI - Arrhythmia/Palpitations <Chandrika Layton, DO - Last Filed: 03/13/25 07:12> General Chief Complaint: Arrhythmia/Palpitations Stated Complaint: ref from cardio, Afib [id number], BP 151/99 Time Seen by Provider: 03/12/25 15:20 Source: patient Mode of arrival: Ambulatory History of Present Illness HPI narrative: Patient is an 85-year-old female history of paroxysmal atrial fibrillation presenting today in AFib with RVR. She does take Eliquis and metoprolol. She was here getting an outpatient echocardiogram when they noticed that her heart rate was in the 160s. She she took her medication last night but does not remember if she took it this morning. She has since risen received diltiazem metoprolol, and heart rate is down to 110. She reports feeling better. She does admit to drinking alcohol 1 glass of wine daily. She fell last week her right lower leg has pretty significant contusion but she has been weight-bearing and tolerating it. No significant pain there. She denies any chest pain. Related Data Home Medications ?Medication ?Instructions ?Recorded ?Confirmed multivitamin (Multiple Vitamins 1 tab PO QDAY ##0 01/27/11 03/12/25 tablet) [RAJANI-C] 500 mg PO QDAY ##0 03/17/17 03/12/25 potassium chloride 10 mEq 10 meq PO DAILY 06/05/23 03/12/25 tablet,extended release(part/cryst) Previous Rx's ?Medication ?Instructions ?Recorded ferrous sulfate 325 mg (65 mg 325 mg PO DAILY #90 tabs 04/27/23 iron) tablet acetaminophen 325 mg capsule 650 mg (2 x 325 mg) PO QID PRN 05/10/23 (Tylenol) pain #60 caps furosemide 20 mg tablet 60 mg (3 x 20 mg) PO DAILY #360 06/06/24 tabs levothyroxine 137 mcg tablet 137 mcg PO DAILY #90 tabs 06/06/24 famotidine 40 mg tablet 40 mg PO BID #180 tabs 07/22/24 apixaban 5 mg tablet (Eliquis) 5 mg PO BID #60 tabs 01/10/25 metoprolol succinate 50 mg 50 mg PO DAILY #90 tabs 01/14/25 tablet,extended release 24 hr Allergies Allergy/AdvReac Type Severity Reaction Status Date / Time Penicillins Allergy Mild FACE Verified 03/12/25 15:16 SWELLING ranitidine (RANITIDINE) AdvReac Intermediate abd Verified 03/12/25 15:16 pain/anorexia Patient History <Chandrika Traylor DO - Last Filed: 03/13/25 07:12> Medical History shelter current use of anticoagulant Paroxysmal atrial fibrillation Syncope Simple adnexal cyst greater than 1 cm in diameter in postmenopausal patient Peripheral edema GERD (gastroesophageal reflux disease) Hypertension Hyperlipidemia Essential hypertension Mixed hyperlipidemia Acquired hypothyroidism Surgical History S/P bypass gastrojejunostomy (04/2023) H/O ventral hernia repair Social History marital status: number of children: 3 household members: children lives independently: Yes caregiver/support person: No housing: house pets and animals: No education level: high school occupational status: other Previous occupational history: [employer], [employer]: [employer] leisure activities: art and other Tobacco: How many years used: 10 Smokeless tobacco user: other quit status: quit date established second hand exposure: No alcohol intake: current substance use type: does not use alcohol intake frequency: holidays/special occasions only Exam <Chandrika Traylor DO - Last Filed: 03/13/25 07:12> Initial Vital Signs Initial Vital Signs: Vital Signs Temperature 98 F 03/12/25 15:00 Pulse Rate 150 H 03/12/25 15:00 Respiratory Rate 12 03/12/25 15:00 Blood Pressure 136/94 H 03/12/25 15:00 Pulse Oximetry 95 03/12/25 15:00 Oxygen Delivery Method Room Air 03/12/25 15:00 GENERAL: Alert pleasant 85-year-old female and in no acute distress. HEENT: Head atraumatic,EOMI, pupils reactive, face symmetric, moist mucous membranes CARDIOVASCULAR: Irregularly irregular RESPIRATORY: Breath sounds equal bilaterally, no wheezes rales or rhonchi. ABDOMEN: Soft, nontender. Normoactive bowel sounds all 4 quadrants. No guarding or rebound. EXTREMITIES: Normal range of motion, no clubbing or edema. Neurovascularly intact Right lower extremity knee to ankle does significant contusion it seems to be healing she has been ambulating knee is otherwise stable and distal pulses intact NEUROLOGICAL: Alert and oriented x4.Normal gait and speech. Cranial nerves II through XII grossly intact. SKIN: Warm, dry, no laceration, no petechiae, no rashes or lesions. <Jose Acharya, DO - Last Filed: 03/12/25 19:00> Initial Vital Signs Initial Vital Signs: Vital Signs Temperature 98 F 03/12/25 15:00 Pulse Rate 150 H 03/12/25 15:00 Respiratory Rate 12 03/12/25 15:00 Blood Pressure 136/94 H 03/12/25 15:00 Pulse Oximetry 95 03/12/25 15:00 Oxygen Delivery Method Room Air 03/12/25 15:00 Course <Chandrika Traylor, DO - Last Filed: 03/13/25 07:12> Orders Ordered: Acetaminophen (Acetaminophen 325 Mg Tablet) 650 mg PO QID PRN PRN Reason: Pain, Mild (1-3) Aspirin (Aspirin Ec 81 Mg Tablet) 81 mg PO DAILY [facility] Famotidine (Famotidine 20 Mg Tablet) 40 mg PO BID [facility] Last Admin: 03/12/25 23:10 Dose: 40 mg Documented By: SH Ferrous Sulfate (Ferrous Sulfate 325 Mg Tablet) 325 mg PO DAILY [facility] Furosemide (Furosemide 20 Mg Tablet) 60 mg PO DAILY [facility] Heparin Sodium/Dextrose (Heparin Drip) 25,000 unit in 500 mls @ 13.92 mls/hr IV CONT JARRED; Protocol Last Admin: 03/13/25 00:29 Dose: 12 units/kg/hr, 13.92 mls/hr Documented By: SAM Co-signed By: CHIN Levothyroxine Sodium (Levothyroxine 137 Mcg Tablet) 137 mcg PO DAILY [facility] Metoprolol Succinate (Metoprolol Er 50 Mg Tablet) 50 mg PO DAILY [facility] Naloxone HCl (Naloxone 0.4 Mg/Ml Vial) 0.2 mg IV Q2MIN PRN PRN Reason: Opiate Reversal Potassium Chloride (Potassium Chloride 10 Meq Tab) 10 meq PO DAILY [facility] Discontinued Medications Apixaban (Apixaban 5 Mg Tablet) 5 mg PO BID [facility] Last Admin: 03/12/25 23:10 Dose: 5 mg Documented By: SAM Aspirin (Aspirin 81 Mg Chew Tab) 324 mg PO NOW ONE Stop: 03/12/25 15:07 Diltiazem HCl (Diltiazem 25 Mg/5 Ml Sdv) 10 mg IV NOW ONE Stop: 03/12/25 16:11 Last Admin: 03/12/25 16:47 Dose: 10 mg Documented By: JED Diltiazem HCl (Diltiazem 25 Mg/5 Ml Sdv) 10 mg IV NOW ONE Stop: 03/12/25 23:53 Heparin Sodium (Porcine) (Heparin 5,000 Unit/Ml Vial) 3,500 unit 60 unit/kg (3500 unit) IV NOW ONE Stop: 03/12/25 23:53 Last Admin: 03/13/25 00:28 Dose: 3,500 unit Documented By: SAM Metoprolol Succinate (Metoprolol Er 50 Mg Tablet) 50 mg PO NOW ONE Stop: 03/12/25 16:11 Last Admin: 03/12/25 16:56 Dose: 50 mg Documented By: JED Metoprolol Tartrate (Metoprolol Ir 50 Mg Tablet) 50 mg PO NOW ONE Stop: 03/12/25 22:42 Last Admin: 03/12/25 23:10 Dose: 50 mg Documented By: SAM Vital Signs Vital signs: Vital Signs - 8 hr 03/12/25 15:00 03/12/25 16:47 03/12/25 16:53 Temperature 98 F Pulse Rate 150 H 125 H 133 H Respiratory Rate 12 18 Blood Pressure 136/94 H 199/101 H Pulse Oximetry 95 96 Oxygen Delivery Method Room Air 03/12/25 16:56 03/12/25 16:56 03/12/25 16:56 Temperature Pulse Rate 108 H 108 H Respiratory Rate 21 Blood Pressure 162/77 H 162/77 H Pulse Oximetry 97 Oxygen Delivery Method 03/12/25 17:00 03/12/25 17:00 03/12/25 17:15 Temperature Pulse Rate 113 H Respiratory Rate 20 Blood Pressure 172/91 H 148/81 H Pulse Oximetry 97 Oxygen Delivery Method 03/12/25 17:15 03/12/25 17:30 03/12/25 17:30 Temperature Pulse Rate 105 H 122 H Respiratory Rate 17 17 Blood Pressure 168/87 H Pulse Oximetry 95 95 Oxygen Delivery Method 03/12/25 17:45 03/12/25 17:45 03/12/25 18:00 Temperature Pulse Rate 124 H Respiratory Rate 16 Blood Pressure 140/88 176/98 H Pulse Oximetry 96 Oxygen Delivery Method 03/12/25 18:00 03/12/25 18:15 03/12/25 18:15 Temperature Pulse Rate 136 H 116 H Respiratory Rate 14 24 Blood Pressure 135/88 Pulse Oximetry 95 95 Oxygen Delivery Method 03/12/25 18:30 03/12/25 18:30 03/12/25 18:46 Temperature Pulse Rate 110 H Respiratory Rate 17 Blood Pressure 152/86 H 160/138 H Pulse Oximetry 96 Oxygen Delivery Method 03/12/25 18:46 03/12/25 18:53 Temperature Pulse Rate 112 H 116 H Respiratory Rate 17 Blood Pressure 160/138 H Pulse Oximetry 96 Oxygen Delivery Method <Jose Acharya, DO - Last Filed: 03/12/25 19:00> Orders Ordered: Acetaminophen (Acetaminophen 325 Mg Tablet) 650 mg PO QID PRN PRN Reason: Pain, Mild (1-3) Aspirin (Aspirin Ec 81 Mg Tablet) 81 mg PO DAILY [facility] Famotidine (Famotidine 20 Mg Tablet) 40 mg PO BID [facility] Last Admin: 03/12/25 23:10 Dose: 40 mg Documented By: SAM Ferrous Sulfate (Ferrous Sulfate 325 Mg Tablet) 325 mg PO DAILY [facility] Furosemide (Furosemide 20 Mg Tablet) 60 mg PO DAILY [facility] Heparin Sodium/Dextrose (Heparin Drip) 25,000 unit in 500 mls @ 13.92 mls/hr IV CONT JARRED; Protocol Last Admin: 03/13/25 00:29 Dose: 12 units/kg/hr, 13.92 mls/hr Documented By: SAM Co-signed By: CHIN Levothyroxine Sodium (Levothyroxine 137 Mcg Tablet) 137 mcg PO DAILY [facility] Metoprolol Succinate (Metoprolol Er 50 Mg Tablet) 50 mg PO DAILY [facility] Naloxone HCl (Naloxone 0.4 Mg/Ml Vial) 0.2 mg IV Q2MIN PRN PRN Reason: Opiate Reversal Potassium Chloride (Potassium Chloride 10 Meq Tab) 10 meq PO DAILY [facility] Discontinued Medications Apixaban (Apixaban 5 Mg Tablet) 5 mg PO BID [facility] Last Admin: 03/12/25 23:10 Dose: 5 mg Documented By: SAM Aspirin (Aspirin 81 Mg Chew Tab) 324 mg PO NOW ONE Stop: 03/12/25 15:07 Diltiazem HCl (Diltiazem 25 Mg/5 Ml Sdv) 10 mg IV NOW ONE Stop: 12/17/25 16:11 Last Admin: 03/12/25 16:47 Dose: 10 mg Documented By: JED Diltiazem HCl (Diltiazem 25 Mg/5 Ml Sdv) 10 mg IV NOW ONE Stop: 03/12/25 23:53 Heparin Sodium (Porcine) (Heparin 5,000 Unit/Ml Vial) 3,500 unit 60 unit/kg (3500 unit) IV NOW ONE Stop: 03/12/25 23:53 Last Admin: 03/13/25 00:28 Dose: 3,500 unit Documented By: SAM Metoprolol Succinate (Metoprolol Er 50 Mg Tablet) 50 mg PO NOW ONE Stop: 03/12/25 16:11 Last Admin: 03/12/25 16:56 Dose: 50 mg Documented By: JED Metoprolol Tartrate (Metoprolol Ir 50 Mg Tablet) 50 mg PO NOW ONE Stop: 03/12/25 22:42 Last Admin: 03/12/25 23:10 Dose: 50 mg Documented By: SAM Vital Signs Vital signs: Vital Signs - 8 hr 03/12/25 15:00 03/12/25 16:47 03/12/25 16:53 Temperature 98 F Pulse Rate 150 H 125 H 133 H Respiratory Rate 12 18 Blood Pressure 136/94 H 199/101 H Pulse Oximetry 95 96 Oxygen Delivery Method Room Air 03/12/25 16:56 03/12/25 16:56 03/12/25 16:56 Temperature Pulse Rate 108 H 108 H Respiratory Rate 21 Blood Pressure 162/77 H 162/77 H Pulse Oximetry 97 Oxygen Delivery Method 03/12/25 17:00 03/12/25 17:00 03/12/25 17:15 Temperature Pulse Rate 113 H Respiratory Rate 20 Blood Pressure 172/91 H 148/81 H Pulse Oximetry 97 Oxygen Delivery Method 03/12/25 17:15 03/12/25 17:30 03/12/25 17:30 Temperature Pulse Rate 105 H 122 H Respiratory Rate 17 17 Blood Pressure 168/87 H Pulse Oximetry 95 95 Oxygen Delivery Method 03/12/25 17:45 03/12/25 17:45 03/12/25 18:00 Temperature Pulse Rate 124 H Respiratory Rate 16 Blood Pressure 140/88 176/98 H Pulse Oximetry 96 Oxygen Delivery Method 03/12/25 18:00 03/12/25 18:15 03/12/25 18:15 Temperature Pulse Rate 136 H 116 H Respiratory Rate 14 24 Blood Pressure 135/88 Pulse Oximetry 95 95 Oxygen Delivery Method 03/12/25 18:30 03/12/25 18:30 03/12/25 18:46 Temperature Pulse Rate 110 H Respiratory Rate 17 Blood Pressure 152/86 H 160/138 H Pulse Oximetry 96 Oxygen Delivery Method 03/12/25 18:46 03/12/25 18:53 Temperature Pulse Rate 112 H 116 H Respiratory Rate 17 Blood Pressure 160/138 H Pulse Oximetry 96 Oxygen Delivery Method MDM - Arrhythmia/Palpitations <Chandrika Traylor, DO - Last Filed: 03/13/25 07:12> Lab Data 03/13/25 06:30 03/12/25 15:15 Labs: Lab Results 03/12/25 03/12/25 Range/Units 15:15 17:27 WBC 11.9 H (4.5-11.0) X10^3/uL RBC 4.12 (4.0-5.2) X10^6/uL Hgb 13.2 (12.0-16.0) g/dL Hct 39.2 (36-46) % MCV 95.2 (80-100) fL MCH 32.0 (26-34) PG MCHC 33.7 (30-36) % RDW 14.8 (11.6-14.8) % Plt Count 434 H (150-400) X10^3/uL Neut % (Auto) 78.3 H (50-75) % Lymph % (Auto) 10.1 L (25-40) % [place] % (Auto) 9.8 (3-14) % Eos % (Auto) 1.5 L (2-4) % Baso % (Auto) 0.3 (0-2) % Neut # (Auto) 9300 H (3126-2041) /uL Lymph # (Auto) 1200 (4369-0489) /uL [place] # (Auto) 1200 H (0-900) /uL Eos # (Auto) 200 (0-450) /uL Baso # (Auto) 0 (0-100) /uL PT 12.3 (9.4-12.5) SECONDS INR 1.1 (0.9-1.3) APTT 26 (25.1-36.5) SECONDS Sodium 137 (137-145) mmol/L Potassium 3.9 (3.4-5.1) mmol/L Chloride 99 (98-107) mmol/L Carbon Dioxide 30 (22-32) mmol/L BUN 32 H (7-17) mg/dL Creatinine 0.87 (0.52-1.04) mg/dL Estimated GFR > 60 (>60) mL/min BUN/Creatinine Ratio 36.8 H (6-22) Glucose 131 H (70-99) mg/dL Calcium 9.1 (8.4-10.2) mg/dL Magnesium 2.2 (1.6-2.3) mg/dL Total Bilirubin 0.7 (0.2-1.3) mg/dL AST 49 H (14-36) IU/L ALT 45 H (<35) IU/L Alkaline Phosphatase 91 (38-126) U/L Total Creatine Kinase 29 L (30-135) U/L Troponin I 0.186 H* 0.217 H* (0.01-0.034) ng/mL NT-Pro-B Natriuret Pep 1780 H (<450) pg/mL Total Protein 7.3 (6.3-8.2) g/dL Albumin 4.7 (3.5-5.0) g/dL Globulin 2.6 (1.7-4.1) g/dL Albumin/Globulin Ratio 1.8 (1.0-2.8) Lipase 121 (23-300) U/L Imaging Data Chest x-ray: Radiologist's Impresson: PROCEDURE: XR CHEST 1V INDICATIONS: Chest Pain TECHNIQUE: One view of the chest was acquired. COMPARISON: None. FINDINGS: Surgical changes and devices: None. Lungs and pleura: Small left pleural effusion is seen. Left basilar small infiltrate/atelectasis is also noted. Right lung is clear. No pneumothorax. Mediastinum: Mediastinal contours appear normal. Heart size is enlarged. Bones and chest wall: No suspicious bony lesions. Overlying soft tissues appear unremarkable. IMPRESSION: Small left pleural effusion and left basilar small infiltrate/atelectasis. No pneumothorax. Dictated by: Samuel Cox M.D. on 03/12/2025 at 15:33 Approved by: Samuel Cox M.D. on 03/12/2025 at 15:33 Extremity x-ray #1: Radiologist's Impresson: PROCEDURE: XR KNEE RT 3V INDICATIONS: fall pain TECHNIQUE: 3 views of the knee were acquired. COMPARISON: None. FINDINGS: Bones: No fractures or dislocations. No significant patellar subluxation. [id number] tricompartmental osteoarthritis is seen more notably in medial femoral tibial compartment. No suspicious bony lesions. Soft tissues: Soft tissue swelling over anterior aspect of patella tendon is seen. No joint effusion. No suspicious soft tissue calcifications. IMPRESSION: No acute right knee fracture or dislocation. No significant joint effusion. [id number] tricompartmental osteoarthritis. Soft tissue swelling over anterior aspect of right knee likely represent soft tissue contusion. Dictated by: Samuel Cox M.D. on 03/12/2025 at 16:41 ECHO: [facility] : : [address] [place] [address]. : : [place], [place] : : [address] : : Phone: [phone] Echocardiogram Report + + :Name: DAGO SPENCER Study Date: 03/12/2025 Height: 61 in : :[facility] ReadingLocation: Weight: 131 lb : : Gender: Female BSA: 1.6 m2 : :: 1940 Age: 85 yrs BP: 151/99 mmHg: :Reason For Study: Edema : :Ordering Physician: MADELINE, : :JOSE Gracia Performed By: Darwin Brice : :Referring: JOSE CORREA : + + Interpretation Summary Atrial fibrillation with rapid ventricular response in the: Heart rate is 153- 165 bpm during the exam. Normal LV size and mildly increased wall thickness. Normal wall motion and LV systolic function. Ejection fraction is 50-55%. Severe left atrial enlargement and moderate right atrial enlargement. Mild aortic stenosis. Moderate-SEVERE central mitral regurgitation. No prolapse Estimated PA systolic pressure is 48 mmHg assuming right atrial pressure of 3 mmHg Compared to prior echo obtained April 29, 2023, A-fib is new. Mild valve regurgitation progressed from moderate to Procedure: A two-dimensional transthoracic echocardiogram with color flow and Doppler was performed. The study quality was technically adequate. Comparison is made with the echocardiogram of 04/29/2023. The heart rate ranged between 130-170 bpm during the study. Patient went into a rapid heart rate during the start of the echo. Patient stated not feeling right. Once echo was completed, walked patient to the ED at [facility]. Left Ventricle: The left ventricle is normal in size. Left ventricular wall thickness is mildly increased. The ejection fraction is estimated to be 50- 55%. Beat to beat variability in left ventricular contraction due to arrhythmia. Normal diastolic function. Right Ventricle: The right ventricle is normal in size and function. Atria: The left atrial size is normal. Right atrial size is normal. There is no Doppler evidence for an interatrial shunt. Mitral Valve: The mitral valve leaflets appear to open well. There is no mitral valve stenosis. There is moderate mitral regurgitation. BP 151/90. Aortic Valve: The aortic valve is trileaflet. The aortic valve opens well. The aortic valve is mildly calcified. There is mild aortic stenosis. The calculated aortic valve area is 1.5 cm2. The peak aortic velocity is 2.1 m/sec. The aortic valve mean gradient is 10.2 mmHg. sev ratio: 0.48. There is no aortic regurgitation. Tricuspid Valve: There is moderate tricuspid regurgitation. The right ventricular systolic pressure is estimated to be at least 48 mmHg based on an estimated right atrial pressure of 3 mm Hg. Pulmonic Valve: The pulmonic valve is not well seen, but is grossly normal. There is trace pulmonic regurgitation. Great Vessels: The aortic root is normal size. The ascending aorta is normal in size. The aortic arch could not be visualized. The pulmonary artery is normal size. The IVC is of normal diameter and collapses greater than 50% with a sniff. This suggests a low right atrial pressure of 3 mm Hg. Pericardium/ Pleura There is no pericardial effusion. MMode/2D Measurements & Calculations LVIDd: 4.2 cm LVOT diam: 2.0 cm LVIDs: 3.3 cm Ao root diam: 2.4 cm FS: 22.0 % asc Aorta Diam: 2.4 cm EPSS: 0.62 cm IVSd: 1.2 cm LVPWd: 1.2 cm LV newsome. diameter/BSA (cm/m^2): 2.7 LV sys. diameter/BSA (cm/m^2): 2.1 LA A2 area: 21.8 cm2 RA long axis: 5.2 cm LA A4 area: 30.2 cm2 RA area: 14.7 cm2 LA length (vol): 6.7 cm RA vol: 35.1 ml LA vol: 83.2 ml RA : 22.3 ml/m2 LA vol index: 52.7 ml/m2 IVC diam: 1.6 cm RVD1 (basal): 2.9 cm RVD2 (mid): 2.2 cm TAPSE: 2.2 cm Doppler Measurements & Calculations Ao V2 max: 212.5 cm/sec LVOT Max Michael: 103.4 cm/sec Ao V2 mean: 154.2 cm/sec LV V1 max P.3 mmHg Ao max P.1 mmHg LV V1 VTI: 15.5 cm Ao mean P.2 mmHg NICKO(I,D): 1.4 cm2 Ao V2 VTI: 32.1 cm NICKO(V,D): 1.5 cm2 sev ratio: 0.48 NICKO indexed to BSA (cm^2/m^2): 0.92 MV E max michael: 125.2 cm/sec TR max michael: 336.9 cm/sec Med Peak E' Michael: 11.2 cm/sec TR max P.4 mmHg E/E' med: 11.2 PA V2 max: 110.6 cm/sec Lat Peak E' Michael: 14.0 cm/sec PA V2 mean: 73.3 cm/sec E/E' lat: 9.0 PA mean P.5 mmHg E/e' average: 10.1 PA pr(Accel): 45.6 mmHg MV dec time: 0.10 sec SV(LVOT): 46.4 ml Electronically signed by: Winifred Bowen M.D. on Reading Physician:03/12/2025 04:37 PM ECG Data Attestation: I personally reviewed and interpreted this ECG as follows: Prior ECG tracings: available for review (Prior EKGs 11/06/2023 shows a sinus rhythm, EKGs 05/06/[address] depression in lead 2 and V5) Interpretation: AFib with RVR rate 139 [address] depression in lead 2 no elevation MDM Narrative Medical decision making narrative: MDM CC: Heart palpitations Complicating co-morbidities: Paroxysmal atrial fibrillation on Eliquis Data collected from: Patient Medical records reviewed: PCP record reviewed Differential considered: AFib with RVR atrial flutter Exam documented above, pertinent findings include: Alert well-appearing 85-year-old female irregular heart rate breath sounds are clear she does have significant contusion of her right leg suspected from her pop fall but knee is otherwise stable and distal pedal pulses intact Lab Test results independently reviewed as above. Pertinent findings: Troponin0.186-->0.217 BNP 1780 CBC WBCs 11.9 without significant left shift CMP electrolytes within normal limits no JOE glucose 131 Bilirubin liver enzymes within normal limits Independently reviewed EKG as above Atrial fibrillation with RVR rate 139 ST depression noted in lead 2 similar to prior Repeat EKGs shows atrial flutter rate 106 Imaging studies independently reviewed: Chest x-ray small left pleural effusion Right knee x-ray no acute abnormality Consultations: 1805 Dr. Brandon, no need to cardiovert open is really symptomatic or unstable which at this time she is not. Aware of rising troponin. Recommends patient be admitted to the hospitalist team for monitoring of troponin no need for heparin drip Dr. Keane Treatments: 10 mg diltiazem, metoprolol 50 Re-evaluations: Heart rate has improved with those medications she was in the 160s in his now down to the 10 Discussion: Patient 85-year-old female presenting today with AFib with RVR from an outpatient echocardiogram. Echo does confirm elevated heart rate but does not show any wall motion abnormality. She does have an elevated rising troponin it is possibly due to her increased heart rate into demand ischemia. She is really asymptomatic with a heart rate and a clear how long she has been in this rhythm. Also unclear if she did not take her Eliquis. She may have taken a last night she is not really sure if she took them this morning she was trying to be NPO for her echo. she is a poor historian. Patient signed out to me at shift change pending final disposition by Dr. Traylor. Case discussed who has graciously accepted the patient for inpatient admission <Jose Acharya, DO - Last Filed: 03/12/25 19:00> Lab Data Labs: Lab Results 03/12/25 03/12/25 Range/Units 15:15 17:27 WBC 11.9 H (4.5-11.0) X10^3/uL RBC 4.12 (4.0-5.2) X10^6/uL Hgb 13.2 (12.0-16.0) g/dL Hct 39.2 (36-46) % MCV 95.2 (80-100) fL MCH 32.0 (26-34) PG MCHC 33.7 (30-36) % RDW 14.8 (11.6-14.8) % Plt Count 434 H (150-400) X10^3/uL Neut % (Auto) 78.3 H (50-75) % Lymph % (Auto) 10.1 L (25-40) % [place] % (Auto) 9.8 (3-14) % Eos % (Auto) 1.5 L (2-4) % Baso % (Auto) 0.3 (0-2) % Neut # (Auto) 9300 H (9186-3449) /uL Lymph # (Auto) 1200 (7000-9500) /uL [place] # (Auto) 1200 H (0-900) /uL Eos # (Auto) 200 (0-450) /uL Baso # (Auto) 0 (0-100) /uL PT 12.3 (9.4-12.5) SECONDS INR 1.1 (0.9-1.3) APTT 26 (25.1-36.5) SECONDS Sodium 137 (137-145) mmol/L Potassium 3.9 (3.4-5.1) mmol/L Chloride 99 (98-107) mmol/L Carbon Dioxide 30 (22-32) mmol/L BUN 32 H (7-17) mg/dL Creatinine 0.87 (0.52-1.04) mg/dL Estimated GFR > 60 (>60) mL/min BUN/Creatinine Ratio 36.8 H (6-22) Glucose 131 H (70-99) mg/dL Calcium 9.1 (8.4-10.2) mg/dL Magnesium 2.2 (1.6-2.3) mg/dL Total Bilirubin 0.7 (0.2-1.3) mg/dL AST 49 H (14-36) IU/L ALT 45 H (<35) IU/L Alkaline Phosphatase 91 (38-126) U/L Total Creatine Kinase 29 L (30-135) U/L Troponin I 0.186 H* 0.217 H* (0.01-0.034) ng/mL NT-Pro-B Natriuret Pep 1780 H (<450) pg/mL Total Protein 7.3 (6.3-8.2) g/dL Albumin 4.7 (3.5-5.0) g/dL Globulin 2.6 (1.7-4.1) g/dL Albumin/Globulin Ratio 1.8 (1.0-2.8) Lipase 121 (23-300) U/L MDM Narrative Medical decision making narrative: MDM CC: Heart palpitations Complicating co-morbidities: Paroxysmal atrial fibrillation on Eliquis Data collected from: Patient Medical records reviewed: PCP record reviewed Differential considered: AFib with RVR atrial flutter Exam documented above, pertinent findings include: Alert well-appearing 85-year-old female irregular heart rate breath sounds are clear she does have significant contusion of her right leg suspected from her pop fall but knee is otherwise stable and distal pedal pulses intact Lab Test results independently reviewed as above. Pertinent findings: Troponin0.186-->0.217 BNP 1780 CBC WBCs 11.9 without significant left shift CMP electrolytes within normal limits no JOE glucose 131 Bilirubin liver enzymes within normal limits Independently reviewed EKG as above Atrial fibrillation with RVR rate 139 ST depression noted in lead 2 similar to prior Repeat EKGs shows atrial flutter rate 106 Imaging studies independently reviewed: Chest x-ray small left pleural effusion Right knee x-ray no acute abnormality Consultations: 180 Dr. Brandon, no need to cardiovert open is really symptomatic or unstable which at this time she is not. Aware of rising troponin. Recommends patient be admitted to the hospitalist team for monitoring of troponin no need for heparin drip Dr. Keane Treatments: 10 mg diltiazem, metoprolol 50 Re-evaluations: Heart rate has improved with those medications she was in the 160s in his now down to the 10 Discussion: Patient 85-year-old female presenting today with AFib with RVR from an outpatient echocardiogram. Echo does confirm elevated heart rate but does not show any wall motion abnormality. She does have an elevated rising troponin it is possibly due to her increased heart rate into demand ischemia. She is really asymptomatic with a heart rate and a clear how long she has been in this rhythm. Also unclear if she did not take her Eliquis. She may have taken a last night she is not really sure if she took them this morning she is trying to be NPO for her echo. Year old she is a poor historian. Patient signed out to me at shift change pending final disposition by Dr. Traylor. Case discussed who has graciously accepted the patient for inpatient admission Discharge Plan Departure Patient Disposition: Admitted as Observation Clinical Impression: Atrial fibrillation with rapid ventricular response, Acute non-ST elevation myocardial infarction (NSTEMI) Admit Date/Time: 03/12/25 18:59 Admit Provider: Jazmine Keane
[2025-03-12 16:17] LABS: Troponin I 0.186 ng/mL (0.01-0.034)
[2025-03-12] MEDS: METOPROLOL ER 50 MG TABLET PO (16:56)
--- NOTE | 2025-03-12 17:22 | EKG_ITS ---
[facility] [address] [place] [address] Test Date: 2025-03-12 Pat Name: Zainab López Department: Room: 212 Gender: Female Family Consultant: POLLY : 1940 Requested By: Order Number: [id number] Reading MD: Vini Teresa MD Measurements Intervals [place] Rate: 106 P: AK: QRS: 39 QRSD: 80 T: 34 QT: 298 QTc: 395 Interpretive Statements Atrial flutter with variable AV block Nonspecific ST and T wave abnormality Electronically Signed On 03-13-2025 7:18:01 PST by Vini Teresa MD
[2025-03-12 18:00] LABS: Troponin I 0.217 ng/mL (0.01-0.034)
--- NOTE | 2025-03-12 19:36 | PC.NURSE ---
Patient had narrowed pulse pressure on both arms. Patient assessed and found to have to urinate. She was helped to the bedside commode. Patient urinated in bedside commode. Patient bladder scanned for retention: 618mls on the ultrasound. Pressure rechecked. 159/98. Patient reports feeling better and not like she is retaining very much. Dr. Keane called on her cell phone. No answer. Will continue to monitor patient. Patient not in distress. According to family at beside the patient doesn't complain when in pain and discomfort.
[2025-03-12 20:32] LABS: Culture Indicated Urine Specimen Cultured
[2025-03-12] MEDS: FAMOTIDINE 20 MG TABLET 40 MG PO (23:10)
[2025-03-12] MEDS: METOPROLOL IR 50 MG TABLET PO (23:10)
[2025-03-12] MEDS: APIXABAN 5 MG TABLET PO (23:10)
[2025-03-12 23:38] LABS: Troponin I 0.674 ng/mL (0.01-0.034)
[2025-03-13] VITALS (9 sets, daily range): BP systolic 120–148; BP diastolic 79–100; PULSE 57–78; RESP 15–18; TEMP 36.2–36.7; O2SAT 95–97
[2025-03-13] MEDS: HEPARIN 5,000 UNIT/ML VIAL 3500 UNIT IV (00:28)
[2025-03-13] MEDS: HEPARIN DRIP 25,000 UNIT/500 ML IV.SOLN 13.92 UNIT IV (00:29)
[2025-03-13 06:41] LABS: Hematocrit 32.4 % (36-46); Hemoglobin 10.9 g/dL (12.0-16.0); Platelet Count 356 X10^3/uL (150-400)
[2025-03-13 07:27] LABS: Alanine Aminotransferase 30 IU/L (<35); Albumin 3.5 g/dL (3.5-5.0); Albumin Globulin Ratio 1.7 (1.0-2.8); Alkaline Phosphatase 77 U/L (38-126); Blood Urea Nitrogen 23 mg/dL (7-17); Calcium 8.5 mg/dL (8.4-10.2); Carbon Dioxide 28 mmol/L (22-32); Chloride 104 mmol/L (98-107); Estimated Glomerular Filt Rate > 60 mL/min (>60); Globulin 2.1 g/dL (1.7-4.1); Glucose 101 mg/dL (70-99); HEMOLYSIS < 15 (0-50); Potassium 4.2 mmol/L (3.4-5.1); Sodium 134 mmol/L (137-145); Total Protein 5.6 g/dL (6.3-8.2)
--- NOTE | 2025-03-13 07:38 | PM.HP.IH.1 ---
History of Present Illness History of Present Illness Date Patient Seen: 03/13/25 Time Patient Seen: 07:40 Chief complaint: ref from cardio, Afib [id number], BP 151/99 Narrative: 85-year-old female well known to me presented for echocardiography on day of admission found to be in atrial fibrillation with rapid ventricular response. She was sent to the emergency department where she was evaluated had a positive troponin at 0.186. She was rate controlled and admitted to the hospital. She continued to have a climbing troponin and after consultation over the phone with Dr. Silva, she was heparinized due to the rising troponin Patient has remained asymptomatic through all of this. Reason for echocardiography was lower extremity edema which is still present. 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 Paroxysmal atrial fibrillation Syncope Simple adnexal cyst greater than 1 cm in diameter in postmenopausal patient Peripheral edema GERD (gastroesophageal reflux disease) Hypertension Hyperlipidemia Essential hypertension Mixed hyperlipidemia Acquired hypothyroidism Surgical History S/P bypass gastrojejunostomy (04/2023) H/O ventral hernia repair Social History marital status: number of children: 3 household members: children lives independently: Yes caregiver/support person: No housing: house pets and animals: No education level: high school occupational status: other Previous occupational history: [employer] at [employer], [employer] jair/sabianist: Sikhism leisure activities: art and other Tobacco: How many years used: 10 Smokeless tobacco user: other quit status: quit date established second hand exposure: No alcohol intake: current substance use type: does not use Meds Home Medications and Allergies Home Medications ?Medication ?Instructions ?Recorded ?Confirmed ?Type multivitamin (Multiple Vitamins 1 tab PO QDAY ##0 01/27/11 03/12/25 History tablet) [RAJANI-C] 500 mg PO QDAY ##0 03/17/17 03/12/25 History ferrous sulfate 325 mg (65 mg 325 mg PO DAILY #90 tabs 04/27/23 03/12/25 Rx iron) tablet acetaminophen 325 mg capsule 650 mg (2 x 325 mg) PO QID PRN 05/10/23 03/12/25 Rx (Tylenol) pain #60 caps potassium chloride 10 mEq 10 meq PO DAILY 06/05/23 03/12/25 History tablet,extended release(part/cryst) furosemide 20 mg tablet 60 mg (3 x 20 mg) PO DAILY #360 06/06/24 03/12/25 Rx tabs levothyroxine 137 mcg tablet 137 mcg PO DAILY #90 tabs 06/06/24 03/12/25 Rx famotidine 40 mg tablet 40 mg PO BID #180 tabs 07/22/24 03/12/25 Rx apixaban 5 mg tablet (Eliquis) 5 mg PO BID #60 tabs 01/10/25 03/12/25 Rx metoprolol succinate 50 mg 50 mg PO DAILY #90 tabs 01/14/25 03/12/25 Rx tablet,extended release 24 hr Allergies Allergy/AdvReac Type Severity Reaction Status Date / Time Penicillins Allergy Mild FACE Verified 03/12/25 15:16 SWELLING ranitidine (RANITIDINE) AdvReac Intermediate abd Verified 03/12/25 15:16 pain/anorexia Review of Systems Review of Systems ROS: Yes All systems reviewed with the patient and are negative except as otherwise documented Exam Vital Signs (past 8 hours): - 03/13/25 02:00 03/13/25 06:00 Temperature 98.0 F 97.1 F L Pulse Rate 77 67 Respiratory Rate 15 17 Blood Pressure 128/84 139/100 H Pulse Oximetry 97 96 Oxygen Flow Rate 0 0 Oxygen Delivery Method Room Air Oxygen Flow Rate 0 Narrative Exam Narrative: Non acutely ill-appearing female in no obvious distress lying in her hospital bed HEENT-unremarkable Lungs-clear Heart-regular rate and rhythm faint systolic ejection murmur over the precordium Abdomen-positive bowel tones soft nontender nondistended Extremities-left lower extremity with 2-3 +pitting edema to the knee, right lower extremity 3+ pitting edema to the knee with bruising in stages of resolving with typical yellowish and greenish color changes, primarily posteriorly along the gastrocnemius Objective Labs 03/13/25 06:30 03/13/25 06:30 Labs: Laboratory Results - last 24 hr 03/12/25 03/12/25 03/12/25 15:15 17:27 20:00 WBC 11.9 H RBC 4.12 Hgb 13.2 Hct 39.2 MCV 95.2 MCH 32.0 MCHC 33.7 RDW 14.8 Plt Count 434 H Neut % (Auto) 78.3 H Lymph % (Auto) 10.1 L [place] % (Auto) 9.8 Eos % (Auto) 1.5 L Baso % (Auto) 0.3 Neut # (Auto) 9300 H Lymph # (Auto) 1200 [place] # (Auto) 1200 H Eos # (Auto) 200 Baso # (Auto) 0 PT 12.3 INR 1.1 APTT 26 Sodium 137 Potassium 3.9 Chloride 99 Carbon Dioxide 30 BUN 32 H Creatinine 0.87 Estimated GFR > 60 BUN/Creatinine Ratio 36.8 H Glucose 131 H Calcium 9.1 Magnesium 2.2 Total Bilirubin 0.7 AST 49 H ALT 45 H Alkaline Phosphatase 91 Total Creatine Kinase 29 L Troponin I 0.186 H* 0.217 H* NT-Pro-B Natriuret Pep 1780 H Total Protein 7.3 Albumin 4.7 Globulin 2.6 Albumin/Globulin Ratio 1.8 Lipase 121 Urine RBC None seen Urine WBC 0-1/hpf Ur Squamous Epith Cells 0-1 /hpf Urine Bacteria Many (>30) H Ur Culture Indicated? Specimen cultured Vol Urine Centrifuged 10ml (spun) 03/12/25 03/13/25 22:58 06:30 WBC RBC Hgb 10.9 L Hct 32.4 L MCV MCH MCHC RDW Plt Count 356 Neut % (Auto) Lymph % (Auto) [place] % (Auto) Eos % (Auto) Baso % (Auto) Neut # (Auto) Lymph # (Auto) [place] # (Auto) Eos # (Auto) Baso # (Auto) PT INR APTT Sodium 134 L Potassium 4.2 Chloride 104 Carbon Dioxide 28 BUN 23 H Creatinine 0.74 Estimated GFR > 60 BUN/Creatinine Ratio 31.1 H Glucose 101 H Calcium 8.5 Magnesium Total Bilirubin 0.6 AST 39 H ALT 30 Alkaline Phosphatase 77 Total Creatine Kinase Troponin I 0.674 H* NT-Pro-B Natriuret Pep Total Protein 5.6 L Albumin 3.5 Globulin 2.1 Albumin/Globulin Ratio 1.7 Lipase Urine RBC Urine WBC Ur Squamous Epith Cells Urine Bacteria Ur Culture Indicated? Vol Urine Centrifuged Assessment & Plan Assessment & Plan narrative: 1. Atrial fibrillation rapid ventricular response-at this point she would benefit from rate control. She was given IV diltiazem in the emergency department and then placed on oral metoprolol which seems to have been helpful in controlling her rate. We will continue with the oral beta-selina therapy for now. Defer further management of her rhythm disturbance to Cardiology including rate control etcetera Patient has been identified with atrial fibrillation previously and has been chronically anticoagulated with Eliquis for stroke risk reduction. This can be resumed when the unfractionated heparin is discontinued. 2. Possible coronary artery disease-patient with rising troponin this may all be some element of demand ischemia. She is not a very good candidate for interventional therapies I would agree. She has been placed on intravenous unfractionated heparin per recommendation of Cardiology who will see her later this morning. Continue to monitor troponins and monitor for symptoms. Her most recent troponin shows a decline so I am guessing more demand ischemia than anything else. Her echocardiogram done during her rapid atrial fibrillation showed an estimated ejection fraction of 50+% with severe left atrial enlargement and moderate right atrial enlargement but also moderately severe mitral regurgitation. 3. Hypertension-patient tolerating her metoprolol without difficulty. This is a pre hospitalization medication for her as her routine antihypertensive. Will continue that for now may need to adjust doses based on her rhythm as well as blood pressure 4. Lower extremity edema-patient chronically on furosemide for lower extremity edema. May need increased doses. Do not see evidence of systolic dysfunction as an etiology for lower extremity edema at this time. There maybe an element of diastolic dysfunction present 5. History of gastric outlet obstruction was found to be a benign etiology due to significant peptic ulcer disease. She required placement of a gastrojejunostomy back in April 2023. She is not currently having any GI symptoms no difficulty swallowing or eating. Weight has been stable. Not felt to be an active issue but should continue on proton pump inhibitors indefinitely. 6. Hypothyroidism-patient recently evaluated due to the edema found to have an elevated TSH but normal T4. I am not choosing to change her thyroid dose at this time I do not believe she is biochemically hypothyroid despite the elevated TSH which is probably more of an acute phase reactant rather than actual marker of her thyroid at this time. Will plan to repeat that as an outpatient down the road several weeks-months 7. Mild cognitive impairment-patient with some degree of mild cognitive impairment but functioning nearly independently with family members close. No reason to make a change in my opinion for her living environment at this time. Appreciate input from Cardiology on the management of this very pleasant elderly woman Time-Based Coding :: [TOTAL MINUTES] spent with patient and on the chart (including review of chart, obtaining history, exam, reviewing outside data, placing orders, documenting exam and treatment plan, and counseling patient) on [DATE]. [employer] Electrical [employer] Document charge(s): Yes Charge Codes Initial inpatient/observation care: 66120
[2025-03-13 07:57] LABS: PTT Partial Thromboplastin Tim 96 SECONDS (25.1-36.5)
[2025-03-13] MEDS: ASPIRIN EC 81 MG TABLET PO (08:07)
[2025-03-13] MEDS: FUROSEMIDE 20 MG TABLET 60 MG PO (08:07)
[2025-03-13] MEDS: POTASSIUM CHLORIDE 10 MEQ TAB PO (08:07)
[2025-03-13] MEDS: FERROUS SULFATE 325 MG TABLET PO (08:07)
[2025-03-13] MEDS: LEVOTHYROXINE 137 MCG TABLET PO (08:07)
[2025-03-13] MEDS: FAMOTIDINE 20 MG TABLET 40 MG PO (08:07)
[2025-03-13] MEDS: METOPROLOL ER 50 MG TABLET PO ×2 (08:08→21:33)
[2025-03-13 08:13] LABS: Troponin I 0.502 ng/mL (0.01-0.034)
--- NOTE | 2025-03-13 09:34 | PM.CN ---
History of Present Illness Consult details Date Patient Seen: 03/13/25 Time Patient Seen: 09:35 Chief complaint: ref from cardio, Afib [id number], BP 151/99 Reason for consult: Atrial fibrillation with rapid ventricular rate Narrative: This is 85-year-old female history of paroxysmal atrial fibrillation hypothyroidism mild dementia cognitive decline admitted to the hospital when she was referred for a routine echocardiogram for her atrial. She was found to be in atrial fibrillation and was advised visit to the emergency room. In the emergency room she was found elevated troponin levels therefore she was referred here for admission and a possible diagnosis of acute coronary syndrome. Patient remained asymptomatic and did not complain of any symptoms of chest pains or respiratory distress. I received a phone call in the night about the the treatment plan for this patient. Due to rising troponin levels heparin was initiated however to treat her elevated troponin by medical management versus invasive strategy was left to discuss this morning. Meds Home Medications and Allergies Home Medications ?Medication ?Instructions ?Recorded ?Confirmed ?Type multivitamin (Multiple Vitamins 1 tab PO QDAY ##0 01/27/11 03/12/25 History tablet) [RAJANI-C] 500 mg PO QDAY ##0 03/17/17 03/12/25 History ferrous sulfate 325 mg (65 mg 325 mg PO DAILY #90 tabs 04/27/23 03/12/25 Rx iron) tablet acetaminophen 325 mg capsule 650 mg (2 x 325 mg) PO QID PRN 05/10/23 03/12/25 Rx (Tylenol) pain #60 caps potassium chloride 10 mEq 10 meq PO DAILY 06/05/23 03/12/25 History tablet,extended release(part/cryst) furosemide 20 mg tablet 60 mg (3 x 20 mg) PO DAILY #360 06/06/24 03/12/25 Rx tabs levothyroxine 137 mcg tablet 137 mcg PO DAILY #90 tabs 06/06/24 03/12/25 Rx famotidine 40 mg tablet 40 mg PO BID #180 tabs 07/22/24 03/12/25 Rx apixaban 5 mg tablet (Eliquis) 5 mg PO BID #60 tabs 01/10/25 03/12/25 Rx metoprolol succinate 50 mg 50 mg PO DAILY #90 tabs 01/14/25 03/12/25 Rx tablet,extended release 24 hr Allergies Allergy/AdvReac Type Severity Reaction Status Date / Time Penicillins Allergy Mild FACE Verified 03/12/25 15:16 SWELLING ranitidine (RANITIDINE) AdvReac Intermediate abd Verified 03/12/25 15:16 pain/anorexia Review of Systems Review of Systems ROS: Yes All systems reviewed with the patient and are negative except as otherwise documented Exam Vital Signs (past 8 hours): - 03/13/25 02:00 03/13/25 06:00 03/13/25 08:08 Temperature 98.0 F 97.1 F L Pulse Rate 77 67 67 Respiratory Rate 15 17 Blood Pressure 128/84 139/100 H 139/100 H Pulse Oximetry 97 96 Oxygen Flow Rate 0 0 03/13/25 08:25 Temperature 97.7 F Pulse Rate 78 Respiratory Rate 18 Blood Pressure 138/92 H Pulse Oximetry 97 Oxygen Flow Rate Oxygen Delivery Method Room Air Oxygen Flow Rate 0 Objective Labs 03/13/25 06:30 03/13/25 06:30 Labs: Laboratory Results - last 24 hr 03/12/25 03/12/25 03/12/25 15:15 17:27 20:00 WBC 11.9 H RBC 4.12 Hgb 13.2 Hct 39.2 MCV 95.2 MCH 32.0 MCHC 33.7 RDW 14.8 Plt Count 434 H Neut % (Auto) 78.3 H Lymph % (Auto) 10.1 L [place] % (Auto) 9.8 Eos % (Auto) 1.5 L Baso % (Auto) 0.3 Neut # (Auto) 9300 H Lymph # (Auto) 1200 [place] # (Auto) 1200 H Eos # (Auto) 200 Baso # (Auto) 0 PT 12.3 INR 1.1 APTT 26 Sodium 137 Potassium 3.9 Chloride 99 Carbon Dioxide 30 BUN 32 H Creatinine 0.87 Estimated GFR > 60 BUN/Creatinine Ratio 36.8 H Glucose 131 H Calcium 9.1 Magnesium 2.2 Total Bilirubin 0.7 AST 49 H ALT 45 H Alkaline Phosphatase 91 Total Creatine Kinase 29 L Troponin I 0.186 H* 0.217 H* NT-Pro-B Natriuret Pep 1780 H Total Protein 7.3 Albumin 4.7 Globulin 2.6 Albumin/Globulin Ratio 1.8 Lipase 121 Urine RBC None seen Urine WBC 0-1/hpf Ur Squamous Epith Cells 0-1 /hpf Urine Bacteria Many (>30) H Ur Culture Indicated? Specimen cultured Vol Urine Centrifuged 10ml (spun) 03/12/25 03/13/25 22:58 06:30 WBC RBC Hgb 10.9 L Hct 32.4 L MCV MCH MCHC RDW Plt Count 356 Neut % (Auto) Lymph % (Auto) [place] % (Auto) Eos % (Auto) Baso % (Auto) Neut # (Auto) Lymph # (Auto) [place] # (Auto) Eos # (Auto) Baso # (Auto) PT INR APTT 96 H* D Sodium 134 L Potassium 4.2 Chloride 104 Carbon Dioxide 28 BUN 23 H Creatinine 0.74 Estimated GFR > 60 BUN/Creatinine Ratio 31.1 H Glucose 101 H Calcium 8.5 Magnesium Total Bilirubin 0.6 AST 39 H ALT 30 Alkaline Phosphatase 77 Total Creatine Kinase Troponin I 0.674 H* 0.502 H* NT-Pro-B Natriuret Pep Total Protein 5.6 L Albumin 3.5 Globulin 2.1 Albumin/Globulin Ratio 1.7 Lipase Urine RBC Urine WBC Ur Squamous Epith Cells Urine Bacteria Ur Culture Indicated? Vol Urine Centrifuged [facility] Medical History intermediate current use of anticoagulant Paroxysmal atrial fibrillation Syncope Simple adnexal cyst greater than 1 cm in diameter in postmenopausal patient Peripheral edema GERD (gastroesophageal reflux disease) Hypertension Hyperlipidemia Essential hypertension Mixed hyperlipidemia Acquired hypothyroidism Surgical History S/P bypass gastrojejunostomy (04/2023) H/O ventral hernia repair Social History marital status: number of children: 3 household members: children lives independently: Yes caregiver/support person: No housing: house pets and animals: No education level: high school occupational status: other Previous occupational history: [place] at [employer] jair/worship: Yazdanism leisure activities: art and other Tobacco & Substance Use Tobacco: How many years used: 10 Smokeless tobacco user: other quit status: quit date established second hand exposure: No alcohol intake: current substance use type: does not use Additional Social History additional social history: Family support present Assessment & Plan Assessment and plan (1) Atrial fibrillation with rapid ventricular response: Status: Acute (2) Acute non-ST elevation myocardial infarction (NSTEMI): Status: Acute (3) Mitral regurgitation, myxomatous: Status: Acute Plan Delightful 85 old with significant past cardiac history admitted to hospital for atrial fibrillation with rapid ventricular rate. She was referred by her primary care provider for evaluation of lower extremity edema for last several weeks. Patient was admitted overnight and diuresed. I evaluated her this morning and these are following recommendations. Low-salt diet Activity as tolerated Heparin can be discontinued Continue with aspirin 81 mg daily Oral anticoagulants Beta blockers as outpatient with heart rate goes of 70-90 beats per minute Diuretics prefer torsemide 40 mg twice a day Weekly BNP to monitor renal function and electrolytes Transesophageal echocardiogram and complete heart catheterization for valve evaluation. Treatment options included mitral valve repair, MitraClip, mitral valve replacement Again I appreciate the opportunity to participate in the care of your patient, please feel free to give me a call should you have any questions I can be reached at [phone] Assessment & Plan narrative: 1. Non ST-elevation myocardial infarction: This is a demand ischemia type 2 myocardial infarction. She had atrial fibrillation with rapid ventricular rate which caused elevated troponin levels. Most recent troponin levels are trending down and patient was completely asymptomatic. I did received a phone call in the night and due to concern for her mild cognitive dysfunction and rising troponin heparin was advised. At this point I advice to discontinue heparin drip. 2. Paroxysmal atrial fibrillation: Patient has a history of paroxysmal atrial fibrillation and was on apixaban started by her PCP. It appears from the history that she is having more frequent episodes of paroxysmal atrial fibrillation some of them are symptomatic and some of them are asymptomatic. She told me that when she laid on the bed for her echocardiogram she felt like her heart was racing fast. The patient is currently in sinus rhythm b.i.d. telemetry. 3. Severe mitral regurgitation with preserved ejection fraction. Patient has severe mitral regurgitation based upon the associated symptoms of right heart failure and elevated PA pressures on echocardiogram 45-50 mmHg. Patient developed leg swelling due to right heart failure. She seems to be responding well to diuretic therapy at this point. Patient is hemodynamically stable. Based on the presentation this is clearly a case of chronic severe mitral regurgitation. Please refer to her most recent echocardiogram. 4. Hypothyroidism: Please check TSH levels to make sure there hyperthyroid state due to excessive dosing. Time-Based Coding :: [TOTAL MINUTES more than 70 minustes to time spent with patient and on the chart (including review of chart, obtaining history, exam, reviewing outside data, placing orders, documenting exam and treatment plan, and counseling patient) on [DATE].
[2025-03-13 12:44] LABS: PTT Partial Thromboplastin Tim 55 SECONDS (25.1-36.5)
[2025-03-13] MEDS: TORSEMIDE 10 MG TABLET 40 MG PO (17:36)
[2025-03-13] MEDS: ZOLPIDEM 5 MG TABLET PO (21:17)
[2025-03-13] MEDS: APIXABAN 5 MG TABLET 2.5 MG PO (21:18)
[2025-03-14] VITALS: BP 143/84; PULSE 78; RESP 18; TEMP 36.4; O2SAT 95
[2025-03-14 05:00] VITALS: BP 157/57; PULSE 49; RESP 18; TEMP 36.8; O2SAT 95
[2025-03-14] MEDS: LEVOTHYROXINE 137 MCG TABLET PO (05:22)
[2025-03-14 05:35] LABS: Hematocrit 31.9 % (36-46); Hemoglobin 10.8 g/dL (12.0-16.0); Platelet Count 332 X10^3/uL (150-400)
[2025-03-14 05:57] LABS: Blood Urea Nitrogen 20 mg/dL (7-17); Calcium 8.4 mg/dL (8.4-10.2); Carbon Dioxide 29 mmol/L (22-32); Chloride 100 mmol/L (98-107); Estimated Glomerular Filt Rate > 60 mL/min (>60); Glucose 103 mg/dL (70-99); HEMOLYSIS < 15 (0-50); Magnesium 2.1 mg/dL (1.6-2.3); Potassium 3.7 mmol/L (3.4-5.1); Sodium 135 mmol/L (137-145)
[2025-03-14 08:00] VITALS: BP 176/84; PULSE 65; RESP 19; TEMP 36.1; O2SAT 100
[2025-03-14] MEDS: POTASSIUM CHLORIDE 10 MEQ TAB PO (08:19)
[2025-03-14] MEDS: FERROUS SULFATE 325 MG TABLET PO (08:19)
[2025-03-14] MEDS: FAMOTIDINE 20 MG TABLET PO (08:19)
[2025-03-14] MEDS: ASPIRIN EC 81 MG TABLET PO (08:20)
--- NOTE | 2025-03-14 08:23 | PM.DS.IH.1 ---
History of Present Illness History of Present Illness Date Patient Seen: 03/14/25 Time Patient Seen: 08:23 Chief complaint: ref from cardio, Afib [id number], BP 151/99 Narrative: 85-year-old female well known to me presented for echocardiography on day of admission found to be in atrial fibrillation with rapid ventricular response. She was sent to the emergency department where she was evaluated had a positive troponin at 0.186. She was rate controlled and admitted to the hospital. She continued to have a climbing troponin and after consultation over the phone with Dr. Silva, she was heparinized due to the rising troponin Patient has remained asymptomatic through all of this. Reason for echocardiography was lower extremity edema which is still present. Lab work done prior to the echo was essentially unremarkable, elevated TSH but normal T4 Overnight patient has had better controlled rate based on 12 lead ECG may well be in atrial flutter Patient has remained asymptomatic Still has lower extremity edema of course Discharge Providers Provider Date of admission: 03/12/25 18:59 Discharge Date: 03/14/25 Primary care physician: Vini Teresa MD Consults: 03/13/25 12:34 Consult to Pharmacy Routine Comment: fall risk Discharge provider: Vini Teresa MD Summary Hospital Course Discharge Diagnosis: 1. Atrial fibrillation with rapid ventricular response 2. Severe mitral regurgitation 3. Severe peripheral edema 4. Type 2 myocardial infarction 5. Hypertension 6. Hypothyroidism Hospital Course: As above patient was admitted to the hospital because of her rapid atrial fibrillation. She was given doses of IV diltiazem and eventually with this she converted back to a sinus rhythm with controlled rate. She did not appear to returned to atrial fibrillation during her hospitalization. The computer telemetry system did identify AFib that upon my review seems to be sinus rhythm rather than atrial fibrillation although frequent PACs were present She also had a bump in her troponin was initially heparinized because of this in the end however is felt as though this was more demand ischemia heparin was discontinued and plans were made for her to have an outpatient coronary angiogram. She was started on aspirin as an antiplatelet therapy because of this, and this will be in addition to her Eliquis which she has chronically been on because of her paroxysmal atrial fibrillation She was seen in consultation by Cardiology who reviewed her coronary ischemia as above as well as her severe mitral valve regurgitation. Plans were for an outpatient transesophageal echo to better characterize her mitral valve disease as well as coronary catheterization to better define her coronary anatomy to help in decision making for next steps She also had her diuretic switch to torsemide from furosemide to help with her lower extremity edema as well as improve her intravascular volume which hopefully will to some degree improve her mitral regurgitation. This was based on the recommendation from Cardiology as well Patient's metoprolol was doubled to help with rate control in the event of a returned to atrial fibrillation and help potentially to lower her risk of returned to rapid atrial fibrillation. She seemed to tolerate this during her hospitalization without difficulty she had of course slower heart rate with the higher dose metoprolol but not felt to be an active issue She had her thyroid checked prior to hospitalization and felt to be euthyroid not felt to be a contributing factor to her atrial fibrillation Status at Discharge Cognitive/behavioral status at discharge: at baseline, oriented Functional status at discharge: independent ambulation Overall status at discharge: patient is progressing back to baseline Time Spent with Patient Time spent: Greater than 30 minutes Exam Vital Signs (past 8 hours): - 03/14/25 05:00 Temperature 98.2 F Pulse Rate 49 L Respiratory Rate 18 Blood Pressure 157/57 H Pulse Oximetry 95 Oxygen Flow Rate 0 Oxygen Delivery Method Room Air Oxygen Flow Rate 0 Objective Labs 03/14/25 05:15 03/14/25 05:15 Labs: Laboratory Results - last 24 hr 03/13/25 03/14/25 12:11 05:15 Hgb 10.8 L Hct 31.9 L Plt Count 332 APTT 55 H D Sodium 135 L Potassium 3.7 Chloride 100 Carbon Dioxide 29 BUN 20 H Creatinine 0.86 Estimated GFR > 60 BUN/Creatinine Ratio 23.3 H Glucose 103 H Calcium 8.4 Magnesium 2.1 PFSH Medical History (Updated 03/13/25 @ 09:51 by Dane Silva MD) intermediate current use of anticoagulant Paroxysmal atrial fibrillation Syncope Simple adnexal cyst greater than 1 cm in diameter in postmenopausal patient Peripheral edema GERD (gastroesophageal reflux disease) Hypertension Hyperlipidemia Essential hypertension Mixed hyperlipidemia Acquired hypothyroidism Surgical History S/P bypass gastrojejunostomy (04/2023) H/O ventral hernia repair Social History marital status: number of children: 3 household members: children lives independently: Yes caregiver/support person: No housing: house pets and animals: No education level: high school occupational status: other Previous occupational history: [employer], [employer]: [employer] leisure activities: art and other Tobacco: How many years used: 10 Smokeless tobacco user: other quit status: quit date established second hand exposure: No alcohol intake: current substance use type: does not use additional social history: Family support present Discharge Assessment & Plan Assessment and Plan Plan of Treatment: Patient to continue on higher dose metoprolol and the torsemide with the addition of aspirin as an antiplatelet agent given her coronary issues Close follow up with primary care in 2 weeks Further follow-up regarding cardiac care as per Dr. Silva [facility] Cardiology Discharge Plan Discharge Plan Patient Disposition: Home Discharge orders & Medications Prescriptions: New aspirin 81 mg Tablet,Delayed Release (Dr/Ec) 81 mg PO DAILY Qty: 90 0RF torsemide 20 mg tablet 40 mg PO BID Qty: 360 3RF Continued multivitamin [Multiple Vitamins] 1 EACH tablet 1 tab PO QDAY Qty: 0 [RAJANI-C] 500 mg PO QDAY Qty: 0 levothyroxine 137 mcg tablet 137 mcg PO DAILY Qty: 90 3RF famotidine 40 mg tablet 40 mg PO BID Qty: 180 3RF Eliquis 5 mg tablet 5 mg PO BID Qty: 60 3RF ferrous sulfate 325 mg (65 mg iron) tablet 325 mg PO DAILY Qty: 90 0RF Rx Instructions: Take with vitamin C potassium chloride 10 mEq tablet,ER particles/crystals 10 meq PO DAILY acetaminophen [Tylenol] 325 mg capsule 650 mg PO QID PRN (Reason: pain) Qty: 60 0RF Changed metoprolol succinate 50 mg tablet extended release 24 hr 50 mg PO BID Qty: 180 3RF Discontinued furosemide 20 mg tablet 60 mg PO DAILY Qty: 360 3RF Follow up/Referrals: Dane Silva MD [Physician, Cardiology] - 1 Week Referral Note: Dr. Silva to contact patient with details Vini Teresa MD [Primary Care Provider, Internal Medicine] - 2 Weeks Discharge Health Status Multidrug resistant organism: No MDRO Diet/Activity/Treatments Diet: Diet as Tolerated and Low-sodium Visit Report/Discharge Packet Stand Alone Forms: [employer], Patient Portal/API, Stroke Signs & Symptoms, Influenza Vaccine Info, Notice of Privacy Practices, Inpatient vs Outpatient, Pneumococcal Vaccine Info, Pt. Rights & Responsibilities Discharge Data Primary Care Provider: Vini Teresa PROFEE Charge Codes Discharge inpatient/observation: [id number]
[2025-03-14 08:26] VITALS: BP 148/91; PULSE 83
[2025-03-14] MEDS: METOPROLOL ER 50 MG TABLET PO (08:26)
[2025-03-14] MEDS: APIXABAN 5 MG TABLET 2.5 MG PO (08:27)
[2025-03-14] MEDS: TORSEMIDE 10 MG TABLET 40 MG PO (08:37)
--- NOTE | 2025-03-14 11:41 | PC.NURSE ---
Patient is evaluated and cleared by MD Teresa at bedside this a.m.. for discharge home with family. She denies c/o pain,SOB, n/v or headache. 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 Patient's son arrives approximately 1030 and patient is escorted via w/ch to private vehicle with all of her belongings for discharge home at approximately 1045 a.m. today
--- NOTE | 2025-03-14 13:44 | CM.DANOTE ---
Initial DCP Assessment Visit Note Reviewed EMR and team rounds for pt's medical status and updates. This CORE FILER was unable to meet with pt at bedside prior to her d/c today due to triage needs on the unit. Pt resides mostly indendently with her spouse in their own home in [place]. Pt was medically cleared for home d/c today, and family were able to transport her home. No CM d/c assistance or resource needs were identified during her stay. Payor: [facility] PCP: Dr. Teresa Pt is a 85 year-old F with a hx of Agib, presented to the ED after being sent by her PCP for abnormal EKG, that showed Afib w/RVR. She received metoprolol and diltiazam with good benefit. Cardiology was consulted, who decided that pt did not need a cardioversion at this time. She did have rising troponins, so the plan was made to monitor for cardiac and troponin trending. Sent message to the TCM group that pt will need a f/u within 2-weeks with Dr. Teresa due to med changes made during her stay. 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 Teresa Insurance [facility] Advance Directives? Yes Advance Directives No on File History Provided By Patient,Family Member,Medical Record Prior Living House Arrangements Household Members children Type of Relies on Others transporation used prior to admit Independent with ADL Yes 's Is patient alert and Yes oriented? Caregiver for No Another Comment N?A Patient/Family Home with Home Health Preference Barriers to No Discharge Comment None identified at this time Discharge Plan Home Transportation Daughter Arrangement Referrals Initiated None needed Review Status In Process Please Provide Date 03/14/25 Initial DC Assessment Was Performed
== END 2025-03-14 10:45 | disposition home or self-care (01) | DRG 281 ==
LOC: ED 18:59 → AC 19:00
PROVIDERS: Admitting Provider Family Medicine; Emergency Provider Family Medicine; PCP Internal Medicine; Referring Provider Emergency Medicine; Visit Provider Internal Medicine
DX: I48.0 Paroxysmal atrial fibrillation (principal); I50.30 Unspecified diastolic (congestive) heart failure; I21.A1 Myocardial infarction type 2; I34.0 Nonrheumatic mitral (valve) insufficiency; Z87.19 Personal history of other diseases of the digestive system; E03.9 Hypothyroidism, unspecified; I11.0 Hypertensive heart disease with heart failure; I49.1 Atrial premature depolarization; Z79.890 Hormone replacement therapy; Z79.01 Long term (current) use of anticoagulants
CPT/HCPCS: 36415; 71045; 73562; 80048; 80053; 81003; 81015; 82550; 83690; 83735; 83880; 84439; 84443; 84484; 85014; 85018; 85025; 85049; 85610; 85730; 87077; 87086; 87186; 93005; 93010; 93306; 96374; 99284; 99285; A9270; J1644

== ENCOUNTER → 2025-03-21 10:55 | Outpatient (CLI) | payer MEDICARE, SELFPAY ==
[2025-03-12 21:50] VITALS: BMI 24.1
[2025-03-21 11:27] LABS: Blood Urea Nitrogen 66 mg/dL (7-17); Calcium 9.4 mg/dL (8.4-10.2); Carbon Dioxide 32 mmol/L (22-32); Chloride 91 mmol/L (98-107); Estimated Glomerular Filt Rate 26 mL/min (>60); Glucose 106 mg/dL (70-99); HEMOLYSIS < 15 (0-50); Potassium 4.0 mmol/L (3.4-5.1); Sodium 133 mmol/L (137-145)
[2025-03-21 11:45] LABS: Magnesium 2.6 mg/dL (1.6-2.3)
== END ==
PROVIDERS: PCP Internal Medicine; Referring Provider Internal Medicine; Visit Provider Internal Medicine
DX: I10 Essential (primary) hypertension (principal); I21.4 Non-ST elevation (NSTEMI) myocardial infarction; I48.91 Unspecified atrial fibrillation; I34.0 Nonrheumatic mitral (valve) insufficiency; R60.9 Edema, unspecified
CPT/HCPCS: 36415; 80048; 83735